=== PATIENT | female | born 1970 | race Caucasian/White ===

== ENCOUNTER 2020-09-28 04:45 | Emergency (ER) | payer MEDICAID, SELFPAY ==
--- NOTE | 2020-09-28 | XR_ITS ---
EXAMINATION: XR CHEST CLINICAL INFORMATION: Chest pain COMPARISON: 04/13/2019 TECHNIQUE: Frontal view of the chest was obtained. FINDINGS: Lung volumes are symmetric. No focal consolidation is seen. No evidence of pneumothorax or pleural effusion. There is suggestion of central peribronchial thickening. The cardiomediastinal contour is unremarkable. No acute osseous findings are seen. XR/XR chest 1V IMPRESSION: Suggestion of central peribronchial thickening which can be seen with airways disease. No focal consolidation.
[2020-09-28 04:54] VITALS: BP 140/77; PULSE 70; RESP 18; TEMP 38.7; O2SAT 95; BMI 26.7
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
--- NOTE | 2020-09-28 05:21 | ED.URI ---
HPI - URI/Sore Throat General Chief Complaint: Upper Respiratory Symptoms Stated Complaint: Chest pain/Cough Time Seen by Provider: 09/28/20 05:21 Source: patient, EMS and executive vice president of sales Mode of arrival: EMS Limitations: no limitations History of Present Illness HPI Narrative: This is a 49-year-old female who came in for evaluation of coughing, chest pain only with cough, fever, chills, body ache symptoms started 3 days ago. Patient just traveled from [facility] a week ago. Possible exposure to a sick Related Data Previous Rx's Medication Instructions Recorded albuterol sulfate [ProAir HFA] 1 inh INHALATION QID PRN #8.5 g 09/28/20 Allergies Allergy/AdvReac Type Severity Reaction Status Date / Time ibuprofen [From MOTRIN] AdvReac Intermediate ABDOMINAL Unverified 05/20/20 16:46 PAIN Motrin Allergy Unknown Uncoded 03/30/20 00:00 Review of Systems Review of Systems: All other systems are reviewed and are negative Constitutional: Reports as per HPI and Reports no additional constitutional complaints Eyes: Reports as per HPI and Reports no additional eye complaints Reports system reviewed and no additional complaints, except as documented Cardiovascular: Reports as per HPI and Reports no additional cardiovascular complaints Respiratory: Reports as per HPI and Reports no additional respiratory complaints Gastrointestinal: Reports as per HPI and Reports no additional gastrointestinal complaints Genitourinary: Reports no additional female genitourinary complaints Musculoskeletal: Reports no additional musculoskeletal complaints Skin/Breast: Reports system reviewed and no additional complaints, except as docu Psychiatric: Reports no additional psychiatric complaints Endocrine: Reports no additional endocrine complaints Hematologic/Lymphatic: Reports no additional hematologic/lymphatic complaints Allergic/Immunologic: Reports no additional allergic/immunologic complaints Reports system reviewed and no additional complaints, except as documented and Reports Abnormal speech present [facility] Social History Social History Advance Directives: No Advance Directives Information Provided: No Physical Exam Vital Signs: Vital Signs: Last Vital Signs Temp 101.7 F H 09/28/20 04:54 Pulse 70 09/28/20 04:54 Resp 18 09/28/20 04:54 BP 140/77 H 09/28/20 04:54 Pulse Ox 95 09/28/20 04:54 Body Mass Index 26.7 Vital signs have been reviewed as normal and appeared to be correct. Blood pressure on the high range. Heart rate normal. Respiration rate normal. Febrile l. Oxygen saturation normal. Appearance: Alert. Oriented X3. No acute distress. Head: Normal external exam. Normocephalic. Atraumatic. No Olea signs noted. No raccoon eyes noted Eyes: PERRLA. EOMI. Conjunctiva and sclera normal. Eyelids normal. ENT: EAC normal. TM's Normal. Pharynx normal. Uvula midline. Moist mucous membranes. No trismus noted. No drooling noted. No muffled voice noted. Neck: Normal inspection. Neck supple. FROM. No adenopathy. Thyroid Normal. No meningeal signs. No neck mass noted. CVS: Normal heart rate and rhythm. Heart sound normal. No murmurs noted. Pulses normal throughout. Respiratory: No respiratory distress. Painless inspiration. Breath sounds normal. No wheezes/rales/rhonchi noted. Chest nontender. No accessory muscle usage noted or decreased air movement noted. Abdomen: Soft and nontender. Bowel sounds normal in all 4 quadrants. No distention noted. No organomegaly noted. No visible injury noted. Back: No CVA tenderness. Full range of motion noted. Skin: Skin warm and dry. Normal skin color. Normal skin turgor. No rashes/lesions/lacerations noted. Extremities: No lower extremity edema. Extremities exhibit normal range of motion. Extremities nontender. Neuro: Oriented X 3. No motor deficit. No sensory deficit. Reflexes normal. MDM - URI/Sore Throat MDM Narrative Medical decision making narrative: Assessment and plan 49-year-old female with history of smoking, recent travel, possible exposure to COVID disease, presented with generalized body ache, fever, chills, difficulty breathing, coughing, patient tested positive for COVID, chest x-ray showing no focal infiltrate, will discharge the patient home with bronchodilator, using the executive vice president of sales I had a lengthy conversation with the patient patient need to stay home using social distancing, mask, frequent handwashing, stop smoking, return if worsening of symptoms, use Tylenol for fever. Negative x-ray, satting above 95% on room air patient stable to be discharged home. Lab Data Attestation: I reviewed the patient's lab results. Labs: Lab Results 09/28/20 Range/Units 05:20 COVID-19 (AIRAM) Positive A (Negative) COVID-19 Clin Com See Note Imaging Data Chest x-ray: Radiologist's impression: Suggestion of central peribronchial thickening which can be seen with airways disease. No focal consolidation. Discharge Plan Discharge Clinical Impression: COVID-19 Patient Disposition: Home, Self-Care Instructions: COVID-19 (Coronavirus Disease 2019) (ED) Additional Instructions: Please quarantine at home for the next 2 weeks, use social distancing, use face mask, frequent hand wash, stop smoking, use Tylenol 500 mg every 6 hours if needed for fever, return to the ED for worsening of the symptoms. Prescriptions: New albuterol sulfate [ProAir HFA] 90 mcg/actuation HFA aerosol inhaler 1 inh inhalation QID PRN (Reason: shortness of breath or wheezing) Qty: 8.5 RF: 0 Referrals: Physician,Unknown [Primary Care Provider] - 2 weeks
[2020-09-28 05:33] LABS: COVID-19 Test Positive (Negative)
--- NOTE | 2020-09-28 05:40 | PC.NURSE ---
COVID SWAB OBTAINED TO LAB. CXR OBTAINED. PT AWAITING FOR FURTHER ORDERS.
[2020-09-28] MEDS: Acetaminophen 325 MG TABLET 650 MG PO (05:46)
--- NOTE | 2020-09-28 05:52 | PC.NURSE ---
PT MEDICATED FOR FEVER PER EMAR.
== END 2020-09-28 06:31 | disposition home or self-care (01) ==
PROVIDERS: Emergency Provider Emergency Medicine
DX: U07.1 COVID-19 (principal)
CPT/HCPCS: 36415; 71045; 87635; 99283

== ENCOUNTER 2020-12-25 10:54 | Emergency (ER) | payer MEDICAID, SELFPAY ==
--- NOTE | ~2020-12-25 | XR_ITS ---
EXAMINATION: XR FOOT, LEFT CLINICAL INFORMATION: Left foot pain. COMPARISON: None TECHNIQUE: AP, lateral, and oblique views of the left foot. FINDINGS: There is no acute fracture or dislocation. The tarsal bones are normally aligned. An incidental type II accessory navicular bone is noted. The soft tissues are unremarkable. XR/XR foot LT min 3V IMPRESSION: No acute left foot abnormality.
[2020-12-25 11:10] VITALS: BP 150/74; PULSE 63; RESP 16; TEMP 36.8; O2SAT 98; BMI 30.4
[2020-12-25] MEDS: Acetaminophen 325 MG TABLET 650 MG PO (11:54)
--- NOTE | 2020-12-25 11:56 | PC.NURSE ---
Pt medicated for pain. Awaiting results of x-rays. Pt is resting quietly.
--- NOTE | 2020-12-25 12:32 | ED_ITS ---
HPI - Extremity Problem General Chief complaint: Extremity Problem Stated complaint: left foot pain Time Seen by Provider: 12/25/20 11:20 Source: patient Mode of arrival: ambulatory Limitations: no limitations History of Present Illness HPI Narrative: States pain and prominence over the dorsum of the left foot. Sta yaakov has had this for a long time and feels like it is getting slightly finger. Complaint: extremity pain Onset (ago): unknown Pain Consistency: intermittent Location: left Quality: aching Radiation: none Relieving factors: cold therapy Exacerbating factors: other (When she wears flip user tied tight and presses on this) Associated symptoms: denies other symptoms Related Data Previous Rx's Medication Instructions Recorded albuterol sulfate [ProAir HFA] 1 inh INHALATION QID PRN #8.5 g 09/28/20 Allergies Allergy/AdvReac Type Severity Reaction Status Date / Time ibuprofen [From MOTRIN] AdvReac Intermediate ABDOMINAL Unverified 05/20/20 16:46 PAIN Review of Systems Review of Systems: Constitutional: No Weight loss, No Fever, No Chills, No Night Sweats, No Fatigue, No Malaise ENT/Mouth: No Hearing loss, No Ear Pain, No Nasal Congestion, No Sinus Pain, No Hoarseness, No sore throat, No Rhinorrhea, No Swallowing Difficulty Eyes: No Eye Pain, No Swelling, No Redness, No Foreign Body, No Discharge, No Vision Changes Cardiovascular: No Chest Pain, No SOB, No Dyspnea on Exertion, No Orthopnea, No Edema, No Palpitations Respiratory: No Cough, No Sputum, No Wheezing, No Smoke Exposure, No Dyspnea Gastrointestinal: No Nausea, No Vomiting, No Diarrhea, No Constipation, No abdominal Pain, No Hematochezia, No Melena Genitourinary: no irregular bleeding, No Dysuria, No Urinary Frequency, No Hematuria, No Urinary Incontinence, No Urgency, No Flank Pain, No Urinary Flow Changes, No Hesitancy Musculoskeletal: No joint pain, No Myalgias, No Joint Swelling, as if HPI Skin: No Skin Lesions, No rash Neuro: No Weakness, No Numbness, No Paresthesias, No Loss of Consciousness, No Dizziness, No Headache Psych: No Social Issues Heme/Lymph: No Bruising, No Bleeding,No Lymphadenopathy Endocrine: No Polyuria, No Polydipsia, No Temperature Intolerance Yes all other systems are reviewed and are negative PMFSH Past Medical History Medical History H/O gastric ulcer H/O gastritis Hyperthyroidism Social History Social History Advance Directives: No Advance Directives Information Provided: No Physical Exam Vital Signs: Vital Signs: Last Vital Signs Temp 98.2 F 12/25/20 11:10 Pulse 63 12/25/20 11:10 Resp 16 12/25/20 11:10 BP 150/74 H 12/25/20 11:10 Pulse Ox 98 12/25/20 11:10 Body Mass Index 30.4 Reviewed Const: General: cooperative and healthy appearing; No acute distress or intoxicated appearing Nutritional Appearance: average body habitus Orientation/consciousness: patient oriented x3 Resp: Effort & Inspection: normal respiratory effort Skin: General skin exam: no rashes or lesions noted Neuro: General: patient oriented x3 Extrem: General: Yes normal to inspection Ankle/foot/toe images: 1. Slightly more prominent compared to the right. Othe rwise no erythema, of his injury. Neurovascular intact. Cap refill within normal limits. Ankle joint without acute findings. Course Course Course Narrative: AP and exam consistent with small ganglionic cyst. Supportive care for this, follow-up, return instructions provided. X-ray of left foot without acute findings. MDM - Extremity (Nontraumatic) Imaging Data Left foot: Radiologist's impression: [address] [id number] ReportSigned Patient: Sixto [place]#: [id number]: 1970Acct:[id number]/Sex: 50 / FADM Date: 12/25/20Loc: HO.EDAttending Dr: Ordering Physician: Reji Márquez NP Date of Service: 12/25/20 Procedure(s): XR foot LT min 3V Accession Number(s): [id number] cc: Reji Márquez NP~ EXAMINATION: XR FOOT, LEFT CLINICAL INFORMATION: Left foot pain. COMPARISON: None TECHNIQUE: AP, lateral, and oblique views of the left foot. FINDINGS: There is no acute fracture or dislocation. The tarsal bones are normally aligned. An incidental type II accessory navicular bone is noted. The soft tissues are unremarkable. XR/XR foot LT min 3V IMPRESSION: No acute left foot abnormality. Dictated By:DAYANA SANTIAGO MDSigned By:<Electronically signed by DAYANA SANTIAGO MD in OV>12/25/20 1214 DD/ 1124TD/TT: Credit Risk Manager: GR Discharge Plan Discharge Clinical Impression: Ganglion cyst of foot Patient Disposition: Home, Self-Care Instructions: Ganglion Cysts (ED) Additional Instructions: Supportive care instructed Follow-up as instructed Return if any concerns or symptoms Home care as instructed Thank you Prescriptions: No Action albuterol sulfate [ProAir HFA] 90 mcg/actuation HFA aerosol inhaler 1 inh inhalation QID PRN (Reason: shortness of breath or wheezing) Qty: 8.5 RF: 0 Referrals: Gretta Espinoza MD [Physician] - 2 weeks (As needed )
--- NOTE | 2020-12-25 13:16 | PC.NURSE ---
Left foot wrapped with owen wrap for comfort. Pt educated on use of owen wrap with the glycerin operator.
== END 2020-12-25 13:17 | disposition home or self-care (01) ==
PROVIDERS: Emergency Provider Emergency Medicine; PCP Internal Medicine
DX: M67.472 Ganglion, left ankle and foot (principal); M79.672 Pain in left foot; Z86.16 Personal history of COVID-19
CPT/HCPCS: 73630; 99283; 99284

== ENCOUNTER 2021-04-12 03:06 | Emergency (ER) | payer MEDICAID, SELFPAY ==
--- NOTE | 2021-04-12 | ECG_ITS ---
Test Reason : CHEST PAIN Blood Pressure : / mmHG Vent. Rate : 056 BPM Atrial Rate : 056 BPM P-R Int : 158 ms QRS Dur : 082 ms QT Int : 404 ms P-R-T Axes : 011 059 -28 degrees QTc Int : 389 ms Sinus bradycardia T wave abnormality, consider lateral ischemia Abnormal ECG When compared with ECG of 12-OCT-2019 21:32, Criteria for Anterolateral infarct are no longer Present Referred By: Korey Redman Electronically Signed By:JOSE MANUEL ESTRELLA MD
[2021-04-12 03:33] VITALS: BP 129/75; PULSE 54; RESP 10; TEMP 37; O2SAT 98; BMI 28.3
[2021-04-12 03:47] VITALS: PULSE 54
== END 2021-04-12 05:08 | disposition left against medical advice (07) ==
PROVIDERS: Emergency Provider Emergency Medicine
DX: R07.9 Chest pain, unspecified (principal); R06.02 Shortness of breath
CPT/HCPCS: 93005; 99283; 99284

== ENCOUNTER 2021-06-07 13:38 | Emergency (ER) | payer MEDICAID, SELFPAY ==
[2021-06-07 14:31] VITALS: BP 115/69; PULSE 57; RESP 18; TEMP 36.8; O2SAT 98; BMI 27.9
--- NOTE | 2021-06-07 17:28 | ED_ITS ---
HPI - URI/Sore Throat General Chief Complaint: Upper Respiratory Symptoms Stated Complaint: sore throat, fever, headache, chest pain Time Seen by Provider: 06/07/21 17:28 Source: patient Mode of arrival: ambulatory Limitations: no limitations History of Present Illness HPI Narrative: Patient history of asthma complaining of sore throat for last few days also complaining of left-sided chest pain in his left arm for last 3 weeks off and on no known history of coronary arteries with no shortness of breath no cough no fever or chills patient already been vaccinated with COVID Related Data Previous Rx's Medication Instructions Recorded albuterol sulfate 90 mcg/actuation 1 inh INHALATION QID PRN #8.5 g 09/28/20 aerosol inhaler (ProAir HFA) amoxicillin 875 mg-potassium 1 tab PO BID #20 tab 06/07/21 clavulanate 125 mg tablet (Augmentin) Allergies Allergy/AdvReac Type Severity Reaction Status Date / Time ibuprofen [From MOTRIN] AdvReac Intermediate ABDOMINAL Verified 06/07/21 14:31 PAIN Review of Systems Review of Systems: Yes all other systems are reviewed and are negative [facility] Past Medical History Medical History H/O gastric ulcer H/O gastritis Hyperthyroidism Social History Social History Alcohol intake: never Patient Tobacco Use Status: Current everyday Tobacco user Advance Directives: No Advance Directives Information Provided: No Physical Exam Vital Signs: Vital Signs: Last Vital Signs Temp 98.2 F 06/07/21 18:04 Pulse 49 L 06/07/21 18:04 Resp 14 06/07/21 18:04 BP 123/64 06/07/21 18:04 Pulse Ox 97 06/07/21 18:04 Body Mass Index 27.9 Appearance: Alert. Oriented X3. No acute distress. Eyes: No pallor or icterus ENT: Inflamed posterior pharynx Oral Mucosa moist Neck: Normal inspection. Neck supple. CVS: Normal heart rate and rhythm. Pulses normal. Respiratory: No respiratory distress. Equal air entry bilateral, no wheezing/rales/rhonchi Abdomen: Soft and nontender. Bowel sounds are present, no mass palpable, Skin: Skin warm and dry. Normal skin color. Normal skin turgor. Extremities: No lower extremity edema. No calf tenderness Neuro: Oriented X 3. MDM - URI/Sore Throat MDM Narrative Medical decision making narrative: Patient has atypical chest pain for 3 weeks without any significant increase in the troponin pain is elicitable on palpation to the left chest no acute ischemic changes EKG high sensitive troponin is negative for acute ischemia will discharge patient home on Augmentin for acute pharyngitis advised to follow with PCP Lab Data Attestation: I reviewed the patient's lab results. Labs: Lab Results 06/07/21 Range/Units 18:09 Troponin I High Sens 8.4 (<3.5-17.0) ng/L ECG Data Attestation: I personally reviewed and interpreted this ECG as follows: Interpretation: Sinus bradycardia heart rate 49 beats per minute normal intervals no acute ST T wave changes nonspecific T-wave changes no acute ischemia Discharge Plan Discharge Clinical Impression: Pharyngitis Qualifiers: Pharyngitis/tonsillitis etiology: other specified organisms Qualified Code(s): J02.8 - Acute pharyngitis due to other specified organisms Patient Disposition: Home, Self-Care Instructions: Pharyngitis (ED) Additional Instructions: Take antibiotic as prescribed Follow with PCP if not better Follow with PCP for further evaluation for chest pain [place] antibi?didi seg?n lo prescrito Siga [place] PCP si no mejora [place] PCP para david evaluaci?n adicional del dolor en el [facility]. Prescriptions: New amoxicillin-pot clavulanate [Augmentin] 875-125 mg tablet 1 tab PO BID Qty: 20 RF: 0 No Action albuterol sulfate [ProAir HFA] 90 mcg/actuation HFA aerosol inhaler 1 inh inhalation QID PRN (Reason: shortness of breath or wheezing) Qty: 8.5 RF: 0 Print Language: Turkmen
--- NOTE | 2021-06-07 17:45 | PC.NURSE ---
pt alert and oriented, vss. pt c/o sore throat that started a few days ago, she also c/o left sided chest pain that has been on and off for about 3 weeks. pt has history of asthma. no c/o sob, no cough, no fever or chills. pt states she knows there is an infection in her throat because that is how she feels whenever she has a throat infection. No other c/o.
--- NOTE | 2021-06-07 17:48 | ECG_ITS ---
Test Reason : SOB Blood Pressure : / mmHG Vent. Rate : 049 BPM Atrial Rate : 049 BPM P-R Int : 156 ms QRS Dur : 080 ms QT Int : 446 ms P-R-T Axes : 015 068 -02 degrees QTc Int : 402 ms Sinus bradycardia T wave abnormality, consider anterior ischemia T wave abnormality, consider inferolateral ischemia Abnormal ECG When compared with ECG of 12-APR-2021 03:22, No significant change was found Referred By: Sae Conley Electronically Signed By:JASWINDER HUDSON
[2021-06-07 18:04] VITALS: BP 123/64; PULSE 49; RESP 14; TEMP 36.8; O2SAT 97
[2021-06-07] MEDS: Amoxicillin/Potassium Clav 875 MG TABLET PO (18:04)
[2021-06-07 18:36] LABS: Troponin-I High Sensitivity 8.4 ng/L (<3.5-17.0)
== END 2021-06-07 19:07 | disposition home or self-care (01) ==
PROVIDERS: Emergency Provider Internal Medicine
DX: J02.8 Acute pharyngitis due to other specified organisms (principal); R50.9 Fever, unspecified; R51.9 Headache, unspecified; R07.9 Chest pain, unspecified; Z20.822 Contact with and (suspected) exposure to COVID-19
CPT/HCPCS: 36415; 84484; 93005; 99283

== ENCOUNTER 2021-06-27 17:34 | Emergency (ER) | payer MEDICAID, SELFPAY ==
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
[2021-06-27 17:54] VITALS: BP 160/99; PULSE 78; O2SAT 100
[2021-06-27 18:35] VITALS: BP 135/86; PULSE 69; RESP 16; TEMP 36.8; O2SAT 99; BMI 28.3
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
[2021-06-27] MEDS: oxyCODONE HCl Immed Release 5 MG TABLET 10 MG PO (20:12)
== END 2021-06-27 20:40 | disposition home or self-care (01) ==
PROVIDERS: Emergency Provider Internal Medicine
DX: S90.02XA Contusion of left ankle, initial encounter (principal); V89.2XXA Person injured in unspecified motor-vehicle accident, traffic, initial encounter; Y93.9 Activity, unspecified; Y92.410 Unspecified street and highway as the place of occurrence of the external cause; Y99.9 Unspecified external cause status
CPT/HCPCS: 73600; 99283; 99284

== ENCOUNTER 2021-08-08 10:11 | Emergency (ER) | payer MEDICAID, SELFPAY ==
--- NOTE | ~2021-08-08 | XR_ITS ---
EXAMINATION: XR CHEST CLINICAL INFORMATION: Cough. COMPARISON: Chest 09/28/2020 TECHNIQUE: 2 views of the chest were obtained. FINDINGS: No significant abnormality is noted involving the heart, lungs, mediastinum, bony thorax or soft tissues. XR/XR chest 2V IMPRESSION: Unremarkable chest examination.
[2021-08-08 10:36] VITALS: BP 118/78; PULSE 80; RESP 16; TEMP 36.8; O2SAT 98; BMI 28.3
[2021-08-08 11:03] LABS: IDNOW Serial# 08D9AD1C; Strep A Nucleic Acid Negative (Negative)
[2021-08-08 11:09] LABS: COVID-19 Test Negative (Negative)
--- NOTE | 2021-08-08 13:30 | ED_ITS ---
HPI - URI/Sore Throat General Chief Complaint: Upper Respiratory Symptoms Stated Complaint: Chest pain/SOB Time Seen by Provider: 08/08/21 13:30 Source: patient Mode of arrival: ambulatory Limitations: no limitations History of Present Illness HPI Narrative: 1 week of feeling sick with cough. patient had COVID and then was vaccinated, now with COVID again. MD elicited complaint: cough Onset (ago): week(s) Consistency: constant Severity: mild Exacerbating factors: nothing Relieving factors: nothing Associated symptoms: cough Related Data Previous Rx's Medication Instructions Recorded albuterol sulfate 90 mcg/actuation 1 inh INHALATION QID PRN #8.5 g 09/28/20 aerosol inhaler (ProAir HFA) amoxicillin 875 mg-potassium 1 tab PO BID #20 tab 06/07/21 clavulanate 125 mg tablet (Augmentin) oxycodone 5 mg tablet 5 mg PO Q6H PRN #20 tab 06/27/21 moycckhdjpiqi-ZK-hkxqhxozajv 2.5 20 ml PO Q4H PRN #118 ml 08/08/21 mg-5 mg-50 mg/5 mL oral liquid (Robitussin Cough and Cold CF) Allergies Allergy/AdvReac Type Severity Reaction Status Date / Time ibuprofen [From MOTRIN] AdvReac Intermediate ABDOMINAL Verified 06/07/21 14:31 PAIN Review of Systems Constitutional: Constitutional: Reports no additional constitutional compla ints Eyes: Eyes: Reports no additional eye complaints ENT: Denies dizziness Cardiovascular: Cardiovascular: Reports no additional cardiovascular complaints Respiratory: Respiratory: Reports as per HPI Gastrointestinal: Gastrointestinal: Reports no additional gastrointestinal complaints Genitourinary: Genitourinary: Reports no additional female genitourinary complaints Musculoskeletal: Musculoskeletal: Reports no additional musculoskeletal com plaints Integumentary/Breasts: Skin/Breast: Denies rash Neurologic: Reports system reviewed and no additional complaints, except as documented, Denies dizziness and Denies Sensory deficit (Neuro) Psychiatric: Psychiatric: Denies anxiety [facility] Past Medical History Medical History H/O gastric ulcer H/O gastritis Hyperthyroidism Social History Social History Alcohol intake: never Patient Tobacco Use Status: Current everyday Tobacco user Physical Exam Vital Signs: Vital Signs: Last Vital Signs Temp 98.3 F 08/08/21 10:36 Pulse 80 08/08/21 10:36 Resp 16 08/08/21 10:36 BP 118/78 08/08/21 10:36 Pulse Ox 98 08/08/21 10:36 BMI result Body Mass Index 28.3 Const: General: healthy appearing Nutritional Appearance: average body habitus Orientation/consciousness: oriented to person and patient oriented x3 Limitations: no limitations HENMT: Head: Yes normal to inspection Ears: external ears normal General nose exam: Normal external nose present Mouth: Normal oral and palatal mucosa present and oropharynx normal Throat: Yes posterior oropharynx normal Eyes: General: appearance normal, both eyes and all related structures Neck: Other: supple Neck: Yes normal visual inspection Chest: Chest palpation & inspection: normal inspection of the chest Resp: Auscultation: clear to auscultation bilaterally Cardio: Jugular venous distension: no JVD Rate: regular rate Rhythm: regular rhythm Heart sounds: S1 normal heart sound present and S2 normal heart sound present GI: Inspection: Yes normal to inspection Palpation (GI): Soft to palpation, nontender and No hepatosplenomegaly present Auscultation: normal bowel sounds : General: Yes no CVA tenderness Back/Spine/Pelvis: Back: no CVA tenderness Skin: General skin exam: no rashes or lesions noted Neuro: General: oriented to person and patient oriented x3 Cranial nerves: Yes CN's II-XII intact bilaterally Motor exam (neuro): 5/5 motor strength present throughout Sensory Exam: No Sensory deficit (Neuro) Extrem: General: Yes normal to inspection Psych: Appearance: grossly normal Course Reevaluation(s) Reevaluation #1: Patient looking well, normal vitals will dc home Time: 13:47 MDM - URI/Sore Throat Lab Data Labs: Lab Results 08/08/21 08/08/21 Range/Units 10:42 10:42 COVID-19 (AIRAM) Negative (Negative) COVID-19 Clin Com See Note S. pyogenes GrpA TREVOR Negative (Negative) Imaging Data Chest x-ray: Radiologist's impression: FINDINGS: No significant abnormality is noted involving the heart, lungs, mediastinum, bony thorax or soft tissues. XR/XR chest 2V IMPRESSION: Unremarkable chest examination. Discharge Plan Discharge Clinical Impression: COVID-19, Upper respiratory infection Patient Disposition: Home, Self-Care Instructions: COVID-19 (Coronavirus Disease 2019) (ED) Prescriptions: New Robitussin Cough and Cold CF 2.5-5-50 mg/5 mL liquid 20 ml PO Q4H PRN (Reason: cough) Qty: 118 RF: 0 No Action albuterol sulfate [ProAir HFA] 90 mcg/actuation HFA aerosol inhaler 1 inh inhalation QID PRN (Reason: shortness of breath or wheezing) Qty: 8.5 RF: 0 amoxicillin-pot clavulanate [Augmentin] 875-125 mg tablet 1 tab PO BID Qty: 20 RF: 0 oxycodone 5 mg tablet 5 mg PO Q6H PRN (Reason: Pain, Severe) Qty: 20 RF: 0 Referrals: Physician,Unknown J [Primary Care Provider] - 1 week
== END 2021-08-08 13:56 | disposition home or self-care (01) ==
LOC: HO.ED 13:51
PROVIDERS: Emergency Provider Emergency Medicine
DX: U07.1 COVID-19 (principal); J06.9 Acute upper respiratory infection, unspecified; R06.02 Shortness of breath; F17.200 Nicotine dependence, unspecified, uncomplicated
CPT/HCPCS: 36415; 71046; 87635; 87651; 99283

== ENCOUNTER 2021-08-12 13:22 | Outpatient (REF) | payer MEDICAID, SELFPAY | END 2021-08-12 13:23 | disposition home or self-care (01) | LOC: HO.LAB 13:22 | PROVIDERS: Visit Provider Internal Medicine | DX: Z20.822 Contact with and (suspected) exposure to COVID-19 (principal) | CPT/HCPCS: C9803; U0003; U0005 ==

== ENCOUNTER 2021-10-26 15:28 | Outpatient (REF) | payer MEDICAID, SELFPAY ==
--- NOTE | ~2021-10-26 | US_ITS ---
EXAMINATION: US THYROID CLINICAL INFORMATION: Hypothyroidism COMPARISON: None TECHNIQUE: Linear transducer grayscale and color Doppler examination with attention to the region of the thyroid. FINDINGS: SIZE: Measurements of the thyroid lobes and nodules are given in sagittal, anteroposterior and transverse dimensions respectively. Right Thyroid Lobe: 3.1 x 1.5 x 1.7 cm, volume 4.0 mL. Parenchyma: The gland echotexture is very heterogeneous. Thyroid vascularity is normal. The contour is lobulated. Left Thyroid Lobe: 3.2 x 1.3 x 1.4 cm, volume 3.0 mL. Parenchyma: The gland echotexture is very heterogeneous. Thyroid vascularity is normal. The contour is lobulated. Isthmus: 0.1 cm in maximum AP dimension. It is difficult to exclude a focal nodule. NODES: There is question of small lymph nodes versus lobulated contour adjacent to the inferior left lobe. There is a more lateral left cervical lymph node that is normal in size and demonstrate normal ultrasound morphology and flow. This measures 1.8 x 0.4 x 1 cm in sagittal AP and transverse dimension. US/US thyroid IMPRESSION: Small lobulated very heterogeneous thyroid gland. It is difficult to exclude a focal nodule. Question small lymph nodes adjacent to the left lobe versus lobulated contour. Comparison with old outside imaging if available is recommended. ACR TI-RADS RECOMMENDATION REFERENCE: Ultrasound-guided fine-needle aspiration, followup ultrasound, no further follow up. * TR1 (0 point) and TR 2 (2 points): No FNA or follow up * TR3 (3 points): FNA if more than or equal to 2.5 cm in maximum dimension, followup ultrasound in 1, 3 and 5 years if 1.5 to 2.4 cm in maximum dimension. * TR4 (4-6 points): FNA if more than or equal to 1.5 cm in maximum dimension, followup ultrasound in 1, 2, 3 and 5 years if 1 to 1.4 cm in maximum dimension. * TR5 (more than or equal to 7 points): FNA if more than or equal to 1 cm in maximum dimension, followup ultrasound every year for 5 years if 0.5 to 0.9 cm in maximum dimension. * TR3, TR4 or TR5 nodules that are below the size threshold for follow up receive no follow up.
== END 2021-10-26 15:29 | disposition home or self-care (01) ==
LOC: HO.US 15:28
PROVIDERS: Visit Provider Internal Medicine
DX: E03.9 Hypothyroidism, unspecified (principal)
CPT/HCPCS: 76536

== ENCOUNTER 2021-11-11 15:33 | Emergency (ER) | payer MEDICAID, SELFPAY ==
--- NOTE | ~2021-11-11 | XR_ITS ---
EXAMINATION: PORTABLE CHEST 1 VIEW CLINICAL INFORMATION: CP . COMPARISON: . TECHNIQUE: Portable frontal view of the chest was obtained. FINDINGS: Lungs well-expanded. Peribronchial cuffing is seen bilaterally with mild perihilar reticular markings seen. Reactive or small airways disease could have this appearance viral or atypical infectious etiology cannot be excluded. Clinical correlation and follow-up may be helpful. Cardiac silhouette remains prominent. No acute bony abnormality. XR/XR chest 1V IMPRESSION: Peribronchial cuffing with mild perihilar reticular markings could be due to underlying reactive or small airways disease. Bronchitis or viral infectious etiology could have overlapping appearance and should be clinically correlated.
[2021-11-11 15:49] VITALS: BP 134/70; PULSE 62; RESP 16; TEMP 36.8; O2SAT 98; BMI 27.4
--- NOTE | 2021-11-11 19:09 | ECG_ITS ---
Test Reason : CHEST PAIN Blood Pressure : / mmHG Vent. Rate : 052 BPM Atrial Rate : 052 BPM P-R Int : 164 ms QRS Dur : 078 ms QT Int : 422 ms P-R-T Axes : 012 058 266 degrees QTc Int : 392 ms Sinus bradycardia with sinus arrhythmia Low voltage QRS T wave abnormality, consider inferior ischemia T wave abnormality, consider anterolateral ischemia Abnormal ECG When compared with ECG of 07-JUN-2021 17:58, T wave inversion more evident in Inferior leads Inverted T waves have replaced nonspecific T wave abnormality in Lateral leads Referred By: Generic ED Physician Electronically Signed By:JOSE MANUEL ESTRELLA MD
--- NOTE | 2021-11-11 19:33 | PC.NURSE ---
called for labs and ekg no answer
[2021-11-11 20:07] LABS: MANUAL DIFF FLAG NO
[2021-11-11 20:08] LABS: Basophils Absolute Auto 0.1 X10*3/uL (0.0-0.2); Basophils Percent Auto 0.6 % (0-2); Eosinophils Absolute Auto 0.4 X10*3/uL (0.0-0.4); Eosinophils Percent Auto 3.1 % (0-4); Hemoglobin 14.6 g/dl (12.0-16.0); Imm Gran Abs Auto 0.05 X10*3/uL (0.00-0.03); Imm Gran Pct Auto 0.4 % (0.0-0.4); Lymphocytes Absolute Auto 3.8 X10*3/uL (1.2-4.9); Lymphocytes Percent Auto 31.7 % (20-40); Mean Corpuscular HGB Conc 33.2 g/dl (31.0-35.0); Mean Corpuscular Hemoglobin 30.7 pg (27.0-33.0); Mean Corpuscular Volume 92.4 fL (80.0-98.0); Mean Platelet Volume 11.2 fL (9.4-12.3); Monocytes Absolute Auto 0.8 X10*3/uL (0.1-1.2); Monocytes Percent Auto 6.8 % (2-11); Neutrophils Percent Auto 57.4 % (45-73); Platelet Count 260 X10*3/uL (160-400); Red Blood Count 4.76 X10*6/uL (4.20-5.50); Red Cell Distribution Width 13.8 % (11.0-16.0); White Blood Count 12.1 X10*3/uL (4.8-10.8)
[2021-11-11 20:30] LABS: Anion Gap 11 (12-20); Blood Urea Nitrogen 16 mg/dL (9-16); Calcium 9.6 mg/dL (8.4-10.2); Carbon Dioxide 29 mmol/L (22-29); Chloride 106 mmol/L (96-108); Creatinine Clr Calc Pharmacy 65.4; Estimated Glomerular Filt Rate 56; Glucose Random 85 mg/dL (60-115); Potassium 3.9 mmol/L (3.3-5.1); Sodium 142 mmol/L (135-145)
[2021-11-11 20:36] LABS: Troponin-I High Sensitivity 9.7 ng/L (<3.5-17.0)
[2021-11-11 22:08] VITALS: BP 137/76; PULSE 55; RESP 16; TEMP 36.9; O2SAT 95
--- NOTE | 2021-11-11 22:39 | PC.NURSE ---
initial contact. pt reports sharp pain in lateral aspect of left breast. Pt states this pain radiates to the center of the chest. She states occasional palpitations. Pt states it feels like chest pressure. Pt states she also gets right arm pain and numbness when she sleeps. Pupils perrl, Ls clear, pt sinus alen on the monitor. pt ambulates with a steady gait. denies any other complaints. Interp used for assessment
--- NOTE | 2021-11-11 22:49 | ED.CHESTPAIN ---
HPI - Chest Pain General Chief Complaint: Chest Pain Stated Complaint: chest pain Time Seen by Provider: 11/11/21 20:05 Source: patient Mode of arrival: ambulatory Limitations: no limitations History of Present Illness HPI narrative: patient comes emergency room complaining of left-sided chest pain and shoulder pain for 1 week. patient states the pain is constant, nonradiating. Patient denies any injury. It to arrival, EMS gave the patient 1 dose of aspirin 324 mg. Patient denies shortness of breath. Related Data Previous Rx's Medication Instructions Recorded albuterol sulfate 90 mcg/actuation 1 inh INHALATION QID PRN #8.5 g 09/28/20 aerosol inhaler (ProAir HFA) amoxicillin 875 mg-potassium 1 tab PO BID #20 tab 06/07/21 clavulanate 125 mg tablet (Augmentin) oxycodone 5 mg tablet 5 mg PO Q6H PRN #20 tab 06/27/21 vumpbazoekjhp-RL-debwsqcesjg 2.5 20 ml PO Q4H PRN #118 ml 08/08/21 mg-5 mg-50 mg/5 mL oral liquid (Robitussin Cough and Cold CF) Allergies Allergy/AdvReac Type Severity Reaction Status Date / Time ibuprofen [From MOTRIN] AdvReac Intermediate ABDOMINAL Verified 06/07/21 14:31 PAIN Review of Systems Review of Systems: Constitutional : No Weight loss, No Fever, No Chills, No Night Sweats, No Fatigue, No Malaise ENT/Mouth : No Hearing loss, No Ear Pain, No Nasal Congestion, No Sinus Pain, No Hoarseness, No sore throat, No Rhinorrhea, No Swallowing Difficulty Eyes: No Eye Pain, No Swelling, No Redness, No Foreign Body, No Discharge, No Vision Changes Cardiovascular : Complaining of constant chest pain for 7 days, No SOB, No Dyspnea on Exertion, No Orthopnea, No Edema, No Palpitations Respiratory : No Cough, No Sputum, No Wheezing, No Smoke Exposure, No Dyspnea Gastrointestinal : No Nausea, No Vomiting, No Diarrhea, No Constipation, No abdominal Pain, No Hematochezia, No Melena Genitourinary : no irregular bleeding, No Dysuria, No Urinary Frequency, No Hematuria, No Urinary Incontinence, No Urgency, No Flank Pain, No Urinary Flow Changes, No Hesitancy Musculoskeletal : No joint pain, No Myalgias, No Joint Swelling Skin : No Skin Lesions, No rash Neuro : No Weakness, No Numbness, No Paresthesias, No Loss of Consciousness, No Dizziness, No Headache Psych : No Anxiety/Panic, No Depression, No SI/HI/AH/VH, No Social Issues, Heme/Lymph: No Bruising, No Bleeding,No Lymphadenopathy Endocrine : No Polyuria, No Polydipsia, No Temperature Intolerance PMFSH Past Medical History Medical History H/O gastric ulcer H/O gastritis Hyperthyroidism Social History Social History Alcohol intake: never Patient Tobacco Use Status: Current everyday Tobacco user Advance Directives: No Advance Directives Information Provided: Yes Physical Exam Vital Signs: Vital Signs: Last Vital Signs Temp 98.5 F 11/11/21 22:08 Pulse 55 11/11/21 22:08 Resp 16 11/11/21 22:08 BP 137/76 11/11/21 22:08 Pulse Ox 95 11/11/21 22:08 BMI result Body Mass Index 27.4 Const: Other: Appearance: Alert. Oriented X3. No acute distress. Eyes: Pupils equal, round and reactive to light. ENT: Pharynx normal. Neck: Normal inspection. Neck supple. No lymph nodes noted. No crepitus CVS: Normal heart rate and rhythm. Pulses normal. Normal S1 and S2, reproducible chest pain on palpation on the left side Respiratory: No respiratory distress. Breath sounds normal. No Wheezing. No rales Abdomen: Soft and nontender. No rigidity. No distention. good BS x4 Skin: Skin warm and dry. Normal skin color. Normal skin turgor. Extremities: No lower extremity edema. No Lacerations. No Rash Neuro: Oriented X 3. No motor deficit. No sensory deficit. Moving all extermities. No slurred speech. CN 2 through 12 grossly intact Course Course Course Narrative: I discussed the labs and imaging with the patient, no acute findings, troponin is at baseline. Pain likely musculoskeletal MDM - Chest Pain Lab Data Result diagrams: 11/11/21 20:02 11/11/21 20:02 Labs: Lab Results 11/11/21 11/11/21 11/11/21 Range/Units 20:02 20:02 20:02 WBC 12.1 H (4.8-10.8) X10*3/uL RBC 4.76 (4.20-5.50) X10*6/uL Hgb 14.6 (12.0-16.0) g/dl Hct 44.0 (37.0-47.0) % MCV 92.4 (80.0-98.0) fL MCH 30.7 (27.0-33.0) pg MCHC 33.2 (31.0-35.0) g/dl RDW 13.8 (11.0-16.0) % Plt Count 260 (160-400) X10*3/uL MPV 11.2 (9.4-12.3) fL Immature Gran % (Auto) 0.4 (0.0-0.4) % Neut % (Auto) 57.4 (45-73) % Lymph % (Auto) 31.7 (20-40) % [place] % (Auto) 6.8 (2-11) % Eos % (Auto) 3.1 (0-4) % Baso % (Auto) 0.6 (0-2) % Lymph # (Auto) 3.8 (1.2-4.9) X10*3/uL [place] # (Auto) 0.8 (0.1-1.2) X10*3/uL Eos # (Auto) 0.4 (0.0-0.4) X10*3/uL Baso # (Auto) 0.1 (0.0-0.2) X10*3/uL Abs Immat Gran (auto) 0.05 H (0.00-0.03) X10*3/uL Absolute Neuts (auto) 7.0 (2.0-8.3) x10*3/uL Absolute Nucleated RBC 0.000 (0.0-0.012) X10*3/uL Nucleated RBC % (auto) 0.0 (0.0-0.2) /100WBC Sodium 142 (135-145) mmol/L Potassium 3.9 (3.3-5.1) mmol/L Chloride 106 (96-108) mmol/L Carbon Dioxide 29 (22-29) mmol/L Anion Gap 11 L (12-20) BUN 16 (9-16) mg/dL Creatinine 1.03 (0.5-1.4) mg/dL Estim Creat Clear Calc 65.4 Estimated GFR 56 Random Glucose 85 (60-115) mg/dL Calcium 9.6 (8.4-10.2) mg/dL Troponin I High Sens 9.7 (<3.5-17.0) ng/L ECG Data ECG #1: Attestation: I personally reviewed and interpreted this ECG as follows: ( sinus rhythm, heart rate 52, nonspecific T-wave inversions in inferior leads, V3 to V6, this is all chronic. Previously seen in EKGs from 2020) Discharge Plan Discharge Clinical Impression: Atypical chest pain Patient Disposition: Home, Self-Care Instructions: Chest Pain (ED) Additional Instructions: Please follow-up with your primary care physician tomorrow. If you have any worsening or new symptoms, please return to the emergency room or call 911 Prescriptions: No Action albuterol sulfate [ProAir HFA] 90 mcg/actuation HFA aerosol inhaler 1 inh inhalation QID PRN (Reason: shortness of breath or wheezing) Qty: 8.5 0RF amoxicillin-pot clavulanate [Augmentin] 875-125 mg tablet 1 tab PO BID Qty: 20 0RF oxycodone 5 mg tablet 5 mg PO Q6H PRN (Reason: Pain, Severe) Qty: 20 0RF Robitussin Cough and Cold CF 2.5-5-50 mg/5 mL liquid 20 ml PO Q4H PRN (Reason: cough) Qty: 118 0RF
== END 2021-11-11 23:25 | disposition home or self-care (01) ==
PROVIDERS: Emergency Provider Emergency Medicine
DX: R07.89 Other chest pain (principal)
CPT/HCPCS: 36415; 71045; 80048; 84484; 85025; 93005; 99284

== ENCOUNTER 2021-12-21 15:59 | Emergency (ER) | payer MEDICAID, SELFPAY ==
--- NOTE | ~2021-12-21 | XR_ITS ---
EXAMINATION: XR LUMBOSACRAL SPINE CLINICAL INFORMATION: Low back pain after fall yesterday COMPARISON: None TECHNIQUE: Three views of the lumbosacral spine. FINDINGS: The vertebral bodies and posterior elements are normal aside from some minimal spondylitic endplate changes most marked at T12-L1. The disc spaces are preserved and the vertebral alignment is normal. The paraspinal soft tissues are normal. XR/XR lumbar spine 2-3V IMPRESSION: Some minimal spondylitic degenerative changes. No evidence of an acute traumatic injury.
[2021-12-21 16:59] VITALS: BP 133/60; PULSE 71; RESP 17; TEMP 36.3; O2SAT 98; BMI 29.2
--- NOTE | 2021-12-21 17:36 | ED_ITS ---
HPI - Back Pain/Injury General Chief Complaint: Back Pain/Injury Stated Complaint: back pain Time Seen by Provider: 12/21/21 17:27 Source: patient Mode of arrival: ambulatory Limitations: no limitations History of Present Illness HPI Narrative: 51 yo female presents to the ER with 2 days of lower back pain. She reports pain started after she was doing a lot of sweeping at home. It is worse with twisting movements, lifting and walking. She reports the pain is severe, 10/10. It is across her entire back and does not radiate. She has no weakness, numbness, tingling in her legs. She denies urinary or bowel incontinence. She has been taking Tylenol with no relief. She denies any urinary symptoms. Denies any history of low back pain to this severity. MD elicited complaint: back pain Onset (ago): day(s) (2) Timing: constant Severity: severe Pain scale (0-10): 10 Similar Symptoms Previously: Yes Quality: sharp, aching and spasming Location: right lower back and left lower back Radiation: none Exacerbating factors: movement and walking Relieving factors: immobilization Context: while lifting and turning/twisting Associated symptoms: denies other symptoms Treatments prior to arrival: acetaminophen Work related injury: No Related Data Previous Rx's Medication Instructions Recorded albuterol sulfate 90 mcg/actuation 1 inh INHALATION QID PRN #8.5 g 09/28/20 aerosol inhaler (ProAir HFA) amoxicillin 875 mg-potassium 1 tab PO BID #20 tab 06/07/21 clavulanate 125 mg tablet (Augmentin) oxycodone 5 mg tablet 5 mg PO Q6H PRN #20 tab 06/27/21 weifxwrmaqioc-IW-kexttvftwph 2.5 20 ml PO Q4H PRN #118 ml 08/08/21 mg-5 mg-50 mg/5 mL oral liquid (Robitussin Cough and Cold CF) acetaminophen 650 mg 650 mg PO Q8H PRN #30 tab 12/21/21 tablet,extended release (Tylenol Arthritis Pain) cyclobenzaprine 10 mg tablet 10 mg PO TID PRN #14 tab 12/21/21 lidocaine 5 % topical patch 1 patch TOPICAL DAILY #15 ea 12/21/21 oxycodone 5 mg tablet 5 mg PO Q6H PRN #7 tab 12/21/21 Allergies Allergy/AdvReac Type Severity Reaction Status Date / Time ibuprofen [From MOTRIN] AdvReac Intermediate ABDOMINAL Verified 06/07/21 14:31 PAIN Review of Systems Review of Systems: Constitutional: No Fever, No Chills Cardiovascular: No Chest Pain, No SOB Respiratory: No Cough, No Sputum Gastrointestinal: No Nausea, No Vomiting, No abdominal Pain Genitourinary: No Dysuria, No Urinary Frequency, No Hematuria Musculoskeletal: No joint pain, +Myalgias Skin: No Skin Lesions, No rash Neuro: No Weakness, No Numbness, No Dizziness, No Headache Heme/Lymph: No Bruising, No Lymphadenopathy [facility] Past Medical History Attestation statement: The following information was validated with the patient. Medical History (Updated 12/21/21 @ 20:25 by CAMRON Payne) Arthritis H/O gastric ulcer H/O gastritis High cholesterol Hyperthyroidism Low calcium levels Social History Social History Alcohol intake: never Patient Tobacco Use Status: Current everyday Tobacco user Advance Directives: No Advance Directives Information Provided: No Physical Exam Vital Signs: Vital Signs: Last Vital Signs Temp 97.4 F 12/21/21 16:59 Pulse 71 12/21/21 16:59 Resp 17 12/21/21 16:59 BP 133/60 12/21/21 16:59 Pulse Ox 98 12/21/21 16:59 BMI result Body Mass Index 29.2 Appearance: Alert. Oriented X3. No acute distress. Eyes: Pupils equal, round and reactive to light. ENT: Pharynx normal. Neck: Normal inspection. Neck supple. CVS: Normal heart rate and rhythm. Pulses normal. Respiratory: No respiratory distress. Breath sounds normal. Back: soft tissue Skin: Skin warm and dry. Normal skin color. Normal skin turgor. No rashes. Extremities: No lower extremity edema. Neuro: Oriented X 3. Slow but steady gait Course Course Course Narrative: 51-year-old female presents to the ER with lower back pain for the last 2 days. She reports pain was after sweeping. Worse with movement and palpation. No urinary symptoms. No red flag symptoms of low back pain. She has soft tissue tenderness and palpable spasm on examination. She is asking for an x-ray of her lumbar spine. Will also check urinalysis. Will medicate with oxycodone and Toradol and reassess. Reevaluation(s) Reevaluation #1: Patient continues to report pain and other dose of oxycodone ordered with improvement in the pain. Her urinalysis is negative for infection. Her x-ray was unremarkable. She is feeling better after another dose of oxycodone. manager estate was used to discuss symptomatic management of lumbar strain and low back pain. She was encouraged follow up with her primary care doctor, she would likely benefit from physical therapy. She is stable for discharge home, return precautions were discussed. MDM - Back Pain/Injury Lab Data Labs: Lab Results 12/21/21 Range/Units 17:52 Urine Color YELLOW Urine Appearance CLEAR Urine pH 6.0 (5.0-8.0) Ur Specific [place] >= 1.030 H (1.005-1.025) Urine Protein NEG (NEG-TRACE) MG/DL Urine Glucose (UA) NEG (NEG) MG/DL Urine Ketones NEG (NEG) MG/DL Urine Blood TRACE (NEG) Urine Nitrite NEG (NEG) Ur Leukocyte Esterase NEG (NEG) Urine RBC 1-4 (0) /HPF Urine WBC 0 (0-4) /HPF Ur Squamous Epith Cells NONE /LPF Calcium Oxalate Crystal 2+ /LPF Urine Bacteria NONE /LPF Critical Care Time Critical Care Time Critical Care Time: No Discharge Plan Discharge Clinical Impression: Strain of lumbar region Patient Disposition: Home, Self-Care Instructions: Low Back Strain (ED), Lower Back Exercises (ED) Additional Instructions: No bending, lifting or twisting. Use ice several times per day for 20 minutes at a time for the next 48 hours and then change to heat. Take medications as prescribed to help with pain and discomfort. Follow up with your Primary Care Doctor this week. If your pain worsens, if you develop new numbness, tingling, weakness, loss of function or incontinence call 911 or come back to the ER right away for evaluation. Sin doblar, levantar o torcer. Use hielo varias veces al d?a roque 20 minutos a la vez roque las pr?ximas 48 horas y luego cambie a calor. [place] los medicamentos seg?n lo prescrito para ayudar con el dolor y la incomodidad. [place] un seguimiento con [place] m?dico de atenci?n primaria esta semana. Si [place] dolor empeora, si desarrolla un nuevo entumecimiento, hormigueo, debilidad, p?rdida de funci?n o incontinencia, llame al 911 o regrese a la jillian de emergencias de inmediato para david evaluaci?n. Prescriptions: New cyclobenzaprine 10 mg tablet 10 mg PO TID PRN (Reason: muscle spasm) Qty: 14 0RF lidocaine 5 % adhesive patch,medicated 1 patch topical DAILY Qty: 15 0RF Rx Instructions: leave on most painful area for up to 12 hrs acetaminophen [Tylenol Arthritis Pain] 650 mg tablet extended release 650 mg PO Q8H PRN (Reason: pain) Qty: 30 0RF oxycodone 5 mg tablet 5 mg PO Q6H PRN (Reason: severe pain (scale score 7-10)) Qty: 7 0RF No Action albuterol sulfate [ProAir HFA] 90 mcg/actuation HFA aerosol inhaler 1 inh inhalation QID PRN (Reason: shortness of breath or wheezing) Qty: 8.5 0RF amoxicillin-pot clavulanate [Augmentin] 875-125 mg tablet 1 tab PO BID Qty: 20 0RF oxycodone 5 mg tablet 5 mg PO Q6H PRN (Reason: Pain, Severe) Qty: 20 0RF Robitussin Cough and Cold CF 2.5-5-50 mg/5 mL liquid 20 ml PO Q4H PRN (Reason: cough) Qty: 118 0RF Interventions: ED Discharge Assessment Last Done: 12/21/21 20:55
[2021-12-21] MEDS: Ketorolac Tromethamine 30 MG/ML VIAL IM (17:47)
[2021-12-21] MEDS: oxyCODONE HCl Immed Release 5 MG TABLET PO ×2 (17:47→18:54)
[2021-12-21 18:05] LABS: Appearance Urine CLEAR; Color Urine YELLOW; Glucose Urine UA NEG (NEG); Leukocyte Esterase Urine NEG (NEG); Nitrite Urine NEG (NEG); Specific Gravity - Urine >= 1.030 (1.005-1.025); UACC Culture Trigger NO; Urine Blood TRACE (NEG); Urine Ketones NEG (NEG); Urine Protein NEG (NEG-TRACE)
[2021-12-21 18:16] LABS: Calcium Oxalate Crystals Urine 2+ /LPF; WBC Urine 0 /HPF (0-4)
[2021-12-21] MEDS: Acetaminophen 325 MG TABLET 975 MG PO (18:54)
[2021-12-21] MEDS: Cyclobenzaprine HCl 10 MG TABLET PO (20:40)
== END 2021-12-21 21:14 | disposition home or self-care (01) ==
PROVIDERS: Physician Assistant; Emergency Provider Emergency Medicine
DX: S39.012A Strain of muscle, fascia and tendon of lower back, initial encounter (principal); X50.1XXA Overexertion from prolonged static or awkward postures, initial encounter; Y93.E5 Activity, floor mopping and cleaning; Y92.009 Unspecified place in unspecified non-institutional (private) residence as the place of occurrence of the external cause; Y99.9 Unspecified external cause status
CPT/HCPCS: 72100; 81001; 96372; 99284; J1885

== ENCOUNTER 2022-04-11 09:14 | Emergency (ER) | payer MEDICAID, SELFPAY ==
--- NOTE | 2022-04-11 | ECG_ITS ---
Test Reason : cp Blood Pressure : / mmHG Vent. Rate : 050 BPM Atrial Rate : 050 BPM P-R Int : 154 ms QRS Dur : 080 ms QT Int : 432 ms P-R-T Axes : 003 043 -11 degrees QTc Int : 393 ms Sinus bradycardia Low voltage QRS Nonspecific ST and T wave abnormality Abnormal ECG When compared with ECG of 11-NOV-2021 19:55, Nonspecific T wave abnormality has replaced inverted T waves in Anterolateral leads Referred By: Generic ED Physician Electronically Signed By:BEATA KING
--- NOTE | ~2022-04-11 | XR_ITS ---
EXAMINATION: XR CHEST CLINICAL INFORMATION: Chest pain. COMPARISON: Chest done on 11/11/2021. TECHNIQUE: 2 views of the chest were obtained. FINDINGS: Mild pulmonary venous congestion is present. The cardiac mediastinal silhouette is within normal limit. There is no pleural effusion or pneumothorax present. No dense airspace consolidation. The visualized upper abdomen is unremarkable. XR/XR chest 2V IMPRESSION: Abnormal chest radiograph showing features most consistent with mild CHF.
[2022-04-11 09:23] VITALS: BP 133/72; PULSE 50; RESP 16; TEMP 36.1; O2SAT 98; BMI 29.2
[2022-04-11 09:46] LABS: MANUAL DIFF FLAG NO
[2022-04-11 09:52] LABS: Basophils Absolute Auto 0.1 X10*3/uL (0.0-0.2); Eosinophils Absolute Auto 0.3 X10*3/uL (0.0-0.4); Hematocrit 42.2 % (37.0-47.0); Hemoglobin 14.1 g/dl (12.0-16.0); Imm Gran Abs Auto 0.03 X10*3/uL (0.00-0.03); Imm Gran Pct Auto 0.4 % (0.0-0.4); Lymphocytes Absolute Auto 2.8 X10*3/uL (1.2-4.9); Lymphocytes Percent Auto 35.1 % (20-40); Mean Corpuscular HGB Conc 33.4 g/dl (31.0-35.0); Mean Corpuscular Hemoglobin 30.2 pg (27.0-33.0); Mean Corpuscular Volume 90.4 fL (80.0-98.0); Mean Platelet Volume 11.2 fL (9.4-12.3); Monocytes Absolute Auto 0.6 X10*3/uL (0.1-1.2); Monocytes Percent Auto 7.3 % (2-11); Neutrophils Absolute Auto 4.2 x10*3/uL (2.0-8.3); Neutrophils Percent Auto 52.2 % (45-73); Platelet Count 212 X10*3/uL (160-400); Red Blood Count 4.67 X10*6/uL (4.20-5.50); Red Cell Distribution Width 13.2 % (11.0-16.0)
[2022-04-11 10:01] LABS: COVID-19 Test Negative (Negative); IDNOW Serial# 9DB6401D
[2022-04-11 10:06] LABS: Anion Gap 16 (12-20); Blood Urea Nitrogen 18 mg/dL (9-16); Calcium 9.7 mg/dL (8.4-10.2); Carbon Dioxide 27 mmol/L (22-29); Chloride 106 mmol/L (96-108); Creatinine Clr Calc Pharmacy 55.6; Estimated Glomerular Filt Rate 54; Glucose Random 91 mg/dL (60-115); Potassium 4.2 mmol/L (3.3-5.1); Sodium 145 mmol/L (135-145); Troponin-I High Sensitivity 6.4 ng/L (<3.5-17.0)
--- NOTE | 2022-04-11 10:31 | ED_ITS ---
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 She denies any falls or exercise or activity that may have contributed to this. Patient also reports ?a little shortness of breath sometimes? and as per the triage note she describes dizziness, blurred vision, swollen eyes and increasing fatigue more than usual. Patient did not endorse these latter symptoms previously and otherwise denies any GI or symptoms. Related Data Previous Rx's Medication Instructions Recorded albuterol sulfate 90 mcg/actuation 1 inh inhalation QID PRN shortness 09/28/20 aerosol inhaler (ProAir HFA) of breath or wheezing #8.5 grams amoxicillin 875 mg-potassium 1 tab PO BID #20 tabs 06/07/21 clavulanate 125 mg tablet (Augmentin) oxycodone 5 mg tablet 5 mg PO Q6H PRN Pain, Severe #20 06/27/21 tabs [id number]-DT-rflyobfdwfp 2.5 20 ml PO Q4H PRN cough #118 mL 08/08/21 mg-5 mg-50 mg/5 mL oral liquid (Robitussin Cough and Cold CF) acetaminophen 650 mg 650 mg PO Q8H PRN pain #30 tabs 12/21/21 tablet,extended release (Tylenol Arthritis Pain) cyclobenzaprine 10 mg tablet 10 mg PO TID PRN muscle spasm #14 12/21/21 tabs lidocaine 5 % topical patch 1 patch topical DAILY #15 ea 12/21/21 oxycodone 5 mg tablet 5 mg PO Q6H PRN severe pain (scale 12/21/21 score 7-10) #7 tabs Allergies Allergy/AdvReac Type Severity Reaction Status Date / Time ibuprofen [From MOTRIN] AdvReac Intermediate ABDOMINAL Verified 06/07/21 14:31 PAIN Review of Systems Review of Systems: Pertinent positives and negatives as stated in HPI 10 point review of systems is otherwise negative. PMFSH Past Medical History Source: nursing notes reviewed Medical History Arthritis H/O gastric ulcer H/O gastritis High cholesterol Hyperthyroidism Low calcium levels Social History Social History Alcohol intake: never Patient Tobacco Use Status: Current everyday Tobacco user Advance Directives: No Advance Directives Information Provided: Yes Physical Exam Vital Signs: Vital Signs: Last Vital Signs Temp 98.1 F 04/11/22 10:57 Pulse 42 L 04/11/22 10:57 Resp 14 04/11/22 10:57 BP 121/66 04/11/22 10:57 Pulse Ox 97 04/11/22 10:57 O2 Del Method 04/11/22 10:57 BMI result Body Mass Index 29.2 VITAL SIGNS: Reviewed. GENERAL: Well developed, well nourished, in no acute distress. HEAD: Normocephalic/atraumatic EYES: PERRLA, EOMI EARS: Ext canals without abnormality OROPHARYNX: no oral lesions noted, posterior pharynx clear LUNGS: Normal breath sounds. No adventitious sounds or accessory muscle use. SpO2<98>; CHEST WALL: Reproducible pain on palpation over left upper outer anterior chest wall but no masses palpated and patient demonstrates full range of motion at the shoulder. CARDIOVASCULAR: Regular rate and rhythm without noted murmurs, no JVD or lower extremity edema. ABDOMEN: Soft, non-tender, non-distended with bowel sounds. MUSCULOSKELETAL: No tenderness, deformities, or effusions noted on gross inspection. EXTREMITIES: No cyanosis, clubbing or edema. SKIN: Inspection of the skin reveals no rashes NEUROLOGIC: Alert and oriented x 4. Strength and sensation to light touch were grossly intact x 4. Course Course Course Narrative: 51-year-old female with history and clinical presentation suggestive of musculoskeletal pain low clinical suspicion for cardiopulmonary etiology at this time. Review of all investigations without acute findings in although the chest x-ray reads is venous congestion clinically patient is not fluid overloaded nor is she hypoxic or tachypneic. All results discussed with the patient at bedside and she is otherwise stable for discharge to home. MDM - Chest Pain Lab Data Result diagrams: 04/11/22 09:37 04/11/22 09:37 Labs: Lab Results 04/11/22 04/11/22 04/11/22 Range/Units 09:37 09:37 09:37 WBC 8.0 (4.8-10.8) X10*3/uL RBC 4.67 (4.20-5.50) X10*6/uL Hgb 14.1 (12.0-16.0) g/dl Hct 42.2 (37.0-47.0) % MCV 90.4 (80.0-98.0) fL MCH 30.2 (27.0-33.0) pg MCHC 33.4 (31.0-35.0) g/dl RDW 13.2 (11.0-16.0) % Plt Count 212 (160-400) X10*3/uL MPV 11.2 (9.4-12.3) fL Immature Gran % (Auto) 0.4 (0.0-0.4) % Neut % (Auto) 52.2 (45-73) % Lymph % (Auto) 35.1 (20-40) % [place] % (Auto) 7.3 (2-11) % Eos % (Auto) 4.0 (0-4) % Baso % (Auto) 1.0 (0-2) % Lymph # (Auto) 2.8 (1.2-4.9) X10*3/uL [place] # (Auto) 0.6 (0.1-1.2) X10*3/uL Eos # (Auto) 0.3 (0.0-0.4) X10*3/uL Baso # (Auto) 0.1 (0.0-0.2) X10*3/uL Abs Immat Gran (auto) 0.03 (0.00-0.03) X10*3/uL Absolute Neuts (auto) 4.2 (2.0-8.3) x10*3/uL Absolute Nucleated RBC 0.000 (0.0-0.012) X10*3/uL Nucleated RBC % (auto) 0.0 (0.0-0.2) /100WBC Sodium 145 (135-145) mmol/L Potassium 4.2 (3.3-5.1) mmol/L Chloride 106 (96-108) mmol/L Carbon Dioxide 27 (22-29) mmol/L Anion Gap 16 (12-20) BUN 18 H (9-16) mg/dL Creatinine 1.06 (0.5-1.4) mg/dL Estim Creat Clear Calc 55.6 Estimated GFR 54 Random Glucose 91 (60-115) mg/dL Calcium 9.7 (8.4-10.2) mg/dL Troponin I High Sens (<3.5-17.0) ng/L B-Natriuretic Peptide (<100) pg/mL COVID-19 ([facility]) Negative (Negative) COVID-19 Clin Com See Note 04/11/22 Range/Units 09:37 WBC (4.8-10.8) X10*3/uL RBC (4.20-5.50) X10*6/uL Hgb (12.0-16.0) g/dl Hct (37.0-47.0) % MCV (80.0-98.0) fL MCH (27.0-33.0) pg MCHC (31.0-35.0) g/dl RDW (11.0-16.0) % Plt Count (160-400) X10*3/uL MPV (9.4-12.3) fL Immature Gran % (Auto) (0.0-0.4) % Neut % (Auto) (45-73) % Lymph % (Auto) (20-40) % [place] % (Auto) (2-11) % Eos % (Auto) (0-4) % Baso % (Auto) (0-2) % Lymph # (Auto) (1.2-4.9) X10*3/uL [place] # (Auto) (0.1-1.2) X10*3/uL Eos # (Auto) (0.0-0.4) X10*3/uL Baso # (Auto) (0.0-0.2) X10*3/uL Abs Immat Gran (auto) (0.00-0.03) X10*3/uL Absolute Neuts (auto) (2.0-8.3) x10*3/uL Absolute Nucleated RBC (0.0-0.012) X10*3/uL Nucleated RBC % (auto) (0.0-0.2) /100WBC Sodium (135-145) mmol/L Potassium (3.3-5.1) mmol/L Chloride (96-108) mmol/L Carbon Dioxide (22-29) mmol/L Anion Gap (12-20) BUN (9-16) mg/dL Creatinine (0.5-1.4) mg/dL Estim Creat Clear Calc Estimated GFR Random Glucose (60-115) mg/dL Calcium (8.4-10.2) mg/dL Troponin I High Sens 6.4 (<3.5-17.0) ng/L B-Natriuretic Peptide 23 (<100) pg/mL COVID-19 ([facility]) (Negative) COVID-19 Clin Com ECG Data ECG #1: Attestation: I personally reviewed and interpreted this ECG as follows: Prior ECG tracings: available for review (No acute changes on comparison) Interpretation: Sinus bradycardia, HR-50, no STEMI, CA/QRS/QTC is within normal limits. There are noted T-waves that are not new. Discharge Plan Discharge Clinical Impression: Atypical chest pain, Musculoskeletal chest pain Patient Disposition: Home, Self-Care Instructions: Chest Wall Pain (ED), Musculoskeletal Pain (ED) Additional Instructions: 1. Reanudar todos los medicamentos caseros seg?n lo prescrito. Recomiende Tylenol/ibuprofeno de venta ricardo seg?n sea necesario para controlar el dolor. Parche de lidoca?na, aplique en el ?sohan de m?ximo dolor maurizio se indica en el empaque exterior. 2. [place] un seguimiento con [place] proveedor de atenci?n primaria en los pr?ximos 1 a 2 d?as para david reevaluaci?n. Regrese a la jillian de emergencias por cualquier empeoramiento de los s?ntomas. Prescriptions: No Action albuterol sulfate [ProAir HFA] 90 mcg/actuation HFA aerosol inhaler 1 inh inhalation QID PRN (Reason: shortness of breath or wheezing) Qty: 8.5 0RF amoxicillin-pot clavulanate [Augmentin] 875-125 mg tablet 1 tab PO BID Qty: 20 0RF cyclobenzaprine 10 mg tablet 10 mg PO TID PRN (Reason: muscle spasm) Qty: 14 0RF lidocaine 5 % adhesive patch,medicated 1 patch topical DAILY Qty: 15 0RF Rx Instructions: leave on most painful area for up to 12 hrs acetaminophen [Tylenol Arthritis Pain] 650 mg tablet extended release 650 mg PO Q8H PRN (Reason: pain) Qty: 30 0RF oxycodone 5 mg tablet 5 mg PO Q6H PRN (Reason: severe pain (scale score 7-10)) Qty: 7 0RF oxycodone 5 mg tablet 5 mg PO Q6H PRN (Reason: Pain, Severe) Qty: 20 0RF Robitussin Cough and Cold CF 2.5-5-50 mg/5 mL liquid 20 ml PO Q4H PRN (Reason: cough) Qty: 118 0RF Referrals: [facility] [Primary Care Provider] - Print Language: Upper Sorbian
[2022-04-11 10:57] VITALS: BP 121/66; PULSE 42; RESP 14; TEMP 36.7; O2SAT 97
[2022-04-11 12:13] LABS: B Type Natriuretic Peptide 23 pg/mL (<100)
== END 2022-04-11 13:17 | disposition home or self-care (01) ==
PROVIDERS: Emergency Provider Student in an Organized Health Care Education/Training Program
DX: R07.89 Other chest pain (principal); R06.02 Shortness of breath; Z20.822 Contact with and (suspected) exposure to COVID-19; F17.200 Nicotine dependence, unspecified, uncomplicated
CPT/HCPCS: 36415; 71046; 80048; 83880; 84484; 85025; 87635; 93005; 99283

== ENCOUNTER 2022-05-04 15:26 | Emergency (ER) | payer MEDICAID, SELFPAY ==
--- NOTE | ~2022-05-04 | XR_ITS ---
Indication: Injury EXAMINATION: Left hand, 2 view chest. 3 views of the left hand do not demonstrate evidence for fracture or dislocation. Single view of the chest are compared to previous dated 04/11/2022. No acute finding. Prominent cardiac silhouette. No failure or infiltrate is seen here. There is no effusion. The hilar structures are comparable. XR/XR chest 1V IMPRESSION: No acute finding in the left hand. Negative acute portable chest. Prominent cardiac silhouette but no failure or infiltrate or effusion.
--- NOTE | ~2022-05-04 | CT_ITS ---
EXAMINATION: CT SOFT TISSUE NECK WITH CONTRAST CLINICAL INFORMATION: Possible lymphadenopathy on the right. Painful lump. COMPARISON: Thyroid ultrasound 10/26/2021. TECHNIQUE: Following the intravenous administration of 60 mL of Omnipaque 350 intravenous contrast, helical imaging was performed in the axial plane with generation of coronal and sagittal reformatted images. A few noncontrast images through the region of interest were also obtained; a BB marker was placed over the area. This CT examination was performed using dose optimization techniques as appropriate, variously including the following: *Automated exposure control *Adjustment of mA and/or kV according to patient size (this includes techniques or standardized protocols for targeted exams where dose is matched to indication/reason for exam; i.e. extremities or head) *Use of iterative reconstruction technique DLP: 562 mGy-cm FINDINGS: There is a 1.1 cm right level VA lymph node subjacent to the BB marker in the right neck. There are moderately prominent bilateral level IIA/IIB lymph nodes measuring up to 1.3 cm on the right and 1.4 cm on the left. There are small bilateral level IB lymph nodes with fatty sammy. The parotid glands are homogeneous in attenuation. The submandibular glands are normal. There is mild fullness of the lingual tonsils bilaterally, more prominent on the right. The laryngeal structures are normal. The parapharyngeal fat is preserved. The carotid sheath vasculature opacifies normally. No extramucosal soft tissue mass or fluid collection is seen. No retropharyngeal fluid collection is seen. The thyroid gland is normal in size, but has heterogenous attenuation, corresponding to heterogenous echogenicity on the prior ultrasound. The superior mediastinum is unremarkable. There are scattered areas of nonspecific groundglass opacification in the upper lung ray bilaterally. The frontal and sphenoid sinuses are undeveloped. There is mild mucoperiosteal thickening in the bilateral maxillary and ethmoid sinuses. There is a right-sided bony nasal septal spur. The temporomandibular joints are normal. No periapical disease is identified. There are multiple carious teeth. There are no acute fractures or subluxations in the cervical spine. There is a defect in the left C4 facet. The imaged portions of the brain parenchyma are unremarkable. CT/CT soft tissue neck w IV con IMPRESSION: 1. There are mildly prominent lymph nodes at multiple levels in the neck bilaterally. There is a 1.1 cm lymph node subjacent to the BB marking the right neck. These findings are nonspecific. No masses are demonstrated in the neck. 2. The thyroid gland is normal in size, but has heterogenous attenuation, demonstrated on prior imaging. 3. There are nonspecific areas of groundglass opacification in the upper lung ray bilaterally.
--- NOTE | ~2022-05-04 | XR_ITS ---
Indication: Injury EXAMINATION: Left hand, 2 view chest. 3 views of the left hand do not demonstrate evidence for fracture or dislocation. Single view of the chest are compared to previous dated 04/11/2022. No acute finding. Prominent cardiac silhouette. No failure or infiltrate is seen here. There is no effusion. The hilar structures are comparable. XR/XR hand LT 2V IMPRESSION: No acute finding in the left hand. Negative acute portable chest. Prominent cardiac silhouette but no failure or infiltrate or effusion.
[2022-05-04 15:34] VITALS: BP 129/66; PULSE 76; RESP 19; TEMP 36.1; O2SAT 98; BMI 28.3
[2022-05-04 19:25] LABS: Basophils Absolute Auto 0.1 X10*3/uL (0.0-0.2); Basophils Percent Auto 0.5 % (0-2); Eosinophils Absolute Auto 0.4 X10*3/uL (0.0-0.4); Eosinophils Percent Auto 3.6 % (0-4); Hematocrit 43.6 % (37.0-47.0); Hemoglobin 14.8 g/dl (12.0-16.0); Imm Gran Abs Auto 0.04 X10*3/uL (0.00-0.03); Imm Gran Pct Auto 0.4 % (0.0-0.4); Lymphocytes Absolute Auto 3.7 X10*3/uL (1.2-4.9); Lymphocytes Percent Auto 35.9 % (20-40); MANUAL DIFF FLAG NO; Mean Corpuscular HGB Conc 33.9 g/dl (31.0-35.0); Mean Corpuscular Hemoglobin 30.5 pg (27.0-33.0); Mean Corpuscular Volume 89.9 fL (80.0-98.0); Mean Platelet Volume 11.1 fL (9.4-12.3); Monocytes Absolute Auto 0.7 X10*3/uL (0.1-1.2); Monocytes Percent Auto 7.1 % (2-11); Neutrophils Absolute Auto 5.5 x10*3/uL (2.0-8.3); Neutrophils Percent Auto 52.5 % (45-73); Platelet Count 264 X10*3/uL (160-400); Red Blood Count 4.85 X10*6/uL (4.20-5.50); Red Cell Distribution Width 13.2 % (11.0-16.0); White Blood Count 10.4 X10*3/uL (4.8-10.8)
[2022-05-04 19:48] LABS: Anion Gap 13 (12-20); Blood Urea Nitrogen 15 mg/dL (9-16); Calcium 9.8 mg/dL (8.4-10.2); Carbon Dioxide 27 mmol/L (22-29); Chloride 107 mmol/L (96-108); Creatinine Clr Calc Pharmacy 57.5; Estimated Glomerular Filt Rate 58; Glucose Random 93 mg/dL (60-115); Potassium 3.9 mmol/L (3.3-5.1); Sodium 143 mmol/L (135-145)
--- NOTE | 2022-05-04 19:52 | ED.GENADULT ---
HPI - General Adult General Chief complaint: Neck Pain/Injury Stated complaint: L side neck pain Time Seen by Provider: 05/04/22 18:36 Source: patient Mode of arrival: ambulatory History of Present Illness HPI narrative: 51-year-old female with a past medical history of arthritis, HLD, hyperthyroidism, presenting to the ED complaining of painful lump to right side of neck since yesterday morning. Reports associated sore throat and pain when swallowing. Denies difficulty/inability to swallow, ear pain, cough, SOB, wheezing, fever Onset (ago): day(s) Location: neck Related Data Previous Rx's Medication Instructions Recorded albuterol sulfate 90 mcg/actuation 1 inh inhalation QID PRN shortness 09/28/20 aerosol inhaler (ProAir HFA) of breath or wheezing #8.5 grams amoxicillin 875 mg-potassium 1 tab PO BID #20 tabs 06/07/21 clavulanate 125 mg tablet (Augmentin) oxycodone 5 mg tablet 5 mg PO Q6H PRN Pain, Severe #20 06/27/21 tabs xkwfpqniqcora-TP-dmyzgiakzyu 2.5 20 ml PO Q4H PRN cough #118 mL 08/08/21 mg-5 mg-50 mg/5 mL oral liquid (Robitussin Cough and Cold CF) acetaminophen 650 mg 650 mg PO Q8H PRN pain #30 tabs 12/21/21 tablet,extended release (Tylenol Arthritis Pain) cyclobenzaprine 10 mg tablet 10 mg PO TID PRN muscle spasm #14 12/21/21 tabs lidocaine 5 % topical patch 1 patch topical DAILY #15 ea 12/21/21 oxycodone 5 mg tablet 5 mg PO Q6H PRN severe pain (scale 12/21/21 score 7-10) #7 tabs amoxicillin 875 mg-potassium 1 tab PO BID 7 days #14 tabs 05/04/22 clavulanate 125 mg tablet Allergies Allergy/AdvReac Type Severity Reaction Status Date / Time ibuprofen [From MOTRIN] AdvReac Intermediate ABDOMINAL Verified 06/07/21 14:31 PAIN Review of Systems Review of Systems: Constitutional: No Fever, No Chills, No Fatigue, No Malaise ENT/Mouth: No Ear Pain, No Nasal Congestion, No Sinus Pain, No Hoarseness, + sore throat, No Rhinorrhea, No Swallowing Difficulty Eyes: No Eye Pain, No Swelling, No Redness Cardiovascular: No Chest Pain, No SOB, No Palpitations Respiratory: No Cough, No Sputum, No Dyspnea Gastrointestinal: No Nausea, No Vomiting, No Diarrhea, No Constipation, No Abdominal pain Genitourinary: No Dysuria, No Urinary Frequency, No Hematuria, No Urinary Incontinence/retention Musculoskeletal: + neck pain, No Myalgias, No Joint Swelling Skin: + Skin Lesions, No rash Neuro: No Weakness, No Numbness, No Paresthesias, No Headache Yes all other systems are reviewed and are negative Constitutional: Constitutional: Reports as per [facility] Past Medical History Attestation statement: The following information was validated with the patient. Medical History Arthritis H/O gastric ulcer H/O gastritis High cholesterol Hyperthyroidism Low calcium levels Social History Social History Alcohol intake: never Patient Tobacco Use Status: Current everyday Tobacco user Advance Directives: No Advance Directives Information Provided: Yes Physical Exam ED Vital Signs: Vital Signs - 24 hr 05/04/22 15:34 Temperature 97 F Pulse Rate 76 Respiratory Rate 19 Blood Pressure 129/66 Pulse Oximetry 98 Oxygen Delivery Method Room Air BMI result Body Mass Index 28.3 Const General: cooperative, healthy appearing and no acute distress Orientation/consciousness: patient oriented x3 Limitations: no limitations HENMT Head: Yes normal to inspection and Yes atraumatic Ears: hearing grossly normal bilaterally General nose exam: Normal external nose present Face and sinus: Yes normal facial exam Mouth: Normal oral and palatal mucosa present Throat: Yes posterior oropharynx normal, Yes tonsils normal, Yes uvula midline, No peritonsillar mass, No uvula laterally displaced and No uvular edema Eyes General: appearance normal, both eyes and all related structures EOM: EOMs intact bilaterally Neck Other: + tender painful lump noted to right-sided posterior cervical chain. No overlying erythema/cellulitis or warmth. No fluctuance/induration. Non mobile Neck: Yes full ROM, Yes no meningeal signs, Yes supple and No anterior neck swelling Resp Effort & Inspection: normal respiratory effort, no respiratory distress, no stridor and not tachypneic Auscultation: clear to auscultation bilaterally and no wheezes Cardio Rate: regular rate Heart sounds: S1 normal heart sound present and S2 normal heart sound present GI Inspection: Yes normal to inspection Palpation (GI): Soft to palpation General: Yes no CVA tenderness Back/Spine/Pelvis Back: no CVA tenderness Skin Rashes: no rashes Wounds: no wounds Neuro General: patient oriented x3, tone normal and no meningeal signs Gait exam (Neuro): Normal gait present Extrem General: Yes normal to inspection Course Course Course Narrative: -Labs unremarkable CT soft tissue neck w IV con IMPRESSION: 1. There are mildly prominent lymph nodes at multiple levels in the neck bilaterally. There is a 1.1 cm lymph node subjacent to the BB marking the right neck. These findings are nonspecific. No masses are demonstrated in the neck. ? 2. The thyroid gland is normal in size, but has heterogenous attenuation, demonstrated on prior imaging. ? 3. There are nonspecific areas of groundglass opacification in the upper lung ray bilaterally. > will obtain chest x-ray for further evaluation -2132--.XR chest 1V IMPRESSION:? Negative acute portable chest. Prominent cardiac silhouette but no failure or infiltrate or effusion. 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 Augmentin and close PCP follow-up. Patient was supplied with neck CT results. Discussed worrisome signs and symptoms and strict return precautions, and when to return to the emergency department. They verbalized understanding and feel safe for discharge at this time. Medical Decision Making [facility] Narrative Medical decision making narrative: 51-year-old female with a past medical history of arthritis, HLD, hyperthyroidism, presenting to the ED complaining of painful lump to right side of neck since yesterday morning. On exam vital signs stable, NAD, nontoxic appearing, physical exam as above. No evidence of intraoral inflammation, full range of motion intact neck, no torticollis, no respiratory distress, talking in complete sentences. Concern for lymphadenopathy vs mass or nodule. Low suspicion for abscess Plan: Labs, CT neck with contrast Medical Records Medical records reviewed: Yes I reviewed the patient's medical records. Lab Data Lab results reviewed: Yes I reviewed the patient's lab results. Result diagrams: 05/04/22 19:20 05/04/22 19:20 Labs: Lab Results 05/04/22 05/04/22 Range/Units 19:20 19:20 WBC 10.4 (4.8-10.8) X10*3/uL RBC 4.85 (4.20-5.50) X10*6/uL Hgb 14.8 (12.0-16.0) g/dl Hct 43.6 (37.0-47.0) % MCV 89.9 (80.0-98.0) fL MCH 30.5 (27.0-33.0) pg MCHC 33.9 (31.0-35.0) g/dl RDW 13.2 (11.0-16.0) % Plt Count 264 (160-400) X10*3/uL MPV 11.1 (9.4-12.3) fL Immature Gran % (Auto) 0.4 (0.0-0.4) % Neut % (Auto) 52.5 (45-73) % Lymph % (Auto) 35.9 (20-40) % [place] % (Auto) 7.1 (2-11) % Eos % (Auto) 3.6 (0-4) % Baso % (Auto) 0.5 (0-2) % Lymph # (Auto) 3.7 (1.2-4.9) X10*3/uL [place] # (Auto) 0.7 (0.1-1.2) X10*3/uL Eos # (Auto) 0.4 (0.0-0.4) X10*3/uL Baso # (Auto) 0.1 (0.0-0.2) X10*3/uL Abs Immat Gran (auto) 0.04 H (0.00-0.03) X10*3/uL Absolute Neuts (auto) 5.5 (2.0-8.3) x10*3/uL Absolute Nucleated RBC 0.000 (0.0-0.012) X10*3/uL Nucleated RBC % (auto) 0.0 (0.0-0.2) /100WBC Sodium 143 (135-145) mmol/L Potassium 3.9 (3.3-5.1) mmol/L Chloride 107 (96-108) mmol/L Carbon Dioxide 27 (22-29) mmol/L Anion Gap 13 (12-20) BUN 15 (9-16) mg/dL Creatinine 1.01 (0.5-1.4) mg/dL Estim Creat Clear Calc 57.5 Estimated GFR 58 Random Glucose 93 (60-115) mg/dL Calcium 9.8 (8.4-10.2) mg/dL Discharge Plan Discharge Clinical Impression: Lymphadenopathy Patient Disposition: Home, Self-Care Instructions: Lymphadenopathy (ED) Additional Instructions: Your CT scan shows prominent lymph nodes at multi levels of her neck bilaterally YOU NEED TO HAVE CLOSE FOLLOW-UP WITH HER PRIMARY CARE DOCTOR AND ONCOLOGY FOR THIS, CALL TOMORROW TO MAKE AN APPOINTMENT Augmentin is an antibiotic please take as prescribed. If lymph node enlarges, becomes increasingly painful, you have difficulty breathing, difficulty swallowing, fever area looks infected return to the ED Matthews tomograf?a computarizada muestra ganglios linf?ticos prominentes en m?ltiples niveles de matthews maximiliano bilateralmente NECESITA TENER UN SEGUIMIENTO CERCANO CON MATTHEWS M?DICO DE ATENCI?N PRIMARIA Y ONCOLOG?A PARA ESTO, LLAME MA?NATE PARA HACER MAE CRISTELA Augmentin es un antibi?didi, t?ayala seg?n lo prescrito. Si los ganglios linf?ticos se agrandan, se vuelven cada vez m?s dolorosos, tiene dificultad para respirar, dificultad para tragar, el ?sohan con fiebre parece estar infectada, regrese al servicio de urgencias. Prescriptions: New amoxicillin-pot clavulanate 875-125 mg tablet 1 tab PO BID 7 Days Qty: 14 0RF No Action albuterol sulfate [ProAir HFA] 90 mcg/actuation HFA aerosol inhaler 1 inh inhalation QID PRN (Reason: shortness of breath or wheezing) Qty: 8.5 0RF amoxicillin-pot clavulanate [Augmentin] 875-125 mg tablet 1 tab PO BID Qty: 20 0RF cyclobenzaprine 10 mg tablet 10 mg PO TID PRN (Reason: muscle spasm) Qty: 14 0RF lidocaine 5 % adhesive patch,medicated 1 patch topical DAILY Qty: 15 0RF Rx Instructions: leave on most painful area for up to 12 hrs acetaminophen [Tylenol Arthritis Pain] 650 mg tablet extended release 650 mg PO Q8H PRN (Reason: pain) Qty: 30 0RF oxycodone 5 mg tablet 5 mg PO Q6H PRN (Reason: severe pain (scale score 7-10)) Qty: 7 0RF oxycodone 5 mg tablet 5 mg PO Q6H PRN (Reason: Pain, Severe) Qty: 20 0RF Robitussin Cough and Cold CF 2.5-5-50 mg/5 mL liquid 20 ml PO Q4H PRN (Reason: cough) Qty: 118 0RF Referrals: Sharonda Carlin MD [Physician] - 1 week [place],[facility] [Primary Care Provider] - 1 day Print Language: Greek
[2022-05-04] MEDS: iohexoL 350 MG/ML 100 ML INFUS..BTL IV (20:13)
== END 2022-05-04 22:25 | disposition home or self-care (01) ==
PROVIDERS: Physician Assistant; Emergency Provider Internal Medicine
DX: R59.1 Generalized enlarged lymph nodes (principal); M54.2 Cervicalgia; F17.200 Nicotine dependence, unspecified, uncomplicated
CPT/HCPCS: 36415; 70491; 71045; 73120; 80048; 85025; 99282; 99283; 99284; Q9967

== ENCOUNTER 2022-08-21 08:08 | Emergency (ER) | payer MEDICAID, SELFPAY ==
--- NOTE | ~2022-08-21 | CT_ITS ---
EXAMINATION: CT ABDOMEN AND PELVIS WITH CONTRAST CLINICAL INFORMATION: Abdominal distention. Shortness of breath? Ascites? COMPARISON: CT abdomen pelvis 06/19/2017 TECHNIQUE: Multidetector volumetric images were obtained from the superior aspect of the liver through the pubic symphysis following administration 85 mL of Omnipaque 350 intravenous contrast. Sagittal and coronal reformatted images were obtained on the technologist's workstation. Oral contrast: No This CT examination was performed using dose optimization techniques as appropriate, variously including the following: *Automated exposure control *Adjustment of mA and/or kV according to patient size (this includes techniques or standardized protocols for targeted exams where dose is matched to indication/reason for exam; i.e. extremities or head) *Use of iterative reconstruction technique DLP: 560 mGy-cm FINDINGS: LUNG BASES: The visualized lung bases are unremarkable. LIVER, GALLBLADDER, AND BILIARY TREE: The liver is normal in size, shape, and attenuation. No focal hepatic lesion or biliary ductal dilatation is present. The gallbladder is unremarkable with no evidence of radiopaque gallstones, gallbladder wall thickening, or obvious pericholecystic inflammatory changes. PANCREAS: Unremarkable. SPLEEN: Unremarkable. ADRENAL GLANDS: Unremarkable. KIDNEYS AND URETERS: The kidneys are normal in size, shape, and attenuation. No hydronephrosis, hydroureter, or calculi seen. No perinephric stranding. BLADDER: Unremarkable. GASTROINTESTINAL TRACT: Stomach and small bowel are nondilated. Normal appendix. Scattered colonic diverticulosis. No evidence of colitis or diverticulitis. ABDOMINAL WALL: No significant hernia is appreciated. LYMPH NODES: Normal. VASCULAR: Unremarkable. PELVIC VISCERA: Unremarkable. OSSEOUS STRUCTURES: Unremarkable. CT/CT abdomen pelvis w IV con IMPRESSION: No acute CT findings. No ascites. No bowel obstruction. Fleischner guidelines were followed.
[2022-08-21 08:10] VITALS: BP 129/65; PULSE 77; RESP 18; TEMP 36.7; O2SAT 98; BMI 28.7
[2022-08-21 08:38] LABS: Hematocrit 42.6 % (37.0-47.0); Mean Corpuscular HGB Conc 32.9 g/dl (31.0-35.0); Mean Corpuscular Volume 91.4 fL (80.0-98.0); Mean Platelet Volume 10.9 fL (9.4-12.3); Platelet Count 245 X10*3/uL (160-400); Red Blood Count 4.66 X10*6/uL (4.20-5.50); Red Cell Distribution Width 13.2 % (11.0-16.0); White Blood Count 8.1 X10*3/uL (4.8-10.8)
[2022-08-21 09:01] LABS: B Type Natriuretic Peptide 28 pg/mL (<100)
[2022-08-21 09:02] LABS: Troponin-I High Sensitivity 13.3 ng/L (<3.5-17.0)
[2022-08-21 09:37] LABS: Alanine Aminotransferase 28 U/L (0-31); Alkaline Phosphatase 138 U/L (39-117); Anion Gap 12 (12-20); Aspartate Amino Transferase 22 U/L (5-31); Bilirubin Direct < 0.2 mg/dL (0.0-0.5); Bilirubin Total 0.2 mg/dL (0.0-1.0); Blood Urea Nitrogen 17 mg/dL (9-16); Calcium 9.9 mg/dL (8.4-10.2); Carbon Dioxide 27 mmol/L (22-29); Chloride 109 mmol/L (96-108); Creatinine Clr Calc Pharmacy 55.1; Estimated Glomerular Filt Rate 54; Glucose Random 135 mg/dL (60-115); Lipase 26 U/L (8-78); Potassium 3.7 mmol/L (3.3-5.1); Sodium 144 mmol/L (135-145); Total Protein 7.2 g/dL (6.5-8.0)
--- NOTE | 2022-08-21 09:40 | PC.NURSE ---
Patient primary language Sri Lankan speaking , assessed with use of asl interpreter Jesus plunkett .non pitting mild edema noted below eyes . heart rate regular at 70 beats per minute . breathing even and unlabored . lungs clear throughout . skin pink warm and dry abdomen distended . positive bowel sounds throughout . non pitting edema noted in extremities . patient reports that this edema has been present for a week . reports a pain level of 0 out of 10 . 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 IV place in left A.C . patient aware of plan of care .
[2022-08-21] MEDS: iohexoL 350 MG/ML 100 ML INFUS..BTL IV (10:20)
[2022-08-21 11:41] VITALS: BP 121/72; PULSE 54; RESP 13; O2SAT 98
--- NOTE | 2022-08-21 12:14 | ED_ITS ---
HPI - General Adult General Chief complaint: Extremity Problem Stated complaint: inflamation fluid on lungs Time Seen by Provider: 08/21/22 09:24 Source: patient Mode of arrival: ambulatory Limitations: no limitations History of Present Illness HPI narrative: 51-year-old female with pmh of hypothyroid presents to the ED for swelling. Patient believes one week swelling of upper and lower extremities are swollen an d also abdominal swelling for the past week. patient denies any fever, chills, chest pain, shortness of breath, weakness, dizziness, coughing up blood pleurisy, reent long travel, and recent surgyer. patient states pmh of abdominal hernia. patient denies any constipation. Related Data Home Medications Medication Instructions Recorded Confirmed ergocalciferol (vitamin D2) 1,250 1 cap PO QWEEK 05/23/22 05/23/22 mcg (50,000 unit) capsule levothyroxine 25 mcg tablet 1 tab PO DAILY 05/23/22 05/23/22 omeprazole 20 mg capsule,delayed 1 cap PO BID 05/23/22 05/23/22 release Previous Rx's Medication Instructions Recorded albuterol sulfate 90 mcg/actuation 1 inh inhalation QID PRN shortness 09/28/20 aerosol inhaler (ProAir HFA) of breath or wheezing #8.5 grams acetaminophen 650 mg 650 mg PO Q8H PRN pain #30 tabs 12/21/21 tablet,extended release (Tylenol Arthritis Pain) cyclobenzaprine 10 mg tablet 10 mg PO TID PRN muscle spasm #14 12/21/21 tabs lidocaine 5 % topical patch 1 patch topical DAILY #15 ea 12/21/21 Allergies Allergy/AdvReac Type Severity Reaction Status Date / Time ibuprofen [From MOTRIN] AdvReac Intermediate ABDOMINAL Verified 06/07/21 14:31 PAIN Review of Systems Review of Systems: swelling of extremites and abdomen Yes all other systems are reviewed and are negative COUNT INCLUDES [facility] Past Medical History Medical History Arthritis H/O gastric ulcer H/O gastritis High cholesterol Hyperthyroidism Low calcium levels Social History Social History (Updated 05/23/22 @ 15:57 by Michell James) Household Members: None Housing: House Alcohol intake: former Patient Tobacco Use Status: Current everyday Tobacco user Tobacco use type: Cigarette Smoked in Last 30 Days: No Advance Directives: No Advance Directives Information Provided: Yes Patient : No service: No Current occupational status: unemployed and disabled Physical Exam ED Vital Signs: Vital Signs - 24 hr 08/21/22 11:41 08/21/22 14:38 Temperature 98.2 F Pulse Rate 54 60 Respiratory Rate 13 18 Blood Pressure 121/72 128/74 Pulse Oximetry 98 98 Oxygen Delivery Method Room Air Room Air BMI result Body Mass Index 28.7 Const General: cooperative, healthy appearing, comfortable, no acute distress, well developed, alert, awake and Physically active Orientation/consciousness: oriented to person, oriented to place, oriented to time and patient oriented x3 HENMT Other: Negative for any facial swelling. Negative for any lip swelling or tongue swelling. Negative for any rash Head: Yes normal to inspection, Yes No palpable skull fracture present, Yes normocephalic, Yes atraumatic and No abrasion Neck Neck: Yes normal visual inspection, Yes full ROM, Yes no lymphadenopathy, Yes no meningeal signs, Yes trachea midline, Yes supple, No anterior neck swelling and No tender Chest Chest palpation & inspection: normal inspection of the chest and normal palpation of entire chest wall Resp Effort & Inspection: normal respiratory effort and able to speak in complete sentences Auscultation: clear to auscultation bilaterally Cardio Jugular venous distension: no JVD Heart sounds: S1 normal heart sound present and S2 normal heart sound present GI Inspection: Yes normal to inspection and No abdominal wall ecchymosis Palpation (GI): Soft to palpation, not firm, Tenderness to palpation present (GI) (Mild) in the epigastrum, no guarding and not rigid General: No CVA tenderness and Yes no CVA tenderness Back/Spine/Pelvis Back: no CVA tenderness, No CVA tenderness and No back tenderness Skin General skin exam: no rashes or lesions noted and elasticity normal Neuro Other: Negative for any neuro deficits. General: oriented to person, oriented to place, oriented to time, patient oriented x3, gait normal, tone normal, moves all extremities, Normal light touch and pain sensation, no meningeal signs, no focal motor deficits and CN's II-XI intact bilaterally Course Course Course Narrative: BNP labs drawn. Presently I do not recognize any obvious anasarca. Patient has no swelling anywhere There is no pitting edema. Lungs are clear negative for shortness of breath. Patient did not complain of any chest pain or shortness of breath. Mild epigastric tenderness Reevaluation(s) Reevaluation #1: Kidney functions are normal. Liver enzymes normal. Two troponins negative. EKG negative STEMI. BNP negative. Patient not in CHF. Negative for any renal failure. CT scan of abdomen came back normal and did not show any bowel obstruction, cholecystitis, ascites, fatty liver, or any other abdominal etiology. Once again patient is not in anasarca and does not have any swelling on physical exam. Not suspecting SBP. Not suspecting CHF. Patient has no rash and denies itchiness. Not suspecting any allergic reaction. Patient will be discharged. Time: 14:11 Reevaluation #2: Sinus bradycardia. Ventricular rate 54. Pr interval 162. QRS 80. QTC 402. Negative STEMI Medications Administered Discontinued Medications Generic Name Dose Route Start Last Admin Trade Name Freq PRN Reason Stop Dose Admin Iohexol 100 ml 08/21/22 10:19 08/21/22 10:20 Iohexol 350 Mg/Ml 100 Ml Infus..Btl IV 08/21/22 10:20 85 ml ONCE ONE Administration Medical Decision Making Lab Data Result Diagrams: 08/21/22 08:31 08/21/22 08:31 Labs: Lab Results 08/21/22 08/21/22 08/21/22 Range/Units 08:31 08:31 08:31 WBC 8.1 (4.8-10.8) X10*3/uL RBC 4.66 (4.20-5.50) X10*6/uL Hgb 14.0 (12.0-16.0) g/dl Hct 42.6 (37.0-47.0) % MCV 91.4 (80.0-98.0) fL MCH 30.0 (27.0-33.0) pg MCHC 32.9 (31.0-35.0) g/dl RDW 13.2 (11.0-16.0) % Plt Count 245 (160-400) X10*3/uL MPV 10.9 (9.4-12.3) fL Absolute Nucleated RBC 0.000 (0.0-0.012) X10*3/uL Nucleated RBC % (auto) 0.0 (0.0-0.2) /100WBC Sodium 144 (135-145) mmol/L Potassium 3.7 (3.3-5.1) mmol/L Chloride 109 H (96-108) mmol/L Carbon Dioxide 27 (22-29) mmol/L Anion Gap 12 (12-20) BUN 17 H (9-16) mg/dL Creatinine 1.06 (0.5-1.4) mg/dL Estim Creat Clear Calc 55.1 Estimated GFR 54 Random Glucose 135 H (60-115) mg/dL Calcium 9.9 (8.4-10.2) mg/dL Total Bilirubin 0.2 (0.0-1.0) mg/dL Direct Bilirubin < 0.2 (0.0-0.5) mg/dL AST 22 (5-31) U/L ALT 28 (0-31) U/L Alkaline Phosphatase 138 H (39-117) U/L Troponin I High Sens (<3.5-17.0) ng/L B-Natriuretic Peptide 28 (<100) pg/mL Total Protein 7.2 (6.5-8.0) g/dL Albumin 4.0 (3.5-5.0) g/dL Lipase 26 (8-78) U/L Urine Color Urine Appearance Urine pH (5.0-9.0) Ur Specific [place] (1.005-1.025) Urine Protein (Neg-Trace) mg/dL Urine Glucose (UA) (Negative) mg/dL Urine Ketones (Negative) mg/dL Urine Blood (Negative) Urine Nitrite (Negative) Ur Leukocyte Esterase (Negative) Urine Test (NEGATIVE) 08/21/22 08/21/22 08/21/22 Range/Units 08:31 12:47 12:47 WBC (4.8-10.8) X10*3/uL RBC (4.20-5.50) X10*6/uL Hgb (12.0-16.0) g/dl Hct (37.0-47.0) % MCV (80.0-98.0) fL MCH (27.0-33.0) pg MCHC (31.0-35.0) g/dl RDW (11.0-16.0) % Plt Count (160-400) X10*3/uL MPV (9.4-12.3) fL Absolute Nucleated RBC (0.0-0.012) X10*3/uL Nucleated RBC % (auto) (0.0-0.2) /100WBC Sodium (135-145) mmol/L Potassium (3.3-5.1) mmol/L Chloride (96-108) mmol/L Carbon Dioxide (22-29) mmol/L Anion Gap (12-20) BUN (9-16) mg/dL Creatinine (0.5-1.4) mg/dL Estim Creat Clear Calc Estimated GFR Random Glucose (60-115) mg/dL Calcium (8.4-10.2) mg/dL Total Bilirubin (0.0-1.0) mg/dL Direct Bilirubin (0.0-0.5) mg/dL AST (5-31) U/L ALT (0-31) U/L Alkaline Phosphatase (39-117) U/L Troponin I High Sens 13.3 14.0 (<3.5-17.0) ng/L B-Natriuretic Peptide (<100) pg/mL Total Protein (6.5-8.0) g/dL Albumin (3.5-5.0) g/dL Lipase (8-78) U/L Urine Color Yellow Urine Appearance Clear Urine pH 6.5 (5.0-9.0) Ur Specific [place] 1.015 (1.005-1.025) Urine Protein Negative (Neg-Trace) mg/dL Urine Glucose (UA) Negative (Negative) mg/dL Urine Ketones Negative (Negative) mg/dL Urine Blood Negative (Negative) Urine Nitrite Negative (Negative) Ur Leukocyte Esterase Negative (Negative) Urine Test (NEGATIVE) 08/21/22 Range/Units 12:47 WBC (4.8-10.8) X10*3/uL RBC (4.20-5.50) X10*6/uL Hgb (12.0-16.0) g/dl Hct (37.0-47.0) % MCV (80.0-98.0) fL MCH (27.0-33.0) pg MCHC (31.0-35.0) g/dl RDW (11.0-16.0) % Plt Count (160-400) X10*3/uL MPV (9.4-12.3) fL Absolute Nucleated RBC (0.0-0.012) X10*3/uL Nucleated RBC % (auto) (0.0-0.2) /100WBC Sodium (135-145) mmol/L Potassium (3.3-5.1) mmol/L Chloride (96-108) mmol/L Carbon Dioxide (22-29) mmol/L Anion Gap (12-20) BUN (9-16) mg/dL Creatinine (0.5-1.4) mg/dL Estim Creat Clear Calc Estimated GFR Random Glucose (60-115) mg/dL Calcium (8.4-10.2) mg/dL Total Bilirubin (0.0-1.0) mg/dL Direct Bilirubin (0.0-0.5) mg/dL AST (5-31) U/L ALT (0-31) U/L Alkaline Phosphatase (39-117) U/L Troponin I High Sens (<3.5-17.0) ng/L B-Natriuretic Peptide (<100) pg/mL Total Protein (6.5-8.0) g/dL Albumin (3.5-5.0) g/dL Lipase (8-78) U/L Urine Color Urine Appearance Urine pH (5.0-9.0) Ur Specific [place] (1.005-1.025) Urine Protein (Neg-Trace) mg/dL Urine Glucose (UA) (Negative) mg/dL Urine Ketones (Negative) mg/dL Urine Blood (Negative) Urine Nitrite (Negative) Ur Leukocyte Esterase (Negative) Urine Test NEGATIVE (NEGATIVE) Discharge Plan Discharge Clinical Impression: Abdominal pain Patient Disposition: Home, Self-Care Instructions: Gastroesophageal Reflux Disease (ED), Abdominal Pain (ED) Additional Instructions: Olson examen f?sico no mostr? signos de anasarca, lo que significa hinchaz?n de olson cuerpo. El an?lisis de phil no mostr? signos de insuficiencia card?mario. El an?lisis de phil no mostr? signos de insuficiencia renal. La tomograf?a computarizada no mostr? ascitis, problemas hep?ticos ni ninguna otra etiolog?a abdominal. Est? seguro para el yevgeniy, recomiende un seguimiento con el proveedor de atenci?n primaria. Regrese al servicio de urgencias de inmediato por cualquier incontinencia urinaria/intestinal, aumento de la hinchaz?n de las extremidades inferiores, dolor en la pantorrilla, dolor en el pecho, dificultad para respirar, dolor en el pecho al inspirar, empeoramiento del dolor abdominal, disuria, hematuria, fiebre, escalofr?os, hinchaz?n de las extremidades/abdomen, hinchaz?n de la sreekanth/lengua, sarpullido, fiebre, escalofr?os, picaz?n o cualquier otro s?ntoma preocupante. Prescriptions: No Action albuterol sulfate [ProAir HFA] 90 mcg/actuation HFA aerosol inhaler 1 inh inhalation QID PRN (Reason: shortness of breath or wheezing) Qty: 8.5 0RF cyclobenzaprine 10 mg tablet 10 mg PO TID PRN (Reason: muscle spasm) Qty: 14 0RF lidocaine 5 % adhesive patch,medicated 1 patch topical DAILY Qty: 15 0RF Rx Instructions: leave on most painful area for up to 12 hrs acetaminophen [Tylenol Arthritis Pain] 650 mg tablet extended release 650 mg PO Q8H PRN (Reason: pain) Qty: 30 0RF levothyroxine 25 mcg tablet 1 tab PO DAILY omeprazole 20 mg capsule,delayed release(DR/EC) 1 cap PO BID ergocalciferol (vitamin D2) 1,250 mcg (50,000 unit) capsule 1 cap PO QWEEK Interventions: ED Discharge Assessment Last Done: 08/21/22 14:40 Discharge Date/Time: 08/21/22 14:41 Print Language: Tamazight
[2022-08-21 13:02] LABS: Appearance Urine Clear; Color Urine Yellow; Glucose Urine UA Negative (Negative); Leukocyte Esterase Urine Negative (Negative); Nitrite Urine Negative (Negative); PH 6.5 (5.0-9.0); Specific Gravity - Urine 1.015 (1.005-1.025); Urine Blood Negative (Negative); Urine Ketones Negative (Negative); Urine Protein Negative (Neg-Trace)
[2022-08-21 13:59] LABS: UPreg QC Valid YES; Urine Pregnancy NEGATIVE (NEGATIVE)
--- NOTE | 2022-08-21 14:02 | ECG_ITS ---
Test Reason : abdominal bloating Blood Pressure : / mmHG Vent. Rate : 054 BPM Atrial Rate : 054 BPM P-R Int : 162 ms QRS Dur : 080 ms QT Int : 424 ms P-R-T Axes : 018 057 -51 degrees QTc Int : 402 ms Sinus bradycardia T wave abnormality, consider inferior ischemia T wave abnormality, consider anterolateral ischemia Abnormal ECG When compared with ECG of 11-APR-2022 09:20, Inverted T waves have replaced nonspecific T wave abnormality in Lateral leads Referred By: Lenny Rose Electronically Signed By:Kaiden Mueller
[2022-08-21 14:38] VITALS: BP 128/74; PULSE 60; RESP 18; TEMP 36.8; O2SAT 98
--- NOTE | 2022-08-21 14:39 | PC.NURSE ---
patient discharged with use of dietary services manager and Provider .
== END 2022-08-21 14:41 | disposition home or self-care (01) ==
PROVIDERS: Physician Assistant; Emergency Provider Emergency Medicine; PCP Internal Medicine
DX: R10.32 Left lower quadrant pain (principal); R10.11 Right upper quadrant pain; R06.02 Shortness of breath; R60.0 Localized edema; Z79.899 Other long term (current) drug therapy
CPT/HCPCS: 36415; 74177; 80048; 80076; 81003; 81025; 83690; 83880; 84484; 85027; 93005; 99284; Q9967

== ENCOUNTER → 2022-09-12 15:12 | Outpatient (BNVA) | payer MEDICAID, SELFPAY | PROVIDERS: PCP Internal Medicine; Visit Provider Internal Medicine Endocrinology, Diabetes & Metabolism | DX: E03.9 Hypothyroidism, unspecified (principal) | CPT/HCPCS: 99202 ==

== ENCOUNTER 2022-09-27 14:56 | Emergency (ER) | payer MEDICAID, SELFPAY ==
--- NOTE | ~2022-09-27 | XR_ITS ---
EXAMINATION: XR CHEST CLINICAL INFORMATION: Chest pain COMPARISON: 05/04/2022 TECHNIQUE: 2 views of the chest were obtained. FINDINGS: The lungs are well expanded. There is no focal consolidation, edema, or effusion. No pneumothorax. The cardiomediastinal silhouette is within normal limits. No acute osseous abnormality. XR/XR chest 2V IMPRESSION: Clear lungs.
--- NOTE | 2022-09-27 14:58 | ECG_ITS ---
Test Reason : CP Blood Pressure : / mmHG Vent. Rate : 072 BPM Atrial Rate : 072 BPM P-R Int : 142 ms QRS Dur : 076 ms QT Int : 374 ms P-R-T Axes : 014 042 -23 degrees QTc Int : 409 ms Normal sinus rhythm Nonspecific ST and T wave abnormality Abnormal ECG When compared with ECG of 21-AUG-2022 14:07, No significant changes seen Referred By: Generic ED Physician Electronically Signed By:BEATA KING
[2022-09-27 15:17] VITALS: BP 135/80; PULSE 68; RESP 18; TEMP 36.8; O2SAT 97; BMI 31.0
--- NOTE | 2022-09-27 15:20 | ED_ITS ---
HPI - Chest Pain General Chief Complaint: Chest Pain <CAMRON David Last Filed: 09/27/22 15:23> Stated Complaint: chest pressure and pain <CAMRON David Last Filed: 09/27/22 15:23> Time Seen by Provider: 09/27/22 15:26 <CAMRON David Last Filed: 09/27/22 15:23> Source: patient and diplomatic interpreter/translator <CAMRON Nichols Last Filed: 09/27/22 17:22> Mode of arrival: ambulatory <CAMRON Nichols Last Filed: 09/27/22 17:22> Limitations: language barrier <CAMRON Nichols Last Filed: 09/27/22 17:22> History of Present Illness HPI narrative: Patient is a 51 year old assigned female at with a history of hypothyroidism presenting to the emergency department today with left sided chest pain. Patient states that she has been under significantly more stress lately. Patient states that she has pain on the left side of her chest that is worse with movement. Patient denies any dizziness, lightheadedness, abdominal pain, nausea, vomiting, fever, chills, blurry vision, double vision, loss of vision, difficulty breathing, shortness of breath, back pain, night sweats, pain with urination, increased urinary frequency, increased urinary urgency, blood in her urine or stool, syncope or a near syncopal episode, recent trauma or falls, bowel incontinence, bladder incontinence, bowel retention, bladder retention, or any other complaints at this time. <CAMRON Nichols Last Filed: 09/27/22 17:22> MD complaint: chest pain <CAMRON Nichols Last Filed: 09/27/22 17:22> Pain radiation: none <CAMRON Nichols Last Filed: 09/27/22 17:22> Severity: mild <CAMRON Nichols Last Filed: 09/27/22 17:22> Pain scale (0-10): 3 <CAMRON Nichols Last Filed: 09/27/22 17:22> Relieving factors: nothing <CAMRON Nichols Last Filed: 09/27/22 17:22> Exacerbating factors: palpation and movement <CAMRON Nichols Last Filed: 09/27/22 17:22> Treatment prior to arrival: none <CAMRON Nichols - Last Filed: 09/27/22 17:22> Related Data Home Medications: Home Medications Medication Instructions Recorded Confirmed ergocalciferol (vitamin D2) 1,250 1 cap PO QWEEK 05/23/22 09/12/22 mcg (50,000 unit) capsule omeprazole 20 mg capsule,delayed 1 cap PO BID 05/23/22 09/12/22 release aripiprazole 5 mg tablet 5 mg PO BEDTIME 09/12/22 09/12/22 famotidine 10 mg tablet (Heartburn 10 mg PO BID PRN acid reflux 09/12/22 09/12/22 Relief (famotidine)) Previous Rx's Medication Instructions Recorded albuterol sulfate 90 mcg/actuation 1 inh inhalation QID PRN shortness 09/28/20 aerosol inhaler (ProAir HFA) of breath or wheezing #8.5 grams acetaminophen 650 mg 650 mg PO Q8H PRN pain #30 tabs 12/21/21 tablet,extended release (Tylenol Arthritis Pain) cyclobenzaprine 10 mg tablet 10 mg PO TID PRN muscle spasm #14 12/21/21 tabs lidocaine 5 % topical patch 1 patch topical DAILY #15 ea 12/21/21 levothyroxine 137 mcg capsule 274 mcg PO DAILY #90 caps 09/19/22 (Tirosint) <CAMRON David - Last Filed: 09/27/22 15:23> Allergies/Adverse Reactions: Allergies Allergy/AdvReac Type Severity Reaction Status Date / Time ibuprofen [From MOTRIN] AdvReac Intermediate ABDOMINAL Verified 06/07/21 14:31 PAIN <CAMRON David - Last Filed: 09/27/22 15:23> Review of Systems Constitutional: Constitutional: Reports no additional constitutional complaints, Denies chills, Denies fever(s) and Denies night sweats <CAMRON Nichols - Last Filed: 09/27/22 17:22> Eyes: Eyes: Reports no additional eye complaints, Denies blurry vision, Denies change in vision, Denies diplopia, Denies eye discharge, Denies loss of vision and Denies eye pain <CAMRON Nichols - Last Filed: 09/27/22 17:22> ENT: Denies dizziness <CAMRON Nichols - Last Filed: 09/27/22 17:22> Cardiovascular: Cardiovascular: Reports no additional cardiovascular complaints, Reports chest pain, Denies lightheadedness, Denies Loss of Consciousness and Denies dyspnea <CAMRON Nichols - Last Filed: 09/27/22 17:22> Respiratory: Respiratory: Reports no additional respiratory complaints and Denies dyspnea <CAMRON Nichols - Last Filed: 09/27/22 17:22> Gastrointestinal: Gastrointestinal: Reports no additional gastrointestinal complaints, Denies abdominal pain, Denies melena, Denies hematochezia, Denies change in bowel habits and Denies change in stool character <CAMRON Nichols - Last Filed: 09/27/22 17:22> Genitourinary: Genitourinary: Denies hematuria, Denies urinary frequency, Denies dysuria, Denies urinary incontinence, Denies urinary hesitancy and Denies urinary urgency <CAMRON Nichols - Last Filed: 09/27/22 17:22> Musculoskeletal: Musculoskeletal: Reports no additional musculoskeletal complaints, Denies numbness and Denies tingling <CAMRON Nichols - Last Filed: 09/27/22 17:22> Neurologic: Denies dizziness, Denies loss of vision, Denies numbness and Denies tingling <CAMRON Nichols - Last Filed: 09/27/22 17:22> Psychiatric: Psychiatric: Reports no additional psychiatric complaints <CAMRON Nichols - Last Filed: 09/27/22 17:22> Endocrine: Endocrine: Reports no additional endocrine complaints <CAMRON Nichols - Last Filed: 09/27/22 17:22> Hematologic/Lymphatic: Hematologic/Lymphatic: Reports no additional hematologic/lymphatic complaints <CAMRON Nichols - Last Filed: 09/27/22 17:22> Allergic/Immunologic: Allergic/Immunologic: Reports no additional allergic/immunologic complaints <CAMRNO Nichols - Last Filed: 09/27/22 17:22> PMFSH Past Medical History Attestation statement: The following information was validated with the patient. <CAMRON Nichols - Last Filed: 01/25/23 17:22> Source: old records reviewed and nursing notes reviewed <CAMRON Nichols - Last Filed: 09/27/22 17:22> Medical History: Medical History Arthritis H/O gastric ulcer H/O gastritis High cholesterol Hyperthyroidism Hypothyroidism Low calcium levels <CAMRON David - Last Filed: 09/27/22 15:23> Surgical History: Surgical History History of salpingectomy <CAMRON David - Last Filed: 09/27/22 15:23> Family History Family History: Family History Mother Hypertension Diabetes Father No problems noted. <CAMRON David - Last Filed: 09/27/22 15:23> Social History Social History: Social History Household Members: None Housing: House Alcohol intake: unknown Patient Tobacco Use Status: Current everyday Tobacco user Tobacco use type: Cigarette Use of substances other than those prescribed or required for medical reasons: Unknown Advance Directives: No Advance Directives Information Provided: No service: No Current occupational status: unemployed and disabled <CAMRON David - Last Filed: 09/27/22 15:23> Physical Exam Vital Signs: Vital Signs: Last Vital Signs Temp 98.3 F 09/27/22 15:17 Pulse 55 09/27/22 17:49 Resp 16 09/27/22 17:49 BP 115/54 L 09/27/22 17:49 Pulse Ox 97 09/27/22 17:49 O2 Del Method 09/27/22 17:49 BMI result Body Mass Index 31.0 <CAMRON David - Last Filed: 09/27/22 15:23> Vital Signs: Last Vital Signs Temp 98.3 F 09/27/22 15:17 Pulse 55 09/27/22 17:49 Resp 16 09/27/22 17:49 BP 115/54 L 09/27/22 17:49 Pulse Ox 97 09/27/22 17:49 O2 Del Method 09/27/22 17:49 BMI result Body Mass Index 31.0 <CAMRON Nichols - Last Filed: 09/27/22 17:22> Vital Signs: Last Vital Signs Temp 98.3 F 09/27/22 15:17 Pulse 55 09/27/22 17:49 Resp 16 09/27/22 17:49 BP 115/54 L 09/27/22 17:49 Pulse Ox 97 09/27/22 17:49 O2 Del Method 09/27/22 17:49 BMI result Body Mass Index 31.0 <Ce Shaw PA - Last Filed: 09/27/22 18:09> Const: General: cooperative, no acute distress, alert and awake <CAMRON Nichols - Last Filed: 09/27/22 17:22> Nutritional Appearance: well nourished <CAMRON Nichols - Last Filed: 09/27/22 17:22> Orientation/consciousness: patient oriented x3 <CAMRON Nichols - Last Filed: 09/27/22 17:22> Limitations: no limitations <CAMRON Nichols - Last Filed: 09/27/22 17:22> HEENT: Head: Yes normal to inspection and Yes atraumatic <CAMRON Nichols - Last Filed: 09/27/22 17:22> Ears: hearing grossly normal bilaterally and external ears normal <CAMRON Nichols - Last Filed: 09/27/22 17:22> General nose exam: Normal external nose present, no nasal discharge noted and no epistaxis <CAMRON Nichols - Last Filed: 09/27/22 17:22> Face and sinus: Yes normal facial exam, No abrasion and No laceration <CAMRON Nichols - Last Filed: 09/27/22 17:22> Mouth: Normal oral and palatal mucosa present, no drooling and no muffled voice <CAMRON Nichols - Last Filed: 09/27/22 17:22> Eyes: General: appearance normal, both eyes and all related structures <CAMRON Nichols - Last Filed: 09/27/22 17:22> Periorbital: periorbital findings normal <CAMRON Nichols - Last Filed: 09/27/22 17:22> Eyelids: Yes eyelids normal <CAMRON Nichols - Last Filed: 09/27/22 17:22> Conjunctivae: conjunctivae normal <Celeste Chris PA - Last Filed: 09/27/22 17:22> Pupils: Equal, round and reactive pupils present <Celeste Chris PA - Last Filed: 09/27/22 17:22> EOM: EOMs intact bilaterally <Celeste Chris PA - Last Filed: 09/27/22 17:22> Neck: Neck: Yes normal visual inspection, Yes full ROM and Yes no lymphadenopathy <Celeste Chris, PA - Last Filed: 09/27/22 17:22> Chest: Chest palpation & inspection: normal inspection of the chest <Celeste Chris PA - Last Filed: 09/27/22 17:22> Resp: Effort & Inspection: normal respiratory effort and able to speak in complete sentences <Celeste Chris PA - Last Filed: 09/27/22 17:22> Auscultation: clear to auscultation bilaterally <Celeste Chris PA - Last Filed: 09/27/22 17:22> Cardio: Rate: regular rate <Celeste Chris PA - Last Filed: 09/27/22 17:22> Rhythm: regular rhythm <Celeste Chris PA - Last Filed: 09/27/22 17:22> GI: Inspection: Yes normal to inspection <Celeste Chris PA - Last Filed: 09/27/22 17:22> Palpation (GI): Soft to palpation, not firm, nontender, no guarding and not rigid <Celeste Chris PA - Last Filed: 09/27/22 17:22> Neuro: General: patient oriented x3 and moves all extremities <Celeste Chris PA - Last Filed: 09/27/22 17:22> Cranial nerves: Yes Equal, round and reactive pupils present <Celeste Chris PA - Last Filed: 09/27/22 17:22> Cognition (Neuro): normal cognition <Celeste Chris PA - Last Filed: 09/27/22 17:22> Motor exam (neuro): 5/5 motor strength present throughout <Celeste Chris PA - Last Filed: 09/27/22 17:22> Sensory Exam: Normal double simultaneous stimulation for sensation <Celeste KeeCAMRON ocasio - Last Filed: 09/27/22 17:22> Coordination: [id number] test normal <Celestetroy KeeCAMRON ocasio - Last Filed: 09/27/22 17:22> Extrem: General: Yes normal to inspection, Yes full ROM and Yes capillary refill normal <Celeste KeeCAMRON ocasio - Last Filed: 09/27/22 17:22> Psych: Appearance: grossly normal <Celeste ChrisCAMRON ocasio - Last Filed: 09/27/22 17:22> Mental Status: mental status grossly normal <Celestetroy KeeCAMRON ocasio - Last Filed: 09/27/22 17:22> Affect: normal affect <Celeste ChrisCAMRON ocasio - Last Filed: 09/27/22 17:22> Attitude: cooperative <Celeste ChrisCAMRON ocasio - Last Filed: 09/27/22 17:22> Thought process: Normal thought process present <CAMRON Nichols - Last Filed: 09/27/22 17:22> Thought content: Normal thought content present <CAMRON Nichols - Last Filed: 09/27/22 17:22> Insight: Good insight present (Psych) <CAMRON Nichols - Last Filed: 09/27/22 17:22> Course Course Course Narrative: RME- 15:24pm 51yoF with a past medical history of hypothyroidism was presenting to the ER with complaints of sudden onset of left-sided chest pain with associated palpitations radiating to her left arm that started on Sunday while she was sleeping. She reports that she is dealing with a lot of stressors at home due to her son is doing drugs. Plan: Labs, EKG, chest x-ray, COVID/RSV/flu swab. Patient sent back to the waiting room to be evaluated in the ED. <CAMRON David - Last Filed: 09/27/22 15:23> Reevaluation(s) Reevaluation #1: I received sign out from CAMRON Chris pending repeat trop, if normal patient could be DC home second trop not meeting delta criteria. At this time patient will be dc home at time of discharge patient's vital signs are stable. Educated patient on diagnosis and treatment plan, answered all question, patient elizabeth delgado understanding. At this time patient will be discharged home, advised to return with new or worsening symptoms. Educated on worrisome signs and symptoms and when to return. At this time I feel comfortable discharge home. <CAMRON Sexton - Last Filed: 09/27/22 18:09> Time: 18:08 <CAMRON Sexton - Last Filed: 09/27/22 18:09> Medications Administered Discontinued Medications Generic Name Dose Route Start Last Admin Trade Name Freq PRN Reason Stop Dose Admin Acetaminophen 650 mg 09/27/22 15:59 09/27/22 16:08 Acetaminophen 325 Mg Tablet PO 09/27/22 16:00 650 mg ONCE ONE Administration Ketorolac Tromethamine 15 mg 09/27/22 16:05 09/27/22 16:08 Ketorolac Tromethamine 15 Mg/Ml Vial IVPUSH 09/27/22 16:06 15 mg ONCE ONE Administration <CAMRON David - Last Filed: 09/27/22 15:23> Medications Administered Discontinued Medications Generic Name Dose Route Start Last Admin Trade Name Freq PRN Reason Stop Dose Admin Acetaminophen 650 mg 09/27/22 15:59 09/27/22 16:08 Acetaminophen 325 Mg Tablet PO 09/27/22 16:00 650 mg ONCE ONE Administration Ketorolac Tromethamine 15 mg 09/27/22 16:05 09/27/22 16:08 Ketorolac Tromethamine 15 Mg/Ml Vial IVPUSH 09/27/22 16:06 15 mg ONCE ONE Administration <CAMRON Nichols - Last Filed: 09/27/22 17:22> Medications Administered Discontinued Medications Generic Name Dose Route Start Last Admin Trade Name Freq PRN Reason Stop Dose Admin Acetaminophen 650 mg 09/27/22 15:59 09/27/22 16:08 Acetaminophen 325 Mg Tablet PO 09/27/22 16:00 650 mg ONCE ONE Administration Ketorolac Tromethamine 15 mg 09/27/22 16:05 09/27/22 16:08 Ketorolac Tromethamine 15 Mg/Ml Vial IVPUSH 09/27/22 16:06 15 mg ONCE ONE Administration <CAMRON Sexton - Last Filed: 09/27/22 18:09> Medical Decision Making Medical Decision Making MDM Narrative: Patient is a 51 year old assigned female at with a history of hypothyroidism presenting to the emergency department today with chest pain. Patient's physical exam was unremarkable. Patient's blood work showed an initial troponin of 17.4 with a pending repeat and an elevated TSH of 5.69. Patient's EKG was unremarkable. Patient's chest x-ray showed no acute process. I explained my physical exam findings as well as all test results to the patient. I answered all questions asked by the patient. Patient received IV Toradol and PO Tylenol which she stated helped her pain significantly. My suspicion for cardiac pathology is low given the patient's current presentation. Plan is for patient to be discharged as long as repeat troponin does not have a positive delta. <CAMRON Nichols - Last Filed: 09/27/22 17:22> Differential Diagnosis Differential Diagnoses: The differential diagnosis associated with the presentation includes <CAMRON Nichols - Last Filed: 09/27/22 17:22> Anxiety, chest pain, chest wall pain <CAMRON Nichols - Last Filed: 09/27/22 17:22> Lab Data MDM Lab Attestation statement: I reviewed the patient's lab results. <CAMRON Nichols - Last Filed: 09/27/22 17:22> Result Diagrams: 09/27/22 15:40 09/27/22 15:40 <CAMRON David - Last Filed: 09/27/22 15:23> Labs: Lab Results 09/27/22 09/27/22 09/27/22 Range/Units 15:40 15:40 15:40 WBC 8.0 (4.8-10.8) X10*3/uL RBC 5.01 (4.20-5.50) X10*6/uL Hgb 15.2 (12.0-16.0) g/dl Hct 44.4 (37.0-47.0) % MCV 88.6 (80.0-98.0) fL MCH 30.3 (27.0-33.0) pg MCHC 34.2 (31.0-35.0) g/dl RDW 12.8 (11.0-16.0) % Plt Count 237 (160-400) X10*3/uL MPV 10.6 (9.4-12.3) fL Immature Gran % (Auto) 0.3 (0.0-0.4) % Neut % (Auto) 49.9 (45-73) % Lymph % (Auto) 35.8 (20-40) % [place] % (Auto) 9.3 (2-11) % Eos % (Auto) 3.8 (0-4) % Baso % (Auto) 0.9 (0-2) % Lymph # (Auto) 2.9 (1.2-4.9) X10*3/uL [place] # (Auto) 0.7 (0.1-1.2) X10*3/uL Eos # (Auto) 0.3 (0.0-0.4) X10*3/uL Baso # (Auto) 0.1 (0.0-0.2) X10*3/uL Abs Immat Gran (auto) 0.02 (0.00-0.03) X10*3/uL Absolute Neuts (auto) 4.0 (2.0-8.3) x10*3/uL Absolute Nucleated RBC 0.000 (0.0-0.012) X10*3/uL Nucleated RBC % (auto) 0.0 (0.0-0.2) /100WBC PT 11.5 (10.0-13.1) SEC INR 1.0 (0.9-1.1) Sodium 141 (135-145) mmol/L Potassium 4.1 (3.3-5.1) mmol/L Chloride 108 (96-108) mmol/L Carbon Dioxide 25 (22-29) mmol/L Anion Gap 12 (12-20) BUN 13 (9-16) mg/dL Creatinine 1.03 (0.5-1.4) mg/dL Estim Creat Clear Calc 59.0 Estimated GFR 56 Random Glucose 88 (60-115) mg/dL Calcium 10.4 H (8.4-10.2) mg/dL Magnesium 2.1 (1.6-2.6) mg/dL Total Bilirubin 0.5 (0.0-1.0) mg/dL AST 21 (5-31) U/L ALT 26 (0-31) U/L Alkaline Phosphatase 134 H (39-117) U/L Troponin I High Sens (<3.5-17.0) ng/L Total Protein 7.8 (6.5-8.0) g/dL Albumin 4.3 (3.5-5.0) g/dL Lipase 32 (8-78) U/L TSH (0.32-4.0) uIU/mL Free T4 (0.71-1.85) ng/dL Influenza Type A (PCR) (Negative) Influenza Type B (PCR) (Negative) RSV RNA Qual (PCR) (Negative) SARS-CoV-2 RNA (RT-PCR) (Negative) 09/27/22 09/27/22 09/27/22 Range/Units 15:40 15:40 15:40 WBC (4.8-10.8) X10*3/uL RBC (4.20-5.50) X10*6/uL Hgb (12.0-16.0) g/dl Hct (37.0-47.0) % MCV (80.0-98.0) fL MCH (27.0-33.0) pg MCHC (31.0-35.0) g/dl RDW (11.0-16.0) % Plt Count (160-400) X10*3/uL MPV (9.4-12.3) fL Immature Gran % (Auto) (0.0-0.4) % Neut % (Auto) (45-73) % Lymph % (Auto) (20-40) % [place] % (Auto) (2-11) % Eos % (Auto) (0-4) % Baso % (Auto) (0-2) % Lymph # (Auto) (1.2-4.9) X10*3/uL [place] # (Auto) (0.1-1.2) X10*3/uL Eos # (Auto) (0.0-0.4) X10*3/uL Baso # (Auto) (0.0-0.2) X10*3/uL Abs Immat Gran (auto) (0.00-0.03) X10*3/uL Absolute Neuts (auto) (2.0-8.3) x10*3/uL Absolute Nucleated RBC (0.0-0.012) X10*3/uL Nucleated RBC % (auto) (0.0-0.2) /100WBC PT (10.0-13.1) SEC INR (0.9-1.1) Sodium (135-145) mmol/L Potassium (3.3-5.1) mmol/L Chloride (96-108) mmol/L Carbon Dioxide (22-29) mmol/L Anion Gap (12-20) BUN (9-16) mg/dL Creatinine (0.5-1.4) mg/dL Estim Creat Clear Calc Estimated GFR Random Glucose (60-115) mg/dL Calcium (8.4-10.2) mg/dL Magnesium (1.6-2.6) mg/dL Total Bilirubin (0.0-1.0) mg/dL AST (5-31) U/L ALT (0-31) U/L Alkaline Phosphatase (39-117) U/L Troponin I High Sens 17.4 H (<3.5-17.0) ng/L Total Protein (6.5-8.0) g/dL Albumin (3.5-5.0) g/dL Lipase (8-78) U/L TSH 5.69 H (0.32-4.0) uIU/mL Free T4 1.31 (0.71-1.85) ng/dL Influenza Type A (PCR) NEGATIVE (Negative) Influenza Type B (PCR) NEGATIVE (Negative) RSV RNA Qual (PCR) NEGATIVE (Negative) SARS-CoV-2 RNA (RT-PCR) NEGATIVE (Negative) 09/27/22 Range/Units 17:30 WBC (4.8-10.8) X10*3/uL RBC (4.20-5.50) X10*6/uL Hgb (12.0-16.0) g/dl Hct (37.0-47.0) % MCV (80.0-98.0) fL MCH (27.0-33.0) pg MCHC (31.0-35.0) g/dl RDW (11.0-16.0) % Plt Count (160-400) X10*3/uL MPV (9.4-12.3) fL Immature Gran % (Auto) (0.0-0.4) % Neut % (Auto) (45-73) % Lymph % (Auto) (20-40) % [place] % (Auto) (2-11) % Eos % (Auto) (0-4) % Baso % (Auto) (0-2) % Lymph # (Auto) (1.2-4.9) X10*3/uL [place] # (Auto) (0.1-1.2) X10*3/uL Eos # (Auto) (0.0-0.4) X10*3/uL Baso # (Auto) (0.0-0.2) X10*3/uL Abs Immat Gran (auto) (0.00-0.03) X10*3/uL Absolute Neuts (auto) (2.0-8.3) x10*3/uL Absolute Nucleated RBC (0.0-0.012) X10*3/uL Nucleated RBC % (auto) (0.0-0.2) /100WBC PT (10.0-13.1) SEC INR (0.9-1.1) Sodium (135-145) mmol/L Potassium (3.3-5.1) mmol/L Chloride (96-108) mmol/L Carbon Dioxide (22-29) mmol/L Anion Gap (12-20) BUN (9-16) mg/dL Creatinine (0.5-1.4) mg/dL Estim Creat Clear Calc Estimated GFR Random Glucose (60-115) mg/dL Calcium (8.4-10.2) mg/dL Magnesium (1.6-2.6) mg/dL Total Bilirubin (0.0-1.0) mg/dL AST (5-31) U/L ALT (0-31) U/L Alkaline Phosphatase (39-117) U/L Troponin I High Sens 21.0 H (<3.5-17.0) ng/L Total Protein (6.5-8.0) g/dL Albumin (3.5-5.0) g/dL Lipase (8-78) U/L TSH (0.32-4.0) uIU/mL Free T4 (0.71-1.85) ng/dL Influenza Type A (PCR) (Negative) Influenza Type B (PCR) (Negative) RSV RNA Qual (PCR) (Negative) SARS-CoV-2 RNA (RT-PCR) (Negative) <CAMRON David - Last Filed: 09/27/22 15:23> Lab Results 09/27/22 09/27/22 09/27/22 Range/Units 15:40 15:40 15:40 WBC 8.0 (4.8-10.8) X10*3/uL RBC 5.01 (4.20-5.50) X10*6/uL Hgb 15.2 (12.0-16.0) g/dl Hct 44.4 (37.0-47.0) % MCV 88.6 (80.0-98.0) fL MCH 30.3 (27.0-33.0) pg MCHC 34.2 (31.0-35.0) g/dl RDW 12.8 (11.0-16.0) % Plt Count 237 (160-400) X10*3/uL MPV 10.6 (9.4-12.3) fL Immature Gran % (Auto) 0.3 (0.0-0.4) % Neut % (Auto) 49.9 (45-73) % Lymph % (Auto) 35.8 (20-40) % [place] % (Auto) 9.3 (2-11) % Eos % (Auto) 3.8 (0-4) % Baso % (Auto) 0.9 (0-2) % Lymph # (Auto) 2.9 (1.2-4.9) X10*3/uL [place] # (Auto) 0.7 (0.1-1.2) X10*3/uL Eos # (Auto) 0.3 (0.0-0.4) X10*3/uL Baso # (Auto) 0.1 (0.0-0.2) X10*3/uL Abs Immat Gran (auto) 0.02 (0.00-0.03) X10*3/uL Absolute Neuts (auto) 4.0 (2.0-8.3) x10*3/uL Absolute Nucleated RBC 0.000 (0.0-0.012) X10*3/uL Nucleated RBC % (auto) 0.0 (0.0-0.2) /100WBC PT 11.5 (10.0-13.1) SEC INR 1.0 (0.9-1.1) Sodium 141 (135-145) mmol/L Potassium 4.1 (3.3-5.1) mmol/L Chloride 108 (96-108) mmol/L Carbon Dioxide 25 (22-29) mmol/L Anion Gap 12 (12-20) BUN 13 (9-16) mg/dL Creatinine 1.03 (0.5-1.4) mg/dL Estim Creat Clear Calc 59.0 Estimated GFR 56 Random Glucose 88 (60-115) mg/dL Calcium 10.4 H (8.4-10.2) mg/dL Magnesium 2.1 (1.6-2.6) mg/dL Total Bilirubin 0.5 (0.0-1.0) mg/dL AST 21 (5-31) U/L ALT 26 (0-31) U/L Alkaline Phosphatase 134 H (39-117) U/L Troponin I High Sens (<3.5-17.0) ng/L Total Protein 7.8 (6.5-8.0) g/dL Albumin 4.3 (3.5-5.0) g/dL Lipase 32 (8-78) U/L TSH (0.32-4.0) uIU/mL Free T4 (0.71-1.85) ng/dL Influenza Type A (PCR) (Negative) Influenza Type B (PCR) (Negative) RSV RNA Qual (PCR) (Negative) SARS-CoV-2 RNA (RT-PCR) (Negative) 09/27/22 09/27/22 09/27/22 Range/Units 15:40 15:40 15:40 WBC (4.8-10.8) X10*3/uL RBC (4.20-5.50) X10*6/uL Hgb (12.0-16.0) g/dl Hct (37.0-47.0) % MCV (80.0-98.0) fL MCH (27.0-33.0) pg MCHC (31.0-35.0) g/dl RDW (11.0-16.0) % Plt Count (160-400) X10*3/uL MPV (9.4-12.3) fL Immature Gran % (Auto) (0.0-0.4) % Neut % (Auto) (45-73) % Lymph % (Auto) (20-40) % [place] % (Auto) (2-11) % Eos % (Auto) (0-4) % Baso % (Auto) (0-2) % Lymph # (Auto) (1.2-4.9) X10*3/uL [place] # (Auto) (0.1-1.2) X10*3/uL Eos # (Auto) (0.0-0.4) X10*3/uL Baso # (Auto) (0.0-0.2) X10*3/uL Abs Immat Gran (auto) (0.00-0.03) X10*3/uL Absolute Neuts (auto) (2.0-8.3) x10*3/uL Absolute Nucleated RBC (0.0-0.012) X10*3/uL Nucleated RBC % (auto) (0.0-0.2) /100WBC PT (10.0-13.1) SEC INR (0.9-1.1) Sodium (135-145) mmol/L Potassium (3.3-5.1) mmol/L Chloride (96-108) mmol/L Carbon Dioxide (22-29) mmol/L Anion Gap (12-20) BUN (9-16) mg/dL Creatinine (0.5-1.4) mg/dL Estim Creat Clear Calc Estimated GFR Random Glucose (60-115) mg/dL Calcium (8.4-10.2) mg/dL Magnesium (1.6-2.6) mg/dL Total Bilirubin (0.0-1.0) mg/dL AST (5-31) U/L ALT (0-31) U/L Alkaline Phosphatase (39-117) U/L Troponin I High Sens 17.4 H (<3.5-17.0) ng/L Total Protein (6.5-8.0) g/dL Albumin (3.5-5.0) g/dL Lipase (8-78) U/L TSH 5.69 H (0.32-4.0) uIU/mL Free T4 1.31 (0.71-1.85) ng/dL Influenza Type A (PCR) NEGATIVE (Negative) Influenza Type B (PCR) NEGATIVE (Negative) RSV RNA Qual (PCR) NEGATIVE (Negative) SARS-CoV-2 RNA (RT-PCR) NEGATIVE (Negative) 09/27/22 Range/Units 17:30 WBC (4.8-10.8) X10*3/uL RBC (4.20-5.50) X10*6/uL Hgb (12.0-16.0) g/dl Hct (37.0-47.0) % MCV (80.0-98.0) fL MCH (27.0-33.0) pg MCHC (31.0-35.0) g/dl RDW (11.0-16.0) % Plt Count (160-400) X10*3/uL MPV (9.4-12.3) fL Immature Gran % (Auto) (0.0-0.4) % Neut % (Auto) (45-73) % Lymph % (Auto) (20-40) % [place] % (Auto) (2-11) % Eos % (Auto) (0-4) % Baso % (Auto) (0-2) % Lymph # (Auto) (1.2-4.9) X10*3/uL [place] # (Auto) (0.1-1.2) X10*3/uL Eos # (Auto) (0.0-0.4) X10*3/uL Baso # (Auto) (0.0-0.2) X10*3/uL Abs Immat Gran (auto) (0.00-0.03) X10*3/uL Absolute Neuts (auto) (2.0-8.3) x10*3/uL Absolute Nucleated RBC (0.0-0.012) X10*3/uL Nucleated RBC % (auto) (0.0-0.2) /100WBC PT (10.0-13.1) SEC INR (0.9-1.1) Sodium (135-145) mmol/L Potassium (3.3-5.1) mmol/L Chloride (96-108) mmol/L Carbon Dioxide (22-29) mmol/L Anion Gap (12-20) BUN (9-16) mg/dL Creatinine (0.5-1.4) mg/dL Estim Creat Clear Calc Estimated GFR Random Glucose (60-115) mg/dL Calcium (8.4-10.2) mg/dL Magnesium (1.6-2.6) mg/dL Total Bilirubin (0.0-1.0) mg/dL AST (5-31) U/L ALT (0-31) U/L Alkaline Phosphatase (39-117) U/L Troponin I High Sens 21.0 H (<3.5-17.0) ng/L Total Protein (6.5-8.0) g/dL Albumin (3.5-5.0) g/dL Lipase (8-78) U/L TSH (0.32-4.0) uIU/mL Free T4 (0.71-1.85) ng/dL Influenza Type A (PCR) (Negative) Influenza Type B (PCR) (Negative) RSV RNA Qual (PCR) (Negative) SARS-CoV-2 RNA (RT-PCR) (Negative) <CAMRON Nichols - Last Filed: 09/27/22 17:22> Lab Results 09/27/22 09/27/22 09/27/22 Range/Units 15:40 15:40 15:40 WBC 8.0 (4.8-10.8) X10*3/uL RBC 5.01 (4.20-5.50) X10*6/uL Hgb 15.2 (12.0-16.0) g/dl Hct 44.4 (37.0-47.0) % MCV 88.6 (80.0-98.0) fL MCH 30.3 (27.0-33.0) pg MCHC 34.2 (31.0-35.0) g/dl RDW 12.8 (11.0-16.0) % Plt Count 237 (160-400) X10*3/uL MPV 10.6 (9.4-12.3) fL Immature Gran % (Auto) 0.3 (0.0-0.4) % Neut % (Auto) 49.9 (45-73) % Lymph % (Auto) 35.8 (20-40) % [place] % (Auto) 9.3 (2-11) % Eos % (Auto) 3.8 (0-4) % Baso % (Auto) 0.9 (0-2) % Lymph # (Auto) 2.9 (1.2-4.9) X10*3/uL [place] # (Auto) 0.7 (0.1-1.2) X10*3/uL Eos # (Auto) 0.3 (0.0-0.4) X10*3/uL Baso # (Auto) 0.1 (0.0-0.2) X10*3/uL Abs Immat Gran (auto) 0.02 (0.00-0.03) X10*3/uL Absolute Neuts (auto) 4.0 (2.0-8.3) x10*3/uL Absolute Nucleated RBC 0.000 (0.0-0.012) X10*3/uL Nucleated RBC % (auto) 0.0 (0.0-0.2) /100WBC PT 11.5 (10.0-13.1) SEC INR 1.0 (0.9-1.1) Sodium 141 (135-145) mmol/L Potassium 4.1 (3.3-5.1) mmol/L Chloride 108 (96-108) mmol/L Carbon Dioxide 25 (22-29) mmol/L Anion Gap 12 (12-20) BUN 13 (9-16) mg/dL Creatinine 1.03 (0.5-1.4) mg/dL Estim Creat Clear Calc 59.0 Estimated GFR 56 Random Glucose 88 (60-115) mg/dL Calcium 10.4 H (8.4-10.2) mg/dL Magnesium 2.1 (1.6-2.6) mg/dL Total Bilirubin 0.5 (0.0-1.0) mg/dL AST 21 (5-31) U/L ALT 26 (0-31) U/L Alkaline Phosphatase 134 H (39-117) U/L Troponin I High Sens (<3.5-17.0) ng/L Total Protein 7.8 (6.5-8.0) g/dL Albumin 4.3 (3.5-5.0) g/dL Lipase 32 (8-78) U/L TSH (0.32-4.0) uIU/mL Free T4 (0.71-1.85) ng/dL Influenza Type A (PCR) (Negative) Influenza Type B (PCR) (Negative) RSV RNA Qual (PCR) (Negative) SARS-CoV-2 RNA (RT-PCR) (Negative) 09/27/22 09/27/22 09/27/22 Range/Units 15:40 15:40 15:40 WBC (4.8-10.8) X10*3/uL RBC (4.20-5.50) X10*6/uL Hgb (12.0-16.0) g/dl Hct (37.0-47.0) % MCV (80.0-98.0) fL MCH (27.0-33.0) pg MCHC (31.0-35.0) g/dl RDW (11.0-16.0) % Plt Count (160-400) X10*3/uL MPV (9.4-12.3) fL Immature Gran % (Auto) (0.0-0.4) % Neut % (Auto) (45-73) % Lymph % (Auto) (20-40) % [place] % (Auto) (2-11) % Eos % (Auto) (0-4) % Baso % (Auto) (0-2) % Lymph # (Auto) (1.2-4.9) X10*3/uL [place] # (Auto) (0.1-1.2) X10*3/uL Eos # (Auto) (0.0-0.4) X10*3/uL Baso # (Auto) (0.0-0.2) X10*3/uL Abs Immat Gran (auto) (0.00-0.03) X10*3/uL Absolute Neuts (auto) (2.0-8.3) x10*3/uL Absolute Nucleated RBC (0.0-0.012) X10*3/uL Nucleated RBC % (auto) (0.0-0.2) /100WBC PT (10.0-13.1) SEC INR (0.9-1.1) Sodium (135-145) mmol/L Potassium (3.3-5.1) mmol/L Chloride (96-108) mmol/L Carbon Dioxide (22-29) mmol/L Anion Gap (12-20) BUN (9-16) mg/dL Creatinine (0.5-1.4) mg/dL Estim Creat Clear Calc Estimated GFR Random Glucose (60-115) mg/dL Calcium (8.4-10.2) mg/dL Magnesium (1.6-2.6) mg/dL Total Bilirubin (0.0-1.0) mg/dL AST (5-31) U/L ALT (0-31) U/L Alkaline Phosphatase (39-117) U/L Troponin I High Sens 17.4 H (<3.5-17.0) ng/L Total Protein (6.5-8.0) g/dL Albumin (3.5-5.0) g/dL Lipase (8-78) U/L TSH 5.69 H (0.32-4.0) uIU/mL Free T4 1.31 (0.71-1.85) ng/dL Influenza Type A (PCR) NEGATIVE (Negative) Influenza Type B (PCR) NEGATIVE (Negative) RSV RNA Qual (PCR) NEGATIVE (Negative) SARS-CoV-2 RNA (RT-PCR) NEGATIVE (Negative) 09/27/22 Range/Units 17:30 WBC (4.8-10.8) X10*3/uL RBC (4.20-5.50) X10*6/uL Hgb (12.0-16.0) g/dl Hct (37.0-47.0) % MCV (80.0-98.0) fL MCH (27.0-33.0) pg MCHC (31.0-35.0) g/dl RDW (11.0-16.0) % Plt Count (160-400) X10*3/uL MPV (9.4-12.3) fL Immature Gran % (Auto) (0.0-0.4) % Neut % (Auto) (45-73) % Lymph % (Auto) (20-40) % [place] % (Auto) (2-11) % Eos % (Auto) (0-4) % Baso % (Auto) (0-2) % Lymph # (Auto) (1.2-4.9) X10*3/uL [place] # (Auto) (0.1-1.2) X10*3/uL Eos # (Auto) (0.0-0.4) X10*3/uL Baso # (Auto) (0.0-0.2) X10*3/uL Abs Immat Gran (auto) (0.00-0.03) X10*3/uL Absolute Neuts (auto) (2.0-8.3) x10*3/uL Absolute Nucleated RBC (0.0-0.012) X10*3/uL Nucleated RBC % (auto) (0.0-0.2) /100WBC PT (10.0-13.1) SEC INR (0.9-1.1) Sodium (135-145) mmol/L Potassium (3.3-5.1) mmol/L Chloride (96-108) mmol/L Carbon Dioxide (22-29) mmol/L Anion Gap (12-20) BUN (9-16) mg/dL Creatinine (0.5-1.4) mg/dL Estim Creat Clear Calc Estimated GFR Random Glucose (60-115) mg/dL Calcium (8.4-10.2) mg/dL Magnesium (1.6-2.6) mg/dL Total Bilirubin (0.0-1.0) mg/dL AST (5-31) U/L ALT (0-31) U/L Alkaline Phosphatase (39-117) U/L Troponin I High Sens 21.0 H (<3.5-17.0) ng/L Total Protein (6.5-8.0) g/dL Albumin (3.5-5.0) g/dL Lipase (8-78) U/L TSH (0.32-4.0) uIU/mL Free T4 (0.71-1.85) ng/dL Influenza Type A (PCR) (Negative) Influenza Type B (PCR) (Negative) RSV RNA Qual (PCR) (Negative) SARS-CoV-2 RNA (RT-PCR) (Negative) <CAMRON Sexton - Last Filed: 09/27/22 18:09> Independent Interpretation I performed an independent interpretation of an: EKG <CAMRON Nichols - Last Filed: 09/27/22 17:22> Interpretation: Vent. Rate: 072 BPM ? ? Atrial Rate: 072 BPM P-R Int: 142 ms? QRS Dur: 076 ms QT Int: 374 ms ? ? ? P-R-T Axes: 014 042 -23 degrees QTc Int: 409 ms ? Normal sinus rhythm Nonspecific ST and T wave abnormality Abnormal ECG When compared with ECG of 21-AUG-2022 14:07, No significant changes seen ? Electronically Signed By:RUBIO KING Dictated By: Rubio King MD Signed By: Electronically signed by Rubio King MD 09/27/22 1712 <CAMRON Nichols Last Filed: 09/27/22 17:22> Radiology Impression Radiologist Impression: My interpretation is in agreement with the radiologist's impression of this imaging study. -- EXAMINATION: XR CHEST CLINICAL INFORMATION: Chest pain COMPARISON: 05/04/2022 TECHNIQUE: 2 views of the chest were obtained. FINDINGS: The lungs are well expanded. There is no focal consolidation, edema, or effusion. No pneumothorax. The cardiomediastinal silhouette is within normal limits. No acute osseous abnormality. XR/XR chest 2V IMPRESSION: Clear lungs. Dictated By: Agus Maria MD Signed By: Electronically signed by Agus Maria MD 09/27/22 1517 <CAMRON Nichols Last Filed: 09/27/22 17:22> Critical Care Time Critical Care Time Critical Care Time: No <CAMRON Sexton Last Filed: 09/27/22 18:09> Discharge Plan Discharge Clinical Impression: Chest pain, Anxiety <CAMRON David Last Filed: 09/27/22 15:23> Patient Disposition: Home, Self-Care <CAMRON David Last Filed: 09/27/22 15:23> Additional Instructions: Your thyroid level is elevated - you should speak to your primary care provider about adjusting your thyroid medication. Return to the emergency department immediately if your symptoms worsen or if you develop any dizziness, shortness of breath, difficulty breathing, chest pain, blurry vision, loss of vision, nausea, vomiting, abdominal pain, fever, chills, back pain, or any other complaints. Olson nivel de tiroides est? elevado: debe hablar con olson proveedor de atenci?n primaria sobre c?mo ajustar olson medicamento para la tiroides. Regrese al departamento de emergencias de inmediato si hailey s?ntomas empeoran o si presenta mareos, falta de aire, dificultad para respirar, dolor de pecho, visi?n borrosa, p?rdida de la visi?n, n?useas, v?mitos, dolor abdominal, fiebre, escalofr?os, dolor de espalda o cualquier otras quejas. <CAMRON David - Last Filed: 09/27/22 15:23> Prescriptions: No Action levothyroxine [Tirosint] 137 mcg capsule 274 mcg PO DAILY Qty: 90 4RF albuterol sulfate [ProAir HFA] 90 mcg/actuation HFA aerosol inhaler 1 inh inhalation QID PRN (Reason: shortness of breath or wheezing) Qty: 8.5 0RF cyclobenzaprine 10 mg tablet 10 mg PO TID PRN (Reason: muscle spasm) Qty: 14 0RF lidocaine 5 % adhesive patch,medicated 1 patch topical DAILY Qty: 15 0RF Rx Instructions: leave on most painful area for up to 12 hrs acetaminophen [Tylenol Arthritis Pain] 650 mg tablet extended release 650 mg PO Q8H PRN (Reason: pain) Qty: 30 0RF omeprazole 20 mg capsule,delayed release(DR/EC) 1 cap PO BID ergocalciferol (vitamin D2) 1,250 mcg (50,000 unit) capsule 1 cap PO QWEEK aripiprazole 5 mg tablet 5 mg PO BEDTIME famotidine [Heartburn Relief (famotidine)] 10 mg tablet 10 mg PO BID PRN (Reason: acid reflux) <CAMRON David - Last Filed: 09/27/22 15:23> Referrals: [facility] [Primary Care Provider] - <CAMRON David - Last Filed: 09/27/22 15:23> Print Language: Tuvaluan <CAMRON David - Last Filed: 09/27/22 15:23>
--- NOTE | 2022-09-27 15:30 | PC.NURSE ---
Patient [place] Citizen speaking complaint of 8/10 chest pain also complaining of headache says pain awoke her from sleep felt her heart pounding. Did not take any OTC pain meds at home. Ambulatory with steady independent gait no distress noted will CTM
[2022-09-27 15:47] LABS: MANUAL DIFF FLAG NO
[2022-09-27 15:49] LABS: Basophils Absolute Auto 0.1 X10*3/uL (0.0-0.2); Basophils Percent Auto 0.9 % (0-2); Eosinophils Absolute Auto 0.3 X10*3/uL (0.0-0.4); Eosinophils Percent Auto 3.8 % (0-4); Hematocrit 44.4 % (37.0-47.0); Hemoglobin 15.2 g/dl (12.0-16.0); Imm Gran Abs Auto 0.02 X10*3/uL (0.00-0.03); Imm Gran Pct Auto 0.3 % (0.0-0.4); Lymphocytes Absolute Auto 2.9 X10*3/uL (1.2-4.9); Lymphocytes Percent Auto 35.8 % (20-40); Mean Corpuscular HGB Conc 34.2 g/dl (31.0-35.0); Mean Corpuscular Hemoglobin 30.3 pg (27.0-33.0); Mean Corpuscular Volume 88.6 fL (80.0-98.0); Mean Platelet Volume 10.6 fL (9.4-12.3); Monocytes Absolute Auto 0.7 X10*3/uL (0.1-1.2); Monocytes Percent Auto 9.3 % (2-11); Neutrophils Percent Auto 49.9 % (45-73); Platelet Count 237 X10*3/uL (160-400); Red Blood Count 5.01 X10*6/uL (4.20-5.50); Red Cell Distribution Width 12.8 % (11.0-16.0)
[2022-09-27 15:54] LABS: Prothrombin Time 11.5 SEC (10.0-13.1)
[2022-09-27 16:05] LABS: Alanine Aminotransferase 26 U/L (0-31); Albumin Level 4.3 g/dL (3.5-5.0); Alkaline Phosphatase 134 U/L (39-117); Anion Gap 12 (12-20); Aspartate Amino Transferase 21 U/L (5-31); Bilirubin Total 0.5 mg/dL (0.0-1.0); Blood Urea Nitrogen 13 mg/dL (9-16); Calcium 10.4 mg/dL (8.4-10.2); Carbon Dioxide 25 mmol/L (22-29); Chloride 108 mmol/L (96-108); Estimated Glomerular Filt Rate 56; Glucose Random 88 mg/dL (60-115); Lipase 32 U/L (8-78); Magnesium 2.1 mg/dL (1.6-2.6); Potassium 4.1 mmol/L (3.3-5.1); Sodium 141 mmol/L (135-145); Total Protein 7.8 g/dL (6.5-8.0)
[2022-09-27] MEDS: Ketorolac Tromethamine 15 MG/ML VIAL IVPUSH (16:08)
[2022-09-27] MEDS: Acetaminophen 325 MG TABLET 650 MG PO (16:08)
[2022-09-27 16:12] LABS: Troponin-I High Sensitivity 17.4 ng/L (<3.5-17.0)
[2022-09-27 16:27] LABS: TSH reflex Free T4 5.69 uIU/mL (0.32-4.0)
[2022-09-27 16:33] LABS: Influenza A PCR NEGATIVE (Negative); Influenza B PCR NEGATIVE (Negative); Resp Syncy Virus RNA Qual PCR NEGATIVE (Negative); SARS COV2 PCR INHOUSE NEGATIVE (Negative)
[2022-09-27 17:03] LABS: Free T4 (Free Thyroxine) 1.31 ng/dL (0.71-1.85)
[2022-09-27 17:49] VITALS: BP 115/54; PULSE 55; RESP 16; O2SAT 97
== END 2022-09-27 18:37 | disposition home or self-care (01) ==
PROVIDERS: Physician Assistant Medical; Emergency Provider Emergency Medicine
DX: R07.9 Chest pain, unspecified (principal); F41.9 Anxiety disorder, unspecified; E78.5 Hyperlipidemia, unspecified; F17.210 Nicotine dependence, cigarettes, uncomplicated; Z20.822 Contact with and (suspected) exposure to COVID-19; Z20.828 Contact with and (suspected) exposure to other viral communicable diseases
CPT/HCPCS: 0241U; 36415; 71046; 80053; 83690; 83735; 84439; 84443; 84484; 85025; 85610; 93005; 96374; 99284; 99285; J1885

== ENCOUNTER 2022-12-12 13:46 | Outpatient (REF) | payer MEDICAID, SELFPAY ==
[2022-12-12 15:16] LABS: Free T4 (Free Thyroxine) 0.67 ng/dL (0.71-1.85); Thyroid Stimulating Hormone 50.16 uIU/mL (0.32-4.0)
[2022-12-14 09:34] LABS: Thyroid Peroxidase Antibodies 112 IU/mL (<9)
== END 2022-12-12 13:47 | disposition home or self-care (01) ==
LOC: HO.LAB 13:46
PROVIDERS: Visit Provider Internal Medicine Endocrinology, Diabetes & Metabolism
DX: E03.9 Hypothyroidism, unspecified (principal)
CPT/HCPCS: 36415; 84439; 84443; 86376; 99212

== ENCOUNTER 2022-12-22 09:12 | Emergency (ER) | payer MEDICAID, SELFPAY ==
--- NOTE | ~2022-12-22 | XR_ITS ---
EXAMINATION: XR CHEST CLINICAL INFORMATION: Pain COMPARISON: 09/27/2022 TECHNIQUE: 2 views of the chest were obtained. FINDINGS: The lungs are well expanded. There is no focal consolidation, edema, or effusion. No pneumothorax. The cardiomediastinal silhouette is within normal limits. No acute osseous abnormality. XR/XR chest 2V IMPRESSION: Clear lungs.
[2022-12-22 09:13] VITALS: BP 119/70; PULSE 60; RESP 18; TEMP 36.7; O2SAT 96; BMI 30.2
--- NOTE | 2022-12-22 09:52 | ED.GENADULT ---
HPI - General Adult General Chief complaint: General Medical Stated complaint: Chest Pain Itchy Eyes Leg Pain Time Seen by Provider: 12/22/22 09:40 History of Present Illness HPI narrative: Patient complains of several days of continuous chest pain that is waxing and waning in intensity, the pain is worse with movement deep breath and when she touches the area, there is no associated shortness of breath it is not exertional there has been no fainting or feeling faint no confusion no nausea or vomiting no diaphoresis, no recent illness, no cough, no abdominal pain no nausea vomiting or diarrhea no leg swelling no calf pain or swelling She also says her eyes have been mildly itchy but no vision loss or eye pain She does have some muscle aches elsewhere in her body in both legs, not unilateral leg pain complaint Related Data Home Medications Medication Instructions Recorded Confirmed ergocalciferol (vitamin D2) 1,250 1 cap PO QWEEK 05/23/22 12/12/22 mcg (50,000 unit) capsule omeprazole 20 mg capsule,delayed 1 cap PO BID 05/23/22 12/12/22 release aripiprazole 5 mg tablet 5 mg PO BEDTIME 09/12/22 12/12/22 famotidine 10 mg tablet (Heartburn 10 mg PO BID PRN acid reflux 09/12/22 12/12/22 Relief (famotidine)) Previous Rx's Medication Instructions Recorded albuterol sulfate 90 mcg/actuation 1 inh inhalation QID PRN shortness 09/28/20 aerosol inhaler (ProAir HFA) of breath or wheezing #8.5 grams acetaminophen 650 mg 650 mg PO Q8H PRN pain #30 tabs 12/21/21 tablet,extended release (Tylenol Arthritis Pain) cyclobenzaprine 10 mg tablet 10 mg PO TID PRN muscle spasm #14 12/21/21 tabs lidocaine 5 % topical patch 1 patch topical DAILY #15 ea 12/21/21 Tirosint 200 mcg capsule 200 mcg PO DAILY #30 caps 12/12/22 (levothyroxine) acetaminophen 500 mg capsule 1,000 mg PO Q8H PRN pain #30 caps 12/22/22 oxycodone 5 mg tablet 5 mg PO Q6H PRN pain #10 tabs 12/22/22 Allergies Allergy/AdvReac Type Severity Reaction Status Date / Time ibuprofen [From MOTRIN] AdvReac Intermediate ABDOMINAL Verified 06/07/21 14:31 PAIN PMFSH Past Medical History Source: nursing notes reviewed Medical History Arthritis H/O gastric ulcer H/O gastritis High cholesterol Hyperthyroidism Hypothyroidism Low calcium levels Surgical History History of salpingectomy Family History Family History Mother Hypertension Diabetes Father No problems noted. Social History Social History Household Members: None Housing: House Alcohol intake: unknown Patient Tobacco Use Status: Current everyday Tobacco user Tobacco use type: Cigarette Advance Directives: No Advance Directives Information Provided: Yes service: No Current occupational status: unemployed and disabled Physical Exam ED Vital Signs: Vital Signs - 24 hr 12/22/22 09:13 12/22/22 12:18 12/22/22 13:40 Temperature 98.1 F Pulse Rate 60 50 59 Respiratory Rate 18 18 18 Blood Pressure 119/70 108/64 112/66 Pulse Oximetry 96 99 100 Oxygen Delivery Method Room Air Room Air Room Air BMI result Body Mass Index 30.2 General appearance is comfortable no acute distress The eyes are anicteric no pallor, no redness or discharge The pharynx is clear without redness swelling or exudate, membranes are moist Neck is supple The chest is clear to auscultation bilateral with full symmetric equal breath sounds Heart no murmur The chest wall had tenderness on the left side of the chest, pain was easily reproduced with movements and deep breath The chest wall was normal in appearance there was no rash The abdomen is soft nontender The extremities full range of motion x4 There is no pedal edema There is no calf tenderness or swelling Skin no rash Neuro no focal deficits, gait and balance are normal ambulates with no limp, interaction comprehension and expression were normal, motor is 5/5 x4 and sensation is intact and symmetrical in distal extremities, no facial asymmetry Course Course Course Narrative: Patient with chest pain that is continuous worse with deep breath movement and palpation, can he easily reproduced No history of diabetes hypertension no or cholesterol, patient is obese EKG was normal sinus rhythm with a rate of 62, TN interval was normal, QRS duration normal, QT normal There were inverted T-waves in multiple leads including V2 through V6, no acute ST changes When these were compared with the prior EKG done on 09/27 of this year there were no acute changes, T-wave inversions were seen on previous EKG, so no acute changes from prior EKG was repeated during patient's visit as she had another wave of the pain similar to waive she has it been experiencing off and on for the past several days EKG during this episode was repeated and there were no changes no acute ST T or ischemic changes Troponin was done twice 14 and 2nd was 15, so no diagnosis of TN CBC and chemistry were nondiagnostic otherwise, no acute findings Chest x-ray was normal Patient remains comfortable throughout ER visit, stable and is diagnosed with chest wall pain, likely musculoskeletal She is advised to follow with her primary care doctor and possibly for referral to vice president of talent acquisition of pains continue Medications Administered Discontinued Medications Generic Name Dose Route Start Last Admin Trade Name Freq PRN Reason Stop Dose Admin Acetaminophen 975 mg 12/22/22 12:44 12/22/22 12:57 Acetaminophen 325 Mg Tablet PO 12/22/22 12:45 975 mg ONCE ONE Administration Medical Decision Making Lab Data MDM Lab Attestation statement: I reviewed the patient's lab results. 12/22/22 10:21 12/22/22 10:21 Labs: Lab Results 12/22/22 12/22/22 12/22/22 Range/Units 10:21 10:21 10:21 WBC 9.0 (4.8-10.8) X10*3/uL RBC 5.17 (4.20-5.50) X10*6/uL Hgb 15.5 (12.0-16.0) g/dl Hct 45.5 (37.0-47.0) % MCV 88.0 (80.0-98.0) fL MCH 30.0 (27.0-33.0) pg MCHC 34.1 (31.0-35.0) g/dl RDW 13.2 (11.0-16.0) % Plt Count 264 (160-400) X10*3/uL MPV 10.3 (9.4-12.3) fL Immature Gran % (Auto) 0.3 (0.0-0.4) % Neut % (Auto) 56.4 (45-73) % Lymph % (Auto) 31.8 (20-40) % [place] % (Auto) 6.6 (2-11) % Eos % (Auto) 4.1 H (0-4) % Baso % (Auto) 0.8 (0-2) % Lymph # (Auto) 2.9 (1.2-4.9) X10*3/uL [place] # (Auto) 0.6 (0.1-1.2) X10*3/uL Eos # (Auto) 0.4 (0.0-0.4) X10*3/uL Baso # (Auto) 0.1 (0.0-0.2) X10*3/uL Abs Immat Gran (auto) 0.03 (0.00-0.03) X10*3/uL Absolute Neuts (auto) 5.0 (2.0-8.3) x10*3/uL Absolute Nucleated RBC 0.000 (0.0-0.012) X10*3/uL Nucleated RBC % (auto) 0.0 (0.0-0.2) /100WBC Sodium 143 (135-145) mmol/L Potassium 4.4 (3.3-5.1) mmol/L Chloride 107 (96-108) mmol/L Carbon Dioxide 29 (22-29) mmol/L Anion Gap 11 L (12-20) BUN 11 (9-16) mg/dL Creatinine 0.99 (0.5-1.4) mg/dL Estim Creat Clear Calc 59.8 Estimated GFR 59 Random Glucose 97 (60-115) mg/dL Calcium 9.7 D (8.4-10.2) mg/dL Troponin I High Sens 14.9 (<3.5-17.0) ng/L 12/22/22 Range/Units 13:36 WBC (4.8-10.8) X10*3/uL RBC (4.20-5.50) X10*6/uL Hgb (12.0-16.0) g/dl Hct (37.0-47.0) % MCV (80.0-98.0) fL MCH (27.0-33.0) pg MCHC (31.0-35.0) g/dl RDW (11.0-16.0) % Plt Count (160-400) X10*3/uL MPV (9.4-12.3) fL Immature Gran % (Auto) (0.0-0.4) % Neut % (Auto) (45-73) % Lymph % (Auto) (20-40) % [place] % (Auto) (2-11) % Eos % (Auto) (0-4) % Baso % (Auto) (0-2) % Lymph # (Auto) (1.2-4.9) X10*3/uL [place] # (Auto) (0.1-1.2) X10*3/uL Eos # (Auto) (0.0-0.4) X10*3/uL Baso # (Auto) (0.0-0.2) X10*3/uL Abs Immat Gran (auto) (0.00-0.03) X10*3/uL Absolute Neuts (auto) (2.0-8.3) x10*3/uL Absolute Nucleated RBC (0.0-0.012) X10*3/uL Nucleated RBC % (auto) (0.0-0.2) /100WBC Sodium (135-145) mmol/L Potassium (3.3-5.1) mmol/L Chloride (96-108) mmol/L Carbon Dioxide (22-29) mmol/L Anion Gap (12-20) BUN (9-16) mg/dL Creatinine (0.5-1.4) mg/dL Estim Creat Clear Calc Estimated GFR Random Glucose (60-115) mg/dL Calcium (8.4-10.2) mg/dL Troponin I High Sens 15.8 (<3.5-17.0) ng/L Discharge Plan Discharge Clinical Impression: Chest pain Patient Disposition: Home, Self-Care Additional Instructions: Your workup today did not show any sign of heart attack, chest x-ray was normal Pain worse with movement and when it is touched is likely in the chest wall, meaning muscle or cartilage and is less likely to be from her heart But it is a good plan to follow closely with primary doctor, he may refer you to a vice president of talent acquisition For the long-standing issue of sometimes feeling short of breath at night follow closely with primary doctor in you may be referred for sleep studies and further evaluation We are treating pain with Tylenol and if needed oxycodone Return any time for any change or worse chest pain, shortness of breath, any worse condition or any concerns Prescriptions: New acetaminophen 500 mg capsule 1,000 mg PO Q8H PRN (Reason: pain) Qty: 30 0RF oxycodone 5 mg tablet 5 mg PO Q6H PRN (Reason: pain) Qty: 10 0RF Rx Instructions: Partial Fill upon patient request. No Action levothyroxine [Tirosint] 200 mcg capsule 200 mcg PO DAILY Qty: 30 6RF albuterol sulfate [ProAir HFA] 90 mcg/actuation HFA aerosol inhaler 1 inh inhalation QID PRN (Reason: shortness of breath or wheezing) Qty: 8.5 0RF cyclobenzaprine 10 mg tablet 10 mg PO TID PRN (Reason: muscle spasm) Qty: 14 0RF lidocaine 5 % adhesive patch,medicated 1 patch topical DAILY Qty: 15 0RF Rx Instructions: leave on most painful area for up to 12 hrs acetaminophen [Tylenol Arthritis Pain] 650 mg tablet extended release 650 mg PO Q8H PRN (Reason: pain) Qty: 30 0RF omeprazole 20 mg capsule,delayed release(DR/EC) 1 cap PO BID ergocalciferol (vitamin D2) 1,250 mcg (50,000 unit) capsule 1 cap PO QWEEK aripiprazole 5 mg tablet 5 mg PO BEDTIME famotidine [Heartburn Relief (famotidine)] 10 mg tablet 10 mg PO BID PRN (Reason: acid reflux) Interventions: ED Discharge Assessment Last Done: 12/22/22 14:29 Discharge Date/Time: 12/22/22 14:29
--- NOTE | 2022-12-22 10:07 | ECG_ITS ---
Test Reason : CP Blood Pressure : / mmHG Vent. Rate : 062 BPM Atrial Rate : 062 BPM P-R Int : 158 ms QRS Dur : 078 ms QT Int : 426 ms P-R-T Axes : 021 049 -28 degrees QTc Int : 432 ms Normal sinus rhythm T wave abnormality, consider anterolateral ischemia Abnormal ECG When compared with ECG of 27-SEP-2022 15:02, No significant changes seen Referred By: Samuel Juan Electronically Signed By:BEATA KING
[2022-12-22 10:25] LABS: MANUAL DIFF FLAG NO
[2022-12-22 10:26] LABS: Basophils Absolute Auto 0.1 X10*3/uL (0.0-0.2); Basophils Percent Auto 0.8 % (0-2); Eosinophils Absolute Auto 0.4 X10*3/uL (0.0-0.4); Eosinophils Percent Auto 4.1 % (0-4); Hematocrit 45.5 % (37.0-47.0); Hemoglobin 15.5 g/dl (12.0-16.0); Imm Gran Abs Auto 0.03 X10*3/uL (0.00-0.03); Imm Gran Pct Auto 0.3 % (0.0-0.4); Lymphocytes Absolute Auto 2.9 X10*3/uL (1.2-4.9); Lymphocytes Percent Auto 31.8 % (20-40); Mean Corpuscular HGB Conc 34.1 g/dl (31.0-35.0); Mean Platelet Volume 10.3 fL (9.4-12.3); Monocytes Absolute Auto 0.6 X10*3/uL (0.1-1.2); Monocytes Percent Auto 6.6 % (2-11); Neutrophils Percent Auto 56.4 % (45-73); Platelet Count 264 X10*3/uL (160-400); Red Blood Count 5.17 X10*6/uL (4.20-5.50); Red Cell Distribution Width 13.2 % (11.0-16.0)
[2022-12-22 10:40] LABS: Anion Gap 11 (12-20); Blood Urea Nitrogen 11 mg/dL (9-16); Calcium 9.7 mg/dL (8.4-10.2); Carbon Dioxide 29 mmol/L (22-29); Chloride 107 mmol/L (96-108); Creatinine Clr Calc Pharmacy 59.8; Estimated Glomerular Filt Rate 59; Glucose Random 97 mg/dL (60-115); Potassium 4.4 mmol/L (3.3-5.1); Sodium 143 mmol/L (135-145)
[2022-12-22 10:49] LABS: Troponin-I High Sensitivity 14.9 ng/L (<3.5-17.0)
[2022-12-22 12:18] VITALS: BP 108/64; PULSE 50; RESP 18; O2SAT 99
[2022-12-22] MEDS: Acetaminophen 325 MG TABLET 975 MG PO (12:57)
--- NOTE | 2022-12-22 13:36 | PC.NURSE ---
Patient c/o chest pressure like someone is sitting on her chest. Patient states she woke up out of a deep sleep from the pain when she was at home. Troponin being drawn now. Davian LYON will be notified.
[2022-12-22 13:40] VITALS: BP 112/66; PULSE 59; RESP 18; O2SAT 100
--- NOTE | 2022-12-22 13:43 | ECG_ITS ---
Test Reason : pain Blood Pressure : / mmHG Vent. Rate : 058 BPM Atrial Rate : 058 BPM P-R Int : 156 ms QRS Dur : 082 ms QT Int : 428 ms P-R-T Axes : 016 063 -80 degrees QTc Int : 420 ms Sinus bradycardia T wave abnormality, consider inferior ischemia T wave abnormality, consider anterolateral ischemia Abnormal ECG When compared with ECG of 22-DEC-2022 10:09, No significant change was found Referred By: Samuel Juan Electronically Signed By:BEATA KING
[2022-12-22 14:00] LABS: Troponin-I High Sensitivity 15.8 ng/L (<3.5-17.0)
== END 2022-12-22 14:29 | disposition home or self-care (01) ==
PROVIDERS: Physician Assistant Medical; Emergency Provider Emergency Medicine Emergency Medical Services
DX: R07.89 Other chest pain (principal); R00.1 Bradycardia, unspecified; F17.210 Nicotine dependence, cigarettes, uncomplicated; Z71.6 Tobacco abuse counseling; Z79.899 Other long term (current) drug therapy
CPT/HCPCS: 36415; 71046; 80048; 84484; 85025; 93005; 99283; 99284

== ENCOUNTER 2023-02-01 16:17 | Outpatient (REF) | payer MEDICAID, SELFPAY ==
--- NOTE | ~2023-02-01 | XR_ITS ---
EXAMINATION: XR SHOULDER, LEFT CLINICAL INFORMATION: Chronic left shoulder pain COMPARISON: None available. TECHNIQUE: AP external rotation, Grashey, scapular Y, and axillary views of the left shoulder. FINDINGS: The bones and soft tissues are normal. No fracture. Glenohumeral and acromioclavicular alignment is anatomic with normal joint space. No abnormal soft tissue calcifications. XR/XR shoulder LT min 2V IMPRESSION: Unremarkable left shoulder.
== END 2023-02-01 16:18 | disposition home or self-care (01) ==
LOC: HO.HHCX 16:17
PROVIDERS: Visit Provider Registered Nurse
DX: M25.512 Pain in left shoulder (principal)
CPT/HCPCS: 73030

== ENCOUNTER 2023-03-19 15:04 | Outpatient (REF) | payer MEDICAID, SELFPAY ==
--- NOTE | ~2023-03-19 | MM_ITS ---
EXAMINATION: MM SCREENING DIGITAL BREAST TOMOSYNTHESIS, BILATERAL CLINICAL INFORMATION: Screening. Asymptomatic. The lifetime risk of breast cancer based on the Tyrer-Cuzick Model is 5.3%. COMPARISON: Mammography: This study is compared with prior exams dating back to 2016. TECHNIQUE: Digital breast tomosynthesis is performed in both the craniocaudal and mediolateral oblique views along with computer-aided detection (CAD). Synthesized 2D images are generated from the tomosynthesis. FINDINGS: The breasts are heterogeneously dense, which may obscure small masses (ACR BI-RADS breast composition Category c). There are no significant masses, abnormal calcifications, or other abnormalities. MM/MM tomosynthesis screening BI IMPRESSION: No mammographic evidence of malignancy. ASSESSMENT: BI-RADS BI-RADS 1 - Negative RECOMMENDATION: Routine annual mammography screening. 1 year F/U This examination should not preclude the clinical evaluation of a suspicious palpable abnormality. This patient's information was entered into a reminder system with a target due date for their next mammogram.
== END 2023-03-19 15:05 | disposition home or self-care (01) ==
LOC: HO.MAMMO 15:04
PROVIDERS: Visit Provider Registered Nurse
DX: Z12.31 Encounter for screening mammogram for malignant neoplasm of breast (principal)
CPT/HCPCS: 77063; 77067

== ENCOUNTER → 2023-03-19 15:15 | Outpatient (BNV) | payer MEDICAID, SELFPAY | PROVIDERS: Visit Provider Radiology Diagnostic Radiology | DX: Z12.31 Encounter for screening mammogram for malignant neoplasm of breast (principal) | CPT/HCPCS: 77063; 77067 ==

== ENCOUNTER 2023-07-02 01:42 | Emergency (ER) | payer MEDICAID, SELFPAY ==
[2023-07-02 01:59] VITALS: BP 136/77; BP 150/84; PULSE 78; PULSE 87; RESP 14; TEMP 37; O2SAT 97; O2SAT 98; BMI 30.2
--- NOTE | 2023-07-02 02:00 | ED_ITS ---
HPI - Abdominal Pain General Chief Complaint: Abdominal Pain Stated Complaint: ABD PAIN Time Seen by Provider: 07/02/23 01:52 Source: patient and EMS Mode of arrival: EMS Limitations: no limitations History of Present Illness HPI narrative: patient with a known history of gastritis, presents with a three day history of epigastric pain, no vomiting or diarrhea, she feels the pain into her back MD elicited complaint: abdominal pain Pertinent past history: gastritis Onset (ago): day(s) Pain Consistency: intermittent Location: epigastric Related Data Home Medications Medication Instructions Recorded Confirmed ergocalciferol (vitamin D2) 1,250 1 cap PO QWEEK 05/23/22 12/12/22 mcg (50,000 unit) capsule omeprazole 20 mg capsule,delayed 1 cap PO BID 05/23/22 12/12/22 release aripiprazole 5 mg tablet 5 mg PO BEDTIME 09/12/22 12/12/22 famotidine 10 mg tablet (Heartburn 10 mg PO BID PRN acid reflux 09/12/22 12/12/22 Relief (famotidine)) Previous Rx's Medication Instructions Recorded albuterol sulfate 90 mcg/actuation 1 inh inhalation QID PRN shortness 09/28/20 aerosol inhaler (ProAir HFA) of breath or wheezing #8.5 grams acetaminophen 650 mg 650 mg PO Q8H PRN pain #30 tabs 12/21/21 tablet,extended release (Tylenol Arthritis Pain) cyclobenzaprine 10 mg tablet 10 mg PO TID PRN muscle spasm #14 12/21/21 tabs lidocaine 5 % topical patch 1 patch topical DAILY #15 ea 12/21/21 Tirosint 200 mcg capsule 200 mcg PO DAILY #30 caps 12/12/22 (levothyroxine) acetaminophen 500 mg capsule 1,000 mg (2 x 500 mg) PO Q8H PRN 12/22/22 pain #30 caps oxycodone 5 mg tablet 5 mg PO Q6H PRN pain #10 tabs 12/22/22 pantoprazole 40 mg tablet,delayed 40 mg PO DAILY #20 tabs 07/02/23 release (Protonix) Allergies Allergy/AdvReac Type Severity Reaction Status Date / Time ibuprofen [From MOTRIN] AdvReac Intermediate ABDOMINAL Verified 06/07/21 14:31 PAIN Review of Systems Review of Systems Yes all other systems are reviewed and are negative Denies Sensory deficit (Neuro) FOR[facility]LY [facility], [facility] Past Medical History Medical History Hypothyroidism Arthritis Low calcium levels High cholesterol H/O gastric ulcer H/O gastritis Hyperthyroidism Surgical History History of salpingectomy Family History Family History Mother Hypertension Diabetes Father No problems noted. Social History Social History Household Members: None Housing: House Alcohol intake: unknown Patient Tobacco Use Status: Current everyday Tobacco user Tobacco use type: Cigarette Smoked in Last 30 Days: Yes Use of substances other than those prescribed or required for medical reasons: No Advance Directives: No Advance Directives Information Provided: Yes Patient : No service: No Current occupational status: unemployed and disabled Physical Exam ED Vital Signs: Vital Signs - 24 hr 07/02/23 01:59 Temperature 98.6 F Pulse Rate 78 Respiratory Rate 14 Blood Pressure 136/77 Pulse Oximetry 97 Oxygen Delivery Method Room Air BMI result Body Mass Index 30.2 Const Nutritional Appearance: obese Orientation/consciousness: oriented to person and patient oriented x3 Limitations: no limitations HENMT Head: Yes normal to inspection Ears: external ears normal General nose exam: Normal external nose present Mouth: Normal oral and palatal mucosa present and oropharynx normal Throat: Yes posterior oropharynx normal Eyes General: appearance normal, both eyes and all related structures Neck Neck: Yes normal visual inspection Chest Chest palpation & inspection: normal inspection of the chest Resp Auscultation: clear to auscultation bilaterally Cardio Jugular venous distension: no JVD Rate: regular rate Rhythm: regular rhythm Heart sounds: S1 normal heart sound present and S2 normal heart sound present GI Other: epigastric tenderness Palpation (GI): Soft to palpation Auscultation: normal bowel sounds General: Yes no CVA tenderness Back/Spine/Pelvis Back: no CVA tenderness Skin General skin exam: no rashes or lesions noted Neuro General: oriented to person and patient oriented x3 Cranial nerves: Yes CN's II-XII intact bilaterally Motor exam (neuro): 5/5 motor strength present throughout Sensory Exam: No Sensory deficit (Neuro) Extrem General: Yes normal to inspection Psych Appearance: grossly normal Course Reevaluation(s) Reevaluation #1: Patient with soft abdomen, doing better, labs normal, LFTs normal will dc home on protonix Time: 04:00 Medical Decision Making Differential Diagnosis Differential Diagnoses: The differential diagnosis associated with the presentation includes (hepatitis, pancreatitis, gastritis, cholecystitis, biliary colic were all considered) Admission/Observation Consideration of admission/observation: Escalation of care including admission/observation considered (upon arrival patient was considered for admission) Lab Data MDM Lab Attestation statement: I reviewed the patient's lab results. (normal liver and lipase enzymes, will not treat urine as i think it is contaminated will wait for culture) 07/02/23 02:07 07/02/23 02:45 Labs: Lab Results 07/02/23 07/02/23 07/02/23 Range/Units 02:07 02:22 02:45 WBC 11.9 H (4.8-10.8) X10*3/uL RBC 4.91 (4.20-5.50) X10*6/uL Hgb 15.3 (12.0-16.0) g/dl Hct 43.2 (37.0-47.0) % MCV 88.0 (80.0-98.0) fL MCH 31.2 (27.0-33.0) pg MCHC 35.4 H (31.0-35.0) g/dl RDW 12.5 (11.0-16.0) % Plt Count 302 (160-400) X10*3/uL MPV 11.6 (9.4-12.3) fL Immature Gran % (Auto) 0.3 (0.0-0.4) % Neut % (Auto) 84.6 H (45-73) % Lymph % (Auto) 8.0 L (20-40) % [place] % (Auto) 5.2 (2-11) % Eos % (Auto) 1.6 (0-4) % Baso % (Auto) 0.3 (0-2) % Lymph # (Auto) 1.0 L (1.2-4.9) X10*3/uL [place] # (Auto) 0.6 (0.1-1.2) X10*3/uL Eos # (Auto) 0.2 (0.0-0.4) X10*3/uL Baso # (Auto) 0.0 (0.0-0.2) X10*3/uL Abs Immat Gran (auto) 0.04 H (0.00-0.03) X10*3/uL Absolute Neuts (auto) 10.1 H (2.0-8.3) x10*3/uL Absolute Nucleated RBC 0.000 (0.0-0.012) X10*3/uL Nucleated RBC % (auto) 0.0 (0.0-0.2) /100WBC Sodium 141 (135-145) mmol/L Potassium 3.8 (3.3-5.1) mmol/L Chloride 110 H (96-108) mmol/L Carbon Dioxide 21 L (22-29) mmol/L Anion Gap 14 (12-20) BUN 19 H (9-16) mg/dL Creatinine 0.91 (0.5-1.4) mg/dL Estim Creat Clear Calc 65.1 Estimated GFR > 60 Random Glucose 126 H (60-115) mg/dL Calcium 9.4 (8.4-10.2) mg/dL Total Bilirubin 0.6 (0.0-1.0) mg/dL AST 19 (5-31) U/L ALT 18 (0-31) U/L Alkaline Phosphatase 129 H (39-117) U/L Total Protein 7.5 (6.5-8.0) g/dL Albumin 4.0 (3.5-5.0) g/dL Lipase 19 (8-78) U/L Urine Color Yellow Urine Appearance Clear Urine pH 6.5 (5.0-9.0) Ur Specific [place] 1.025 (1.005-1.025) Urine Protein Negative (Neg-Trace) mg/dL Urine Glucose (UA) Negative (Negative) mg/dL Urine Ketones Negative (Negative) mg/dL Urine Blood Negative (Negative) Urine Nitrite Negative (Negative) Ur Leukocyte Esterase Trace H (Negative) Urine RBC 0-2 (0-2) /HPF Urine WBC 6-10 H (0-5) /HPF Ur Squamous Epith Cells 3-5 (0-2) /HPF Urine Bacteria 1+ (None Seen) Hyaline Casts 0-2 (0-2) /LPF Independent Historian Clinical information obtained from an independent historian. History obtained from or confirmed by: Other (son) Tests considered The following testing was considered but not selected: considered obtaining an US but lfts and lipase were normal Prescription Management I considered prescription management with: Antibiotic (no infection found,) Medications Administered Generic Name Dose Route Start Last Admin Trade Name Freq PRN Reason Stop Dose Admin Sodium Chloride 1,000 mls @ 200 mls/hr 07/02/23 02:00 07/02/23 02:23 Ns IVCONT 07/02/23 06:59 200 mls/hr .Q5H [place] Administration Discontinued Medications Generic Name Dose Route Start Last Admin Trade Name Freq PRN Reason Stop Dose Admin Pantoprazole Sodium 40 mg 07/02/23 02:00 07/02/23 02:23 Pantoprazole Sodium 40 Mg/10 Ml Vial IVPUSH 07/02/23 02:01 40 mg ONCE ONE Administration Discharge Plan Discharge Clinical Impression: Gastritis Patient Disposition: Home, Self-Care Instructions: Gastritis (ED) Prescriptions: New pantoprazole [Protonix] 40 mg tablet,delayed release (DR/EC) 40 mg PO DAILY Qty: 20 0RF No Action levothyroxine [Tirosint] 200 mcg capsule 200 mcg PO DAILY Qty: 30 6RF albuterol sulfate [ProAir HFA] 90 mcg/actuation HFA aerosol inhaler 1 inh inhalation QID PRN (Reason: shortness of breath or wheezing) Qty: 8.5 0RF cyclobenzaprine 10 mg tablet 10 mg PO TID PRN (Reason: muscle spasm) Qty: 14 0RF lidocaine 5 % adhesive patch,medicated 1 patch topical DAILY Qty: 15 0RF Rx Instructions: leave on most painful area for up to 12 hrs acetaminophen [Tylenol Arthritis Pain] 650 mg tablet extended release 650 mg PO Q8H PRN (Reason: pain) Qty: 30 0RF omeprazole 20 mg capsule,delayed release(DR/EC) 1 cap PO BID ergocalciferol (vitamin D2) 1,250 mcg (50,000 unit) capsule 1 cap PO QWEEK acetaminophen 500 mg capsule 1,000 mg PO Q8H PRN (Reason: pain) Qty: 30 0RF oxycodone 5 mg tablet 5 mg PO Q6H PRN (Reason: pain) Qty: 10 0RF Rx Instructions: Partial Fill upon patient request. aripiprazole 5 mg tablet 5 mg PO BEDTIME famotidine [Heartburn Relief (famotidine)] 10 mg tablet 10 mg PO BID PRN (Reason: acid reflux) Referrals: [facility] [Primary Care Provider] - 5 days
[2023-07-02 02:13] LABS: MANUAL DIFF FLAG NO
[2023-07-02 02:15] LABS: Basophils Percent Auto 0.3 % (0-2); Eosinophils Absolute Auto 0.2 X10*3/uL (0.0-0.4); Eosinophils Percent Auto 1.6 % (0-4); Hematocrit 43.2 % (37.0-47.0); Hemoglobin 15.3 g/dl (12.0-16.0); Imm Gran Abs Auto 0.04 X10*3/uL (0.00-0.03); Imm Gran Pct Auto 0.3 % (0.0-0.4); Mean Corpuscular HGB Conc 35.4 g/dl (31.0-35.0); Mean Corpuscular Hemoglobin 31.2 pg (27.0-33.0); Mean Platelet Volume 11.6 fL (9.4-12.3); Monocytes Absolute Auto 0.6 X10*3/uL (0.1-1.2); Monocytes Percent Auto 5.2 % (2-11); Neutrophils Absolute Auto 10.1 x10*3/uL (2.0-8.3); Neutrophils Percent Auto 84.6 % (45-73); Platelet Count 302 X10*3/uL (160-400); Red Blood Count 4.91 X10*6/uL (4.20-5.50); Red Cell Distribution Width 12.5 % (11.0-16.0); White Blood Count 11.9 X10*3/uL (4.8-10.8)
[2023-07-02] MEDS: 0.9 % Sodium Chloride 1,000 ML 200 ML IVCONT (02:23)
[2023-07-02] MEDS: Pantoprazole Sodium 40 MG/10 ML VIAL IVPUSH (02:23)
[2023-07-02 02:29] LABS: Appearance Urine Clear; Color Urine Yellow; Glucose Urine UA Negative (Negative); Leukocyte Esterase Urine Trace (Negative); Nitrite Urine Negative (Negative); PH 6.5 (5.0-9.0); Specific Gravity - Urine 1.025 (1.005-1.025); UMIC TRIGGER UACC YES; Urine Blood Negative (Negative); Urine Ketones Negative (Negative); Urine Protein Negative (Neg-Trace)
[2023-07-02 02:58] LABS: Bacteria Urine 1+ (None Seen); Hyaline Casts Urine 0-2 /LPF (0-2); RBC Urine 0-2 /HPF (0-2); UACC Culture Trigger YES
[2023-07-02 03:05] LABS: Anion Gap 14 (12-20)
[2023-07-02 03:09] LABS: Alanine Aminotransferase 18 U/L (0-31); Alkaline Phosphatase 129 U/L (39-117); Aspartate Amino Transferase 19 U/L (5-31); Bilirubin Total 0.6 mg/dL (0.0-1.0); Blood Urea Nitrogen 19 mg/dL (9-16); Calcium 9.4 mg/dL (8.4-10.2); Carbon Dioxide 21 mmol/L (22-29); Chloride 110 mmol/L (96-108); Creatinine Clr Calc Pharmacy 65.1; Estimated Glomerular Filt Rate > 60; Glucose Random 126 mg/dL (60-115); Lipase 19 U/L (8-78); Potassium 3.8 mmol/L (3.3-5.1); Sodium 141 mmol/L (135-145); Total Protein 7.5 g/dL (6.5-8.0)
[2023-07-02 04:11] VITALS: BP 130/72; PULSE 74; RESP 14; TEMP 36.8; O2SAT 95
== END 2023-07-02 04:17 | disposition home or self-care (01) ==
PROVIDERS: Emergency Provider Emergency Medicine
DX: K29.70 Gastritis, unspecified, without bleeding (principal); M54.50 Low back pain, unspecified; Z79.899 Other long term (current) drug therapy
CPT/HCPCS: 36415; 80053; 81001; 83690; 85025; 87086; 96374; 99284

== ENCOUNTER 2023-07-14 04:28 | Emergency (ER) | payer MEDICAID, SELFPAY ==
--- NOTE | ~2023-07-14 | XR_ITS ---
EXAMINATION: XR CHEST CLINICAL INFORMATION: Cough. COMPARISON: None available. TECHNIQUE: Frontal view of the chest was obtained. FINDINGS: No significant abnormality is noted involving the heart, lungs, mediastinum, bony thorax or soft tissues. XR/XR chest 1V IMPRESSION: Unremarkable examination.
[2023-07-14 04:33] VITALS: BP 114/70; BP 141/68; PULSE 67; PULSE 76; RESP 18; TEMP 37; O2SAT 96; O2SAT 98; BMI 25.7
[2023-07-14 04:37] VITALS: O2SAT 98
--- NOTE | 2023-07-14 04:42 | PC.NURSE ---
this rn assumed care of pt. pt BIBA from home reporting cough for one week. pt reports chest pain when coughing but denies chest pain when cough subsides. pt reports congestion. pt reports being around grand daughter who was just previously sick. pt denies n/v/d. pt normal sinus on tele 70-72, 98% on room air.
[2023-07-14 04:51] LABS: MANUAL DIFF FLAG NO
[2023-07-14 04:52] LABS: Basophils Absolute Auto 0.1 X10*3/uL (0.0-0.2); Basophils Percent Auto 0.5 % (0-2); Eosinophils Absolute Auto 0.5 X10*3/uL (0.0-0.4); Eosinophils Percent Auto 4.4 % (0-4); Hematocrit 40.9 % (37.0-47.0); Imm Gran Abs Auto 0.03 X10*3/uL (0.00-0.03); Imm Gran Pct Auto 0.3 % (0.0-0.4); Lymphocytes Absolute Auto 2.8 X10*3/uL (1.2-4.9); Lymphocytes Percent Auto 26.3 % (20-40); Mean Corpuscular HGB Conc 34.2 g/dl (31.0-35.0); Mean Corpuscular Hemoglobin 30.3 pg (27.0-33.0); Mean Corpuscular Volume 88.5 fL (80.0-98.0); Mean Platelet Volume 10.3 fL (9.4-12.3); Monocytes Absolute Auto 0.9 X10*3/uL (0.1-1.2); Monocytes Percent Auto 7.9 % (2-11); Neutrophils Absolute Auto 6.5 x10*3/uL (2.0-8.3); Neutrophils Percent Auto 60.6 % (45-73); Platelet Count 269 X10*3/uL (160-400); Red Blood Count 4.62 X10*6/uL (4.20-5.50); Red Cell Distribution Width 12.7 % (11.0-16.0); White Blood Count 10.8 X10*3/uL (4.8-10.8)
--- NOTE | 2023-07-14 05:03 | ED_ITS ---
HPI - URI/Sore Throat General Chief Complaint: Upper Respiratory Symptoms Stated Complaint: Cough, mild fever Time Seen by Provider: 07/14/23 05:03 Source: patient Mode of arrival: ambulatory Limitations: no limitations History of Present Illness HPI Narrative: Patient with no prior history of asthma been vaccinated against COVID comes here for nasal congestion and cough and wheezing for last 1 week no fever no chills cough is mostly dry patient's granddaughter sick with GI symptoms Related Data Home Medications Medication Instructions Recorded Confirmed ergocalciferol (vitamin D2) 1,250 1 cap PO QWEEK 05/23/22 12/12/22 mcg (50,000 unit) capsule omeprazole 20 mg capsule,delayed 1 cap PO BID 05/23/22 12/12/22 release aripiprazole 5 mg tablet 5 mg PO BEDTIME 09/12/22 12/12/22 famotidine 10 mg tablet (Heartburn 10 mg PO BID PRN acid reflux 09/12/22 12/12/22 Relief (famotidine)) Previous Rx's Medication Instructions Recorded albuterol sulfate 90 mcg/actuation 1 inh inhalation QID PRN shortness 09/28/20 aerosol inhaler (ProAir HFA) of breath or wheezing #8.5 grams acetaminophen 650 mg 650 mg PO Q8H PRN pain #30 tabs 12/21/21 tablet,extended release (Tylenol Arthritis Pain) cyclobenzaprine 10 mg tablet 10 mg PO TID PRN muscle spasm #14 12/21/21 tabs lidocaine 5 % topical patch 1 patch topical DAILY #15 ea 12/21/21 Tirosint 200 mcg capsule 200 mcg PO DAILY #30 caps 12/12/22 (levothyroxine) acetaminophen 500 mg capsule 1,000 mg (2 x 500 mg) PO Q8H PRN 12/22/22 pain #30 caps oxycodone 5 mg tablet 5 mg PO Q6H PRN pain #10 tabs 12/22/22 pantoprazole 40 mg tablet,delayed 40 mg PO DAILY #20 tabs 07/02/23 release (Protonix) albuterol sulfate 90 mcg/actuation 2 puff inhalation Q4-6H PRN 07/14/23 aerosol inhaler (ProAir HFA) shortness of breath or wheezing #8.5 grams benzonatate 200 mg capsule 200 mg PO TID PRN cough #30 caps 07/14/23 cefuroxime axetil 500 mg tablet 500 mg PO BID 10 days #20 tabs 07/14/23 prednisone 20 mg tablet 40 mg (2 x 20 mg) PO DAILY #10 tabs 07/14/23 Allergies Allergy/AdvReac Type Severity Reaction Status Date / Time ibuprofen [From MOTRIN] AdvReac Intermediate ABDOMINAL Verified 07/14/23 04:36 PAIN Review of Systems 2 Review of Systems: Yes all other systems are reviewed and are negative [facility] Past Medical History Medical History Hypothyroidism Arthritis Low calcium levels High cholesterol H/O gastric ulcer H/O gastritis Hyperthyroidism Surgical History History of salpingectomy Family History Family History Mother Hypertension Diabetes Father No problems noted. Social History Social History Household Members: None Housing: House Alcohol intake: unknown Patient Tobacco Use Status: Current everyday Tobacco user Tobacco use type: Cigarette Smoked in Last 30 Days: Yes Use of substances other than those prescribed or required for medical reasons: No Advance Directives: No Advance Directives Information Provided: No service: No Current occupational status: unemployed and disabled Physical Exam 2 Vital Signs: Vital Signs: Last Vital Signs Temp 98.6 F 07/14/23 05:59 Pulse 71 07/14/23 05:59 Resp 22 H 07/14/23 05:59 BP 118/66 07/14/23 05:59 Pulse Ox 97 07/14/23 05:59 O2 Del Method Room Air 07/14/23 05:59 BMI result Body Mass Index 25.7 Appearance: Alert. Oriented X3. Frequent dry cough ENT: Pharynx normal. Oral Mucosa moist clear nasal discharge sinuses nontender Neck: Normal inspection. Neck supple. CVS: Normal heart rate and rhythm. Pulses normal. Respiratory: No respiratory distress. Equal air entry bilateral, bilateral wheezing no crackles Abdomen: Soft and nontender. Bowel sounds are present, no mass palpable, no CVA tenderness Skin: Skin warm and dry. Normal skin color. Normal skin turgor. Extremities: No lower extremity edema. No calf tenderness Neuro: Oriented X 3. No motor deficit. Medications Administered Discontinued Medications Generic Name Dose Route Start Last Admin Trade Name Pepeq PRN Reason Stop Dose Admin Albuterol Sulfate 2.5 mg/ 5 mg 07/14/23 06:46 07/14/23 06:51 Albuterol Sulfate 2.5 mg INHALE 07/14/23 06:47 5 mg ONCE ONE Administration Cefuroxime Axetil 500 mg 07/14/23 05:30 07/14/23 05:56 Cefuroxime Axetil 500 Mg Tablet PO 07/14/23 05:31 500 mg ONCE ONE Administration Albuterol Sulfate 2.5 mg/ 0 mg 07/14/23 05:08 07/14/23 05:38 Albuterol/Ipratropium 3 ml INHALE 07/14/23 05:09 7.5 dose ONCE ONE Administration Dexamethasone 10 mg 07/14/23 05:08 07/14/23 05:14 Dexamethasone 2 Mg Tablet PO 07/14/23 05:09 10 mg ONCE ONE Administration Guaifenesin/Codeine Phosphate 10 ml 07/14/23 05:09 07/14/23 05:15 Guaifen/Codeine Sf 200/20/10ml 10 Ml Liquid PO 07/14/23 05:10 10 ml ONCE ONE Administration Medical Decision Making Medical Decision Making [facility] Narrative: Patient has acute bronchitis workup negative otherwise for discharge patient home on Ceftin, albuterol inhaler and cough syrup and prednisone Differential Diagnosis Differential Diagnoses: The differential diagnosis associated with the presentation includes Bronchitis/COVID/flu/RSV/pneumonia Lab Data [facility] Lab Attestation statement: I reviewed the patient's lab results. 07/14/23 04:47 07/14/23 04:47 Labs: Lab Results 07/14/23 Range/Units 04:47 WBC 10.8 (4.8-10.8) X10*3/uL RBC 4.62 (4.20-5.50) X10*6/uL Hgb 14.0 (12.0-16.0) g/dl Hct 40.9 (37.0-47.0) % MCV 88.5 (80.0-98.0) fL MCH 30.3 (27.0-33.0) pg MCHC 34.2 (31.0-35.0) g/dl RDW 12.7 (11.0-16.0) % Plt Count 269 (160-400) X10*3/uL MPV 10.3 (9.4-12.3) fL Immature Gran % (Auto) 0.3 (0.0-0.4) % Neut % (Auto) 60.6 (45-73) % Lymph % (Auto) 26.3 (20-40) % [place] % (Auto) 7.9 (2-11) % Eos % (Auto) 4.4 H (0-4) % Baso % (Auto) 0.5 (0-2) % Lymph # (Auto) 2.8 (1.2-4.9) X10*3/uL [place] # (Auto) 0.9 (0.1-1.2) X10*3/uL Eos # (Auto) 0.5 H (0.0-0.4) X10*3/uL Baso # (Auto) 0.1 (0.0-0.2) X10*3/uL Abs Immat Gran (auto) 0.03 (0.00-0.03) X10*3/uL Absolute Neuts (auto) 6.5 (2.0-8.3) x10*3/uL Absolute Nucleated RBC 0.000 (0.0-0.012) X10*3/uL Nucleated RBC % (auto) 0.0 (0.0-0.2) /100WBC Sodium 143 (135-145) mmol/L Potassium 3.9 (3.3-5.1) mmol/L Chloride 107 (96-108) mmol/L Carbon Dioxide 28 (22-29) mmol/L Anion Gap 12 (12-20) BUN 15 (9-16) mg/dL Creatinine 1.01 (0.5-1.4) mg/dL Estim Creat Clear Calc 61.0 Estimated GFR 57 Random Glucose 115 (60-115) mg/dL Calcium 9.7 (8.4-10.2) mg/dL Total Bilirubin 0.3 (0.0-1.0) mg/dL AST 23 (5-31) U/L ALT 28 (0-31) U/L Alkaline Phosphatase 131 H (39-117) U/L Total Protein 7.7 (6.5-8.0) g/dL Albumin 4.0 (3.5-5.0) g/dL Influenza Type A (PCR) NEGATIVE (Negative) Influenza Type B (PCR) NEGATIVE (Negative) RSV RNA Qual (PCR) NEGATIVE (Negative) SARS-CoV-2 RNA (RT-PCR) NEGATIVE (Negative) Independent Interpretation I performed an independent interpretation of an: Plain X-Ray Radiology Impression Discussion of test interpretation with radiology: I have reviewed the radiologist's reading. Discharge Plan Discharge Clinical Impression: Bronchitis Patient Disposition: Home, Self-Care Instructions: Acute Bronchitis (ED) Additional Instructions: Drink plenty of fluids Take antibiotic as prescribed Use albuterol inhaler 2 puffs every 4 hours as needed Prednisone and cough drops as prescribed Follow with PCP if not better Prescriptions: New benzonatate 200 mg capsule 200 mg PO TID PRN (Reason: cough) Qty: 30 0RF prednisone 20 mg tablet 40 mg PO DAILY Qty: 10 0RF cefuroxime axetil 500 mg tablet 500 mg PO BID 10 Days Qty: 20 0RF albuterol sulfate [ProAir HFA] 90 mcg/actuation HFA aerosol inhaler 2 puff inhalation Q4-6H PRN (Reason: shortness of breath or wheezing) Qty: 8.5 1RF No Action levothyroxine [Tirosint] 200 mcg capsule 200 mcg PO DAILY Qty: 30 6RF albuterol sulfate [ProAir HFA] 90 mcg/actuation HFA aerosol inhaler 1 inh inhalation QID PRN (Reason: shortness of breath or wheezing) Qty: 8.5 0RF cyclobenzaprine 10 mg tablet 10 mg PO TID PRN (Reason: muscle spasm) Qty: 14 0RF lidocaine 5 % adhesive patch,medicated 1 patch topical DAILY Qty: 15 0RF Rx Instructions: leave on most painful area for up to 12 hrs acetaminophen [Tylenol Arthritis Pain] 650 mg tablet extended release 650 mg PO Q8H PRN (Reason: pain) Qty: 30 0RF omeprazole 20 mg capsule,delayed release(DR/EC) 1 cap PO BID ergocalciferol (vitamin D2) 1,250 mcg (50,000 unit) capsule 1 cap PO QWEEK pantoprazole [Protonix] 40 mg tablet,delayed release (DR/EC) 40 mg PO DAILY Qty: 20 0RF acetaminophen 500 mg capsule 1,000 mg PO Q8H PRN (Reason: pain) Qty: 30 0RF oxycodone 5 mg tablet 5 mg PO Q6H PRN (Reason: pain) Qty: 10 0RF Rx Instructions: Partial Fill upon patient request. aripiprazole 5 mg tablet 5 mg PO BEDTIME famotidine [Heartburn Relief (famotidine)] 10 mg tablet 10 mg PO BID PRN (Reason: acid reflux)
[2023-07-14 05:07] LABS: Alanine Aminotransferase 28 U/L (0-31); Alkaline Phosphatase 131 U/L (39-117); Anion Gap 12 (12-20); Aspartate Amino Transferase 23 U/L (5-31); Bilirubin Total 0.3 mg/dL (0.0-1.0); Blood Urea Nitrogen 15 mg/dL (9-16); Calcium 9.7 mg/dL (8.4-10.2); Carbon Dioxide 28 mmol/L (22-29); Chloride 107 mmol/L (96-108); Estimated Glomerular Filt Rate 57; Glucose Random 115 mg/dL (60-115); Potassium 3.9 mmol/L (3.3-5.1); Sodium 143 mmol/L (135-145); Total Protein 7.7 g/dL (6.5-8.0)
[2023-07-14] MEDS: dexAMETHasone 2 MG TABLET 10 MG PO (05:14)
[2023-07-14] MEDS: guaiFEN/Codeine SF 200/20/10ML 10 ML LIQUID PO (05:15)
[2023-07-14 05:28] LABS: Influenza A PCR NEGATIVE (Negative); Influenza B PCR NEGATIVE (Negative); Resp Syncy Virus RNA Qual PCR NEGATIVE (Negative); SARS COV2 PCR INHOUSE NEGATIVE (Negative)
[2023-07-14] MEDS: Albuterol Sulfate 2.5 MG, Albuterol/Iprat 2.5/0.5MG 3 ML 3 ML INHALE (05:38)
[2023-07-14 05:42] VITALS: PULSE 58; RESP 21; O2SAT 97
[2023-07-14] MEDS: cefuroxime axetiL 500 MG TABLET PO (05:56)
[2023-07-14 05:59] VITALS: BP 118/66; PULSE 71; RESP 22; TEMP 37; O2SAT 97
[2023-07-14] MEDS: Albuterol Sulfate 2.5 MG, Albuterol Sulfate (0.083%) 2.5 MG 5 MG INHALE (06:51)
[2023-07-14 06:52] VITALS: PULSE 71; RESP 22; O2SAT 98
== END 2023-07-14 07:45 | disposition home or self-care (01) ==
PROVIDERS: Internal Medicine; Emergency Provider Emergency Medicine Emergency Medical Services
DX: J40 Bronchitis, not specified as acute or chronic (principal); Z20.822 Contact with and (suspected) exposure to COVID-19; Z20.828 Contact with and (suspected) exposure to other viral communicable diseases
CPT/HCPCS: 0241U; 36415; 71045; 80053; 85025; 94640; 99284; 99285; J8540

== ENCOUNTER 2023-08-03 15:57 | Outpatient (REF) | payer MEDICAID, SELFPAY ==
[2023-08-03 18:12] LABS: Thyroid Stimulating Hormone 6.91 uIU/mL (0.32-4.0)
== END 2023-08-03 15:58 | disposition home or self-care (01) ==
LOC: HO.HHCL 15:57
PROVIDERS: Visit Provider Registered Nurse
DX: E03.9 Hypothyroidism, unspecified (principal)
CPT/HCPCS: 36415; 84443

== ENCOUNTER 2023-10-02 12:30 | Outpatient (REF) | payer MEDICAID, SELFPAY ==
[2023-10-02 14:27] LABS: Thyroid Stimulating Hormone 28.14 uIU/mL (0.32-4.0)
== END 2023-10-02 12:31 | disposition home or self-care (01) ==
LOC: HO.HHCL 12:30
PROVIDERS: Visit Provider Registered Nurse
DX: E03.9 Hypothyroidism, unspecified (principal)
CPT/HCPCS: 36415; 84443

== ENCOUNTER 2023-10-08 19:29 | Outpatient (REF) | payer MEDICAID, SELFPAY | END 2023-10-08 19:30 | disposition home or self-care (01) | LOC: HO.HHCLNP 19:29 | PROVIDERS: Visit Provider Registered Nurse | DX: J02.9 Acute pharyngitis, unspecified (principal) | CPT/HCPCS: 87070 ==

== ENCOUNTER 2023-10-09 16:13 | Emergency (ER) | payer MEDICAID, SELFPAY ==
--- NOTE | 2023-10-09 | ECG_ITS ---
Test Reason : CHEST PAIN Blood Pressure : / mmHG Vent. Rate : 067 BPM Atrial Rate : 067 BPM P-R Int : 160 ms QRS Dur : 086 ms QT Int : 386 ms P-R-T Axes : 047 034 -40 degrees QTc Int : 407 ms Normal sinus rhythm T wave abnormality, consider inferolateral ischemia Abnormal ECG When compared with ECG of 22-DEC-2022 13:46, No significant changes seen Referred By: Generic ED Physician Electronically Signed By:EBATA KING
--- NOTE | ~2023-10-09 | US_ITS ---
EXAMINATION: US THYROID CLINICAL INFORMATION: Neck pain COMPARISON: Previous thyroid ultrasound October [address] of the neck May 2022 TECHNIQUE: Linear transducer grayscale and color Doppler examination with attention to the region of the thyroid. FINDINGS: SIZE: Measurements of the thyroid lobes and nodules are given in sagittal, anteroposterior and transverse dimensions respectively. Right Thyroid Lobe: 2.9 x 1.2 x 0.9 cm, volume 1.7 mL. Parenchyma: The gland echotexture is heterogeneous. Thyroid vascularity is normal. Left Thyroid Lobe: 2.3 x 1.5 x 1.1 cm, volume 2 mL. Parenchyma: The gland echotexture is heterogeneously yes. Thyroid vascularity is normal. Isthmus: There are 0.2 cm in maximum AP dimension. The thyroid gland is heterogeneous, slightly hypoechoic and lobulated in shape. Appearance is similar to prior exam. Measurements are slightly decreased from previous exam. No focal nodule. NODES: 2 normal-appearing left cervical lymph nodes adjacent to the thyroid gland. US/US thyroid IMPRESSION: Small heterogeneous lobulated thyroid gland. Ultrasound appearance is suggestive of old thyroiditis. The thyroid gland is decreased in size from previous exams.
[2023-10-09 16:24] VITALS: BP 146/86; BP 151/78; PULSE 66; PULSE 76; RESP 16; TEMP 36.7; O2SAT 92; O2SAT 93; BMI 32.4
[2023-10-09 16:42] LABS: MANUAL DIFF FLAG NO
--- NOTE | 2023-10-09 16:42 | PC.NURSE ---
a&ox4. vss and up to date. nsr on the patient monitor. pt biba from home d/t increase in sob x 2 days. pt also c/o difficulty swallowing. no sob/wob noted. respirations even and unlabored. pt able to speak/hold conversation w/o difficulty. respirations even and unlabored. pt also c/o intermittent sternal c/p that radiates to LUE/back. denies any other sx. 20gIV placed in the left hand - labs obtained/sent to lab. ekg performed by tech. pt waiting to be seen by ED provider at this time. resting comfortably in no apparent distress. plan of care ongoing. call villavicencio placed within reach.
[2023-10-09 16:43] LABS: Basophils Percent Auto 0.5 % (0-2); Eosinophils Percent Auto 0.1 % (0-4); Hematocrit 44.5 % (37.0-47.0); Hemoglobin 15.6 g/dl (12.0-16.0); Imm Gran Abs Auto 0.02 X10*3/uL (0.00-0.03); Imm Gran Pct Auto 0.3 % (0.0-0.4); Lymphocytes Absolute Auto 1.1 X10*3/uL (1.2-4.9); Lymphocytes Percent Auto 14.1 % (20-40); Mean Corpuscular HGB Conc 35.1 g/dl (31.0-35.0); Mean Corpuscular Hemoglobin 29.4 pg (27.0-33.0); Mean Platelet Volume 10.6 fL (9.4-12.3); Monocytes Absolute Auto 0.2 X10*3/uL (0.1-1.2); Neutrophils Absolute Auto 6.6 x10*3/uL (2.0-8.3); Platelet Count 282 X10*3/uL (160-400); Red Cell Distribution Width 12.7 % (11.0-16.0); White Blood Count 7.9 X10*3/uL (4.8-10.8)
[2023-10-09 17:03] LABS: COVID-19 Test Negative (Negative); IDNOW Serial# 08D9AD1C
[2023-10-09 17:03] LABS: Anion Gap 15 (12-20); Blood Urea Nitrogen 10 mg/dL (9-16); Calcium 9.7 mg/dL (8.4-10.2); Carbon Dioxide 22 mmol/L (22-29); Chloride 108 mmol/L (96-108); Creatinine Clr Calc Pharmacy 67.4; Estimated Glomerular Filt Rate > 60; Glucose Random 126 mg/dL (60-115); Potassium 3.9 mmol/L (3.3-5.1); Sodium 141 mmol/L (135-145); Troponin-I High Sensitivity 12.7 ng/L (<3.5-17.0)
[2023-10-09 17:04] LABS: IDNOW Serial# 152EDE1D; Influenza A Negative (Negative); Influenza B2 Negative (Negative)
[2023-10-09 17:17] LABS: Thyroid Stimulating Hormone 25.25 uIU/mL (0.32-4.0)
[2023-10-09 18:26] VITALS: BP 113/75; PULSE 61; RESP 16; TEMP 36.9; O2SAT 97
--- NOTE | 2023-10-09 18:44 | ED_ITS ---
HPI - General Adult General Chief complaint: Dyspnea Stated complaint: Worsening SOB, enlarged thyroid, no relief frm med Time Seen by Provider: 10/09/23 16:45 Source: patient Mode of arrival: ambulatory History of Present Illness HPI narrative: 52-year-old female who presents with 2 weeks throat discomfort and states that she has had a painful lump at the left side of her neck as well as pain along the anterior aspect of her neck, also reports headache and has a known history of hypothyroidism and states she was recently seen for this with an increase in her thyroid medication to 200 mcg. Patient states that she was swabbed recently at the clinic and that it was negative . Related Data Home Medications Medication Instructions Recorded Confirmed ergocalciferol (vitamin D2) 1,250 1 cap PO QWEEK 05/23/22 12/12/22 mcg (50,000 unit) capsule omeprazole 20 mg capsule,delayed 1 cap PO BID 05/23/22 12/12/22 release aripiprazole 5 mg tablet 5 mg PO BEDTIME 09/12/22 12/12/22 famotidine 10 mg tablet (Heartburn 10 mg PO BID PRN acid reflux 09/12/22 12/12/22 Relief (famotidine)) Previous Rx's Medication Instructions Recorded albuterol sulfate 90 mcg/actuation 1 inh inhalation QID PRN shortness 09/28/20 aerosol inhaler (ProAir HFA) of breath or wheezing #8.5 grams acetaminophen 650 mg 650 mg PO Q8H PRN pain #30 tabs 12/21/21 tablet,extended release (Tylenol Arthritis Pain) cyclobenzaprine 10 mg tablet 10 mg PO TID PRN muscle spasm #14 12/21/21 tabs lidocaine 5 % topical patch 1 patch topical DAILY #15 ea 12/21/21 Tirosint 200 mcg capsule 200 mcg PO DAILY #30 caps 12/12/22 (levothyroxine) acetaminophen 500 mg capsule 1,000 mg (2 x 500 mg) PO Q8H PRN 12/22/22 pain #30 caps oxycodone 5 mg tablet 5 mg PO Q6H PRN pain #10 tabs 12/22/22 pantoprazole 40 mg tablet,delayed 40 mg PO DAILY #20 tabs 07/02/23 release (Protonix) albuterol sulfate 90 mcg/actuation 2 puff inhalation Q4-6H PRN 07/14/23 aerosol inhaler (ProAir HFA) shortness of breath or wheezing #8.5 grams benzonatate 200 mg capsule 200 mg PO TID PRN cough #30 caps 07/14/23 cefuroxime axetil 500 mg tablet 500 mg PO BID 10 days #20 tabs 07/14/23 prednisone 20 mg tablet 40 mg (2 x 20 mg) PO DAILY #10 tabs 07/14/23 Allergies Allergy/AdvReac Type Severity Reaction Status Date / Time ibuprofen [From MOTRIN] AdvReac Intermediate ABDOMINAL Verified 10/09/23 16:24 PAIN Review of Systems 2 Review of Systems: Pertinent positives and negatives as stated in [facility] Past Medical History Source: nursing notes reviewed Medical History Hypothyroidism Arthritis Low calcium levels High cholesterol H/O gastric ulcer H/O gastritis Hyperthyroidism Surgical History History of salpingectomy Family History Family History Mother Hypertension Diabetes Father No problems noted. Social History Social History Household Members: None Housing: House Alcohol intake: unknown Patient Tobacco Use Status: Current everyday Tobacco user Tobacco use type: Cigarette Smoked in Last 30 Days: No Use of substances other than those prescribed or required for medical reasons: No Advance Directives: No Advance Directives Information Provided: Yes Patient : No service: No Current occupational status: unemployed and disabled Physical Exam ED Vital Signs: Vital Signs - 24 hr 10/09/23 16:24 10/09/23 18:26 Temperature 98.0 F 98.4 F Pulse Rate 66 61 Respiratory Rate 16 16 Blood Pressure 146/86 H 113/75 Pulse Oximetry 93 97 Oxygen Delivery Method Room Air Room Air BMI result Body Mass Index 32.4 VITAL SIGNS: Reviewed. GENERAL: Well developed, well nourished, in no acute distress. HEAD: Normocephalic/atraumatic EYES: PERRLA, EOMI EARS: Ext canals without abnormality, TMs non-bulging and non-erythematous NOSE: Nares patent bilateral OROPHARYNX: no oral lesions noted, posterior pharynx clear and non-erythematous without noted tonsillar enlargement/erythema/exudates NECK: Supple, +adenopathy LUNGS: Normal breath sounds. No adventitious sounds or accessory muscle use. SpO2<97> CARDIOVASCULAR: Regular rate and rhythm without noted murmurs ABDOMEN: Soft, non-tender, non-distended with bowel sounds. MUSCULOSKELETAL: No tenderness, deformities, or effusions noted on gross inspection. EXTREMITIES: No cyanosis, clubbing or edema. SKIN: Inspection of the skin reveals no rashes NEUROLOGIC: Alert and oriented x 4. Strength and sensation to light touch were grossly intact x 4. Medical Decision Making Medical Decision Making [facility] [place] Narrative: This is a 52-year-old female with history and clinical presentation, DDX: Viral pharyngitis, doubt bacterial pharyngitis, viral syndrome, adenopathy. 1844: I spoke with Dr. Latoya Whitt, who is part of patient's primary care facility and he has reassured me that her primary care team will be informed and will also reach out to Dr. Bullard for a follow-up evaluation and informs me that patient has throat culture for strep was negative and otherwise rapid testing for flu and COVID were also negative. I reviewed all investigations and hematologic indices are negative for leukocytosis and there is a left shift of unclear significance and otherwise no anemia or thrombocytopenia. Chemistry indices do not demonstrate an DANE and there is no electrolyte derangements. I sensitivity troponin is chronically detectable and consistent with prior levels. There are no acute changes on EKG. TSH is noted to be consistently elevated at approximately mid 20s, however it is too early to have noted any changes since medication change. Thyroid ultrasound not indicative of any acute pathology. Differential Diagnosis Differential Diagnoses: The differential diagnosis associated with the presentation includes Please see the discussion above Admission/Observation Consideration of admission/observation: Escalation of care including admission/observation considered Please see the discussion above Consult Healthcare Provider Management of the patient was discussed with: Riveter Helper Please see the discussion above Lab Data [facility] [place] Lab Attestation statement: I reviewed the patient's lab results. Please see the discussion above 10/09/23 16:37 10/09/23 16:37 Labs: Lab Results 10/09/23 10/09/23 Range/Units 16:37 16:38 WBC 7.9 (4.8-10.8) X10*3/uL RBC 5.30 (4.20-5.50) X10*6/uL Hgb 15.6 (12.0-16.0) g/dl Hct 44.5 (37.0-47.0) % MCV 84.0 (80.0-98.0) fL MCH 29.4 (27.0-33.0) pg MCHC 35.1 H (31.0-35.0) g/dl RDW 12.7 (11.0-16.0) % Plt Count 282 (160-400) X10*3/uL MPV 10.6 (9.4-12.3) fL Immature Gran % (Auto) 0.3 (0.0-0.4) % Neut % (Auto) 83.0 H (45-73) % Lymph % (Auto) 14.1 L (20-40) % Iron % (Auto) 2.0 (2-11) % Eos % (Auto) 0.1 (0-4) % Baso % (Auto) 0.5 (0-2) % Lymph # (Auto) 1.1 L (1.2-4.9) X10*3/uL Iron # (Auto) 0.2 (0.1-1.2) X10*3/uL Eos # (Auto) 0.0 (0.0-0.4) X10*3/uL Baso # (Auto) 0.0 (0.0-0.2) X10*3/uL Abs Immat Gran (auto) 0.02 (0.00-0.03) X10*3/uL Absolute Neuts (auto) 6.6 (2.0-8.3) x10*3/uL Absolute Nucleated RBC 0.000 (0.0-0.012) X10*3/uL Nucleated RBC % (auto) 0.0 (0.0-0.2) /100WBC Sodium 141 (135-145) mmol/L Potassium 3.9 (3.3-5.1) mmol/L Chloride 108 (96-108) mmol/L Carbon Dioxide 22 (22-29) mmol/L Anion Gap 15 (12-20) BUN 10 (9-16) mg/dL Creatinine 0.91 (0.5-1.4) mg/dL Estim Creat Clear Calc 67.4 Estimated GFR > 60 Random Glucose 126 H (60-115) mg/dL Calcium 9.7 (8.4-10.2) mg/dL Troponin I High Sens 12.7 (<3.5-17.0) ng/L TSH 25.25 H (0.32-4.0) uIU/mL COVID-19 (AIRAM) Negative (Negative) COVID-19 Clin Com See Note Influenza Type A (TREVOR) Negative (Negative) Influenza Type B (TREVOR) Negative (Negative) Influenza A & B Note See Note Independent Interpretation I performed an independent interpretation of an: EKG Interpretation: Normal sinus rhythm, HR-67, no STEMI, SC/QRS/QTC is within normal limits, there are T-wave inversions which are chronically stable when compared to prior EKG from 12/22/2022. Radiology Impression Discussion of test interpretation with radiology: I have reviewed the radiologist's reading. Radiologist Impression: Please see the discussion above External Record Review External record reviewed: Outpatient record, Prior outpatient labs and Prior outpatient radiology Chronic Conditions Patient?s care impacted by: Other Thyroid dysfunction Critical Care Time Critical Care Time Critical Care Time: Yes Total Critical Care Time: 45 Attestation: I personally attest to this time spent taking care of the patient. Discharge Plan Discharge Clinical Impression: Pharyngitis, Adenopathy Patient Disposition: Home, Self-Care Instructions: Lymphadenopathy (ED), Pharyngitis (ED) Additional Instructions: 1. Reanudar todos los medicamentos caseros seg?n lo recetado. 2. [place] un seguimiento con [place] m?dico de atenci?n primaria lo antes posible. Habl? con el consultorio y ellos tambi?n se comunicar?n con usted, rae le recomiendo que tambi?n los llame. Regrese a la jillian de emergencias si los s?ntomas empeoran. 1. Resume all home medications as prescribed. 2. Please follow-up with your primary care doctor at your earliest convenience, I did speak to the office and they will reach out to you as well but I highly recommend that you also call them. Return to the ER for any worsening symptoms. Prescriptions: No Action levothyroxine [Tirosint] 200 mcg capsule 200 mcg PO DAILY Qty: 30 6RF albuterol sulfate [ProAir HFA] 90 mcg/actuation HFA aerosol inhaler 1 inh inhalation QID PRN (Reason: shortness of breath or wheezing) Qty: 8.5 0RF cyclobenzaprine 10 mg tablet 10 mg PO TID PRN (Reason: muscle spasm) Qty: 14 0RF lidocaine 5 % adhesive patch,medicated 1 patch topical DAILY Qty: 15 0RF Rx Instructions: leave on most painful area for up to 12 hrs acetaminophen [Tylenol Arthritis Pain] 650 mg tablet extended release 650 mg PO Q8H PRN (Reason: pain) Qty: 30 0RF omeprazole 20 mg capsule,delayed release(DR/EC) 1 cap PO BID ergocalciferol (vitamin D2) 1,250 mcg (50,000 unit) capsule 1 cap PO QWEEK pantoprazole [Protonix] 40 mg tablet,delayed release (DR/EC) 40 mg PO DAILY Qty: 20 0RF acetaminophen 500 mg capsule 1,000 mg PO Q8H PRN (Reason: pain) Qty: 30 0RF oxycodone 5 mg tablet 5 mg PO Q6H PRN (Reason: pain) Qty: 10 0RF Rx Instructions: Partial Fill upon patient request. benzonatate 200 mg capsule 200 mg PO TID PRN (Reason: cough) Qty: 30 0RF prednisone 20 mg tablet 40 mg PO DAILY Qty: 10 0RF cefuroxime axetil 500 mg tablet 500 mg PO BID 10 Days Qty: 20 0RF albuterol sulfate [ProAir HFA] 90 mcg/actuation HFA aerosol inhaler 2 puff inhalation Q4-6H PRN (Reason: shortness of breath or wheezing) Qty: 8.5 1RF aripiprazole 5 mg tablet 5 mg PO BEDTIME famotidine [Heartburn Relief (famotidine)] 10 mg tablet 10 mg PO BID PRN (Reason: acid reflux) Referrals: [facility] [Primary Care Provider] - Print Language: Serbian
== END 2023-10-09 21:04 | disposition home or self-care (01) ==
PROVIDERS: Emergency Provider Student in an Organized Health Care Education/Training Program
DX: J02.9 Acute pharyngitis, unspecified (principal); R59.9 Enlarged lymph nodes, unspecified; R07.9 Chest pain, unspecified; R51.9 Headache, unspecified; E03.9 Hypothyroidism, unspecified; Z11.52 Encounter for screening for COVID-19
CPT/HCPCS: 36415; 76536; 80048; 84443; 84484; 85025; 87502; 87635; 93005; 99284; 99285

== ENCOUNTER → 2023-10-09 16:38 | Outpatient (BNV) | payer MEDICAID, SELFPAY | PROVIDERS: Emergency Provider Student in an Organized Health Care Education/Training Program; Visit Provider Internal Medicine | DX: R94.31 Abnormal electrocardiogram [ECG] [EKG] (principal) | CPT/HCPCS: 93010 ==

== ENCOUNTER 2023-10-17 08:47 | Outpatient (AMB) | payer MEDICAID, SELFPAY ==
--- NOTE | 2023-10-17 08:49 | MHC.OFFVIS ---
Intake Vital Signs 10/17/23 08:52 Height 5 ft 1 in Weight 168 lb 3.403 oz BMI 31.8 BP 126/72 Blood Pressure Location Lt brachial Position Sitting Pulse 55 Pulse Source Pulse Oximeter Intake Visit Reasons: ED F/u Intake Note: Patient present today for ED follow up visit. Residential Property Tax Appraiser Required: Yes Residential Property Tax Appraiser Language: Appeals Referee Name: Antonia medical staff Accompanied by: Self / Same As Patient Allergies ibuprofen [From MOTRIN] Adverse Reaction (Intermediate, Verified 10/17/23 08:56) ABDOMINAL PAIN Medication List - Last Reconciled 10/17/23 by Finesse Bullard MD acetaminophen 1,000 mg (2 x 500 mg) PO Q8H PRN acetaminophen ER (Tylenol Arthritis Pain) 650 mg PO Q8H PRN albuterol sulfate 90 mcg/actuation (ProAir HFA) 1 inh inhalation QID PRN albuterol sulfate 90 mcg/actuation (ProAir HFA) 2 puffs inhalation Q4-6H PRN aripiprazole 5 mg PO BEDTIME benzonatate 200 mg PO TID PRN cefuroxime axetil 500 mg PO BID 10 days cyclobenzaprine 10 mg PO TID PRN ergocalciferol (vitamin D2) 1 cap PO QWEEK famotidine (Heartburn Relief (famotidine)) 10 mg PO BID PRN lidocaine 5% 1 patch topical DAILY omeprazole 1 cap PO BID pantoprazole (Protonix) 40 mg PO DAILY prednisone 40 mg (2 x 20 mg) PO DAILY Tirosint (levothyroxine) 200 mcg PO DAILY NS HPI HPI Comments History of Present Illness Details 51 YO F with who is seen in consultation at the request of his PCP for Hyothyroidism. First diagnosed with Hypothyroidism many yrs ago with labs revealing elevated TSH . Currently using Tirosint 200 ug - was seen in emergency room with elevated TSH. Was on 275 ug Denies +fatigue, +weight gain, -cold intolerance, +dry skin, +hair loss, +constipation. There is hx of hyperlipidemia . Denies obstructive sx of goiter . Denies consuming any kelp or seaweed. Denies taking amiodarone. Biotin: No Family hx of thyroid dx:No Takes medication without food and other meds? No eats 10 min later Labs: [facility] Medical History Hypothyroidism Arthritis Low calcium levels High cholesterol H/O gastric ulcer H/O gastritis Hyperthyroidism Surgical History History of salpingectomy Family History Mother Hypertension Diabetes Father No problems noted. Social History Household Members: None Housing: House Alcohol intake: unknown Patient Tobacco Use Status: Current everyday Tobacco user Tobacco use type: Cigarette service: No Current occupational status: unemployed and disabled Physical Exam Vital Signs: Last Vital Signs Pulse 55 10/17/23 08:52 BP 126/72 10/17/23 08:52 BMI result Body Mass Index 31.8 HEENT reveals absence of lid lag , stare or proptosis or eyebrow loss. Thyroid gland measure 15 gms . No nodules or tenderness palpated. There is no cervical adenopathy palpated. Lungs CTA. Heart S1, S2 Reg R/R -M/R/G. Abdominal exam benign. Skin exam reveals absence of dryness or thyroid dermopathy or vitiligo. Nail exam reveals absence of thyroid acropachy or oncholysis. Neurologic exam reveals 2+ reflexes . Muscle Strength is 5/5 proximally. There are no tremors in upper extremities. Assessment & Plan Assessment & Plan (1) Hypothyroidism: Code(s): E03.9 - Hypothyroidism, unspecified Plan: This is a 52-year-old female with a history of hypothyroidism be replaced with tirosint 274 ug. She appears to be clinically euthyroid. Plan is to increase the Tirosint to 275 mcg prior dose recheck TSH and free T4 in 4 weeks time. Adjustments the patient's Tirosint should be made by this office and not by patient's primary care provider about alerting endocrinology 1st. Medications: New Tirosint (levothyroxine) Take 200 ug with 75 ug for total of 275 ug 200 mcg PO DAILY 30 caps 6RF NS Tirosint (levothyroxine) take 75 ug with 200 ug for total of 275 ug 75 mcg PO DAILY 30 caps 5RF NS Discontinued Tirosint (levothyroxine) Discontinued Reason: Doctor's Order 200 mcg PO DAILY 30 caps 6RF NS Coding Level of Care Code Est Pt Level 3 (60382) Diagnoses Hypothyroidism E03.9
[2023-10-17 08:52] VITALS: BP 126/72; PULSE 55; BMI 31.8
== END 2023-10-17 09:09 | disposition home or self-care (01) ==
PROVIDERS: Visit Provider Internal Medicine Endocrinology, Diabetes & Metabolism
DX: E03.9 Hypothyroidism, unspecified (principal)
CPT/HCPCS: 99213

== ENCOUNTER → 2023-10-17 08:47 | Outpatient (BNVA) | payer MEDICAID, SELFPAY | PROVIDERS: Visit Provider Internal Medicine Endocrinology, Diabetes & Metabolism | DX: E03.9 Hypothyroidism, unspecified (principal) | CPT/HCPCS: 99212 ==

== ENCOUNTER 2023-10-24 17:50 | Outpatient (REF) | payer MEDICAID, SELFPAY | END 2023-10-24 17:51 | disposition home or self-care (01) | LOC: HO.HHCLNP 17:50 | PROVIDERS: Visit Provider Registered Nurse | DX: N89.8 Other specified noninflammatory disorders of vagina (principal); R30.0 Dysuria | CPT/HCPCS: 36415; 81513; 87086 ==

== ENCOUNTER 2023-11-01 20:50 | Emergency (ER) | payer MEDICAID, SELFPAY ==
--- NOTE | 2023-11-01 | ECG_ITS ---
Test Reason : CLOROX INGESTION Blood Pressure : / mmHG Vent. Rate : 062 BPM Atrial Rate : 062 BPM P-R Int : 156 ms QRS Dur : 080 ms QT Int : 400 ms P-R-T Axes : 020 042 -29 degrees QTc Int : 406 ms Normal sinus rhythm with sinus arrhythmia ST & T wave abnormality, consider inferior ischemia ST & T wave abnormality, consider anterior ischemia Abnormal ECG When compared with ECG of 09-OCT-2023 16:38, No significant change was found Referred By: Generic ED Physician Electronically Signed By:BEATA KING
[2023-11-01 21:00] VITALS: BP 129/76; PULSE 62; RESP 16; TEMP 36.5; O2SAT 99
[2023-11-01 21:13] VITALS: BP 124/68; BP 124/78; PULSE 72; RESP 16; O2SAT 99; BMI 33.6
--- NOTE | 2023-11-01 21:26 | ED_ITS ---
HPI - General Adult General Chief complaint: General Medical Stated complaint: accidental bleach ingestion Time Seen by Provider: 11/01/23 21:17 History of Present Illness HPI narrative: The patient is a 52-year-old female comes to the hospital after apparently accidentally drinking a small amount of household Clorox. She had apparently been planning on cleaning her house with some Clorox. She had to can not did a small amount of Clorox from the Clorox bottle into an empty water bottle with the intention using the Clorox from the water bottle for cleaning purposes. However after decanting the Clorox she then made a phone call which was very upsetting. After the phone call she was so upset that she forgot she had put the Clorox in the water bottle. She thought it was water. She took a sip and then realized she had accidentally taken a mouth full of the Clorox. She developed a sore throat and a burning in her chest and came to the hospital by ambulance. The patient maintains definitively that this was an accidental ingestion. She denies any suicidal intent or any intent to harm herself. She denies any coingestions. Related Data Home Medications Medication Instructions Recorded Confirmed ergocalciferol (vitamin D2) 1,250 1 cap PO QWEEK 05/23/22 12/12/22 mcg (50,000 unit) capsule omeprazole 20 mg capsule,delayed 1 cap PO BID 05/23/22 12/12/22 release aripiprazole 5 mg tablet 5 mg PO BEDTIME 09/12/22 12/12/22 famotidine 10 mg tablet (Heartburn 10 mg PO BID PRN acid reflux 09/12/22 12/12/22 Relief (famotidine)) Previous Rx's Medication Instructions Recorded albuterol sulfate 90 mcg/actuation 1 inh inhalation QID PRN shortness 09/28/20 aerosol inhaler (ProAir HFA) of breath or wheezing #8.5 grams acetaminophen 650 mg 650 mg PO Q8H PRN pain #30 tabs 12/21/21 tablet,extended release (Tylenol Arthritis Pain) cyclobenzaprine 10 mg tablet 10 mg PO TID PRN muscle spasm #14 12/21/21 tabs lidocaine 5 % topical patch 1 patch topical DAILY #15 ea 12/21/21 acetaminophen 500 mg capsule 1,000 mg (2 x 500 mg) PO Q8H PRN 12/22/22 pain #30 caps pantoprazole 40 mg tablet,delayed 40 mg PO DAILY #20 tabs 07/02/23 release (Protonix) albuterol sulfate 90 mcg/actuation 2 puff inhalation Q4-6H PRN 07/14/23 aerosol inhaler (ProAir HFA) shortness of breath or wheezing #8.5 grams benzonatate 200 mg capsule 200 mg PO TID PRN cough #30 caps 07/14/23 cefuroxime axetil 500 mg tablet 500 mg PO BID 10 days #20 tabs 07/14/23 prednisone 20 mg tablet 40 mg (2 x 20 mg) PO DAILY #10 tabs 07/14/23 Tirosint 200 mcg capsule 200 mcg PO DAILY #30 caps 10/17/23 (levothyroxine) Tirosint 75 mcg capsule 75 mcg PO DAILY #30 caps 10/17/23 (levothyroxine) Allergies Allergy/AdvReac Type Severity Reaction Status Date / Time ibuprofen [From MOTRIN] AdvReac Intermediate ABDOMINAL Verified 10/17/23 08:56 PAIN Review of Systems 2 Review of Systems: Yes all other systems are reviewed and are negative [facility] Past Medical History Medical History Hypothyroidism Arthritis Low calcium levels High cholesterol H/O gastric ulcer H/O gastritis Hyperthyroidism Surgical History History of salpingectomy Family History Family History Mother Hypertension Diabetes Father No problems noted. Social History Social History Household Members: None Housing: House Alcohol intake: unknown Patient Tobacco Use Status: Current everyday Tobacco user Tobacco use type: Cigarette Smoked in Last 30 Days: No Use of substances other than those prescribed or required for medical reasons: No Advance Directives: No Advance Directives Information Provided: No Patient : No service: No Current occupational status: unemployed and disabled Physical Exam ED Vital Signs: Vital Signs - 24 hr 11/01/23 21:00 11/01/23 21:13 11/01/23 23:35 Temperature 97.7 F 97.8 F Pulse Rate 62 72 63 Respiratory Rate 16 16 15 Blood Pressure 129/76 124/78 132/73 Pulse Oximetry 99 99 98 Oxygen Delivery Method Room Air Room Air Room Air BMI result Body Mass Index 33.6 Const Other: The patient is awake and alert. She does not seem short of breath. She has an anxious affect. HENMT Other: The posterior pharynx and oral cavity generally are unremarkable. No erythema or other signs of injury. Eyes Other: Pupils are round equal, conjunctivae are clear, extraocular movements intact Neck Other: No JVD, moving her neck easily, no neck swelling. Resp Other: No wheezes or increased work of breathing. No crackles. Good breath sounds bilaterally Cardio Rate: regular rate Rhythm: regular rhythm Heart sounds: S1 normal heart sound present and S2 normal heart sound present GI Other: Abdomen is soft and nontender Skin Other: Skin is dry and unremarkable Neuro Other: The patient has an anxious affect. However she otherwise seems neurologically intact. Her face is symmetrical. Speech is clear. Moves her extremities normally. Extrem Other: Extremities are unremarkable Medications Administered Discontinued Medications Generic Name Dose Route Start Last Admin Trade Name Freq PRN Reason Stop Dose Admin Sucralfate 1 gm 11/01/23 23:25 11/01/23 23:44 Sucralfate Oral Suspension 1 Gm/10 Ml Oral.Susp PO 11/01/23 23:26 1 gm ONCE ONE Administration Medical Decision Making Medical Decision Making [facility] Narrative: The patient is a 52-year-old female who accidentally drank what I suspect was a very small amount of Clorox. Small Clorox ingestions are very rarely associated with any significant injuries. She has a normal EKG but it is similar to previous EKGs. Given her complaint of chest pain labs were checked which were unremarkable. I consulted the poison center. They wanted to be certain that given the patient has history of anxiety that there was no coexistent. She tests negative for acetaminophen and salicylates and alcohol. I did not have a very high suspicion for any intention allergy to this episode. She was observed. She tolerated water well. She continued to complain of some epigastric discomfort. She was given a dose of liquid sucralfate and after that looked much better. She was smiling and feeling much better. She has not exhibiting any respiratory difficulty after several hours of observation. She has not exhibiting any signs of difficulty swallowing or ongoing chest discomfort that would make me concerned for a possible significant esophageal injury. I think she may be discharged. Lab Data 11/01/23 21:42 11/01/23 21:42 Labs: Lab Results 11/01/23 11/01/23 Range/Units 21:42 22:28 WBC 7.3 (4.8-10.8) X10*3/uL RBC 4.77 (4.20-5.50) X10*6/uL Hgb 14.3 (12.0-16.0) g/dl Hct 41.1 (37.0-47.0) % MCV 86.2 (80.0-98.0) fL MCH 30.0 (27.0-33.0) pg MCHC 34.8 (31.0-35.0) g/dl RDW 12.9 (11.0-16.0) % Plt Count 262 (160-400) X10*3/uL MPV 10.3 (9.4-12.3) fL Immature Gran % (Auto) 0.1 (0.0-0.4) % Neut % (Auto) 47.6 (45-73) % Lymph % (Auto) 38.4 (20-40) % [place] % (Auto) 8.8 (2-11) % Eos % (Auto) 4.8 H (0-4) % Baso % (Auto) 0.3 (0-2) % Lymph # (Auto) 2.8 (1.2-4.9) X10*3/uL [place] # (Auto) 0.6 (0.1-1.2) X10*3/uL Eos # (Auto) 0.4 (0.0-0.4) X10*3/uL Baso # (Auto) 0.0 (0.0-0.2) X10*3/uL Abs Immat Gran (auto) 0.01 (0.00-0.03) X10*3/uL Absolute Neuts (auto) 3.5 (2.0-8.3) x10*3/uL Absolute Nucleated RBC 0.000 (0.0-0.012) X10*3/uL Nucleated RBC % (auto) 0.0 (0.0-0.2) /100WBC Sodium 145 (135-145) mmol/L Potassium 4.0 (3.3-5.1) mmol/L Chloride 107 (96-108) mmol/L Carbon Dioxide 30 H (22-29) mmol/L Anion Gap 12 (12-20) BUN 14 (9-16) mg/dL Creatinine 0.90 (0.5-1.4) mg/dL Estim Creat Clear Calc 69.5 Estimated GFR > 60 Random Glucose 107 (60-115) mg/dL Calcium 9.5 (8.4-10.2) mg/dL Total Bilirubin 0.2 0.3 (0.0-1.0) mg/dL Direct Bilirubin 0.1 (0.0-0.5) mg/dL AST 26 25 (5-31) U/L ALT 56 H 57 H (0-31) U/L Alkaline Phosphatase 153 H 163 H (39-117) U/L Troponin I High Sens 9.6 (<3.5-17.0) ng/L Total Protein 8.2 H 8.5 H (6.5-8.0) g/dL Albumin 4.1 4.3 (3.5-5.0) g/dL Salicylates < 5.0 L (15-30) mg/dL Acetaminophen < 3 (<30) mcg/mL Ethyl Alcohol < 10 mg/dL Discharge Plan Discharge Clinical Impression: Accidental ingestion of toxic substance Patient Disposition: Home, Self-Care Additional Instructions: I think your mouth in your esophagus in your stomach will recover well from what you accidentally drank this evening. Please rest and take it easy tonight. Continue your regular medications. Follow up soon with your regular doctor. Return to the emergency room if you feel significantly worse. Prescriptions: No Action albuterol sulfate [ProAir HFA] 90 mcg/actuation HFA aerosol inhaler 1 inh inhalation QID PRN (Reason: shortness of breath or wheezing) Qty: 8.5 0RF cyclobenzaprine 10 mg tablet 10 mg PO TID PRN (Reason: muscle spasm) Qty: 14 0RF lidocaine 5 % adhesive patch,medicated 1 patch topical DAILY Qty: 15 0RF Rx Instructions: leave on most painful area for up to 12 hrs acetaminophen [Tylenol Arthritis Pain] 650 mg tablet extended release 650 mg PO Q8H PRN (Reason: pain) Qty: 30 0RF omeprazole 20 mg capsule,delayed release(DR/EC) 1 cap PO BID ergocalciferol (vitamin D2) 1,250 mcg (50,000 unit) capsule 1 cap PO QWEEK pantoprazole [Protonix] 40 mg tablet,delayed release (DR/EC) 40 mg PO DAILY Qty: 20 0RF acetaminophen 500 mg capsule 1,000 mg PO Q8H PRN (Reason: pain) Qty: 30 0RF benzonatate 200 mg capsule 200 mg PO TID PRN (Reason: cough) Qty: 30 0RF prednisone 20 mg tablet 40 mg PO DAILY Qty: 10 0RF cefuroxime axetil 500 mg tablet 500 mg PO BID 10 Days Qty: 20 0RF albuterol sulfate [ProAir HFA] 90 mcg/actuation HFA aerosol inhaler 2 puff inhalation Q4-6H PRN (Reason: shortness of breath or wheezing) Qty: 8.5 1RF aripiprazole 5 mg tablet 5 mg PO BEDTIME famotidine [Heartburn Relief (famotidine)] 10 mg tablet 10 mg PO BID PRN (Reason: acid reflux) levothyroxine [Tirosint] 200 mcg capsule 200 mcg PO DAILY Qty: 30 6RF Rx Instructions: Take 200 ug with 75 ug for total of 275 ug levothyroxine [Tirosint] 75 mcg capsule 75 mcg PO DAILY Qty: 30 5RF Rx Instructions: take 75 ug with 200 ug for total of 275 ug
[2023-11-01 21:48] LABS: Basophils Percent Auto 0.3 % (0-2); Eosinophils Absolute Auto 0.4 X10*3/uL (0.0-0.4); Eosinophils Percent Auto 4.8 % (0-4); Hematocrit 41.1 % (37.0-47.0); Hemoglobin 14.3 g/dl (12.0-16.0); Imm Gran Abs Auto 0.01 X10*3/uL (0.00-0.03); Imm Gran Pct Auto 0.1 % (0.0-0.4); Lymphocytes Absolute Auto 2.8 X10*3/uL (1.2-4.9); Lymphocytes Percent Auto 38.4 % (20-40); MANUAL DIFF FLAG NO; Mean Corpuscular HGB Conc 34.8 g/dl (31.0-35.0); Mean Corpuscular Volume 86.2 fL (80.0-98.0); Mean Platelet Volume 10.3 fL (9.4-12.3); Monocytes Absolute Auto 0.6 X10*3/uL (0.1-1.2); Monocytes Percent Auto 8.8 % (2-11); Neutrophils Absolute Auto 3.5 x10*3/uL (2.0-8.3); Neutrophils Percent Auto 47.6 % (45-73); Platelet Count 262 X10*3/uL (160-400); Red Blood Count 4.77 X10*6/uL (4.20-5.50); Red Cell Distribution Width 12.9 % (11.0-16.0); White Blood Count 7.3 X10*3/uL (4.8-10.8)
[2023-11-01 22:02] LABS: Alanine Aminotransferase 56 U/L (0-31); Albumin Level 4.1 g/dL (3.5-5.0); Alkaline Phosphatase 153 U/L (39-117); Anion Gap 12 (12-20); Aspartate Amino Transferase 26 U/L (5-31); Bilirubin Total 0.2 mg/dL (0.0-1.0); Blood Urea Nitrogen 14 mg/dL (9-16); Calcium 9.5 mg/dL (8.4-10.2); Carbon Dioxide 30 mmol/L (22-29); Chloride 107 mmol/L (96-108); Creatinine Clr Calc Pharmacy 69.5; Estimated Glomerular Filt Rate > 60; Glucose Random 107 mg/dL (60-115); Sodium 145 mmol/L (135-145); Total Protein 8.2 g/dL (6.5-8.0)
[2023-11-01 22:17] LABS: Troponin-I High Sensitivity 9.6 ng/L (<3.5-17.0)
[2023-11-01 22:51] LABS: Acetaminophen LAB < 3 mcg/mL (<30); Salicylate < 5.0 mg/dL (15-30)
[2023-11-01 22:56] LABS: Alanine Aminotransferase 57 U/L (0-31); Albumin Level 4.3 g/dL (3.5-5.0); Alkaline Phosphatase 163 U/L (39-117); Aspartate Amino Transferase 25 U/L (5-31); Bilirubin Direct 0.1 mg/dL (0.0-0.5); Bilirubin Total 0.3 mg/dL (0.0-1.0); Ethanol < 10 mg/dL; Total Protein 8.5 g/dL (6.5-8.0)
[2023-11-01 23:35] VITALS: BP 132/73; PULSE 63; RESP 15; TEMP 36.6; O2SAT 98
[2023-11-01] MEDS: Sucralfate Oral Suspension 1 GM/10 ML ORAL.SUSP PO (23:44)
== END 2023-11-02 00:06 | disposition home or self-care (01) ==
PROVIDERS: Emergency Provider Emergency Medicine
DX: T54.91XA Toxic effect of unspecified corrosive substance, accidental (unintentional), initial encounter (principal); Y92.9 Unspecified place or not applicable; I49.9 Cardiac arrhythmia, unspecified; Z79.899 Other long term (current) drug therapy
CPT/HCPCS: 36415; 80053; 80076; 80143; 80179; 80307; 84484; 85025; 93005; 99283; 99284

== ENCOUNTER → 2023-11-01 21:21 | Outpatient (BNV) | payer MEDICAID, SELFPAY | PROVIDERS: Emergency Provider Emergency Medicine; Visit Provider Internal Medicine | DX: R94.31 Abnormal electrocardiogram [ECG] [EKG] (principal) | CPT/HCPCS: 93010 ==

== ENCOUNTER 2023-12-03 14:47 | Outpatient (REF) | payer MEDICAID, SELFPAY ==
[2023-12-03 15:56] LABS: MANUAL DIFF FLAG NO
[2023-12-03 16:21] LABS: Basophils Absolute Auto 0.1 X10*3/uL (0.0-0.2); Basophils Percent Auto 0.7 % (0-2); Eosinophils Absolute Auto 0.3 X10*3/uL (0.0-0.4); Eosinophils Percent Auto 4.2 % (0-4); Hematocrit 42.9 % (37.0-47.0); Hemoglobin 14.5 g/dl (12.0-16.0); Imm Gran Abs Auto 0.02 X10*3/uL (0.00-0.03); Imm Gran Pct Auto 0.2 % (0.0-0.4); Lymphocytes Absolute Auto 2.9 X10*3/uL (1.2-4.9); Lymphocytes Percent Auto 35.4 % (20-40); Mean Corpuscular HGB Conc 33.8 g/dl (31.0-35.0); Mean Corpuscular Hemoglobin 29.2 pg (27.0-33.0); Mean Corpuscular Volume 86.3 fL (80.0-98.0); Mean Platelet Volume 11.3 fL (9.4-12.3); Monocytes Absolute Auto 0.7 X10*3/uL (0.1-1.2); Monocytes Percent Auto 8.3 % (2-11); Neutrophils Absolute Auto 4.1 x10*3/uL (2.0-8.3); Neutrophils Percent Auto 51.2 % (45-73); Platelet Count 286 X10*3/uL (160-400); Red Blood Count 4.97 X10*6/uL (4.20-5.50); Red Cell Distribution Width 12.6 % (11.0-16.0); White Blood Count 8.1 X10*3/uL (4.8-10.8)
[2023-12-03 16:56] LABS: TSH reflex Free T4 0.94 uIU/mL (0.32-4.0)
== END 2023-12-03 14:48 | disposition home or self-care (01) ==
LOC: HO.HHCL 14:47
PROVIDERS: Visit Provider Emergency Medicine
DX: E03.9 Hypothyroidism, unspecified (principal); R21 Rash and other nonspecific skin eruption
CPT/HCPCS: 36415; 84443; 85025

== ENCOUNTER 2024-01-07 14:33 | Outpatient (AMB) | payer MEDICAID, SELFPAY ==
--- NOTE | 2024-01-07 14:45 | A.OFFVIS_ITS ---
Vital Signs 01/07/24 14:46 Height 5 ft 1 in Weight 160 lb BMI 30.2 Blood Pressure Location Lt brachial Position Sitting Intake Visit Reasons: Abdominal pain Intake Note: new consult for abdominal pain. Patient cc: Nauseas, chronic center abdominal pain with some bloating, acid reflex with burning sensation, some swallowing problems, dizziness, fatigue,m and diarrhea with rectal discomfort due th the diarrhea. Facing End Trimmer Required: Yes Facing End Trimmer Name: Nita [id number] Accompanied by: Self / Same As Patient Allergies ibuprofen [From MOTRIN] Adverse Reaction (Intermediate, Verified 01/07/24 14:44) ABDOMINAL PAIN HPI HPI Abdominal pain: Details: 53-year-old female with past medical history of hyperthyroidism, precordial chest pain, asthma is here today for initial consultation. Patient is tearful, reports that she has been constipated for several days. Unable to have a normal bowel movement daily prior to that patient would have occasional loose stools. Right now patient will have loose stools but no ill bowel movement patient reports abdominal bloating, distention reports nausea no vomiting postprandial abdominal bloating and epigastric pain. Patient also reports severe reflux feeling burning in her esophagus all the way up to her throat. Patient denies any ill contacts. No recent travels. Patient denies melena, hematochezia, unintentional weight loss or ribbon like stools. Reports dyspepsia without dysphagia or odynophagia. Patient also reports pain in her whole abdomen worse in the left upper quadrant and left lower quadrant. [facility] Medical History Hypothyroidism Arthritis Low calcium levels High cholesterol H/O gastric ulcer H/O gastritis Hyperthyroidism Surgical History History of salpingectomy Family History Mother Hypertension Diabetes Father No problems noted. Social History Household Members: None Housing: House Alcohol intake: unknown Patient Tobacco Use Status: Current everyday Tobacco user Tobacco use type: Cigarette service: No Current occupational status: unemployed and disabled Review of Systems Const Denies weight gain and Denies weight loss ENT Reports no additional complaints, Reports dysphagia and Denies odynophagia Card Reports no additional complaints Resp Reports no additional complaints GI Reports abdominal pain, Denies belching, Denies melena, Reports bloating, Denies change in bowel habits, Reports constipation, Reports dysphagia, Denies excess ole flatus, Reports dyspepsia, Reports heartburn, Denies diarrhea, Reports loose stools, Reports nausea, Denies odynophagia and Denies vomiting Reports no additional complaints Musc Reports no additional complaints Neuro Reports no additional complaints Psych Reports no additional complaints Endo Reports no additional complaints Physical Exam Vital Signs: BMI result Body Mass Index 30.2 Const General: healthy appearing, no acute distress and anxious Nutritional Appearance: obese Orientation/consciousness: patient oriented x3 Resp Effort & Inspection: normal respiratory effort, able to speak in complete sentences, no tracheal deviation and symmetric chest movement Auscultation: clear to auscultation bilaterally Cardio Rate: regular rate GI Inspection: Yes normal to inspection, No distended and Yes obesity Palpation (GI): Soft to palpation, not firm, nontender and No hepatosplenomegaly present Auscultation: normal bowel sounds General: Yes no CVA tenderness Back/Spine/Pelvis Back: no CVA tenderness Skin General skin exam: elasticity normal, turgor normal and dry skin Neuro General: patient oriented x3 Psych Appearance: grossly normal Mental Status: mental status grossly normal Assessment & Plan Assessment & Plan (1) GERD (gastroesophageal reflux disease): Code(s): K21.9 - Gastro-esophageal reflux disease without esophagitis Qualifiers: Esophagitis presence: esophagitis presence not specified Qualified Code(s): K21.9 - Gastro-esophageal reflux disease without esophagitis (2) Nausea: Code(s): R11.0 - Nausea (3) Postprandial abdominal bloating: Code(s): R14.0 - Abdominal distension (gaseous) (4) Abdominal pain: Code(s): R10.9 - Unspecified abdominal pain Qualifiers: Abdominal location: upper abdomen, unspecified Qualified Code(s): R10.10 - Upper abdominal pain, unspecified Plan Will check for H pylori, rule out celiac, pancreatitis. Patient will GI panel, reports loose stools in the past couple weeks. Patient will start taking Citrucel every morning and Senokot at night time to help her eliminate her bowels better. Patient will start taking Nexium. Took omeprazole and pantoprazole in the past without much of improvement. CT scan to rule out colitis, diverticulitis. Patient was encouraged to avoid dietary triggers and late night snacking. Staying upright for minimum 3 hours after meals discussed with patient. Patient was also encouraged to increase fluid intake and activity to promote better bowel motility. Patient will return in the office in 3 weeks to re-evaluate. Patient is agreeable to this plan and verbalizes understanding of instructions. She was given the opportunity to ask questions and all questions answered. Thank you for allowing me to participate in her care Orders: Orders H pylori Ag Stool 01/07/24 K21.9 - Gastro-esophageal reflux disease without esophagitis Vitamin D 25-OH (D2 and D3) 01/07/24 E55.9 - Vitamin D deficiency, unspecified Transglutaminase IgA 01/07/24 R10.9 - Unspecified abdominal pain GI Panel 01/07/24 R19.7 - Diarrhea, unspecified Vitamin B12 and Folate 01/07/24 R19.7 - Diarrhea, unspecified Complete Blood Count no Diff 01/07/24 K21.9 - Gastro-esophageal reflux disease without esophagitis Comprehensive Met. Panel 01/07/24 K21.9 - Gastro-esophageal reflux disease without esophagitis Transglutaminase Ab IgG 01/07/24 R10.9 - Unspecified abdominal pain CT abdomen pelvis w IV con 01/07/24 R10.9 - Unspecified abdominal pain, R11.0 - Nausea, R14.0 - Abdominal distension (gaseous), R10.13 - Epigastric pain Medications: New esomeprazole magnesium (Nexium) 40 mg PO DAILY 90 caps 5RF K21.9 - Gastro- esophageal reflux disease without esophagitis sennosides (Natural Senna Laxative) 17.2 mg (2 x 8.6 mg) PO BEDTIME 60 tabs 3RF constipation K59.00 - Constipation, unspecified methylcellulose (laxative) (Citrucel) take it with full glass of water 500 mg PO DAILY 90 tabs 2RF K59.00 - Constipation, unspecified Discontinued benzonatate Discontinued Reason: Patient no longer taking 200 mg PO TID PRN 30 caps 0RF cough Tirosint Take 200 ug with 75 ug for total of 275 ug Discontinued Reason: Doctor's Order 200 mcg PO DAILY 30 caps 6RF NS Tirosint take 75 ug with 200 ug for total of 275 ug Discontinued Reason: Doctor's Order 75 mcg PO DAILY 30 caps 5RF NS Coding Level of Care Code New Pt Level 4 (74384) Diagnoses Gastroesophageal reflux disease, unspecified whether esophagitis present K21.9 Esophagitis presence: esophagitis presence not specified Nausea R11.0 Postprandial abdominal bloating R14.0 Pain of upper abdomen R10.10 Abdominal location: upper abdomen, unspecified Time Spent (min) 45 Comment 30 minutes spent with patient and additional 15 minutes spent reviewing her records
[2024-01-07 14:46] VITALS: BMI 30.2
== END 2024-01-07 15:27 | disposition home or self-care (01) ==
PROVIDERS: PCP Registered Nurse; Visit Provider Nurse Practitioner Family
DX: K21.9 Gastro-esophageal reflux disease without esophagitis (principal); R11.0 Nausea; R14.0 Abdominal distension (gaseous); R10.10 Upper abdominal pain, unspecified
CPT/HCPCS: 99204

== ENCOUNTER 2024-01-07 14:33 | Outpatient (REF) | payer MEDICAID, SELFPAY ==
[2024-01-07 16:13] LABS: Hematocrit 47.2 % (37.0-47.0); Hemoglobin 16.1 g/dl (12.0-16.0); Mean Corpuscular HGB Conc 34.1 g/dl (31.0-35.0); Mean Corpuscular Hemoglobin 29.4 pg (27.0-33.0); Mean Corpuscular Volume 86.3 fL (80.0-98.0); Mean Platelet Volume 11.5 fL (9.4-12.3); Platelet Count 236 X10*3/uL (160-400); Red Blood Count 5.47 X10*6/uL (4.20-5.50); Red Cell Distribution Width 12.9 % (11.0-16.0); White Blood Count 7.9 X10*3/uL (4.8-10.8)
[2024-01-07 17:09] LABS: Alanine Aminotransferase 22 U/L (0-31); Albumin Level 4.5 g/dL (3.5-5.0); Alkaline Phosphatase 148 U/L (39-117); Anion Gap 16 (12-20); Aspartate Amino Transferase 21 U/L (5-31); Bilirubin Total 0.4 mg/dL (0.0-1.0); Blood Urea Nitrogen 15 mg/dL (9-16); Calcium 9.8 mg/dL (8.4-10.2); Carbon Dioxide 22 mmol/L (22-29); Chloride 108 mmol/L (96-108); Estimated Glomerular Filt Rate 46; Glucose Random 99 mg/dL (60-115); Potassium 3.7 mmol/L (3.3-5.1); Sodium 142 mmol/L (135-145); Total Protein 8.9 g/dL (6.5-8.0)
[2024-01-07 17:15] LABS: Free T4 (Free Thyroxine) 0.51 ng/dL (0.71-1.85); Thyroid Stimulating Hormone 42.35 uIU/mL (0.32-4.0)
[2024-01-07 17:22] LABS: Thyroid Stimulating Hormone 41.33 uIU/mL (0.32-4.0)
[2024-01-07 17:27] LABS: Folate 11.4 ng/mL (> or = 4.0); Vitamin B12 338 pg/mL (200-900)
[2024-01-09 14:33] LABS: Transglutaminase Ab IgG 1.3 U/mL; Transglutaminase IgA <1.0 U/mL
[2024-01-11 15:43] LABS: Vitamin D 25-OH, D2 <4 ng/mL; Vitamin D 25-OH, D3 14 ng/mL; Vitamin D 25-OH, Total 14 ng/mL (30-100)
== END 2024-01-07 14:34 | disposition home or self-care (01) ==
LOC: HO.LAB 14:33
PROVIDERS: Internal Medicine Endocrinology, Diabetes & Metabolism; PCP Registered Nurse; Visit Provider Nurse Practitioner Family
DX: E03.9 Hypothyroidism, unspecified (principal); E55.9 Vitamin D deficiency, unspecified; K21.9 Gastro-esophageal reflux disease without esophagitis; R19.7 Diarrhea, unspecified; R14.0 Abdominal distension (gaseous); R10.10 Upper abdominal pain, unspecified; R11.0 Nausea
CPT/HCPCS: 36415; 80053; 82306; 82607; 82746; 84439; 84443; 85027; 86364; 99212

== ENCOUNTER 2024-01-08 15:01 | Outpatient (AMB) | payer MEDICAID, SELFPAY ==
[2024-01-08 15:05] VITALS: BP 130/62; PULSE 60; BMI 30.9
--- NOTE | 2024-01-08 15:05 | A.OFFVIS_ITS ---
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 Administrative Accountant Required: Yes Administrative Accountant Name: [id number] Accompanied by: Self / Same As Patient Allergies ibuprofen [From MOTRIN] Adverse Reaction (Intermediate, Verified 01/07/24 14:44) ABDOMINAL PAIN Medication List - Last Reconciled 01/08/24 by Rubio Morales MD albuterol sulfate 90 mcg/actuation (ProAir HFA) 1 inh inhalation QID PRN albuterol sulfate 90 mcg/actuation (ProAir HFA) 2 puffs inhalation Q4-6H PRN aripiprazole 5 mg PO BEDTIME cefuroxime axetil 500 mg PO BID 10 days cyclobenzaprine 10 mg PO TID PRN ergocalciferol (vitamin D2) 1 cap PO QWEEK esomeprazole magnesium (Nexium) 40 mg PO DAILY methylcellulose (laxative) (Citrucel) 500 mg PO DAILY omeprazole 1 cap PO BID pantoprazole (Protonix) 40 mg PO DAILY prednisone 40 mg (2 x 20 mg) PO DAILY Tirosint (levothyroxine) 200 mcg PO DAILY NS Tirosint (levothyroxine) 100 mcg PO DAILY NS HPI Comments Details: Meagan is here for consultation regarding chest pains. Discussed with patient using net programmer analyst. No known cardiac issues in the past like coronary disease or myocardial infarction or cardiomyopathy. She may get a discomfort in the chest off and on. Difficult to say if it is happening at rest or with exertion and could not clarify even with fern picker. History of smoking and she states she has not smoked in the last few weeks. [facility] Medical History Hypothyroidism Arthritis Low calcium levels High cholesterol H/O gastric ulcer H/O gastritis Hyperthyroidism Surgical History History of salpingectomy Family History Mother Hypertension Diabetes Father No problems noted. Social History Household Members: None Housing: House Alcohol intake: unknown Patient Tobacco Use Status: Current everyday Tobacco user Tobacco use type: Cigarette service: No Current occupational status: unemployed and disabled Review of Systems Const Denies chills, Denies fatigue, Denies fever(s), Denies frequent falls, Denies weakness, Denies weight gain and Denies weight loss ENT Denies dizziness Card Denies chest pain, Denies leg edema, Denies lightheadedness, Denies palpita tions, Denies dyspnea, Denies dyspnea on exertion and Denies orthopnea Resp Denies cough, Denies dyspnea and Denies dyspnea on exertion GI Denies bloating and Denies change in bowel habits Musc Denies muscle weakness, Denies numbness and Denies tingling Neuro Denies dizziness, Denies frequent falls, Denies numbness, Denies tingling and Denies weakness Endo Denies fatigue and Denies palpitations Physical Exam Vital Signs: Last Vital Signs Pulse 60 01/08/24 15:05 BP 130/62 01/08/24 15:05 BMI result Body Mass Index 30.9 Const General: comfortable and no acute distress Orientation/consciousness: patient oriented x3 HEENT Other: Unremarkable Head: Yes normal to inspection Neck Neck: Yes normal visual inspection Chest Chest palpation & inspection: normal inspection of the chest Resp Auscultation: clear to auscultation bilaterally Cardio Palpation: normal PMI Heart sounds: S1 normal heart sound present, S2 normal heart sound present, no gallops, no murmurs and no rubs GI Palpation (GI): Soft to palpation Back/Spine/Pelvis Other: unremarkable Skin General skin exam: no rashes or lesions noted Neuro General: patient oriented x3 Extrem General: Yes normal to inspection Psych Mental Status: mental status grossly normal Assessment & Plan Assessment & Plan (1) Precordial chest pain: Code(s): R07.2 - Precordial pain Category: Medical Plan Recent EKG shows sinus rhythm at 62/Min; inverted T-waves across the precordial as well as inferior leads. Could indicate LAD territory ischemia. However, it has been like this for the last several years. Available high sensitivity troponins are mostly within normal limits. Couple of sets are borderline high. Will proceed with further workup with echocardiogram and stress perfusion imaging study. Discussed with patient using net programmer analyst. Follow-up after the above. Orders: Orders CA echo transthoracic complete Today R07.2 - Precordial pain CA stress test Today R07.2 - Precordial pain NM cardiolite stress test Today R07.2 - Precordial pain Medications: Discontinued Tirosint (levothyroxine) Take 200 ug with 75 ug for total of 275 ug Discontinued Reason: Doctor's Order 200 mcg PO DAILY 30 caps 6RF NS Tirosint (levothyroxine) take 75 ug with 200 ug for total of 275 ug Discontinued Reason: Doctor's Order 75 mcg PO DAILY 30 caps 5RF NS Coding Level of Care Code New Pt Level 4 (59858) Diagnoses Precordial chest pain R07.2
== END 2024-01-08 15:25 | disposition home or self-care (01) ==
PROVIDERS: Referring Provider Registered Nurse; Visit Provider Internal Medicine
DX: R07.2 Precordial pain (principal)
CPT/HCPCS: 99214

== ENCOUNTER → 2024-01-08 15:01 | Outpatient (BNVA) | payer MEDICAID, SELFPAY | PROVIDERS: Visit Provider Internal Medicine | DX: R07.2 Precordial pain (principal) | CPT/HCPCS: 99212 ==

== ENCOUNTER 2024-02-01 16:06 | Outpatient (REF) | payer MEDICAID, SELFPAY ==
[2024-02-01 18:04] LABS: Bacterial Vaginosis PCR POSITIVE (Negative); Candida Group PCR NOT DETECTED (Not Detect); Candida glab krusei PCR NOT DETECTED (Not Detect); Trichomonas vaginalis PCR NOT DETECTED (Not Detect)
[2024-02-01 18:37] LABS: CT PCR NOT DETECTED (Not Detect.); NG PCR NOT DETECTED (Not Detect.)
[2024-02-07 01:39] LABS: HPV mRNA E6/E7 rflx Not Detected (Not Detected)
== END 2024-02-01 16:07 | disposition home or self-care (01) ==
LOC: HO.HHCLNP 16:06
PROVIDERS: Visit Provider Registered Nurse
DX: R10.2 Pelvic and perineal pain (principal); Z12.4 Encounter for screening for malignant neoplasm of cervix
CPT/HCPCS: 0352U; 0353U; 87624; 88142

== ENCOUNTER → 2024-02-19 08:16 | Outpatient (REF) | payer MEDICAID, SELFPAY ==
--- NOTE | ~2024-02-19 | NM_ITS ---
Lexiscan Myocardial perfusion study Indication: Chest pain, assess for coronary disease and ischemia Technique: The patient was brought in for a Lexiscan perfusion study on 02/19/2024 and was injected 0.4 mg of Lexiscan intravenously. Within a minute of this injection 25 mCi of sestamibi was given intravenously. Images were obtained using the SPECT gamma camera interlaced with the gating device. Images were obtained in supine position. Resting perfusion study was performed on 02/20/2024. Patient was administered 25 mCi of sestamibi intravenously at rest. Images were then obtained in supine position. Images were processed with the software and compared side to side in short axis, horizontal long axis and vertical long axis views. Total DLP 182mGy-cm. Findings: Raw acquisition reviewed. Arms by the patient's side. The stress perfusion study showed diminished tracer uptake in the mid to distal anterior wall and adjacent apex. There is some improvement with CT attenuation correction and hence could've components of soft tissue attenuation artifact. The gated study shows normal LV systolic function with calculated LVEF of 71%. LV cavity is normal in size. The gated study shows diminished contractility in the mid to distal anterior wall and adjacent apex. Resting study shows diminished uptake in the mid to distal anterior wall but improved compared to the stress acquisition. There is improvement with CT attenuation correction and hence could've components of soft tissue attenuation artifact. Gating at rest reveals normal wall motion with ejection fraction at 55%. The findings are consistent with mixed reversible/fixed pattern in the mid to distal anterior wall and adjacent apex. NM/NM cardiolite stress test Impression: 1. Myocardial perfusion imaging study shows mixed ischemia/infarct pattern in the LAD territory. More towards ischemia. 2. Gated LVEF is 71% during stress and 55% during rest. 3. Transient ischemic dilatation not present. EKG component of the test reported separately.
--- NOTE | 2024-02-19 08:27 | CA_ITS ---
Acquisition Time: 2024-02-19 10:50:21 Total Exercise Time: 00:01:21 Test Indications: Abnormal ECG Medications: Protocol: JAVED Max HR: 103 BPM 62% of Pred: 166 BPM Max BP: 162/080 mmHG Max Work Load: 3.4 METS Exercise stress test with exercise 1 min 21 sec with request to stop due to fatigue, shortness of breath. She had 4/10 left chest discomfort (continually present) at baseline which increased to 5/10 with walking. Pt assisted to sitting position and testing changed to a pharmacological nuclear stress test with Lexiscan injection, while sitting and kicking her legs, with ongoing report of 5/10 chest discomfort, without arrythmia, with normotensive response to injection, with T wave inversions inferiorly and V3-V6 post lexiscan injection, then improve. In recovery she reported lightheadedness that was treated with Aminophylline 75mg IVP to reverse Lexiscan with improvement in symptom. Her 5/10 left chest discomfort persisted. She confirms again that the discomfort is always there. Nuclear images pending. Test reviewed with Dr Mueller Referred By: Rubio Morales Overread By: SISSY MARMOLEJO
--- NOTE | 2024-02-19 08:27 | CA_ITS ---
Transthoracic Echocardiogram Patient (Last, First, Middle): Meagan Canada I Gender: Female Date of : 1970 Age: 53 Procedure Date: 02/19/2024 Procedure Type: Transthoracic Echocardiogram Location: OP Height: 154.94 cm Weight: 73.94 kg BSA: 1.73 m2 Heart Rate: 47 bpm BP: 128 / 64 mmHg Supervisor [employer]: ISAIAH Referring MD: Rubio Morales MD Symptoms: R07.2 - Precordial pain Study Quality: Adequate w contrast ECG Rhythm: Bradycardia Conclusions: - The left ventricular systolic function is normal. The visually estimated ejection fraction is between 60-65%. - No obvious valvular pathology seen on this study. Findings Procedure Information Contrast agent, definity, is being given per protocol without apparent complications. The quality of the study was technically difficult. The study quality is limited by patients body habitus. Left Ventricle Normal left ventricular cavity size. There is normal left ventricular wall thickness. The left ventricular systolic function is normal. The visually estimated ejection fraction is between 60-65%. There is no evidence of regional wall motion abnormalities. Diastolic function is normal for age. Right Ventricle Normal right ventricular cavity size and systolic function. Atria Both atria are normal in size. Aortic Valve The aortic valve was not well visualized. There is no aortic valve stenosis. There is no aortic valve regurgitation. Mitral Valve There is mild mitral annular calcification. There is no mitral valve regurgitation. There is no mitral valve stenosis. Pulmonic Valve The pulmonic valve is likely normal. Tricuspid Valve There is trace tricuspid valve regurgitation. Tricuspid regurgitation envelope is inadequate for calculation of right ventricular systolic pressure. Great Vessels The asc aorta is normal in size. Venous The inferior vena cava is normal in size and collapses greater than 50% with inspiration. Pericardium/Pleural There is a trivial pericardial effusion. Prior Study Comparison No significant change compared to prior study dated: 11/20/2009. Recommendations, Care & Conclusions No obvious valvular pathology seen on this study. Measurements 2D Linear Measurements IVSd: 0.95 0.6-0.9/0.6-1.0 cm LVIDd: 5.01 3.9-5.3/4.2-5.9 cm LVIDd Index: 2.90 2.4-3.2/2.2-3.1 cm/m2 LVIDs: 3.20 2.0-3.6 cm LVPWd: 0.91 0.7-1.1 cm LA Diam: 3.40 2.7-3.8/3.0-4.0 cm LAIDs Index: 1.97 1.5-2.3 cm/m2 LV Mass: 207.17 67-162/88-224 g LV Mass Index: 119.75 43-95/49-115 g/m2 LVOT Diam: 2.00 3.0+(-)1.3 cm 2D Systolic Function EF 4C: 68.10 >55% EF 2C: 67.90 >55% EF BiP: 68.70 >55% Mitral Valve MV Pk E: 1.01 MV PK A: 0.72 MV Decel Time: 201.00 E/A: 1.40 E'Lateral: 8.27 E'Medial: 5.87 E/E' Med: 17.20 E/E' Lat: 12.20 PHT: 59.00 MVA PHT: 3.73 Decel Harvey: 5.04 Aortic Valve AoV Pk Dereck: 1.09 AoV Mn Dereck: 0.70 AoV VTI: 0.23 AoV Pk Grad: 5.00 Aov Mn Grad: 2.00 NARESH Cont.VTI: 2.29 LVOT LVOT Pk Dereck: 0.78 LVOT Mn Dereck: 0.48 LVOT VTI: 0.17 LVOT Pk Grad: 2.00 LVOT Mn Grad: 1.00 LVOT Diam: 2.00 LVOT Area: 3.14 Diastolic Function MV Pk E: 1.01 MV Pk A: 0.72 E/A: 1.40 E'Medial: 5.87 E/E' Med: 17.20 E' Laterial: 8.27 E/E' Lat: 12.20 Right Ventricle TAPSE (mm): 24.30 Tricuspid Valve RA Press: 3.00 Great Vessels Aorta Sinus of Valsalva: 2.70 2.0-3.5 cm Ao Asc: 2.80 2.1-3.4 cm Pulmonary Valve PV Pk Dereck: 0.60 Peak PV Grad: 1.00 Updated in Other Vendor System with Status of Final Rubio Morales MD electronically signed on 02/20/2024 11:35:08 AM with status of Final
== END ==
LOC: HO.CARD 08:16
PROVIDERS: Visit Provider Internal Medicine
DX: R07.2 Precordial pain (principal)
CPT/HCPCS: 78452; 93017; 93306; A9500; J0280; J2785; Q9957

== ENCOUNTER → 2024-02-19 08:27 | Outpatient (BNV) | payer MEDICAID, SELFPAY | PROVIDERS: Visit Provider Nurse Practitioner Family | DX: I34.81 Nonrheumatic mitral (valve) annulus calcification (principal); R07.9 Chest pain, unspecified | CPT/HCPCS: 78452; 93016; 93018; 93350; 93356 ==

== ENCOUNTER 2024-03-02 21:13 | Emergency (ER) | payer MEDICAID, SELFPAY ==
[2024-03-02 21:32] VITALS: BP 120/65; PULSE 70; RESP 17; TEMP 36.9; O2SAT 97
--- NOTE | 2024-03-02 21:36 | ECG_ITS ---
Test Reason : CHEST PAIN Blood Pressure : / mmHG Vent. Rate : 072 BPM Atrial Rate : 072 BPM P-R Int : 152 ms QRS Dur : 076 ms QT Int : 392 ms P-R-T Axes : 017 046 -12 degrees QTc Int : 429 ms Normal sinus rhythm Nonspecific T wave abnormality Abnormal ECG When compared with ECG of 01-NOV-2023 21:21, No significant change was found Referred By: Generic ED Physician Electronically Signed By:BEATA KING
[2024-03-02 21:37] VITALS: BP 120/65; PULSE 77; RESP 14; O2SAT 98; BMI 31.2
[2024-03-02 21:40] VITALS: PULSE 81
--- NOTE | 2024-03-02 22:03 | ED_ITS ---
HPI - Chest Pain General Chief Complaint: Chest Pain Stated Complaint: cp Time Seen by Provider: 03/02/24 21:46 Source: patient Mode of arrival: EMS Limitations: language barrier History of Present Illness ED Provider: Toya Gordon PA-C HPI narrative: 53-year-old female with history of hypertension and GERD presents with chest pain for 4 days. Patient seen by primary care 4 days ago for same presentation, she has an outpatient stress test ordered. Pain over left anterior chest is nonradiating, unable to describe her pain. Pain worse with movement of the left arm and palpation of chest wall, however patient denies mechanism of injury. Denies shortness of breath, diaphoresis, abdominal pain, nausea or vomiting. Patient also complains of a posterior headache, where she has ?bumps on her scalp?. Patient states she uses Tylenol which alleviates her discomfort. Related Data Home Medications ?Medication ?Instructions ?Recorded ?Confirmed omeprazole 20 mg capsule,delayed 1 cap PO BID 05/23/22 01/08/24 release aripiprazole 5 mg tablet 5 mg PO BEDTIME 09/12/22 01/08/24 Previous Rx's ?Medication ?Instructions ?Recorded albuterol sulfate 90 mcg/actuation 1 inh inhalation QID PRN shortness 09/28/20 aerosol inhaler (ProAir HFA) of breath or wheezing #8.5 grams cyclobenzaprine 10 mg tablet 10 mg PO TID PRN muscle spasm #14 12/21/21 tabs pantoprazole 40 mg tablet,delayed 40 mg PO DAILY #20 tabs 07/02/23 release (Protonix) albuterol sulfate 90 mcg/actuation 2 puff inhalation Q4-6H PRN 07/14/23 aerosol inhaler (ProAir HFA) shortness of breath or wheezing #8.5 grams cefuroxime axetil 500 mg tablet 500 mg PO BID 10 days #20 tabs 07/14/23 prednisone 20 mg tablet 40 mg (2 x 20 mg) PO DAILY #10 tabs 07/14/23 esomeprazole magnesium 40 mg 40 mg PO DAILY #90 caps 01/07/24 capsule,delayed release (Nexium) methylcellulose (laxative) 500 mg 500 mg PO DAILY #90 tabs 01/07/24 tablet (Citrucel) Tirosint 100 mcg capsule 100 mcg PO DAILY #30 caps 01/08/24 (levothyroxine) Tirosint 200 mcg capsule 200 mcg PO DAILY #30 caps 01/08/24 (levothyroxine) cholecalciferol (vitamin D3) 50 50 mcg PO DAILY #90 caps 01/15/24 mcg (2,000 unit) capsule aspirin 81 mg tablet,delayed 81 mg PO DAILY #90 tabs 02/21/24 release (Adult Low Dose Aspirin) metoprolol succinate 25 mg 25 mg PO DAILY #90 tabs 02/21/24 tablet,extended release 24 hr nitroglycerin 0.4 mg sublingual 0.4 mg sublingual Q5M PRN chest 02/26/24 tablet pain #20 tabs Allergies Allergy/AdvReac Type Severity Reaction Status Date / Time ibuprofen [From MOTRIN] AdvReac Intermediate ABDOMINAL Verified 03/02/24 21:38 PAIN Review of Systems 2 Review of Systems: Yes all other systems are reviewed and are negative Constitutional: Constitutional: Denies fever(s) Cardiovascular: Cardiovascular: Reports chest pain and Denies dyspnea Respiratory: Respiratory: Denies dyspnea Gastrointestinal: Gastrointestinal: Denies abdominal pain Integumentary/Breasts: Skin/Breast: Reports sores PMFSH Past Medical History Attestation statement: The following information was validated with the patient. Medical History Hypothyroidism Arthritis Low calcium levels High cholesterol H/O gastric ulcer H/O gastritis Hyperthyroidism Surgical History History of salpingectomy Family History Family History Mother Hypertension Diabetes Father No problems noted. Social History Social History Household Members: None Housing: House Alcohol intake: unknown Patient Tobacco Use Status: Current everyday Tobacco user Tobacco use type: Cigarette Smoked in Last 30 Days: No Use of substances other than those prescribed or required for medical reasons: No Advance Directives: No Advance Directives Information Provided: No Do you have a plan to hurt others: No Plan Patient : No service: No Current occupational status: unemployed and disabled Physical Exam 2 Vital Signs: Vital Signs: Last Vital Signs Temp 98.5 F 03/02/24 21:32 Pulse 77 03/02/24 21:37 Resp 14 03/02/24 21:37 BP 120/65 03/02/24 21:37 Pulse Ox 98 03/02/24 21:37 O2 Del Method Room Air 03/02/24 21:37 BMI result Body Mass Index 31.2 Const: Other: Alert, well in appearance Chest: Other: Tender to palpation over the left anterior chest wall, no overlying ecchymosis, erythema or deformity Resp: Other: Nonlabored respirations Cardio: Other: Normal peripheral perfusion GI: Other: Nontender nondistended, obese abdomen which is soft Skin: Other: No rash Extrem: Other: Strength 5/5 bilateral upper extremities and lower extremities Psych: Other: Hostile belligerent, as soon as I walk into the exam room, the patient is asking to leave that she just wants to go home Medical Decision Making Medical Decision Making MDM Narrative: 53-year-old female with history of hypertension and GERD presents with chest pain for 4 days. Patient seen by primary care 4 days ago for same presentation, she has an outpatient stress test ordered. Pain over left anterior chest is nonradiating, unable to describe her pain. Pain worse with movement of the left arm and palpation of chest wall, however patient denies mechanism of injury. Denies shortness of breath, diaphoresis, abdominal pain, nausea or vomiting. Patient also complains of a posterior headache, where she has ?bumps on her scalp?. Patient states she uses Tylenol which alleviates her discomfort. Problem: Hypertension, age History: Per patient I have considered the following differential diagnoses: ACS, atypical chest pain, chest wall strain, folliculitis, shingles, Plan: ACS was considered, however, she has been having symptoms for a prolonged period of time, her exam was not consistent with the ACS it is most consistent with chest wall strain, however she does not have a mechanism of injury. Her heart score is 2. Her presentation is atypical, she has a stress test pending. This is appropriate. In chart review, the patient actually just had a stress test, that revealed some changes in leads V3 through V6 with exertion. She had a Cardiology consult in January, the patient has chronic pain at baseline without exercise. She also had an echocardiogram on the 18 of February, which was normal. There was no wall motion defects. I do not see another cardiology notes since her stress test. We will obtain a delta trop. In regard to her rash on her head, there is no rash I am palpating the base of her skull, her headache resolves with Tylenol, she can follow up as an outpatient, this is nothing acute. To note, she does not have a headache she has had pain at the site of her ?bumps?. I have independently reviewed the following tests: Labs: No leukocytosis, not anemic, no electrolyte abnormality, troponin her at her baseline EKG: Normal sinus rhythm, rate of 72, no ischemic changes no ectopy when compared to prior study Patient left without a delta troponin, she did not want to wait. She left without the benefit of her discharge instructions. Differential Diagnosis Differential Diagnoses: The differential diagnosis associated with the presentation includes ACS, atypical chest pain, chest wall strain, folliculitis, shingles, Lab Data 03/02/24 21:55 03/02/24 21:55 Labs: Lab Results 03/02/24 Range/Units 21:55 WBC 8.2 (4.8-10.8) X10*3/uL RBC 5.26 (4.20-5.50) X10*6/uL Hgb 15.7 (12.0-16.0) g/dl Hct 46.9 (37.0-47.0) % MCV 89.2 (80.0-98.0) fL MCH 29.8 (27.0-33.0) pg MCHC 33.5 (31.0-35.0) g/dl RDW 13.7 (11.0-16.0) % Plt Count 201 (160-400) X10*3/uL MPV 11.4 (9.4-12.3) fL Immature Gran % (Auto) 0.2 (0.0-0.4) % Neut % (Auto) 60.7 (45-73) % Lymph % (Auto) 27.1 (20-40) % [place] % (Auto) 8.8 (2-11) % Eos % (Auto) 2.7 (0-4) % Baso % (Auto) 0.5 (0-2) % Lymph # (Auto) 2.2 (1.2-4.9) X10*3/uL [place] # (Auto) 0.7 (0.1-1.2) X10*3/uL Eos # (Auto) 0.2 (0.0-0.4) X10*3/uL Baso # (Auto) 0.0 (0.0-0.2) X10*3/uL Abs Immat Gran (auto) 0.02 (0.00-0.03) X10*3/uL Absolute Neuts (auto) 5.0 (2.0-8.3) x10*3/uL Absolute Nucleated RBC 0.000 (0.0-0.012) X10*3/uL Nucleated RBC % (auto) 0.0 (0.0-0.2) /100WBC Smear Tech's Comments VERIFIED Sodium 141 (135-145) mmol/L Potassium 4.0 (3.3-5.1) mmol/L Chloride 112 H (96-108) mmol/L Carbon Dioxide 19 L (22-29) mmol/L Anion Gap 14 (12-20) BUN 11 (9-16) mg/dL Creatinine 0.96 (0.5-1.4) mg/dL Estim Creat Clear Calc 62.1 Estimated GFR > 60 Random Glucose 100 (60-115) mg/dL Calcium 10.1 (8.4-10.2) mg/dL Total Bilirubin 0.5 (0.0-1.0) mg/dL AST 18 (5-31) U/L ALT 15 (0-31) U/L Alkaline Phosphatase 148 H (39-117) U/L Troponin I High Sens 9.5 (<3.5-17.0) ng/L Total Protein 8.2 H (6.5-8.0) g/dL Albumin 4.1 (3.5-5.0) g/dL Discharge Plan Discharge Clinical Impression: Chest pain Patient Disposition: Home, Self-Care Prescriptions: No Action levothyroxine [Tirosint] 200 mcg capsule 200 mcg PO DAILY Qty: 30 5RF levothyroxine [Tirosint] 100 mcg capsule 100 mcg PO DAILY Qty: 30 4RF cholecalciferol (vitamin D3) 50 mcg (2,000 unit) capsule 50 mcg PO DAILY Qty: 90 3RF aspirin [Adult Low Dose Aspirin] 81 mg tablet,delayed release (DR/EC) 81 mg PO DAILY Qty: 90 3RF metoprolol succinate 25 mg tablet extended release 24 hr 25 mg PO DAILY Qty: 90 1RF nitroglycerin 0.4 mg tablet, sublingual 0.4 mg sublingual Q5M PRN (Reason: chest pain) Qty: 20 1RF Rx Instructions: do not exceed 3 doses per episode albuterol sulfate [ProAir HFA] 90 mcg/actuation HFA aerosol inhaler 1 inh inhalation QID PRN (Reason: shortness of breath or wheezing) Qty: 8.5 0RF cyclobenzaprine 10 mg tablet 10 mg PO TID PRN (Reason: muscle spasm) Qty: 14 0RF omeprazole 20 mg capsule,delayed release(DR/EC) 1 cap PO BID pantoprazole [Protonix] 40 mg tablet,delayed release (DR/EC) 40 mg PO DAILY Qty: 20 0RF prednisone 20 mg tablet 40 mg PO DAILY Qty: 10 0RF cefuroxime axetil 500 mg tablet 500 mg PO BID 10 Days Qty: 20 0RF albuterol sulfate [ProAir HFA] 90 mcg/actuation HFA aerosol inhaler 2 puff inhalation Q4-6H PRN (Reason: shortness of breath or wheezing) Qty: 8.5 1RF aripiprazole 5 mg tablet 5 mg PO BEDTIME Citrucel 500 mg tablet 500 mg PO DAILY Qty: 90 2RF Rx Instructions: take it with full glass of water esomeprazole magnesium [Nexium] 40 mg capsule,delayed release(DR/EC) 40 mg PO DAILY Qty: 90 5RF Print Language: Turkmen
[2024-03-02 22:08] LABS: Imm Gran Abs Auto 0.02 X10*3/uL (0.00-0.03); Imm Gran Pct Auto 0.2 % (0.0-0.4); Lymphocytes Absolute Auto 2.2 X10*3/uL (1.2-4.9); Lymphocytes Percent Auto 27.1 % (20-40); MANUAL DIFF FLAG SCAN; Mean Corpuscular Hemoglobin 29.8 pg (27.0-33.0); Mean Corpuscular Volume 89.2 fL (80.0-98.0); Mean Platelet Volume 11.4 fL (9.4-12.3); PLT CLUMP 1; SCAN SMEAR FLAG 1
[2024-03-02 22:10] LABS: Basophils Percent Auto 0.5 % (0-2); Eosinophils Absolute Auto 0.2 X10*3/uL (0.0-0.4); Eosinophils Percent Auto 2.7 % (0-4); Hematocrit 46.9 % (37.0-47.0); Hemoglobin 15.7 g/dl (12.0-16.0); Mean Corpuscular HGB Conc 33.5 g/dl (31.0-35.0); Monocytes Absolute Auto 0.7 X10*3/uL (0.1-1.2); Monocytes Percent Auto 8.8 % (2-11); Neutrophils Percent Auto 60.7 % (45-73); Red Blood Count 5.26 X10*6/uL (4.20-5.50); Red Cell Distribution Width 13.7 % (11.0-16.0); White Blood Count 8.2 X10*3/uL (4.8-10.8)
[2024-03-02 22:11] LABS: Platelet Count 201 X10*3/uL (160-400)
[2024-03-02 22:27] LABS: Alanine Aminotransferase 15 U/L (0-31); Albumin Level 4.1 g/dL (3.5-5.0); Alkaline Phosphatase 148 U/L (39-117); Anion Gap 14 (12-20); Aspartate Amino Transferase 18 U/L (5-31); Bilirubin Total 0.5 mg/dL (0.0-1.0); Blood Urea Nitrogen 11 mg/dL (9-16); Calcium 10.1 mg/dL (8.4-10.2); Carbon Dioxide 19 mmol/L (22-29); Chloride 112 mmol/L (96-108); Creatinine Clr Calc Pharmacy 62.1; Estimated Glomerular Filt Rate > 60; Glucose Random 100 mg/dL (60-115); Sodium 141 mmol/L (135-145); Total Protein 8.2 g/dL (6.5-8.0)
[2024-03-02 22:34] LABS: Troponin-I High Sensitivity 9.5 ng/L (<3.5-17.0)
[2024-03-02 22:36] LABS: SLIDE REVIEW VERIFIED
[2024-03-03 01:06] VITALS: BP 00/00; PULSE 60; RESP 18; TEMP 35.6; O2SAT 97
== END 2024-03-03 01:10 | disposition home or self-care (01) ==
PROVIDERS: Emergency Provider Emergency Medicine
DX: R07.89 Other chest pain (principal); I10 Essential (primary) hypertension; Z79.899 Other long term (current) drug therapy
CPT/HCPCS: 36415; 80053; 84484; 85025; 93005; 99283; 99285

== ENCOUNTER → 2024-03-02 21:36 | Outpatient (BNV) | payer MEDICAID, SELFPAY | PROVIDERS: Emergency Provider Emergency Medicine; Visit Provider Internal Medicine | DX: R94.31 Abnormal electrocardiogram [ECG] [EKG] (principal) | CPT/HCPCS: 93010 ==

== ENCOUNTER 2024-03-17 06:04 | Emergency (ER) | payer MEDICAID, SELFPAY ==
[2024-03-17] VITALS (7 sets, daily range): BP systolic 99–154; BP diastolic 56–84; PULSE 48–80; RESP 14–20; TEMP 36.8–38.7; O2SAT 93–97; BMI 33.1
--- NOTE | ~2024-03-17 | CT_ITS ---
EXAMINATION: CT SOFT TISSUE NECK WITH CONTRAST CLINICAL INFORMATION: History of sore throat. Evaluate for abscess or mass. COMPARISON: Thyroid ultrasound from 10/09/2023. Neck CT imaging from 05/04/2022. TECHNIQUE: Following the intravenous administration of 60 mL of Omnipaque 350 intravenous contrast, helical imaging was performed in the axial plane with generation of coronal and sagittal reformatted images. This CT examination was performed using dose optimization techniques as appropriate, variously including the following: *Automated exposure control *Adjustment of mA and/or kV according to patient size (this includes techniques or standardized protocols for targeted exams where dose is matched to indication/reason for exam; i.e. extremities or head) *Use of iterative reconstruction technique DLP: 553 mGy-cm FINDINGS: The parotid and hat blocker spaces are normal. The submandibular glands are normal. Thyroid gland is mildly heterogeneous but no evidence of any discrete or clinically significant thyroid nodule. Please refer to the thyroid ultrasound exam from 10/09/2023. No evidence of soft tissue mass or focal inflammatory change in the deep compartments of the neck. The nasopharynx, oral cavity, tongue base, and tonsillar pillars are unremarkable. No contour abnormality or pathologic enhancement within the oral cavity or pharyngeal mucosal space. The parapharyngeal fat planes are preserved. The hypopharynx, epiglottis, and preepiglottic space are normal. There are likely mild secretions within the right fossa of Rosenmuller which is not as well aerated as the left fossa, but there is no visible contrast enhancing mass in this region. Laryngeal structures normal. No fluid collections in the deep soft tissues. The visualized proximal esophagus is normal. Mildly enlarged right and left level 2A lymph nodes measure up to 1.2 cm short axis dimension and are unchanged in size compared to 05/04/2022. A right-sided level 5 lymph node of 0.7 cm short axis dimension is unchanged. There are no enlarging lymph nodes in the neck compared to 05/04/2022. The carotid and vertebral arteries opacify normally. The visualized intracranial structures are normal. Mild mucosal thickening of the inferior maxillary sinuses. There are no air-fluid levels within paranasal sinuses. The orbital connors, globes and retrobulbar soft tissues are intact. No acute abnormalities in the cervical spine compared to 05/04/2022. The cervical vertebra have well preserved height and alignment. Lung apices have slightly mosaic attenuation which could reflect air trapping phenomenon from inflammation of small airways. CT/CT soft tissue neck w IV con IMPRESSION: * No acute imaging abnormalities. No evidence of soft tissue abscess or mass within the neck. * As noted on 05/04/2022, there are a few mildly prominent lymph nodes in the neck. The stability since 05/04/2022 is indicative of a benign observation. There are no hyperenhancing, necrotic or cystic-appearing lymph nodes.
[2024-03-17 06:43] LABS: IDNOW Serial# 08D9AD1C; Strep A Nucleic Acid Negative (Negative)
--- NOTE | 2024-03-17 07:12 | ED_ITS ---
HPI - General Adult General Chief complaint: Upper Respiratory Symptoms Stated complaint: throat pain Time Seen by Provider: 03/17/24 06:28 Source: patient, EMS, RN notes reviewed and old records reviewed Mode of arrival: EMS Limitations: no limitations History of Present Illness ED Provider: REHANA CALHOUN PA-C HPI narrative: 53-year-old Canadian-speaking female with pmhx significant for hypothyroidism presents to the emergency department today via EMS from home for evaluation of sore throat x1 day. Reports pain on swallowing with decreased p.o. intake secondary to pain. Denies difficulty swallowing. Denies documented fever at home. Denies known sick contacts. Vaccinations are up-to-date. Related Data Home Medications ?Medication ?Instructions ?Recorded ?Confirmed omeprazole 20 mg capsule,delayed 1 cap PO BID 05/23/22 01/08/24 release aripiprazole 5 mg tablet 5 mg PO BEDTIME 09/12/22 01/08/24 Previous Rx's ?Medication ?Instructions ?Recorded albuterol sulfate 90 mcg/actuation 1 inh inhalation QID PRN shortness 09/28/20 aerosol inhaler (ProAir HFA) of breath or wheezing #8.5 grams cyclobenzaprine 10 mg tablet 10 mg PO TID PRN muscle spasm #14 12/21/21 tabs pantoprazole 40 mg tablet,delayed 40 mg PO DAILY #20 tabs 07/02/23 release (Protonix) albuterol sulfate 90 mcg/actuation 2 puff inhalation Q4-6H PRN 07/14/23 aerosol inhaler (ProAir HFA) shortness of breath or wheezing #8.5 grams cefuroxime axetil 500 mg tablet 500 mg PO BID 10 days #20 tabs 07/14/23 prednisone 20 mg tablet 40 mg (2 x 20 mg) PO DAILY #10 tabs 07/14/23 esomeprazole magnesium 40 mg 40 mg PO DAILY #90 caps 01/07/24 capsule,delayed release (Nexium) methylcellulose (laxative) 500 mg 500 mg PO DAILY #90 tabs 01/07/24 tablet (Citrucel) Tirosint 100 mcg capsule 100 mcg PO DAILY #30 caps 01/08/24 (levothyroxine) Tirosint 200 mcg capsule 200 mcg PO DAILY #30 caps 01/08/24 (levothyroxine) cholecalciferol (vitamin D3) 50 50 mcg PO DAILY #90 caps 01/15/24 mcg (2,000 unit) capsule aspirin 81 mg tablet,delayed 81 mg PO DAILY #90 tabs 02/21/24 release (Adult Low Dose Aspirin) metoprolol succinate 25 mg 25 mg PO DAILY #90 tabs 02/21/24 tablet,extended release 24 hr nitroglycerin 0.4 mg sublingual 0.4 mg sublingual Q5M PRN chest 02/26/24 tablet pain #20 tabs benzocaine 15 mg-menthol 2.6 mg 1 rebeka mucous membrane Q2-4H PRN 03/17/24 lozenges (Cepacol Sore Throat sore throat #16 ea (benzocaine-menthol)) penicillin V potassium 500 mg 500 mg PO BID 10 days #20 tabs 03/17/24 tablet prednisone 20 mg tablet 40 mg (2 x 20 mg) PO DAILY 4 days 03/17/24 #8 tabs Allergies Allergy/AdvReac Type Severity Reaction Status Date / Time ibuprofen [From MOTRIN] AdvReac Intermediate ABDOMINAL Verified 03/17/24 06:20 PAIN Review of Systems 2 Review of Systems: Constitutional: No fever, chills, fatigue, night sweats, weight changes ENT/Mouth: No ear pain, hearing loss, nasal congestion, sinus pain, rhinorrhea, +sore throat, +odynophagia, No dysphagia Eyes: No eye pain, swelling, redness, vision changes, discharge Cardio: No chest pain, palpitations, ANNE, orthopnea, peripheral edema Pulm: No SOB, cough, sputum, wheezing, dyspnea, hemoptysis GI: No nausea, vomiting, hematemesis, abdominal pain, diarrhea, constipation, hematochezia, melena : No irregular bleeding, dysuria, frequency, urgency, hesitancy, hematuria, flank pain MSK: No back pain, neck pain, joint pain, myalgias Skin: No lesions, rashes Neuro: No weakness, numbness, paresthesias, LOC, dizziness, headache All other systems reviewed and are negative. [facility] Past Medical History Attestation statement: The following information was validated with the patient. Source: old records reviewed and nursing notes reviewed Medical History Hypothyroidism Arthritis Low calcium levels High cholesterol H/O gastric ulcer H/O gastritis Hyperthyroidism Surgical History History of salpingectomy Family History Family History Mother Hypertension Diabetes Father No problems noted. Social History Social History Household Members: None Housing: House Alcohol intake: never Patient Tobacco Use Status: Current everyday Tobacco user Tobacco use type: Cigarette Smoked in Last 30 Days: No Use of substances other than those prescribed or required for medical reasons: No Any prior treatment program specific to substance use: No Advance Directives: No Advance Directives Information Provided: No Do you have a plan to hurt others: No Plan Patient : No service: No Current occupational status: unemployed and disabled Physical Exam ED Vital Signs: Vital Signs - 24 hr 03/17/24 06:18 03/17/24 06:28 03/17/24 08:11 Temperature 101.7 F H 99.0 F Pulse Rate 76 80 Respiratory Rate 20 16 Blood Pressure 154/75 H Pulse Oximetry 97 97 Oxygen Delivery Method Room Air Room Air 03/17/24 08:35 03/17/24 08:58 03/17/24 11:02 Temperature Pulse Rate 69 48 L Respiratory Rate 18 14 16 Blood Pressure 113/56 L 99/61 Pulse Oximetry 97 93 Oxygen Delivery Method Room Air BMI result Body Mass Index 33.1 Vital signs stable, febrile to 101.7 Const Other: In obvious discomfort, tearful on exam General: cooperative, no acute distress, alert and awake Orientation/consciousness: patient oriented x3 Limitations: no limitations HENMT Other: + posterior oropharynx erythematous and edematous, bilateral tonsillar edema, no tonsillar exudates, uvula midline, controlling secretions and speaking in complete sentences + No pain on manipulation of left pinna or tragus. No mastoid tenderness. Left EAC without erythema, edema or discharge. TM intact without erythema, effusion, or bulging. + No pain on manipulation of right pinna or tragus. No mastoid tenderness. Right EAC without erythema, edema or discharge. TM intact without erythema, effusion, or bulging. Head: Yes normal to inspection, Yes normocephalic and Yes atraumatic Ears: hearing grossly normal bilaterally General nose exam: Normal external nose present and No nasal discharge present Face and sinus: Yes normal facial exam and Yes sinuses nontender Eyes General: appearance normal, both eyes and all related structures Pupils: Equal, round and reactive pupils present Neck Other: + no cervical, submandibular or submental LAD. Neck: Yes normal visual inspection and Yes full ROM Resp Effort & Inspection: normal respiratory effort and able to speak in complete sentences Auscultation: clear to auscultation bilaterally Cardio Rate: regular rate Rhythm: regular rhythm GI Inspection: Yes normal to inspection Palpation (GI): Soft to palpation and nontender Skin General skin exam: no rashes or lesions noted Neuro General: patient oriented x3, gait normal and moves all extremities Cranial nerves: Yes Equal, round and reactive pupils present Extrem General: Yes normal to inspection Course Course Course Narrative: 07-- Patient febrile to 101.7F > toradol ordered. Strep swab negative. viral serology pending. IV solumedrol and zofran ordered. Will continue to monitor. Given airway is patent and uvula midline, I do not feel imaging is warranted at this time. 0935-- CBC without leukocytosis or left shift. No anemia. H&H stable. Chemistry without acute electrolyte abnormality requiring intervention. Normal renal function. She was tested negative for COVID, flu, RSV, mono. > CT soft tissue neck pending. > given unremarkable labs, I have low suspicion for systemic infection. repeat temp 99F after meds. No concern for sepsis at this time. 1126-- on re-eval, patient reports improvement in pain/ throat discomfort. She is now afebrile and well appearing. I was called to bedside as O2 sat was reading 93%. Pulse ox not properly applied to finger. I observed patient's O2 sat at 98% on RA while in room. There are no signs of acute respiratory distress. CT soft tissues next without evidence of peritonsillar mass or retropharyngeal abscess. patient's airway is patent and she is in NAD. discussed all work up results with patient. will send home with prednisone and penicillin for suspected strep throat. Patient has remained stable throughout ED visit today. Discussed worrisome signs and symptoms and when to return to the ED. All questions answered at this time. Patient is agreeable with disposition and stable for discharge. Medications Administered Discontinued Medications Generic Name Dose Route Start Last Admin Trade Name Freq PRN Reason Stop Dose Admin Iohexol 60 ml 03/17/24 10:16 03/17/24 10:17 Iohexol 350 Mg/Ml 100 Ml Infus..Btl IV 03/17/24 10:17 60 ml ONCE ONE Administration Ketorolac Tromethamine 15 mg 03/17/24 07:11 03/17/24 07:41 Ketorolac Tromethamine 15 Mg/Ml Vial IVPUSH 03/17/24 07:12 15 mg ONCE ONE Administration Methylprednisolone Sodium Succinate 125 mg 03/17/24 07:11 03/17/24 07:41 Methylprednisolone Sod Succ 125 Mg/2 Ml Vial IVPUSH 03/17/24 07:12 125 mg ONCE ONE Administration Morphine Sulfate 2 mg 03/17/24 08:47 03/17/24 08:58 Morphine Sulfate 2 Mg/Ml Cartridge IVPUSH 03/17/24 08:48 2 mg ONCE ONE Administration Protocol Ondansetron HCl 4 mg 03/17/24 07:11 03/17/24 07:41 Ondansetron Hcl 4 Mg/2 Ml Vial IVPUSH 03/17/24 07:12 4 mg ONCE ONE Administration Medical Decision Making Medical Decision Making [facility] Narrative: 53-year-old Canadian-speaking female with pmhx significant for hypothyroidism presents to the emergency department today via EMS from home for evaluation of sore throat x1 day. Patient hypertensive and febrile to 101.7F. She is in obvious discomfort, tearful. Posterior oropharynx and edematous and erythematous, bilateral tonsillar edema however uvula is midline. airway is patent. speaking in full complete sentences. lunags are CTA b/l. bilateral EACs and TMs intact. Clinical concern for strep throat, mono, viral syndrome. Unlikely METAL DRAWER, retropharyngeal abscess, dental abscess, epiglottis, acute respiratory distress, pneumonia. Plan for viral/ strep swabs, IV steroids/ antipyretic, re-evaluation, +/- imaging. Differential Diagnosis Differential Diagnoses: The differential diagnosis associated with the presentation includes as above. Admission/Observation Not indicated Lab Data [facility] Lab Attestation statement: I reviewed the patient's lab results. as above 03/17/24 08:45 03/17/24 08:45 Labs: Lab Results 03/17/24 03/17/24 03/17/24 Range/Units 06:24 06:42 08:45 WBC 5.5 (4.8-10.8) X10*3/uL RBC 4.86 (4.20-5.50) X10*6/uL Hgb 14.6 (12.0-16.0) g/dl Hct 41.6 (37.0-47.0) % MCV 85.6 (80.0-98.0) fL MCH 30.0 (27.0-33.0) pg MCHC 35.1 H (31.0-35.0) g/dl RDW 13.5 (11.0-16.0) % Plt Count 204 (160-400) X10*3/uL MPV 10.9 (9.4-12.3) fL Immature Gran % (Auto) 0.2 (0.0-0.4) % Neut % (Auto) 75.4 H (45-73) % Lymph % (Auto) 17.2 L (20-40) % [place] % (Auto) 6.0 (2-11) % Eos % (Auto) 0.5 (0-4) % Baso % (Auto) 0.7 (0-2) % Lymph # (Auto) 1.0 L (1.2-4.9) X10*3/uL [place] # (Auto) 0.3 (0.1-1.2) X10*3/uL Eos # (Auto) 0.0 (0.0-0.4) X10*3/uL Baso # (Auto) 0.0 (0.0-0.2) X10*3/uL Abs Immat Gran (auto) 0.01 (0.00-0.03) X10*3/uL Absolute Neuts (auto) 4.2 (2.0-8.3) x10*3/uL Absolute Nucleated RBC 0.000 (0.0-0.012) X10*3/uL Nucleated RBC % (auto) 0.0 (0.0-0.2) /100WBC Sodium 139 (135-145) mmol/L Potassium 4.3 (3.3-5.1) mmol/L Chloride 107 (96-108) mmol/L Carbon Dioxide 22 (22-29) mmol/L Anion Gap 14 (12-20) BUN 12 (9-16) mg/dL Creatinine 1.08 (0.5-1.4) mg/dL Estim Creat Clear Calc 56.8 Estimated GFR 53 Random Glucose 114 (60-115) mg/dL Calcium 9.0 D (8.4-10.2) mg/dL Monoscreen Negative (Negative) Influenza Type A (PCR) NEGATIVE (Negative) Influenza Type B (PCR) NEGATIVE (Negative) RSV RNA Qual (PCR) NEGATIVE (Negative) SARS-CoV-2 RNA (RT-PCR) NEGATIVE (Negative) S. pyogenes GrpA TREVOR Negative (Negative) Independent Interpretation I performed an independent interpretation of an: CT Scan Interpretation: CT soft tissue neck without evidence of abscess, agree with radiologist's interpretation. Radiology Impression Discussion of test interpretation with radiology: I have reviewed the radiologist's reading. Radiologist Impression: EXAMINATION: CT SOFT TISSUE NECK WITH CONTRAST CLINICAL INFORMATION: History of sore throat. Evaluate for abscess or mass. COMPARISON: Thyroid ultrasound from 10/09/2023. Neck CT imaging from 05/04/2022. TECHNIQUE: Following the intravenous administration of 60 mL of Omnipaque 350 intravenous contrast, helical imaging was performed in the axial plane with generation of coronal and sagittal reformatted images. This CT examination was performed using dose optimization techniques as appropriate, variously including the following: *Automated exposure control *Adjustment of mA and/or kV according to patient size (this includes techniques or standardized protocols for targeted exams where dose is matched to indication/reason for exam; i.e. extremities or head) *Use of iterative reconstruction technique DLP: 553 mGy-cm FINDINGS: The parotid and traveling representative spaces are normal. The submandibular glands are normal. Thyroid gland is mildly heterogeneous but no evidence of any discrete or clinically significant thyroid nodule. Please refer to the thyroid ultrasound exam from 10/09/2023. No evidence of soft tissue mass or focal inflammatory change in the deep compartments of the neck. The nasopharynx, oral cavity, tongue base, and tonsillar pillars are unremarkable. No contour abnormality or pathologic enhancement within the oral cavity or pharyngeal mucosal space. The parapharyngeal fat planes are preserved. The hypopharynx, epiglottis, and preepiglottic space are normal. There are likely mild secretions within the right fossa of Rosenmuller which is not as well aerated as the left fossa, but there is no visible contrast enhancing mass in this region. Laryngeal structures normal. No fluid collections in the deep soft tissues. The visualized proximal esophagus is normal. Mildly enlarged right and left level 2A lymph nodes measure up to 1.2 cm short axis dimension and are unchanged in size compared to 05/04/2022. A right-sided level 5 lymph node of 0.7 cm short axis dimension is unchanged. There are no enlarging lymph nodes in the neck compared to 05/04/2022. The carotid and vertebral arteries opacify normally. The visualized intracranial structures are normal. Mild mucosal thickening of the inferior maxillary sinuses. There are no air-fluid levels within paranasal sinuses. The orbital connors, globes and retrobulbar soft tissues are intact. No acute abnormalities in the cervical spine compared to 05/04/2022. The cervical vertebra have well preserved height and alignment. Lung apices have slightly mosaic attenuation which could reflect air trapping phenomenon from inflammation of small airways. CT/CT soft tissue neck w IV con IMPRESSION: * No acute imaging abnormalities. No evidence of soft tissue abscess or mass within the neck. * As noted on 05/04/2022, there are a few mildly prominent lymph nodes in the neck. The stability since 05/04/2022 is indicative of a benign observation. There are no hyperenhancing, necrotic or cystic-appearing lymph nodes. Independent Historian Clinical information obtained from an independent historian. History obtained from or confirmed by: EMS External Record Review External record reviewed: Inpatient record, Office record, Outpatient record, Prior outpatient labs, Prior outpatient radiology, Primary care record and Outside ED record Prescription Management I considered prescription management with: Antibiotic (penicillin) and Other (prednisone) Social Determinants Patient?s care significantly limited by Social Determinants of Health including: Other Social Determinant of Health Critical Care Time Critical Care Time Critical Care Time: No Discharge Plan Discharge Clinical Impression: Acute streptococcal pharyngitis Patient Disposition: Home, Self-Care Instructions: Pharyngitis (ED), Strep Throat (ED) Additional Instructions: You were seen in the ED today for evaluation of sore throat. You tested negative for COVID, flu, RSV, strep throat, mono. Although you tested negative, your physical exam findings are consistent with strep throat and so you will be treated with antibiotics. Penicillin is an antibiotic that has been sent to your pharmacy. Take this twice daily for the next 10 days to treat strep throat. Do not stop taking these antibiotics early or miss any doses as this may cause infection to return or worsen. Prednisone as a steroid that has been sent to your pharmacy to help with tonsillar swelling. You were given a dose of this in the ED today so please take your next dose tomorrow. Cepacol throat lozenges have been sent to your pharmacy to help with throat pain. You may also purchase [id number] chloraseptic spray to numb your throat. Take Tylenol and ibuprofen as needed for body aches or fevers. Make sure to change your toothbrush as this contains bacteria. Strep throat is contagious. If anyone else in your household is exhibiting symptoms, please advise them to come to the ED, urgent care, or to see their primary care provider. Follow up with your primary care provider as needed. Return to the emergency department if your symptoms persist or worsen despite treatment or if you have difficulty swallowing, opening your mouth, or develop a rash. In the case of emergency, call 911.? Prescriptions: New penicillin V potassium 500 mg tablet 500 mg PO BID 10 Days Qty: 20 0RF Cepacol Sore Throat (lashaun-men) 15-2.6 mg lozenge 1 rebeka mucous membrane Q2-4H PRN (Reason: sore throat) Qty: 16 0RF prednisone 20 mg tablet 40 mg PO DAILY 4 Days Qty: 8 0RF No Action levothyroxine [Tirosint] 200 mcg capsule 200 mcg PO DAILY Qty: 30 5RF levothyroxine [Tirosint] 100 mcg capsule 100 mcg PO DAILY Qty: 30 4RF cholecalciferol (vitamin D3) 50 mcg (2,000 unit) capsule 50 mcg PO DAILY Qty: 90 3RF aspirin [Adult Low Dose Aspirin] 81 mg tablet,delayed release (DR/EC) 81 mg PO DAILY Qty: 90 3RF metoprolol succinate 25 mg tablet extended release 24 hr 25 mg PO DAILY Qty: 90 1RF nitroglycerin 0.4 mg tablet, sublingual 0.4 mg sublingual Q5M PRN (Reason: chest pain) Qty: 20 1RF Rx Instructions: do not exceed 3 doses per episode albuterol sulfate [ProAir HFA] 90 mcg/actuation HFA aerosol inhaler 1 inh inhalation QID PRN (Reason: shortness of breath or wheezing) Qty: 8.5 0RF cyclobenzaprine 10 mg tablet 10 mg PO TID PRN (Reason: muscle spasm) Qty: 14 0RF omeprazole 20 mg capsule,delayed release(DR/EC) 1 cap PO BID pantoprazole [Protonix] 40 mg tablet,delayed release (DR/EC) 40 mg PO DAILY Qty: 20 0RF prednisone 20 mg tablet 40 mg PO DAILY Qty: 10 0RF cefuroxime axetil 500 mg tablet 500 mg PO BID 10 Days Qty: 20 0RF albuterol sulfate [ProAir HFA] 90 mcg/actuation HFA aerosol inhaler 2 puff inhalation Q4-6H PRN (Reason: shortness of breath or wheezing) Qty: 8.5 1RF aripiprazole 5 mg tablet 5 mg PO BEDTIME Citrucel 500 mg tablet 500 mg PO DAILY Qty: 90 2RF Rx Instructions: take it with full glass of water esomeprazole magnesium [Nexium] 40 mg capsule,delayed release(DR/EC) 40 mg PO DAILY Qty: 90 5RF Referrals: [facility] [Primary Care Provider] - Interventions: ED Discharge Assessment Last Done: 03/17/24 11:50 Discharge Date/Time: 03/17/24 12:02 Print Language: Canadian
[2024-03-17 07:24] LABS: Influenza A PCR NEGATIVE (Negative); Influenza B PCR NEGATIVE (Negative); Resp Syncy Virus RNA Qual PCR NEGATIVE (Negative); SARS COV2 PCR INHOUSE NEGATIVE (Negative)
[2024-03-17] MEDS: ondansetron HCL 4 MG/2 ML VIAL IVPUSH (07:41)
[2024-03-17] MEDS: Ketorolac Tromethamine 15 MG/ML VIAL IVPUSH (07:41)
[2024-03-17] MEDS: methylPREDNISolone Sod Succ 125 MG/2 ML VIAL IVPUSH (07:41)
[2024-03-17 08:50] LABS: MANUAL DIFF FLAG NO
[2024-03-17 08:52] LABS: Basophils Percent Auto 0.7 % (0-2); Eosinophils Percent Auto 0.5 % (0-4); Hematocrit 41.6 % (37.0-47.0); Hemoglobin 14.6 g/dl (12.0-16.0); Imm Gran Abs Auto 0.01 X10*3/uL (0.00-0.03); Imm Gran Pct Auto 0.2 % (0.0-0.4); Lymphocytes Percent Auto 17.2 % (20-40); Mean Corpuscular HGB Conc 35.1 g/dl (31.0-35.0); Mean Corpuscular Volume 85.6 fL (80.0-98.0); Mean Platelet Volume 10.9 fL (9.4-12.3); Monocytes Absolute Auto 0.3 X10*3/uL (0.1-1.2); Neutrophils Absolute Auto 4.2 x10*3/uL (2.0-8.3); Neutrophils Percent Auto 75.4 % (45-73); Platelet Count 204 X10*3/uL (160-400); Red Blood Count 4.86 X10*6/uL (4.20-5.50); Red Cell Distribution Width 13.5 % (11.0-16.0); White Blood Count 5.5 X10*3/uL (4.8-10.8)
[2024-03-17] MEDS: Morphine Sulfate 2 MG/ML CARTRIDGE IVPUSH (08:58)
[2024-03-17 09:02] LABS: Anion Gap 14 (12-20); Blood Urea Nitrogen 12 mg/dL (9-16); Carbon Dioxide 22 mmol/L (22-29); Chloride 107 mmol/L (96-108); Creatinine Clr Calc Pharmacy 56.8; Estimated Glomerular Filt Rate 53; Glucose Random 114 mg/dL (60-115); Potassium 4.3 mmol/L (3.3-5.1); Sodium 139 mmol/L (135-145)
[2024-03-17 09:06] LABS: Monotest Negative (Negative)
[2024-03-17] MEDS: iohexoL 350 MG/ML 100 ML INFUS..BTL 60 ML IV (10:17)
== END 2024-03-17 12:02 | disposition home or self-care (01) ==
PROVIDERS: Physician Assistant Medical; Emergency Provider Emergency Medicine
DX: J02.0 Streptococcal pharyngitis (principal); R07.0 Pain in throat; R13.10 Dysphagia, unspecified; M54.2 Cervicalgia; Z79.899 Other long term (current) drug therapy; Z03.818 Encounter for observation for suspected exposure to other biological agents ruled out; F17.210 Nicotine dependence, cigarettes, uncomplicated
CPT/HCPCS: 0241U; 36415; 70491; 80048; 85025; 86308; 87651; 96374; 96375; 99284; J1885; J2270; J2405; J2919; Q9967

== ENCOUNTER → 2024-03-18 23:59 | Outpatient (BNV) | payer MEDICAID, SELFPAY | PROVIDERS: Visit Provider Internal Medicine Cardiovascular Disease | DX: R07.9 Chest pain, unspecified (principal) | CPT/HCPCS: 93458; 99152 ==

== ENCOUNTER 2024-03-19 08:14 | Emergency (ER) | payer MEDICAID, SELFPAY ==
[2024-03-19 08:21] VITALS: BP 155/74; BP 161/93; PULSE 90; PULSE 92; RESP 20; TEMP 38.6; O2SAT 95; BMI 31.2
--- NOTE | 2024-03-19 09:10 | PC.NURSE ---
Pt BIBA for a 10 headache x3 days along with abdominal pain and back/flank pain. Upon arrival pt is yelling out in pain and crying, this RN attempted to calm the pt and reassure her. Pt states I feel like my head is going to explode and that she can't take this pain anymore Pt [place] [facility] [place] and then went to [facility] for the same thing. Workup at [facility] was negative and pt was sent home but still endorsing the same pain. Denies n/v/d/cp/sob and any sick contacts recently. A/ox4, respirations even and unlabored, lung sounds cta bilaterally, s1 and s2 heard, abdomen distended and tender to palpation, mid-epigastric pain. Pt ambulated to bathroom with steady gait. Call villavicencio within reach, awaiting further orders at this time.
--- NOTE | 2024-03-19 09:27 | ED.GENADULT ---
HPI - General Adult General Chief complaint: General Medical Stated complaint: LANCE X3 DAYS,BACK/L ARM PAIN,VOMITING,SEEN RESCENTLY Time Seen by Provider: 03/19/24 09:27 History of Present Illness ED Provider: Cheko GREGG narrative: The patient is a 53 year-old female who has not felt well for about 5-6 days. The patient was here 2 days ago for evaluation of these symptoms. She arrived by ambulance. She was found to have a fever with a temperature of 101.7 at that time(03/17/2024). Her chief complaint was sore throat although she also had headache and body pains. The patient had a negative laboratory workup and a CT of the soft tissues of the neck was unremarkable. She was diagnosed with phayngitis (rapid strep negative) and started on penicillin empirically. Yesterday the patient had a scheduled outpatient cardiac catheterization for evaluation of atypical chest pain in the setting of coronary risk factors. The cardiac catheterization was negative. The patient says she didn't feel that ill yesterday. The patient says that thismorning she felt much worse and again called an ambulance. She arrived crying in pain from headache and generalized body pains. The patient says she felt like her head was going to explode. She had an initial temperature of 101.4 and later 103.1. Nausea but no vomiting. Sore throat present but less than 2 days ago. No cough or shortness of breath. Related Data Home Medications ?Medication ?Instructions ?Recorded ?Confirmed omeprazole 20 mg capsule,delayed 1 cap PO BID 05/23/22 01/08/24 release aripiprazole 5 mg tablet 5 mg PO BEDTIME 09/12/22 01/08/24 Previous Rx's ?Medication ?Instructions ?Recorded albuterol sulfate 90 mcg/actuation 1 inh inhalation QID PRN shortness 09/28/20 aerosol inhaler (ProAir HFA) of breath or wheezing #8.5 grams cyclobenzaprine 10 mg tablet 10 mg PO TID PRN muscle spasm #14 12/21/21 tabs pantoprazole 40 mg tablet,delayed 40 mg PO DAILY #20 tabs 07/02/23 release (Protonix) albuterol sulfate 90 mcg/actuation 2 puff inhalation Q4-6H PRN 07/14/23 aerosol inhaler (ProAir HFA) shortness of breath or wheezing #8.5 grams cefuroxime axetil 500 mg tablet 500 mg PO BID 10 days #20 tabs 07/14/23 prednisone 20 mg tablet 40 mg (2 x 20 mg) PO DAILY #10 tabs 07/14/23 esomeprazole magnesium 40 mg 40 mg PO DAILY #90 caps 01/07/24 capsule,delayed release (Nexium) methylcellulose (laxative) 500 mg 500 mg PO DAILY #90 tabs 01/07/24 tablet (Citrucel) Tirosint 100 mcg capsule 100 mcg PO DAILY #30 caps 01/08/24 (levothyroxine) Tirosint 200 mcg capsule 200 mcg PO DAILY #30 caps 01/08/24 (levothyroxine) cholecalciferol (vitamin D3) 50 50 mcg PO DAILY #90 caps 01/15/24 mcg (2,000 unit) capsule aspirin 81 mg tablet,delayed 81 mg PO DAILY #90 tabs 02/21/24 release (Adult Low Dose Aspirin) metoprolol succinate 25 mg 25 mg PO DAILY #90 tabs 02/21/24 tablet,extended release 24 hr nitroglycerin 0.4 mg sublingual 0.4 mg sublingual Q5M PRN chest 02/26/24 tablet pain #20 tabs benzocaine 15 mg-menthol 2.6 mg 1 rebeka mucous membrane Q2-4H PRN 03/17/24 lozenges (Cepacol Sore Throat sore throat #16 ea (benzocaine-menthol)) penicillin V potassium 500 mg 500 mg PO BID 10 days #20 tabs 03/17/24 tablet prednisone 20 mg tablet 40 mg (2 x 20 mg) PO DAILY 4 days 03/17/24 #8 tabs doxycycline monohydrate 100 mg 100 mg PO BID #20 caps 03/19/24 capsule Allergies Allergy/AdvReac Type Severity Reaction Status Date / Time ibuprofen [From MOTRIN] AdvReac Intermediate ABDOMINAL Verified 03/19/24 08:29 PAIN Review of Systems Review of Systems: Yes all other systems are reviewed and are negative [facility] Past Medical History Medical History Hypothyroidism Arthritis Low calcium levels High cholesterol H/O gastric ulcer H/O gastritis Hyperthyroidism Surgical History History of salpingectomy Family History Family History Mother Hypertension Diabetes Father No problems noted. Social History Social History Household Members: None Housing: House Alcohol intake: never Patient Tobacco Use Status: Current everyday Tobacco user Tobacco use type: Cigarette service: No Current occupational status: unemployed and disabled Physical Exam ED Vital Signs: Vital Signs - 24 hr 03/19/24 11:00 03/19/24 12:42 03/19/24 15:02 Temperature 103.1 F H 100.9 F H 99.9 F Pulse Rate 90 62 Respiratory Rate 18 18 Blood Pressure 177/92 H 132/74 Pulse Oximetry 93 98 Oxygen Delivery Method Room Air Room Air BMI result Body Mass Index 31.2 Const Other: The patient arrived on an ambulance stretcher crying loudly in discomfort complainig of her headache. She was tearful. She did not have na altered mental status. [facility] Head: Yes normal to inspection, Yes normocephalic and Yes atraumatic Face and sinus: Yes face symmetric Mouth: Normal oral and palatal mucosa present, tongue normal, oropharynx normal and moist mucous membranes Eyes General: appearance normal, both eyes and all related structures Alignment and Position: alignment normal Eyelids: Yes eyelids normal Sclerae: sclerae normal Pupils: Equal, round and reactive pupils present EOM: EOMs intact bilaterally Neck Other: The patient reported discomort with neck flexion but could flex her neck well. Lymphatic: no lymphadenopathy noted Resp Effort & Inspection: normal respiratory effort Auscultation: clear to auscultation bilaterally Cardio Other: No murmur heard Jugular venous distension: no JVD Rate: regular rate Rhythm: regular rhythm Heart sounds: S1 normal heart sound present and S2 normal heart sound present GI Other: Abdomen soft and nontender Skin General skin exam: no rashes or lesions noted, turgor normal and dry skin Lesions: no lesions Rashes: no rashes Neuro Other: Awake and alert, upset and unhappy but with normal mentation and orientation. Cranial nerves intact, no nuchal rigidity. Normal movement of extremities, normal gait, neurologically intact. Cranial nerves: Yes Equal, round and reactive pupils present Extrem General: Yes no pedal edema and Yes no calf tenderness Medications Administered Discontinued Medications Generic Name Dose Route Start Last Admin Trade Name Claudia PRN Reason Stop Dose Admin Acetaminophen 975 mg 03/19/24 11:00 03/19/24 11:05 Acetaminophen 325 Mg Tablet PO 03/19/24 11:01 975 mg ONCE ONE Administration Diphenhydramine HCl 25 mg 03/19/24 09:40 03/19/24 10:06 Diphenhydramine Hcl 50 Mg/Ml Vial IVPUSH 03/19/24 09:41 25 mg ONCE ONE Administration Doxycycline Monohydrate 100 mg 03/19/24 14:41 03/19/24 15:01 Doxycycline Monohydrate 100 Mg Capsule PO 03/19/24 14:42 100 mg ONCE ONE Administration Sodium Chloride 1,000 mls @ 999 mls/hr 03/19/24 09:45 03/19/24 15:01 Ns IV 03/19/24 10:45 Infused .Q1H1M [place] Infusion Ketorolac Tromethamine 10 mg 03/19/24 13:20 03/19/24 13:35 Ketorolac Tromethamine 15 Mg/Ml Vial IVPUSH 03/19/24 13:21 10 mg ONCE ONE Administration Prochlorperazine Edisylate 10 mg 03/19/24 09:40 03/19/24 10:04 Prochlorperazine Edisylate 10 Mg/2 Ml Vial IVPUSH 03/19/24 09:41 10 mg ONCE ONE Administration Medical Decision Making Medical Decision Making MDM Narrative: The patient arrived by ambulance crying loudly in discomfort from her headache. She was febrile. Clinically she looked unhappy but not toxic or meningitic. Apparently she had arrived by ambulance with a similar degree of apparent distress when she was here 2 days ago. I was surprised to learn that she had presented herself for an outpatient elective cardiac cath at [facility] yesterday. In any event the patient was re-evaluated and symptomatically treated. After IV fluids, prochlorperazine, diphenhydramine and ketorolac she felt much, much better and looked enirely well and requested discharge. The source of her fever is still not clear. Her WBC is normal with a normal differential. CRP is minimally elevated. Minimal transaminitis. I spoke to her about evaluating her headache and fever with a spinal tap but she is not interested in this and I do not have a clinically high suspicion for menigitis given how well she looks after symptomatic treatment. She does not consider herself at risk for tick bites, Nevertheless I ordered labs for Lyme and anaplasmosis and will place the patient on a course of doxycycline. Lab Data 03/19/24 09:59 03/19/24 09:59 Labs: Lab Results 03/19/24 03/19/24 Range/Units 09:59 11:06 WBC 6.5 (4.8-10.8) X10*3/uL RBC 4.93 (4.20-5.50) X10*6/uL Hgb 14.9 (12.0-16.0) g/dl Hct 42.8 (37.0-47.0) % MCV 86.8 (80.0-98.0) fL MCH 30.2 (27.0-33.0) pg MCHC 34.8 (31.0-35.0) g/dl RDW 13.5 (11.0-16.0) % Plt Count 213 (160-400) X10*3/uL MPV 10.8 (9.4-12.3) fL Immature Gran % (Auto) 0.8 H (0.0-0.4) % Neut % (Auto) 68.8 (45-73) % Lymph % (Auto) 18.3 L (20-40) % [place] % (Auto) 8.7 (2-11) % Eos % (Auto) 2.9 (0-4) % Baso % (Auto) 0.5 (0-2) % Lymph # (Auto) 1.2 (1.2-4.9) X10*3/uL [place] # (Auto) 0.6 (0.1-1.2) X10*3/uL Eos # (Auto) 0.2 (0.0-0.4) X10*3/uL Baso # (Auto) 0.0 (0.0-0.2) X10*3/uL Abs Immat Gran (auto) 0.05 H (0.00-0.03) X10*3/uL Absolute Neuts (auto) 4.5 (2.0-8.3) x10*3/uL Absolute Nucleated RBC 0.000 (0.0-0.012) X10*3/uL Nucleated RBC % (auto) 0.0 (0.0-0.2) /100WBC Sodium 138 (135-145) mmol/L Potassium 4.1 (3.3-5.1) mmol/L Chloride 102 (96-108) mmol/L Carbon Dioxide 27 (22-29) mmol/L Anion Gap 13 (12-20) BUN 14 (9-16) mg/dL Creatinine 1.15 (0.5-1.4) mg/dL Estim Creat Clear Calc 49.7 Estimated GFR 49 Random Glucose 98 (60-115) mg/dL Lactic Acid 1.1 (0.5-2.0) mmol/L Calcium 9.2 (8.4-10.2) mg/dL Magnesium 2.1 (1.6-2.6) mg/dL Total Bilirubin 0.4 (0.0-1.0) mg/dL Direct Bilirubin 0.1 (0.0-0.5) mg/dL AST 40 H (5-31) U/L ALT 41 H (0-31) U/L Alkaline Phosphatase 140 H (39-117) U/L C-Reactive Protein 1.50 H (< or = 0.50) mg/dL Total Protein 7.9 (6.5-8.0) g/dL Albumin 4.2 (3.5-5.0) g/dL Beta HCG, Quant < 2 mIU/mL Urine Color Yellow Urine Appearance Clear Urine pH 8.5 (5.0-9.0) Ur Specific [place] 1.010 (1.005-1.025) Urine Protein Negative (Neg-Trace) mg/dL Urine Glucose (UA) Negative (Negative) mg/dL Urine Ketones Negative (Negative) mg/dL Urine Blood Negative (Negative) Urine Nitrite Negative (Negative) Ur Leukocyte Esterase Negative (Negative) Urine RBC 0-2 (0-2) /HPF Urine WBC 0-5 (0-5) /HPF Ur Squamous Epith Cells 0-2 (0-2) /HPF Urine Bacteria None Seen (None Seen) Hyaline Casts 0-2 (0-2) /LPF Ethyl Alcohol < 10 mg/dL Influenza Type A (PCR) NEGATIVE (Negative) Influenza Type B (PCR) NEGATIVE (Negative) RSV RNA Qual (PCR) NEGATIVE (Negative) SARS-CoV-2 RNA (RT-PCR) NEGATIVE (Negative) Discharge Plan Discharge Clinical Impression: Headache, Fever Patient Disposition: Home, Self-Care Additional Instructions: Your blood testing is very reassuring. It is not entirely clear what the source of your fever is. I am starting you on a different antibiotic, doxycycline. Please take this instead of the penicillin you were prescribed 2 days ago. Blood tests have been sent to check you for possible Lyme disease. Please use acetaminophen (Tylenol) and ibuprofen as needed for fever and for your headaches. Please follow up soon with your regular doctor. Return to the emergency room if significantly worse Prescriptions: New doxycycline monohydrate 100 mg capsule 100 mg PO BID Qty: 20 0RF No Action levothyroxine [Tirosint] 200 mcg capsule 200 mcg PO DAILY Qty: 30 5RF levothyroxine [Tirosint] 100 mcg capsule 100 mcg PO DAILY Qty: 30 4RF cholecalciferol (vitamin D3) 50 mcg (2,000 unit) capsule 50 mcg PO DAILY Qty: 90 3RF aspirin [Adult Low Dose Aspirin] 81 mg tablet,delayed release (DR/EC) 81 mg PO DAILY Qty: 90 3RF metoprolol succinate 25 mg tablet extended release 24 hr 25 mg PO DAILY Qty: 90 1RF nitroglycerin 0.4 mg tablet, sublingual 0.4 mg sublingual Q5M PRN (Reason: chest pain) Qty: 20 1RF Rx Instructions: do not exceed 3 doses per episode albuterol sulfate [ProAir HFA] 90 mcg/actuation HFA aerosol inhaler 1 inh inhalation QID PRN (Reason: shortness of breath or wheezing) Qty: 8.5 0RF cyclobenzaprine 10 mg tablet 10 mg PO TID PRN (Reason: muscle spasm) Qty: 14 0RF omeprazole 20 mg capsule,delayed release(DR/EC) 1 cap PO BID pantoprazole [Protonix] 40 mg tablet,delayed release (DR/EC) 40 mg PO DAILY Qty: 20 0RF prednisone 20 mg tablet 40 mg PO DAILY Qty: 10 0RF cefuroxime axetil 500 mg tablet 500 mg PO BID 10 Days Qty: 20 0RF albuterol sulfate [ProAir HFA] 90 mcg/actuation HFA aerosol inhaler 2 puff inhalation Q4-6H PRN (Reason: shortness of breath or wheezing) Qty: 8.5 1RF penicillin V potassium 500 mg tablet 500 mg PO BID 10 Days Qty: 20 0RF Cepacol Sore Throat (lashaun-men) 15-2.6 mg lozenge 1 rebeka mucous membrane Q2-4H PRN (Reason: sore throat) Qty: 16 0RF prednisone 20 mg tablet 40 mg PO DAILY 4 Days Qty: 8 0RF aripiprazole 5 mg tablet 5 mg PO BEDTIME Citrucel 500 mg tablet 500 mg PO DAILY Qty: 90 2RF Rx Instructions: take it with full glass of water esomeprazole magnesium [Nexium] 40 mg capsule,delayed release(DR/EC) 40 mg PO DAILY Qty: 90 5RF Referrals: [facility] [Provider Group] (fevers, headache) Interventions: ED Discharge Assessment Last Done: 03/19/24 15:02 Discharge Date/Time: 03/19/24 15:03 Print Language: Lithuanian
--- NOTE | 2024-03-19 09:35 | ECG_ITS ---
Test Reason : headache Blood Pressure : / mmHG Vent. Rate : 080 BPM Atrial Rate : 080 BPM P-R Int : 146 ms QRS Dur : 080 ms QT Int : 358 ms P-R-T Axes : 014 064 -15 degrees QTc Int : 412 ms Normal sinus rhythm T wave abnormality, consider inferior ischemia Abnormal ECG When compared with ECG of 02-MAR-2024 21:22, No significant change was found Referred By: Luisito Still Electronically Signed By:JOSE MANUEL ESTRELLA MD
[2024-03-19] MEDS: 0.9 % Sodium Chloride 1,000 ML 999 ML IV (10:03)
[2024-03-19] MEDS: Prochlorperazine Edisylate 10 MG/2 ML VIAL IVPUSH (10:04)
[2024-03-19 10:05] LABS: MANUAL DIFF FLAG NO
[2024-03-19] MEDS: diphenhydrAMINE HCL 50 MG/ML VIAL 25 MG IVPUSH (10:06)
[2024-03-19 10:07] LABS: Basophils Percent Auto 0.5 % (0-2); Eosinophils Absolute Auto 0.2 X10*3/uL (0.0-0.4); Eosinophils Percent Auto 2.9 % (0-4); Hematocrit 42.8 % (37.0-47.0); Hemoglobin 14.9 g/dl (12.0-16.0); Imm Gran Abs Auto 0.05 X10*3/uL (0.00-0.03); Imm Gran Pct Auto 0.8 % (0.0-0.4); Lymphocytes Absolute Auto 1.2 X10*3/uL (1.2-4.9); Lymphocytes Percent Auto 18.3 % (20-40); Mean Corpuscular HGB Conc 34.8 g/dl (31.0-35.0); Mean Corpuscular Hemoglobin 30.2 pg (27.0-33.0); Mean Corpuscular Volume 86.8 fL (80.0-98.0); Mean Platelet Volume 10.8 fL (9.4-12.3); Monocytes Absolute Auto 0.6 X10*3/uL (0.1-1.2); Monocytes Percent Auto 8.7 % (2-11); Neutrophils Absolute Auto 4.5 x10*3/uL (2.0-8.3); Neutrophils Percent Auto 68.8 % (45-73); Platelet Count 213 X10*3/uL (160-400); Red Blood Count 4.93 X10*6/uL (4.20-5.50); Red Cell Distribution Width 13.5 % (11.0-16.0); White Blood Count 6.5 X10*3/uL (4.8-10.8)
[2024-03-19 10:20] LABS: Lactic Acid 1.1 mmol/L (0.5-2.0)
[2024-03-19 10:31] LABS: Alanine Aminotransferase 41 U/L (0-31); Albumin Level 4.2 g/dL (3.5-5.0); Alkaline Phosphatase 140 U/L (39-117); Anion Gap 13 (12-20); Aspartate Amino Transferase 40 U/L (5-31); Bilirubin Direct 0.1 mg/dL (0.0-0.5); Bilirubin Total 0.4 mg/dL (0.0-1.0); Blood Urea Nitrogen 14 mg/dL (9-16); Calcium 9.2 mg/dL (8.4-10.2); Carbon Dioxide 27 mmol/L (22-29); Chloride 102 mmol/L (96-108); Creatinine Clr Calc Pharmacy 49.7; Estimated Glomerular Filt Rate 49; Ethanol < 10 mg/dL; Glucose Random 98 mg/dL (60-115); HCG Quantitative < 2 mIU/mL; Magnesium 2.1 mg/dL (1.6-2.6); Potassium 4.1 mmol/L (3.3-5.1); Sodium 138 mmol/L (135-145); Total Protein 7.9 g/dL (6.5-8.0)
[2024-03-19 10:44] LABS: Influenza A PCR NEGATIVE (Negative); Influenza B PCR NEGATIVE (Negative); Resp Syncy Virus RNA Qual PCR NEGATIVE (Negative); SARS COV2 PCR INHOUSE NEGATIVE (Negative)
[2024-03-19 11:00] VITALS: BP 177/92; PULSE 90; RESP 18; TEMP 39.5; O2SAT 93
[2024-03-19] MEDS: Acetaminophen 325 MG TABLET 975 MG PO (11:05)
[2024-03-19 11:18] LABS: Appearance Urine Clear; Color Urine Yellow; Glucose Urine UA Negative (Negative); Leukocyte Esterase Urine Negative (Negative); Nitrite Urine Negative (Negative); PH 8.5 (5.0-9.0); Urine Blood Negative (Negative); Urine Ketones Negative (Negative); Urine Protein Negative (Neg-Trace)
[2024-03-19 11:36] LABS: Bacteria Urine None Seen (None Seen); Hyaline Casts Urine 0-2 /LPF (0-2); RBC Urine 0-2 /HPF (0-2); Squamous Epithelial Cell Urine 0-2 /HPF (0-2); WBC Urine 0-5 /HPF (0-5)
[2024-03-19 12:42] VITALS: TEMP 38.3
[2024-03-19] MEDS: Ketorolac Tromethamine 15 MG/ML VIAL 10 MG IVPUSH (13:35)
[2024-03-19] MEDS: Doxycycline Monohydrate 100 MG CAPSULE PO (15:01)
[2024-03-19 15:02] VITALS: BP 132/74; PULSE 62; RESP 18; TEMP 37.7; O2SAT 98
== END 2024-03-19 15:03 | disposition home or self-care (01) ==
PROVIDERS: Emergency Provider Emergency Medicine
DX: R51.9 Headache, unspecified (principal); R50.9 Fever, unspecified; J02.9 Acute pharyngitis, unspecified; F17.210 Nicotine dependence, cigarettes, uncomplicated; Z03.818 Encounter for observation for suspected exposure to other biological agents ruled out
CPT/HCPCS: 0241U; 36415; 80048; 80076; 80307; 81001; 83605; 83735; 84702; 85025; 86140; 87040; 93005; 96361; 96374; 96375; 99285; J0737; J1200; J1885

== ENCOUNTER → 2024-03-19 09:35 | Outpatient (BNV) | payer MEDICAID, SELFPAY | PROVIDERS: Emergency Provider Emergency Medicine; Visit Provider Internal Medicine Cardiovascular Disease | DX: R94.31 Abnormal electrocardiogram [ECG] [EKG] (principal) | CPT/HCPCS: 93010 ==

== ENCOUNTER 2024-06-12 17:12 | Emergency (ER) | payer MEDICAID, SELFPAY ==
--- NOTE | ~2024-06-12 | XR_ITS ---
EXAMINATION: XR CHEST CLINICAL INFORMATION: Cough. COMPARISON: Chest radiograph dated July 14, 2023. TECHNIQUE: Frontal view of the chest was obtained. FINDINGS: The heart is normal in size. The lungs are clear. No pleural effusion. No pneumothorax. No acute osseous abnormality. XR/XR chest 1V IMPRESSION: No acute cardiopulmonary disease. Stable appearance of the heart and lungs. Electronically signed by: Jon Velazquez DO 06/12/2024 08:36 PM EDT
--- NOTE | 2024-06-12 17:20 | ECG_ITS ---
Test Reason : JADIEL PAIN Blood Pressure : / mmHG Vent. Rate : 064 BPM Atrial Rate : 064 BPM P-R Int : 152 ms QRS Dur : 076 ms QT Int : 406 ms P-R-T Axes : 022 054 266 degrees QTc Int : 418 ms Normal sinus rhythm ST & T wave abnormality, consider inferior ischemia ST & T wave abnormality, consider anterolateral ischemia Abnormal ECG When compared with ECG of 19-MAR-2024 09:44, Inverted T waves have replaced nonspecific T wave abnormality in Lateral leads Referred By: Generic ED Physician Electronically Signed By:JOSE MANUEL ESTRELLA MD
[2024-06-12 17:22] VITALS: BP 104/67; BP 146/70; PULSE 70; PULSE 80; RESP 18; TEMP 36.6; O2SAT 96; O2SAT 97; BMI 32.9
--- NOTE | 2024-06-12 18:06 | ED_ITS ---
HPI - Chest Pain General Chief Complaint: Chest Pain Stated Complaint: chest pain & cough Time Seen by Provider: 06/12/24 18:01 Source: patient Mode of arrival: ambulatory Limitations: no limitations History of Present Illness ED Provider: bar GREGG narrative: Patient's history of asthma usually stable complaining of 1 week of cough with mucoid phlegm with increased chest pain with cough no fever no chills patient has been using inhaler without much relief no cardiac history in the past no palpitation Related Data Home Medications ?Medication ?Instructions ?Recorded ?Confirmed omeprazole 20 mg capsule,delayed 1 cap PO BID 05/23/22 01/08/24 release aripiprazole 5 mg tablet 5 mg PO BEDTIME 09/12/22 01/08/24 Previous Rx's ?Medication ?Instructions ?Recorded albuterol sulfate 90 mcg/actuation 1 inh inhalation QID PRN shortness 09/28/20 aerosol inhaler (ProAir HFA) of breath or wheezing #8.5 grams cyclobenzaprine 10 mg tablet 10 mg PO TID PRN muscle spasm #14 12/21/21 tabs pantoprazole 40 mg tablet,delayed 40 mg PO DAILY #20 tabs 07/02/23 release (Protonix) albuterol sulfate 90 mcg/actuation 2 puff inhalation Q4-6H PRN 07/14/23 aerosol inhaler (ProAir HFA) shortness of breath or wheezing #8.5 grams cefuroxime axetil 500 mg tablet 500 mg PO BID 10 days #20 tabs 07/14/23 prednisone 20 mg tablet 40 mg (2 x 20 mg) PO DAILY #10 tabs 07/14/23 esomeprazole magnesium 40 mg 40 mg PO DAILY #90 caps 01/07/24 capsule,delayed release (Nexium) methylcellulose (laxative) 500 mg 500 mg PO DAILY #90 tabs 01/07/24 tablet (Citrucel) Tirosint 100 mcg capsule 100 mcg PO DAILY #30 caps 01/08/24 (levothyroxine) Tirosint 200 mcg capsule 200 mcg PO DAILY #30 caps 01/08/24 (levothyroxine) cholecalciferol (vitamin D3) 50 50 mcg PO DAILY #90 caps 01/15/24 mcg (2,000 unit) capsule aspirin 81 mg tablet,delayed 81 mg PO DAILY #90 tabs 06/20/24 release (Adult Low Dose Aspirin) metoprolol succinate 25 mg 25 mg PO DAILY #90 tabs 02/21/24 tablet,extended release 24 hr nitroglycerin 0.4 mg sublingual 0.4 mg sublingual Q5M PRN chest 02/26/24 tablet pain #20 tabs benzocaine 15 mg-menthol 2.6 mg 1 rebeka mucous membrane Q2-4H PRN 03/17/24 lozenges (Cepacol Sore Throat sore throat #16 ea (benzocaine-menthol)) penicillin V potassium 500 mg 500 mg PO BID 10 days #20 tabs 03/17/24 tablet prednisone 20 mg tablet 40 mg (2 x 20 mg) PO DAILY 4 days 03/17/24 #8 tabs doxycycline monohydrate 100 mg 100 mg PO BID #20 caps 03/19/24 capsule benzonatate 200 mg capsule 200 mg PO TID PRN cough #30 caps 06/12/24 cefuroxime axetil 500 mg tablet 500 mg PO BID 7 days #14 tabs 06/12/24 prednisone 20 mg tablet 40 mg (2 x 20 mg) PO DAILY #10 tabs 06/12/24 Allergies Allergy/AdvReac Type Severity Reaction Status Date / Time ibuprofen [From MOTRIN] AdvReac Intermediate ABDOMINAL Verified 06/12/24 17:40 PAIN Review of Systems 2 Review of Systems: Yes all other systems are reviewed and are negative [facility] Past Medical History Medical History Hypothyroidism Arthritis Low calcium levels High cholesterol H/O gastric ulcer H/O gastritis Hyperthyroidism Surgical History History of salpingectomy Family History Family History Mother Hypertension Diabetes Father No problems noted. Social History Social History Household Members: None Housing: House Alcohol intake: never Patient Tobacco Use Status: Current everyday Tobacco user Tobacco use type: Cigarette Use of substances other than those prescribed or required for medical reasons: No Advance Directives: No Advance Directives Information Provided: Yes service: No Current occupational status: unemployed and disabled Physical Exam 2 Vital Signs: Vital Signs: Last Vital Signs Temp 98.8 F 06/12/24 22:05 Pulse 71 06/12/24 22:05 Resp 20 06/12/24 22:05 BP 110/58 L 06/12/24 22:05 Pulse Ox 94 06/12/24 22:05 O2 Del Method Room Air 06/12/24 22:05 BMI result Body Mass Index 32.9 Appearance: Alert. Oriented X3. No acute distress. Eyes: No pallor or icterus ENT: Pharynx normal. Oral Mucosa moist Neck: Normal inspection. Neck supple. CVS: Normal heart rate and rhythm. Pulses normal. Respiratory: No respiratory distress. Equal air entry bilateral, bilateral prolonged expiration with rhonchi few crackles Abdomen: Soft and nontender. Bowel sounds are present, no mass palpable, no CVA tenderness Skin: Skin warm and dry. Normal skin color. Normal skin turgor. Extremities: No lower extremity edema. No calf tenderness Neuro: Oriented X 3. No motor deficit. Medications Administered Discontinued Medications Generic Name Dose Route Start Last Admin Trade Name Freq PRN Reason Stop Dose Admin Albuterol Sulfate 7.5 mg 06/12/24 19:53 06/12/24 20:37 Albuterol Sulfate (0.083%) 2.5 Mg/3 Ml Vial.Neb INHALE 06/12/24 19:54 7.5 mg ONCE ONE Administration Cefuroxime Axetil 500 mg 06/12/24 19:58 06/12/24 20:13 Cefuroxime Axetil 500 Mg Tablet PO 06/12/24 19:59 500 mg ONCE ONE Administration Albuterol Sulfate 2.5 mg/ 0 mg 06/12/24 18:49 06/12/24 18:53 Albuterol/Ipratropium 3 ml INHALE 06/12/24 18:50 5 dose ONCE ONE Administration Dexamethasone Sodium Phosphate 10 mg 06/12/24 19:53 06/12/24 20:13 Dexamethasone Sod Phosphate 10 Mg/Ml Vial IVPUSH 06/12/24 19:54 10 mg ONCE ONE Administration Guaifenesin/Codeine Phosphate 10 ml 06/12/24 19:52 06/12/24 20:12 Guaifen/Codeine Sf 200/20/10ml 10 Ml Liquid PO 06/12/24 19:53 10 ml ONCE ONE Administration Ketorolac Tromethamine 30 mg 06/12/24 19:53 06/12/24 20:12 Ketorolac Tromethamine 30 Mg/Ml Vial IVPUSH 06/12/24 19:54 30 mg ONCE ONE Administration Medical Decision Making Medical Decision Making [facility] Narrative: Patient's asthmatic bronchitis breathing improved after nebulizing treatment chest pain also improved antibiotics and cough syrup was given to the patient's Lab Data [facility] Lab Attestation statement: I reviewed the patient's lab results. 06/12/24 18:09 06/12/24 18:09 Labs: Lab Results 06/12/24 06/12/24 Range/Units 18: 18:23 WBC 9.7 (4.8-10.8) X10*3/uL RBC 4.60 (4.20-5.50) X10*6/uL Hgb 14.4 (12.0-16.0) g/dl Hct 41.1 (37.0-47.0) % MCV 89.3 (80.0-98.0) fL MCH 31.3 (27.0-33.0) pg MCHC 35.0 (31.0-35.0) g/dl RDW 13.4 (11.0-16.0) % Plt Count 270 D (160-400) X10*3/uL MPV 10.7 (9.4-12.3) fL Immature Gran % (Auto) 0.3 (0.0-0.4) % Neut % (Auto) 58.9 (45-73) % Lymph % (Auto) 30.0 (20-40) % [place] % (Auto) 6.9 (2-11) % Eos % (Auto) 3.2 (0-4) % Baso % (Auto) 0.7 (0-2) % Lymph # (Auto) 2.9 (1.2-4.9) X10*3/uL [facility] # (Auto) 0.7 (0.1-1.2) X10*3/uL Eos # (Auto) 0.3 (0.0-0.4) X10*3/uL Baso # (Auto) 0.1 (0.0-0.2) X10*3/uL Abs Immat Gran (auto) 0.03 (0.00-0.03) X10*3/uL Absolute Neuts (auto) 5.7 (2.0-8.3) x10*3/uL Absolute Nucleated RBC 0.000 (0.0-0.012) X10*3/uL Nucleated RBC % (auto) 0.0 (0.0-0.2) /100WBC Sodium 142 (135-145) mmol/L Potassium 3.8 (3.3-5.1) mmol/L Chloride 107 (96-108) mmol/L Carbon Dioxide 26 (22-29) mmol/L Anion Gap 13 (12-20) BUN 12 (9-16) mg/dL Creatinine 1.52 H (0.5-1.4) mg/dL Estim Creat Clear Calc 40.3 Estimated GFR 36 Random Glucose 115 (60-115) mg/dL Calcium 9.7 (8.4-10.2) mg/dL Magnesium 2.3 (1.6-2.6) mg/dL Troponin I High Sens 8.4 (<3.5-17.0) ng/L Urine Color Yellow Urine Appearance Cloudy Urine pH 5.5 (5.0-9.0) Ur Specific [place] 1.025 (1.005-1.025) Urine Protein Trace (Neg-Trace) mg/dL Urine Glucose (UA) Negative (Negative) mg/dL Urine Ketones Trace (Negative) mg/dL Urine Blood Negative (Negative) Urine Nitrite Negative (Negative) Ur Leukocyte Esterase Small (1+) H (Negative) Urine RBC 0-2 (0-2) /HPF Urine WBC 6-10 H (0-5) /HPF Ur Squamous Epith Cells 11-20 (0-2) /HPF Urine Bacteria 3+ (None Seen) Hyaline Casts 0-2 (0-2) /LPF Influenza Type A (PCR) NEGATIVE (Negative) Influenza Type B (PCR) NEGATIVE (Negative) RSV RNA Qual (PCR) NEGATIVE (Negative) SARS-CoV-2 RNA (RT-PCR) NEGATIVE (Negative) S. pyogenes GrpA TREVOR n (Negative) Independent Interpretation I performed an independent interpretation of an: EKG and Plain X-Ray Interpretation: Normal sinus rhythm heart rate 64 beats per minute normal interval normal no acute STT wave changes no acute ischemia Radiology Impression Discussion of test interpretation with radiology: I have reviewed the radiologist's reading. Radiologist Impression: Negative Discharge Plan Discharge Clinical Impression: Acute asthmatic bronchitis Patient Disposition: Home, Self-Care Instructions: Asthma (ED), Acute Bronchitis (ED) Additional Instructions: Continue to use your inhaler 2 puffs every 4-6 hours as needed Prednisone and antibiotic as prescribed Cough drops as prescribed Follow with your PCP if not better Prescriptions: New benzonatate 200 mg capsule 200 mg PO TID PRN (Reason: cough) Qty: 30 0RF prednisone 20 mg tablet 40 mg PO DAILY Qty: 10 0RF cefuroxime axetil 500 mg tablet 500 mg PO BID 7 Days Qty: 14 0RF No Action levothyroxine [Tirosint] 200 mcg capsule 200 mcg PO DAILY Qty: 30 5RF levothyroxine [Tirosint] 100 mcg capsule 100 mcg PO DAILY Qty: 30 4RF cholecalciferol (vitamin D3) 50 mcg (2,000 unit) capsule 50 mcg PO DAILY Qty: 90 3RF aspirin [Adult Low Dose Aspirin] 81 mg tablet,delayed release (DR/EC) 81 mg PO DAILY Qty: 90 3RF metoprolol succinate 25 mg tablet extended release 24 hr 25 mg PO DAILY Qty: 90 1RF nitroglycerin 0.4 mg tablet, sublingual 0.4 mg sublingual Q5M PRN (Reason: chest pain) Qty: 20 1RF Rx Instructions: do not exceed 3 doses per episode albuterol sulfate [ProAir HFA] 90 mcg/actuation HFA aerosol inhaler 1 inh inhalation QID PRN (Reason: shortness of breath or wheezing) Qty: 8.5 0RF cyclobenzaprine 10 mg tablet 10 mg PO TID PRN (Reason: muscle spasm) Qty: 14 0RF omeprazole 20 mg capsule,delayed release(DR/EC) 1 cap PO BID pantoprazole [Protonix] 40 mg tablet,delayed release (DR/EC) 40 mg PO DAILY Qty: 20 0RF prednisone 20 mg tablet 40 mg PO DAILY Qty: 10 0RF cefuroxime axetil 500 mg tablet 500 mg PO BID 10 Days Qty: 20 0RF albuterol sulfate [ProAir HFA] 90 mcg/actuation HFA aerosol inhaler 2 puff inhalation Q4-6H PRN (Reason: shortness of breath or wheezing) Qty: 8.5 1RF penicillin V potassium 500 mg tablet 500 mg PO BID 10 Days Qty: 20 0RF Cepacol Sore Throat (lashaun-men) 15-2.6 mg lozenge 1 rebeka mucous membrane Q2-4H PRN (Reason: sore throat) Qty: 16 0RF prednisone 20 mg tablet 40 mg PO DAILY 4 Days Qty: 8 0RF doxycycline monohydrate 100 mg capsule 100 mg PO BID Qty: 20 0RF aripiprazole 5 mg tablet 5 mg PO BEDTIME Citrucel 500 mg tablet 500 mg PO DAILY Qty: 90 2RF Rx Instructions: take it with full glass of water esomeprazole magnesium [Nexium] 40 mg capsule,delayed release(DR/EC) 40 mg PO DAILY Qty: 90 5RF Interventions: ED Discharge Assessment Last Done: 06/12/24 22:05 Discharge Date/Time: 06/12/24 22:38 Print Language: Vietnamese
[2024-06-12 18:14] LABS: MANUAL DIFF FLAG NO
[2024-06-12 18:15] LABS: Basophils Absolute Auto 0.1 X10*3/uL (0.0-0.2); Basophils Percent Auto 0.7 % (0-2); Eosinophils Absolute Auto 0.3 X10*3/uL (0.0-0.4); Eosinophils Percent Auto 3.2 % (0-4); Hematocrit 41.1 % (37.0-47.0); Hemoglobin 14.4 g/dl (12.0-16.0); Imm Gran Abs Auto 0.03 X10*3/uL (0.00-0.03); Imm Gran Pct Auto 0.3 % (0.0-0.4); Lymphocytes Absolute Auto 2.9 X10*3/uL (1.2-4.9); Mean Corpuscular Hemoglobin 31.3 pg (27.0-33.0); Mean Corpuscular Volume 89.3 fL (80.0-98.0); Mean Platelet Volume 10.7 fL (9.4-12.3); Monocytes Absolute Auto 0.7 X10*3/uL (0.1-1.2); Monocytes Percent Auto 6.9 % (2-11); Neutrophils Absolute Auto 5.7 x10*3/uL (2.0-8.3); Neutrophils Percent Auto 58.9 % (45-73); Platelet Count 270 X10*3/uL (160-400); Red Cell Distribution Width 13.4 % (11.0-16.0); White Blood Count 9.7 X10*3/uL (4.8-10.8)
--- NOTE | 2024-06-12 18:15 | PC.NURSE ---
pt aox4, comes from [facility] where she had an appointment. the patient reports chest pain that is sharp and worse when she coughs. she has a persistent cough. both the cough and chest pain have been going on for about 1 week. She denies sick contacts and recent travel. Cough is sometimes productive and when it is she tastes some blood in her mouth. recently seen at [facility] for a cardiac cath where they looked for a blood clot. she says this was a few weeks ago and she has not heard the results yet. NSR on tele. labs drawn, IV placed 20g L AC
[2024-06-12 18:16] LABS: Appearance Urine Cloudy; Color Urine Yellow; Glucose Urine UA Negative (Negative); Leukocyte Esterase Urine Small (1+) (Negative); Nitrite Urine Negative (Negative); PH 5.5 (5.0-9.0); Specific Gravity - Urine 1.025 (1.005-1.025); UMIC TRIGGER UACC YES; Urine Blood Negative (Negative); Urine Ketones Trace mg/dL (Negative); Urine Protein Trace mg/dL (Neg-Trace)
[2024-06-12 18:19] LABS: Bacteria Urine 3+ (None Seen); Hyaline Casts Urine 0-2 /LPF (0-2); RBC Urine 0-2 /HPF (0-2); UACC Culture Trigger YES
[2024-06-12 18:31] LABS: Anion Gap 13 (12-20); Blood Urea Nitrogen 12 mg/dL (9-16); Calcium 9.7 mg/dL (8.4-10.2); Carbon Dioxide 26 mmol/L (22-29); Chloride 107 mmol/L (96-108); Creatinine Clr Calc Pharmacy 40.3; Estimated Glomerular Filt Rate 36; Glucose Random 115 mg/dL (60-115); Magnesium 2.3 mg/dL (1.6-2.6); Potassium 3.8 mmol/L (3.3-5.1); Sodium 142 mmol/L (135-145)
[2024-06-12 18:37] LABS: IDNOW Serial# 58CA691E; Strep A Nucleic Acid n (Negative)
[2024-06-12 18:37] LABS: Troponin-I High Sensitivity 8.4 ng/L (<3.5-17.0)
[2024-06-12] MEDS: Albuterol Sulfate 2.5 MG, Albuterol/Iprat 2.5/0.5MG 3 ML 3 ML INHALE (18:53)
[2024-06-12 18:55] VITALS: PULSE 60; RESP 16; O2SAT 96
[2024-06-12 19:07] LABS: Influenza A PCR NEGATIVE (Negative); Influenza B PCR NEGATIVE (Negative); Resp Syncy Virus RNA Qual PCR NEGATIVE (Negative); SARS COV2 PCR INHOUSE NEGATIVE (Negative)
[2024-06-12 19:09] VITALS: BP 106/53; PULSE 59; RESP 22; TEMP 36.6; O2SAT 96
[2024-06-12] MEDS: guaiFEN/Codeine SF 200/20/10ML 10 ML LIQUID PO (20:12)
[2024-06-12] MEDS: Ketorolac Tromethamine 30 MG/ML VIAL IVPUSH (20:12)
[2024-06-12] MEDS: cefuroxime axetiL 500 MG TABLET PO (20:13)
[2024-06-12] MEDS: dexAMETHasone sod phosphate 10 MG/ML VIAL IVPUSH (20:13)
[2024-06-12 20:37] VITALS: PULSE 59; RESP 22; O2SAT 97
[2024-06-12] MEDS: Albuterol Sulfate (0.083%) 2.5 MG/3 ML VIAL.NEB 7.5 MG INHALE (20:37)
[2024-06-12 22:05] VITALS: BP 110/58; PULSE 71; RESP 20; TEMP 37.1; O2SAT 94
== END 2024-06-12 22:38 | disposition home or self-care (01) ==
PROVIDERS: Emergency Provider Internal Medicine
DX: J20.9 Acute bronchitis, unspecified (principal); R07.89 Other chest pain; R05.9 Cough, unspecified; Z03.818 Encounter for observation for suspected exposure to other biological agents ruled out; Z79.899 Other long term (current) drug therapy
CPT/HCPCS: 0241U; 36415; 71045; 80048; 81001; 83735; 84484; 85025; 87086; 87651; 93005; 94640; 96374; 96375; 99284; 99285; J1100; J1885

== ENCOUNTER → 2024-06-12 17:20 | Outpatient (BNV) | payer MEDICAID, SELFPAY | PROVIDERS: Emergency Provider Internal Medicine; Visit Provider Internal Medicine Cardiovascular Disease | DX: R94.31 Abnormal electrocardiogram [ECG] [EKG] (principal) | CPT/HCPCS: 93010 ==

== ENCOUNTER 2024-08-08 09:12 | Outpatient (AMB) | payer MEDICAID, SELFPAY ==
--- NOTE | 2024-08-08 09:23 | MHC.OFFVIS ---
Vital Signs 08/08/24 09:24 Height 5 ft Weight 173 lb 11.588 oz BMI 33.9 BP 140/76 H Blood Pressure Location Rt brachial Position Sitting Pulse 62 Pulse Source Pulse Oximeter Pulse Oximetry (%) 97 Oxygen Delivery Method Room Air Comment [id number] Intake Visit Reasons: Gastroesophageal reflux disease (GERD) Intake Note: Meagan presents in office today for a scheduled 6 mos FUV. CC; Any changes or new sx since last visit? Abd distention, bloating, abd pain (umbilical region). Pt also reports having a burning in the stomach. Pt reports hx of gastritis. Any labs or diagnostics since last visit? ?Labs done 06/26. No imaging. Card Reader Required: Yes Card Reader Services: Card Reader Present Card Reader Name: Bro [id number] Information Interpreted: non-clinical & clinical Allergies ibuprofen [From MOTRIN] Adverse Reaction (Intermediate, Verified 06/12/24 17:40) ABDOMINAL PAIN HPI HPI Gastroesophageal reflux disease (GERD): Details: LAST VISIT GERD (gastroesophageal reflux disease) Nausea Postprandial abdominal bloating Abdominal pain Plan Will check for H pylori, rule out celiac, pancreatitis. Patient will GI panel, reports loose stools in the past couple weeks. Patient will start taking Citrucel every morning and Senokot at night time to help her eliminate her bowels better. Patient will start taking Nexium. Took omeprazole and pantoprazole in the past without much of improvement. CT scan to rule out colitis, diverticulitis. Patient was encouraged to avoid dietary triggers and late night snacking. Staying upright for minimum 3 hours after meals discussed with patient. Patient was also encouraged to increase fluid intake and activity to promote better bowel motility. Patient will return in the office in 3 weeks to re-evaluate. Patient is agreeable to this plan and verbalizes understanding of instructions. She was given the opportunity to ask questions and all questions answered. ? Thank you for allowing me to participate in her care Orders Orders H pylori Ag Stool 01/07/24 K21.9 Vitamin D 25-OH (D2 and D3) 01/07/24 E55.9 Transglutaminase IgA 01/07/24 R10.9 GI Panel 01/07/24 R19.7 Vitamin B12 and Folate 01/07/24 R19.7 Complete Blood Count no Diff 01/07/24 K21.9 Comprehensive Met. Panel 05/06/24 K21.9 Transglutaminase Ab IgG 01/07/[address] abdomen pelvis w IV con 01/07/24 R10.9, R11.0, R14.0, R10.13 Medications New esomeprazole magnesium (Nexium) 40 mg PO DAILY 90 caps 5RF K21.9 sennosides (Natural Senna Laxative) 17.2 mg (2 x 8.6 mg) PO BEDTIME 60 tabs 3RF constipation K59.00 methylcellulose (laxative) (Citrucel) take it with full glass of water 500 mg PO DAILY 90 tabs 2RF K59.00 Discontinued benzonatate Discontinued Reason: Patient no longer taking 200 mg PO TID PRN 30 caps 0RF cough Tirosint Take 200 ug with 75 ug for total of 275 ug Discontinued Reason: Doctor's Order 200 mcg PO DAILY 30 caps 6RF NS Tirosint take 75 ug with 200 ug for total of 275 ug Discontinued Reason: Doctor's Order 75 mcg PO DAILY 30 caps 5RF NS TODAY'S VISIT Patient is here today for follow-up and to discuss lab results. Patient does not remember any of the meds that she takes and she is very confused. Patient does not know the medications by name. She does know that she takes as stomach pill patient was supposed to follow-up in 3 weeks since last appointment to discuss labs and see if she is feeling better, last seen on 01/07/2024. Patient has been seen in the ER and by Cardiology for chest pain. Reports severe bloating. Patient reports that she feels like she is . Patient is followed by endocrinology for hypothyroidism. Patient has not done any of her blood work or stool studies. Patient denies melena, hematochezia, unintentional weight loss or ribbon like stools. [facility] Medical History (Reviewed 08/08/24 @ 09:26 by Camden Ramos [facility]) Hypothyroidism Arthritis Low calcium levels High cholesterol H/O gastric ulcer H/O gastritis Hyperthyroidism Surgical History History of salpingectomy Family History (Reviewed 08/08/24 @ 09: by VEDA Dunbar) Mother Hypertension Diabetes Father No problems noted. Social History Household Members: None Housing: House Alcohol intake: never Patient Tobacco Use Status: Current everyday Tobacco user Tobacco use type: Cigarette service: No Current occupational status: unemployed and disabled Review of Systems Const Denies weight gain and Denies weight loss ENT Reports no additional complaints, Denies dysphagia and Denies odynophagia Card Reports no additional complaints Resp Reports no additional complaints GI Reports abdominal pain, Denies belching, Denies melena, Reports bloating, Denies change in bowel habits, Reports constipation, Denies dysphagia, Denies excessive flatus, Denies dyspepsia, Reports heartburn, Denies diarrhea, Denies loose stools, Denies nausea, Denies odynophagia and Denies vomiting Reports no additional complaints Musc Reports no additional complaints Neuro Reports no additional complaints Psych Reports no additional complaints Endo Reports no additional complaints Physical Exam Vital Signs: Last Vital Signs Pulse 62 08/08/24 09:24 BP 140/76 H 08/08/24 09:24 Pulse Ox 97 08/08/24 09:24 Oxygen Delivery Method Room Air 08/08/24 09:24 BMI result Body Mass Index 33.9 Const General: healthy appearing, no acute distress and anxious Nutritional Appearance: obese Orientation/consciousness: patient oriented x3 Resp Effort & Inspection: normal respiratory effort, able to speak in complete sentences, no tracheal deviation and symmetric chest movement Auscultation: clear to auscultation bilaterally Cardio Rate: regular rate GI Inspection: Yes normal to inspection, No distended and Yes obesity Palpation (GI): Soft to palpation, not firm, nontender and No hepatosplenomegaly present Auscultation: normal bowel sounds General: Yes no CVA tenderness Back/Spine/Pelvis Back: no CVA tenderness Skin General skin exam: elasticity normal, turgor normal and dry skin Neuro General: patient oriented x3 Psych Appearance: grossly normal Mental Status: mental status grossly normal Results Reviewed Results Reviewed: Laboratory Tests 05/06/24 07/17/24 15:56 09:59 Total Bilirubin 0.4 AST 40 H ALT 41 H Alkaline Phosphatase 140 H C-Reactive Protein 1.50 H Tiss Transglutamin IgA <1.0 Assessment & Plan Assessment & Plan (1) GERD (gastroesophageal reflux disease): Code(s): K21.9 - Gastro-esophageal reflux disease without esophagitis Qualifiers: Esophagitis presence: esophagitis presence not specified Qualified Code(s): K21.9 - Gastro-esophageal reflux disease without esophagitis (2) Nausea: Code(s): R11.0 - Nausea (3) Postprandial abdominal bloating: Code(s): R14.0 - Abdominal distension (gaseous) (4) Abdominal pain: Code(s): R10.9 - Unspecified abdominal pain Qualifiers: Abdominal location: upper abdomen, unspecified Qualified Code(s): R10.10 - Upper abdominal pain, unspecified (5) Constipation: Code(s): K59.00 - Constipation, unspecified Qualifiers: Constipation type: slow transit constipation Qualified Code(s): K59.01 - Slow transit constipation Plan Patient will stop taking omeprazole and will start taking Nexium every morning. Avoid dietary triggers and late night snacking. Staying upright for minimum 3 hours after meals discussed with patient. Patient will start taking Dulcolax daily. Increase fluid intake and activity to promote better bowel motility. Patient will return in 3 weeks. Patient is to bring all of her medications so we can go through it. Will discuss going for upper endoscopy. Patient is agreeable to this plan and verbalizes understanding of instructions. She was given the opportunity to ask questions and all questions answered. Thank you for allowing me to participate in her care Medications: New bisacodyl (Dulcolax (bisacodyl)) 10 mg (2 x 5 mg) PO BEDTIME 180 tabs 4RF esomeprazole magnesium (Nexium) 40 mg PO DAILY 30 caps 5RF K21.9 - Gastro-esophageal reflux disease without esophagitis Coding Level of Care Code Est Pt Level 4 (27125) Complex EM visit Add On G2211 Diagnoses Gastroesophageal reflux disease, unspecified whether esophagitis present K21.9 Esophagitis presence: esophagitis presence not specified Nausea R11.0 Postprandial abdominal bloating R14.0 Pain of upper abdomen R10.10 Abdominal location: upper abdomen, unspecified Slow transit constipation K59.01 Constipation type: slow transit constipation Time Spent (min) 35 Comment 20 minutes spent with patient and additional 15 minutes spent reviewing her records
[2024-08-08 09:24] VITALS: BP 140/76; PULSE 62; O2SAT 97; BMI 33.9
== END 2024-08-08 10:25 | disposition home or self-care (01) ==
PROVIDERS: PCP Registered Nurse; Visit Provider Nurse Practitioner Family
DX: K21.9 Gastro-esophageal reflux disease without esophagitis (principal); R11.0 Nausea; R14.0 Abdominal distension (gaseous); R10.10 Upper abdominal pain, unspecified; K59.01 Slow transit constipation
CPT/HCPCS: 99214

== ENCOUNTER → 2024-08-08 09:12 | Outpatient (BNVA) | payer MEDICAID, SELFPAY | PROVIDERS: PCP Registered Nurse; Visit Provider Nurse Practitioner Family | DX: K21.9 Gastro-esophageal reflux disease without esophagitis (principal); K59.01 Slow transit constipation; R11.0 Nausea; R14.0 Abdominal distension (gaseous); R10.10 Upper abdominal pain, unspecified | CPT/HCPCS: 99212 ==

== ENCOUNTER 2024-08-08 11:57 | Outpatient (REF) | payer MEDICAID, SELFPAY ==
[2024-08-08 13:01] LABS: Appearance Urine Turbid; Color Urine Yellow; Glucose Urine UA Negative (Negative); Leukocyte Esterase Urine Negative (Negative); Nitrite Urine Negative (Negative); PH >= 9.0 (5.0-9.0); Specific Gravity - Urine 1.015 (1.005-1.025); Urine Blood Negative (Negative); Urine Ketones Negative (Negative); Urine Protein Trace mg/dL (Neg-Trace)
[2024-08-08 13:16] LABS: Hematocrit 43.5 % (37.0-47.0); Hemoglobin 14.8 g/dl (12.0-16.0); Mean Corpuscular Hemoglobin 31.2 pg (27.0-33.0); Mean Corpuscular Volume 91.8 fL (80.0-98.0); Mean Platelet Volume 11.1 fL (9.4-12.3); Platelet Count 238 X10*3/uL (160-400); Red Blood Count 4.74 X10*6/uL (4.20-5.50); Red Cell Distribution Width 13.2 % (11.0-16.0); White Blood Count 8.2 X10*3/uL (4.8-10.8)
[2024-08-08 13:21] LABS: Hemoglobin 14.9 g/dl (12.0-16.0); Mean Corpuscular HGB Conc 33.9 g/dl (31.0-35.0); Mean Corpuscular Hemoglobin 31.1 pg (27.0-33.0); Mean Corpuscular Volume 91.9 fL (80.0-98.0); Mean Platelet Volume 11.3 fL (9.4-12.3); Platelet Count 242 X10*3/uL (160-400); Red Blood Count 4.79 X10*6/uL (4.20-5.50); Red Cell Distribution Width 13.2 % (11.0-16.0); White Blood Count 8.1 X10*3/uL (4.8-10.8)
[2024-08-08 13:22] LABS: INTERNATIONAL NORM RATIO 0.9 (0.9-1.1)
[2024-08-08 13:24] LABS: Rheumatoid Factor 15.7 IU/mL (<15.0)
[2024-08-08 13:34] LABS: Estimated Average Glucose 120 mg/dL; Hemoglobin A1C 150.8855 umol/L; Hemoglobin A1c % 5.8 % (<6.0); Total Hemoglobin (HGBA1C) 3736.8444 umol/L
[2024-08-08 13:49] LABS: Creatinine Urine 84.31 mg/dL; Microalbum/Creatinine Ratio Ur 5.9 ug/mg cr (<30)
[2024-08-08 13:56] LABS: Erythrocyte Sedimentation Rate 7 MM/HR (0-20)
[2024-08-08 14:00] LABS: Alanine Aminotransferase 39 U/L (0-31); Albumin Level 4.4 g/dL (3.5-5.0); Alkaline Phosphatase 137 U/L (39-117); Anion Gap 11 (12-20); Aspartate Amino Transferase 35 U/L (5-31); Bilirubin Total 0.4 mg/dL (0.0-1.0); Blood Urea Nitrogen 17 mg/dL (9-16); C Reactive Protein 0.17 mg/dL (< or = 0.50); Calcium 9.7 mg/dL (8.4-10.2); Carbon Dioxide 30 mmol/L (22-29); Chloride 108 mmol/L (96-108); Cholesterol 221 mg/dL (<200); Estimated Glomerular Filt Rate 55; Free T4 (Free Thyroxine) 0.67 ng/dL (0.71-1.85); Glucose Random 108 mg/dL (60-115); HDL Cholesterol 49 mg/dL (>40); LDL Cholesterol Calculated 132 mg/dL (<100); Potassium 3.8 mmol/L (3.3-5.1); Sodium 145 mmol/L (135-145); Total Protein 8.3 g/dL (6.5-8.0); Triglycerides 200 mg/dL (<150)
[2024-08-11 15:13] LABS: Anti Nuclear Antibody Screen NEGATIVE (NEGATIVE)
[2024-08-11 20:28] LABS: Cyclic Citrullinated Peptide 16 UNITS
== END 2024-08-08 11:58 | disposition home or self-care (01) ==
LOC: HO.HHCL 11:57
PROVIDERS: Internal Medicine; Internal Medicine Endocrinology, Diabetes & Metabolism; Registered Nurse; Visit Provider Student in an Organized Health Care Education/Training Program
DX: M25.50 Pain in unspecified joint (principal); E03.9 Hypothyroidism, unspecified; R07.2 Precordial pain; R94.39 Abnormal result of other cardiovascular function study; R79.89 Other specified abnormal findings of blood chemistry
CPT/HCPCS: 36415; 80053; 80061; 81003; 82043; 82570; 83036; 84439; 84443; 85027; 85610; 85652; 86038; 86140; 86200; 86431

== ENCOUNTER 2024-08-08 14:26 | Outpatient (REF) | payer MEDICAID, SELFPAY | END 2024-08-08 14:27 | disposition home or self-care (01) | LOC: HO.US 14:26 | PROVIDERS: PCP Student in an Organized Health Care Education/Training Program; Visit Provider Student in an Organized Health Care Education/Training Program | DX: M25.50 Pain in unspecified joint (principal); M79.641 Pain in right hand; M79.642 Pain in left hand | CPT/HCPCS: 73130 ==

== ENCOUNTER 2024-08-14 06:25 | Emergency (ER) | payer MEDICAID, SELFPAY ==
--- NOTE | ~2024-08-14 | CT_ITS ---
EXAMINATION: CT ABDOMEN AND PELVIS WITH CONTRAST CLINICAL INFORMATION: Left lower quadrant abdominal pain COMPARISON: CT dated August 21, 2022. TECHNIQUE: Multidetector volumetric images were obtained from the superior aspect of the liver through the pubic symphysis following administration 85 mL of Omnipaque 350 intravenous contrast. Sagittal and coronal reformatted images were obtained on the technologist's workstation. Oral contrast: No This CT examination was performed using dose optimization techniques as appropriate, variously including the following: *Automated exposure control *Adjustment of mA and/or kV according to patient size (this includes techniques or standardized protocols for targeted exams where dose is matched to indication/reason for exam; i.e. extremities or head) *Use of iterative reconstruction technique DLP: 498 mGy-cm FINDINGS: Limited by patient's breathing motion artifact. LUNG BASES: Pulmonary patchy groundglass with a subtle mosaic pattern. LIVER, GALLBLADDER, AND BILIARY TREE: Liver measures 16 cm. Subtle nodular surface. No focal mass. Main portal veins, hepatic veins and intrahepatic portion of the IVC are grossly patent. No intrahepatic biliary ductal dilatation. Gallbladder is contracted. No extrahepatic biliary ductal dilatation. PANCREAS: No focal mass. No peripancreatic fluid collection. No main pancreatic ductal dilatation. SPLEEN: 8 cm. No focal mass. ADRENAL GLANDS: No nodular lesions. KIDNEYS AND URETERS: No hydronephrosis. Normal urinary excretion of the contrast. No gross lesion within the renal parenchyma. Limited examination due to excretory phase. BLADDER: Fluid-filled. GASTROINTESTINAL TRACT: Stool within the large intestine. No intestinal obstruction pattern. No ascites. No pneumatosis intestinalis. No pneumoperitoneum. Appendix is normal, retrocecal. ABDOMINAL WALL: Small fat-containing umbilical and periumbilical hernias. LYMPH NODES: Prominent less than 10 mm. VASCULAR: No aneurysm or dissection, abdominal aorta. PELVIC VISCERA: Nodularity within the uterus. No gross lesions in the adnexa. Punctate calcifications in the right adnexa OSSEOUS STRUCTURES: Multilevel spondylosis. No acute fracture. Subtle grade 1 retrolisthesis, T12-L1, L3-4, L4-5 and L5-S1 levels on a degenerative basis bone marrow inhomogeneity with the questionable subcentimeter lytic lesions in the bony pelvis.. CT/CT abdomen pelvis w IV con IMPRESSION: No intestinal obstruction pattern. Questionable hepatocellular disease. Probable uterine fibroids. Small fat-containing umbilical periumbilical hernia. Fleischner guidelines were followed. Electronically signed by: Bro Gibbs MD 08/14/2024 11:10 AM ZARINA
[2024-08-14 07:03] VITALS: BP 142/88; PULSE 65; O2SAT 97
--- NOTE | 2024-08-14 07:14 | ED.ABDPAIN ---
HPI - Abdominal Pain General Chief Complaint: Abdominal Pain Stated Complaint: lower ab pain x2 days getting worse Time Seen by Provider: 08/14/24 07:12 Source: patient Mode of arrival: ambulatory Limitations: no limitations History of Present Illness HPI narrative: 53 year old female with PMH: Hypothyroidism presents to the ER with complaints of abdominal pain for the past two days. She denies having this problem in the past. She denies having any previous surgereis she denies cough chest pain but has some shortness of breath. She had dinner last night and had BM at 6 pm last night. Pain to left lower quandrant Related Data Home Medications ?Medication ?Instructions ?Recorded ?Confirmed aripiprazole 10 mg tablet 10 mg PO DAILY 08/08/24 clonazepam 0.5 mg tablet 0.5 mg PO DAILY PRN 08/08/24 Previous Rx's ?Medication ?Instructions ?Recorded cyclobenzaprine 10 mg tablet 10 mg PO TID PRN muscle spasm #14 12/21/21 tabs albuterol sulfate 90 mcg/actuation 2 puff inhalation Q4-6H PRN 07/14/23 aerosol inhaler (ProAir HFA) shortness of breath or wheezing #8.5 grams methylcellulose (laxative) 500 mg 500 mg PO DAILY #90 tabs 01/07/24 tablet (Citrucel) Tirosint 200 mcg capsule 200 mcg PO DAILY #30 caps 01/08/24 (levothyroxine) cholecalciferol (vitamin D3) 50 50 mcg PO DAILY #90 caps 01/15/24 mcg (2,000 unit) capsule aspirin 81 mg tablet,delayed 81 mg PO DAILY #90 tabs 02/21/24 release (Adult Low Dose Aspirin) metoprolol succinate 25 mg 25 mg PO DAILY #90 tabs 02/21/24 tablet,extended release 24 hr nitroglycerin 0.4 mg sublingual 0.4 mg sublingual Q5M PRN chest 02/26/24 tablet pain #20 tabs benzocaine 15 mg-menthol 2.6 mg 1 rebeka mucous membrane Q2-4H PRN 03/17/24 lozenges (Cepacol Sore Throat sore throat #16 ea (benzocaine-menthol)) doxycycline monohydrate 100 mg 100 mg PO BID #20 caps 03/19/24 capsule benzonatate 200 mg capsule 200 mg PO TID PRN cough #30 caps 06/12/24 cefuroxime axetil 500 mg tablet 500 mg PO BID 7 days #14 tabs 06/12/24 prednisone 20 mg tablet 40 mg (2 x 20 mg) PO DAILY #10 tabs 06/12/24 Tirosint 100 mcg capsule 100 mcg PO DAILY #30 caps 08/05/24 (levothyroxine) bisacodyl 5 mg tablet,delayed 10 mg (2 x 5 mg) PO BEDTIME #180 08/08/24 release (Dulcolax (bisacodyl)) tabs esomeprazole magnesium 40 mg 40 mg PO DAILY #30 caps 08/08/24 capsule,delayed release (Nexium) Allergies Allergy/AdvReac Type Severity Reaction Status Date / Time ibuprofen [From MOTRIN] AdvReac Intermediate ABDOMINAL Verified 08/14/24 07:25 PAIN Review of Systems Review of Systems Review of systems: General: Patient denies any fever chills recent illness or falls Musculoskeletal: Denies back pain or body aches or other injuries HEENT: denies headache, runny nose, ear pain Respiratory: denies shortness of breath, cough Cardiovascular: no chest pain or palpitations : denies dysuria, frequency Abdomen:abdominal pain llq no nausea vomiting or diarrhea Extremities: no swelling, no pain Skin: no diaphoresis Yes all other systems are reviewed and are negative [facility] Past Medical History Medical History Hypothyroidism Arthritis Low calcium levels High cholesterol H/O gastric ulcer H/O gastritis Hyperthyroidism Surgical History History of salpingectomy Family History Family History Mother Hypertension Diabetes Father No problems noted. Social History Social History Household Members: None Housing: House Alcohol intake: never Patient Tobacco Use Status: Current everyday Tobacco user Tobacco use type: Cigarette Smoked in Last 30 Days: Yes Advance Directives: No Advance Directives Information Provided: Yes service: No Current occupational status: unemployed and disabled Physical Exam ED Vital Signs: Vital Signs - 24 hr 08/14/24 07:22 Temperature 97.5 F Pulse Rate 16 L Respiratory Rate 18 Blood Pressure 115/65 Pulse Oximetry 98 Oxygen Delivery Method Room Air BMI result Body Mass Index 32.1 General: Well-appearing well-nourished in no signs of distress HEENT: Normocephalic atraumatic Neck: No signs of JVD, no masses no tenderness or lymphadenopathy Cardiovascular: Regular rate and rhythm Respiratory: Clear to auscultation bilaterally Abdomen: Soft LLQ abdominal pain Extremities: Normal pedal pulses no signs of edema Skin: Dry warm no rashes Back: No tenderness full ROM Course Course Course Narrative: 1030 I called at [facility] as we were having a large delay in the CT read they state that they can not see the images I spoke with our tech who states he had been there for over 2-1/2 hours he stated that he would try and verify why they can not see the imaging Reevaluation(s) Reevaluation #1: 1128 CT finally resulted showing uterine fibroids belly exam is benign she states she still has some pain think she would benefit from ibuprofen and Tylenol I do not have reason to admit her she just keeps saying in Indonesian she wants to go home I did explain everything to her in Swedish she did repeat it to me she does understand the need to follow up I will discharge this time. Medical Decision Making Medical Decision Making [facility] Narrative: I will get the patient over for CT and labs. concern for constipation vs diverticulitis or acute surgical abdomen. Differential Diagnosis Differential Diagnoses: The differential diagnosis associated with the presentation includes constipation vs diverticulitis or acute surgical abdomen. Admission/Observation Consideration of admission/observation: Escalation of care including admission/observation considered Lab Data [facility] Lab Attestation statement: I reviewed the patient's lab results. 08/14/24 07:15 08/14/24 07:15 Labs: Lab Results 08/14/24 Range/Units 07:15 WBC 8.0 (4.8-10.8) X10*3/uL RBC 4.52 (4.20-5.50) X10*6/uL Hgb 14.1 (12.0-16.0) g/dl Hct 40.6 (37.0-47.0) % MCV 89.8 (80.0-98.0) fL MCH 31.2 (27.0-33.0) pg MCHC 34.7 (31.0-35.0) g/dl RDW 13.2 (11.0-16.0) % Plt Count 236 (160-400) X10*3/uL MPV 10.7 (9.4-12.3) fL Immature Gran % (Auto) 0.2 (0.0-0.4) % Neut % (Auto) 57.3 (45-73) % Lymph % (Auto) 29.6 (20-40) % [place] % (Auto) 8.3 (2-11) % Eos % (Auto) 3.7 (0-4) % Baso % (Auto) 0.9 (0-2) % Lymph # (Auto) 2.4 (1.2-4.9) X10*3/uL [place] # (Auto) 0.7 (0.1-1.2) X10*3/uL Eos # (Auto) 0.3 (0.0-0.4) X10*3/uL Baso # (Auto) 0.1 (0.0-0.2) X10*3/uL Abs Immat Gran (auto) 0.02 (0.00-0.03) X10*3/uL Absolute Neuts (auto) 4.6 (2.0-8.3) x10*3/uL Absolute Nucleated RBC 0.000 (0.0-0.012) X10*3/uL Nucleated RBC % (auto) 0.0 (0.0-0.2) /100WBC Sodium 143 (135-145) mmol/L Potassium 3.9 (3.3-5.1) mmol/L Chloride 111 H (96-108) mmol/L Carbon Dioxide 25 (22-29) mmol/L Anion Gap 11 L (12-20) BUN 19 H (9-16) mg/dL Creatinine 1.12 (0.5-1.4) mg/dL Estim Creat Clear Calc 53.9 Estimated GFR 51 Random Glucose 121 H (60-115) mg/dL Calcium 9.3 (8.4-10.2) mg/dL Magnesium 2.1 (1.6-2.6) mg/dL Total Bilirubin 0.3 (0.0-1.0) mg/dL Direct Bilirubin 0.1 (0.0-0.5) mg/dL AST 28 (5-31) U/L ALT 34 H (0-31) U/L Alkaline Phosphatase 131 H (39-117) U/L Total Protein 7.4 (6.5-8.0) g/dL Albumin 4.0 (3.5-5.0) g/dL Lipase 33 (8-78) U/L Beta HCG, Quant < 2 mIU/mL Independent Interpretation I performed an independent interpretation of an: CT Scan Radiology Impression Discussion of test interpretation with radiology: I have reviewed the radiologist's reading. External Record Review External record reviewed: Inpatient record Medications Administered Discontinued Medications Generic Name Dose Route Start Last Admin Trade Name Freq PRN Reason Stop Dose Admin Iohexol 100 ml 08/14/24 08:30 08/14/24 08:32 Iohexol 350 Mg/Ml 100 Ml Infus..Btl IV 08/14/24 08:31 85 ml ONCE ONE Administration Discharge Plan Discharge Clinical Impression: Abdominal pain, Fibroid, uterine Patient Disposition: Home, Self-Care Instructions: Abdominal Pain (ED) Additional Instructions: You were seen today in the emergency department for abdominal pain you were found to have some uterine fibroids. Your labs were otherwise unremarkable. Please call follow up with your doctor if you have any other concerns please return to the ER. Prescriptions: No Action levothyroxine [Tirosint] 200 mcg capsule 200 mcg PO DAILY Qty: 30 5RF cholecalciferol (vitamin D3) 50 mcg (2,000 unit) capsule 50 mcg PO DAILY Qty: 90 3RF aspirin [Adult Low Dose Aspirin] 81 mg tablet,delayed release (DR/EC) 81 mg PO DAILY Qty: 90 3RF metoprolol succinate 25 mg tablet extended release 24 hr 25 mg PO DAILY Qty: 90 1RF nitroglycerin 0.4 mg tablet, sublingual 0.4 mg sublingual Q5M PRN (Reason: chest pain) Qty: 20 1RF Rx Instructions: do not exceed 3 doses per episode levothyroxine [Tirosint] 100 mcg capsule 100 mcg PO DAILY Qty: 30 4RF cyclobenzaprine 10 mg tablet 10 mg PO TID PRN (Reason: muscle spasm) Qty: 14 0RF albuterol sulfate [ProAir HFA] 90 mcg/actuation HFA aerosol inhaler 2 puff inhalation Q4-6H PRN (Reason: shortness of breath or wheezing) Qty: 8.5 1RF Cepacol Sore Throat (lashaun-men) 15-2.6 mg lozenge 1 rebeka mucous membrane Q2-4H PRN (Reason: sore throat) Qty: 16 0RF doxycycline monohydrate 100 mg capsule 100 mg PO BID Qty: 20 0RF benzonatate 200 mg capsule 200 mg PO TID PRN (Reason: cough) Qty: 30 0RF prednisone 20 mg tablet 40 mg PO DAILY Qty: 10 0RF cefuroxime axetil 500 mg tablet 500 mg PO BID 7 Days Qty: 14 0RF Citrucel 500 mg tablet 500 mg PO DAILY Qty: 90 2RF Rx Instructions: take it with full glass of water aripiprazole 10 mg tablet 10 mg PO DAILY clonazepam 0.5 mg tablet 0.5 mg PO DAILY PRN esomeprazole magnesium [Nexium] 40 mg capsule,delayed release(DR/EC) 40 mg PO DAILY Qty: 30 5RF bisacodyl [Dulcolax (bisacodyl)] 5 mg tablet,delayed release (DR/EC) 10 mg PO BEDTIME Qty: 180 4RF Print Language: Swedish
[2024-08-14 07:20] LABS: MANUAL DIFF FLAG NO
[2024-08-14 07:21] LABS: Basophils Absolute Auto 0.1 X10*3/uL (0.0-0.2); Basophils Percent Auto 0.9 % (0-2); Eosinophils Absolute Auto 0.3 X10*3/uL (0.0-0.4); Eosinophils Percent Auto 3.7 % (0-4); Hematocrit 40.6 % (37.0-47.0); Hemoglobin 14.1 g/dl (12.0-16.0); Imm Gran Abs Auto 0.02 X10*3/uL (0.00-0.03); Imm Gran Pct Auto 0.2 % (0.0-0.4); Lymphocytes Absolute Auto 2.4 X10*3/uL (1.2-4.9); Lymphocytes Percent Auto 29.6 % (20-40); Mean Corpuscular HGB Conc 34.7 g/dl (31.0-35.0); Mean Corpuscular Hemoglobin 31.2 pg (27.0-33.0); Mean Corpuscular Volume 89.8 fL (80.0-98.0); Mean Platelet Volume 10.7 fL (9.4-12.3); Monocytes Absolute Auto 0.7 X10*3/uL (0.1-1.2); Monocytes Percent Auto 8.3 % (2-11); Neutrophils Absolute Auto 4.6 x10*3/uL (2.0-8.3); Neutrophils Percent Auto 57.3 % (45-73); Platelet Count 236 X10*3/uL (160-400); Red Blood Count 4.52 X10*6/uL (4.20-5.50); Red Cell Distribution Width 13.2 % (11.0-16.0)
[2024-08-14 07:22] VITALS: BP 115/65; PULSE 16; RESP 18; TEMP 36.4; O2SAT 98; BMI 32.1
[2024-08-14 07:46] LABS: Alanine Aminotransferase 34 U/L (0-31); Alkaline Phosphatase 131 U/L (39-117); Anion Gap 11 (12-20); Aspartate Amino Transferase 28 U/L (5-31); Bilirubin Direct 0.1 mg/dL (0.0-0.5); Bilirubin Total 0.3 mg/dL (0.0-1.0); Blood Urea Nitrogen 19 mg/dL (9-16); Calcium 9.3 mg/dL (8.4-10.2); Carbon Dioxide 25 mmol/L (22-29); Chloride 111 mmol/L (96-108); Creatinine Clr Calc Pharmacy 53.9; Estimated Glomerular Filt Rate 51; Glucose Random 121 mg/dL (60-115); Lipase 33 U/L (8-78); Magnesium 2.1 mg/dL (1.6-2.6); Potassium 3.9 mmol/L (3.3-5.1); Sodium 143 mmol/L (135-145); Total Protein 7.4 g/dL (6.5-8.0)
[2024-08-14 08:00] LABS: HCG Quantitative < 2 mIU/mL
[2024-08-14] MEDS: iohexoL 350 MG/ML 100 ML INFUS..BTL IV (08:32)
--- NOTE | 2024-08-14 11:56 | PC.NURSE ---
Pt alerted tech she wanted to leave, at bedside speaking slovak with patient, pt continued to want to leave, IV removed, pt refused DC vitals. Pt able to ambulate out of ED stable on RA
[2024-08-14 11:57] VITALS: BP 0/0; PULSE 0; RESP 0; TEMP -17.7; TEMP 0; O2SAT 0
--- NOTE | 2024-08-14 12:10 | MHC.EDTECH ---
PT PHONE NUMBER [phone]
== END 2024-08-14 11:58 | disposition home or self-care (01) ==
PROVIDERS: Emergency Medicine; Emergency Provider Student in an Organized Health Care Education/Training Program
DX: R10.32 Left lower quadrant pain (principal); D25.9 Leiomyoma of uterus, unspecified; R06.02 Shortness of breath; F17.210 Nicotine dependence, cigarettes, uncomplicated
CPT/HCPCS: 36415; 74177; 80048; 80076; 83690; 83735; 84702; 85025; 99284; Q9967

== ENCOUNTER → 2024-08-14 07:18 | Outpatient (BNV) | payer MEDICAID, SELFPAY | PROVIDERS: Emergency Provider Student in an Organized Health Care Education/Training Program; Visit Provider Radiology Diagnostic Radiology | DX: K42.9 Umbilical hernia without obstruction or gangrene (principal) | CPT/HCPCS: 74177 ==

== ENCOUNTER 2024-08-19 09:12 | Outpatient (AMB) | payer MEDICAID, SELFPAY ==
--- NOTE | 2024-08-19 09:14 | MHC.OFFVIS ---
Vital Signs 08/19/24 09:15 Height 5 ft 1 in Weight 172 lb 13.478 oz BMI 32.7 BP 112/80 Blood Pressure Location Lt brachial Position Sitting Pulse 62 Pulse Source Pulse Oximeter Intake Visit Reasons: f/u hypothyroidism/CONF Intake Note: Patient present today for hypothyroidism office visit. Senior Interior Designer Required: Yes Senior Interior Designer Language: Quantity Surveyor Services: Senior Interior Designer Present Senior Interior Designer Name: Shaun [id number] Information Interpreted: non-clinical & clinical Accompanied by: Self / Same As Patient Allergies ibuprofen [From MOTRIN] Adverse Reaction (Intermediate, Verified 08/19/24 09:18) ABDOMINAL PAIN Medication List - Last Reconciled 08/19/24 by Marcie Márquez MD albuterol sulfate 90 mcg/actuation (ProAir HFA) 2 puffs inhalation Q4-6H PRN aripiprazole 10 mg PO DAILY aspirin (Adult Low Dose Aspirin) 81 mg PO DAILY benzocaine-menthol 15-2.6 mg (Cepacol Sore Throat (benzocaine-menthol)) 1 rebeka mucous membrane Q2-4H PRN benzonatate 200 mg PO TID PRN bisacodyl (Dulcolax (bisacodyl)) 10 mg (2 x 5 mg) PO BEDTIME cefuroxime axetil 500 mg PO BID 7 days cholecalciferol (vitamin D3) 50 mcg PO DAILY clonazepam 0.5 mg PO DAILY PRN cyclobenzaprine 10 mg PO TID PRN doxycycline monohydrate 100 mg PO BID esomeprazole magnesium (Nexium) 40 mg PO DAILY methylcellulose (laxative) (Citrucel) 500 mg PO DAILY metoprolol succinate ER 25 mg PO DAILY nitroglycerin 0.4 mg sublingual Q5M PRN prednisone 40 mg (2 x 20 mg) PO DAILY Tirosint (levothyroxine) 100 mcg PO DAILY NS HPI Comments Details: 53 YO F with who is seen for follow up of Hyothyroidism. HPI from prior visit First diagnosed with Hypothyroidism many yrs ago with labs revealing elevated TSH . She has a longstanding history of poor adherence to the medication leading to elevated TSH levels in the 50s and 60s. Interval history Apparently she has been off Tirosint for many months since October 2023, labs most recently from 08/08/2024 showed elevated TSH of 62.7, low free T4 of 0.67 She was restarted on Tirosint 100 mcg daily by her primary care physician beginning of August. Today's visit 08/19/2024 it has been 2 weeks. Currently using Tirosint 100 ug - she takes it at 6 AM , eats breakfast at 10 AM +fatigue, +weight gain, -cold intolerance, +dry skin, +hair loss, +constipation. There is hx of hyperlipidemia . Denies obstructive sx of goiter . Denies consuming any kelp or seaweed. Denies taking amiodarone. Biotin: No Family hx of thyroid dx:No Physical exam General: sitting comfortably in no acute distress HEENT: normocephalic/atraumatic, Neck: supple, symmetrical, no thyromegaly Cardiac: normal heart sounds Pulm: normal breath sounds B/L, no added breath sounds Abd: not distended, no tenderness Extremities: no edema, no signs of myxedema Neuro: AAO x3, Speech: normal, no facial droop, moving all 4 extremities Laboratory Tests 09/27/22 12/12/22 08/03/23 15:40 13:55 16:01 TSH 5.69 H 50.16 H 6.91 H Free T4 1.31 0.67 L 10/02/23 10/09/23 12/03/23 12:33 16:37 14:50 TSH 28.14 H 25.25 H 0.94 Free T4 01/07/24 01/07/24 08/08/24 15:56 15:56 12:05 TSH 41.33 H 42.35 H 62.70 H Free T4 0.51 L 0.67 L US THYROID 10/2023 CLINICAL INFORMATION: Neck pain COMPARISON: Previous thyroid ultrasound October [address] of the neck May 2022 TECHNIQUE: Linear transducer grayscale and color Doppler examination with attention to the region of the thyroid. FINDINGS: SIZE: Measurements of the thyroid lobes and nodules are given in sagittal, anteroposterior and transverse dimensions respectively. Right Thyroid Lobe: 2.9 x 1.2 x 0.9 cm, volume 1.7 mL. Parenchyma: The gland echotexture is heterogeneous. Thyroid vascularity is normal. Left Thyroid Lobe: 2.3 x 1.5 x 1.1 cm, volume 2 mL. Parenchyma: The gland echotexture is heterogeneously yes. Thyroid vascularity is normal. Isthmus: There are 0.2 cm in maximum AP dimension. The thyroid gland is heterogeneous, slightly hypoechoic and lobulated in shape. Appearance is similar to prior exam. Measurements are slightly decreased from previous exam. No focal nodule. NODES: 2 normal-appearing left cervical lymph nodes adjacent to the thyroid gland. US/US thyroid IMPRESSION: Small heterogeneous lobulated thyroid gland. Ultrasound appearance is suggestive of old thyroiditis. The thyroid gland is decreased in size from previous exams. [facility] Medical History Hypothyroidism Arthritis Low calcium levels High cholesterol H/O gastric ulcer H/O gastritis Hyperthyroidism Surgical History History of salpingectomy Family History Mother Hypertension Diabetes Father No problems noted. 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 She was off the medicine since October 2023 due to poor adherence and follow up. I spent a large part of the visit today explaining to her the importance of taking this medication consistently and risk of myxedema coma and with poor adherence. Patient verbalized understanding. Plan: -continue Tirosint 100 mcg daily -blood work in 4 weeks which would be sometime in mid September 2024 -follow up in 3 months Plan see above Orders: Orders Thyroid Stimulating Hormone 4 Weeks E06.3 - Autoimmune thyroiditis Free T4 (Free Thyroxine) 4 Weeks E06.3 - Autoimmune thyroiditis Medications: Refilled Tirosint (levothyroxine) 100 mcg PO DAILY 30 caps 5RF NS Patient Instructions: Continue Tirosint 100 mcg daily Do blood work in 4 weeks We will reach out with results Follow up in 3 months Continuar con Tirosint 100 mcg al d?a. Hacer an?lisis de phil en 4 semanas. Nos comunicaremos con los resultados. Seguimiento en 3 meses. 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
[2024-08-19 09:15] VITALS: BP 112/80; PULSE 62; BMI 32.7
== END 2024-08-19 09:39 | disposition home or self-care (01) ==
PROVIDERS: PCP Registered Nurse; Visit Provider Student in an Organized Health Care Education/Training Program
DX: E06.3 Autoimmune thyroiditis (principal)
CPT/HCPCS: 99213

== ENCOUNTER → 2024-08-19 09:12 | Outpatient (BNVA) | payer MEDICAID, SELFPAY | PROVIDERS: PCP Registered Nurse; Visit Provider Student in an Organized Health Care Education/Training Program | DX: E06.3 Autoimmune thyroiditis (principal) | CPT/HCPCS: 99212 ==

== ENCOUNTER 2024-08-21 16:36 | Outpatient (REF) | payer MEDICAID, SELFPAY | END 2024-08-21 16:37 | disposition home or self-care (01) | LOC: HO.HHCLNP 16:36 | PROVIDERS: Visit Provider Advanced Practice Midwife | DX: R32 Unspecified urinary incontinence (principal) | CPT/HCPCS: 87086 ==

== ENCOUNTER 2024-10-13 12:31 | Outpatient (REF) | payer MEDICAID, SELFPAY ==
--- OUTSIDE RECORDS SUMMARY | 2024-10-13 13:34 | XMS_ITS | Data Portability ---
Author Organization [place] - [facility], Allergy Address [address] [place] [id number] Assessment No assessment recorded. Plan of Treatment Reminders Order Date Submit Date Provider Last Modified By Organization Details Last Modified Time Details Appointments None recorded. Lab None recorded. Referral None recorded. Procedures polysomno graphy, diagnosti c (PROC) 2023 024 [facility], [address] [place] [address], [address], 4 16:25:15 Surgeries None recorded. Imaging CT, neck, soft tissue, w/ contrast 2023 024 [facility] Radiology (Hsg Scheduling), [address] [place], [address] 4 16:23:23 Medication Orders None recorded. Patient TargetsNo targets recorded. Patient InstructionsNo instructions recorded. Reason for Referral None Reported. Problems Name Problem SNOMED Code Status Onset Date Resolution Date Notes Provider Name and Address Organization Details Recorded Time Hypertrophy of tonsils 92953990 Active 2023 JASWINDER Velasquez MD [address] [place] [address], [place], [address], [place] - [facility] 4 16:03:59 Chronic hoarseness 5135185732959 Active 2023 JASWINDER Velasquez MD [address] [place] [address], [place], [phone], [facility] - [facility] 4 16:04:05 Dysphagia 91513759 Active 2023 JASWINDER Velasquez MD [address] [place], [place] [address], [address], [place] - [facility] 4 16:04:11 Chronic sore throat 313786178 Active 2023 JASWINDER Velasquez MD [address] [address], [place], [address], [facility] - [facility] 4 16:15:10 Obstructive sleep apnea of adult 7540673196692 Active 2023 JASWINDER Velasquez MD [address] [address], [place], [address], [facility] - [facility] 4 16:18:03 Problem Notes None recorded. Procedures Surgical History Date Name Laterality Status Provider Name and Address Organization Details Recorded Time 02/11/2024 FFL_RE completed JASWINDER LANDEROS MD [address] [address], [place], [address], [facility] - [facility] 02/11/2024 16:04:48 Imaging Results None recorded. Procedure Notes None recorded. Medical Equipment None Reported. Medications Name Sig Start Date Stop Date Status Note LastModified by Organization Details LastModified Time amoxicillin 500 mg capsule active Not Available Not Available Not Available levothyroxin e 175 mcg tablet active Not Available Not Available Not Available ketoconazole 2 % shampoo APPLY TOPICALLY 3 TIMES A WEEK active Not Available Not Available No t Available senna 8.6 mg tablet TAKE 2 TABLETS BY MOUTH AT BEDTIME FOR CONSTIPATIO N active Not Available Not Available No t Available metronidazol e 0.75 % (37.5 mg/5 gram) vaginal gel INSERT VAGINALLY AT BEDTIME FOR 5 DAYS active Not Available Not Available N ot Available prednisone 20 mg tablet TAKE 2 TABLETS BY MOUTH DAILY active Not Available Not Available Not Available clonazepam 0.5 mg tablet TAKE 1 TABLET BY MOUTH ONCE DAILY NEEDED FOR SEVERE ANXIETY/COTTER IC DISORDER active Not Available Not Available Not Available pantoprazole 40 mg tablet,delay ed release TAKE 1 TABLET BY MOUTH DAILY active Not Available Not Available Not Available esomeprazole magnesium 40 mg capsule,cathleen yed release TAKE 1 CAPSULE BY MOUTH DAILY active Not Available Not Available Not Available triamcinolon e acetonide 0.1 % topical ointment APPLY TOPICALLY TO THE AFFECTED AREA TWICE DAILY FOR 2 WEEKS active Not Available Not Available No t Available lidocaine 5 % topical patch APPLY 1 PATCH TOPICALLY IN THE MORNING. REMOVE AND DISCARD PATCH WITHIN 12 HOURS OR DIRECTED BY MD active Not Available Not Available No t Available Citrucel 500 mg tablet TAKE 1 TABLET BY MOUTH DAILY WITH FULL GLASS OF WATER active Not Available Not Available No t Available levothyroxin e 200 mcg tablet active Not Available Not Available Not Available cefuroxime axetil 500 mg tablet TAKE 1 TABLET BY MOUTH TWICE DAILY FOR 10 DAYS active Not Available Not Available No t Available Ventolin HFA 90 mcg/actuatio n aerosol inhaler INHALE 2 PUFFS BY MOUTH EVERY 4 TO 6 HOURS NEEDED FOR SHORTNESS OF BREATH OR WHEEZING active Not Available Not Available Not Available aripiprazole 10 mg tablet TAKE 1 TABLET BY MOUTH DAILY active Not Available Not Available Not Available aripiprazole 5 mg tablet TAKE 1 TABLET BY MOUTH DAILY active Not Available Not Available Not Available fluocinolone 0.01 % scalp oil and shower cap APPLY OUNCE TOPICALLY TO THE AFFECTED AREA DAILY. LEAVE ON FOR 5 MINUTES AND RINSE active Not Available Not Available No t Available chlorhexidin e gluconate 0.12 % mouthwash SWISH AND SPIT 15 ML BY MOUTH MORNING AND NIGHT FOR 1 MINUTE. DO NOT EAT OR DRINK FOR 30 MINUTES active Not Available Not Available N ot Available aripiprazole 2 mg tablet TAKE 1 TABLET BY MOUTH EVERY DAY active Not Available Not Available No t Available diclofenac 1 % topical gel APPLY TOPICALLY TO AFFECTED AREAS TWICE DAILY active Not Available Not Available No t Available cholecalcife rol (vitamin D3) 50 mcg (2,000 unit) capsule TAKE 1 CAPSULE BY MOUTH EVERY DAY active Not Available Not Available No t Available Tirosint 75 mcg capsule TAKE ONE CAPSULE BY MOUTH EVERY DAY WITH 200 MCG TABLETS active Not Available Not Available No t Available Tirosint 100 mcg capsule TAKE 1 CAPSULE BY MOUTH DAILY. TAKE ALONG WITH 200 MG DOSE FOR TOTAL OF 300 MG active Not Available Not Available No t Available Vitals Date Recorded Body height Body mass index (BMI) Body weight Provider Name and Address Organization Details Last Updated DateTime 02/11/2024 154.94 cm 30.2 kg/m2 05668.78 g Makeda Ordoñez [facility] 02/11/2024 15:52:46 Social History None recorded. Functional Status None recorded. Mental Status None recorded. Family History Nothing Reported. Medical History No medical history recorded. Gynecological HistoryNo gynecological history recorded. Obstetrics History GPAL:G 0 P 0 0 0 0 Past Encounters Encounter ID Performer Location Encounter Start Date Encounter Closed Date Diagnosis/Indication Diagnosis SNOMED-CT Code Diagnosis ICD10 Code Diagnosis Note [id number] JASWINDER LANDEROS MD [facility] on [address] [place] [address] 02/11/2024 14:53:08 02/11/2024 16:19:08 Hypertrophy of tonsils 04040772 J35.1 Chronic hoarseness [address] 105 R49.0 Normal vocal cord exam. Dysphagia 26283273 R13.1 0 FFL was negative for obstructiv e lesions. Chronic sore throat 2754 36743 J31.2 Exam was benign. Tonsils are 2+. I will order a CT neck with contrast to exclude an underlying neoplasm. I discourage d tonsillect joselin. Obstructiv e sleep apnea of adult 6169117542 103 G47.33 Will order a PSG to evaluate. Health Concerns Section Related Observation LastModified by Organization Detai ls LastModified Time None Recorded Concern Status LastModified by Organization Details LastModified Time None Recorded Advance Directives Directive None Recorded Payers Encounter Date Sequence Insurance Name Policy Number Policy Veloz Covered Member ID Veloz Member ID Guarantor Name 02/11/2024 1 [place] [facility] Meagan [place] [id number] Meagan [place] Notes Date Note Type Note Provider Name and Address Organization Details Recorded Time 02/11/2024 text/html She reports tons il hypertrophy. She reports it causes difficulty swallowing. She feels swelling and inflammation in her throat. Her ears are very itchy and she occasionally she has right ear pain. She has occasional hoarseness. She quit smoking 3 weeks ago. She snores. She reports some obstruction in her breathing at night. JASWINDER LANDEROS MD [address] [place] [address], [place], [address], [place] - [facility] 02/11/2024 16:22:22 OBGyn Episode No OBEpisode recorded.
--- OUTSIDE RECORDS SUMMARY | 2024-10-13 13:34 | XMS_ITS | Encounter Summary ---
Author Organization [employer] Address [address] [place] [address] [address] [place] [address] Care Team Providers Care Senior Unix Administrator Name Role Phone [place] [facility] Primary Care Provider Martin Green RN Unavailable [phone] Reason for Visit * Reason Comments Care Coordination SDOH f/u Encounter Details Date Type Department Care Team (Latest Contact Info) Description 09/18/2024 Patient Outreach [facility] MEDICINE [address] [place] [address] [facility], [facility] [address] [place] [address] Care Coordination (SDOH f/u) Social History Tobacco Use Types Packs/Day Years Used Date Smoking Tobacco: Every Day Cigarettes Smokeless Tobacco: Never Comments:2 packs a day Alcohol Use Standard Drinks/Week Comments Not Currently 2 (1 standard drink = 0.6 oz pur e alcohol) Rare Occassions/Holidays Depression Answer Date Recorded Patient Health Questionnaire-9 Score 11 09/02/2024 Patient Health Questionnaire-9 Score 11 09/02/2024 Last PHQ-9: Questionnaire Data Not on file 1 Housing Stability Answer Date Recorded What is your housing situation today? I have mp cavazos 07/22/[address] you li ve. Do you have problems with any of the following? None of the above 07/22/2024 Food Insecurity Answer Date Recorded Within the past 12 months, y ou worried that your food would run out before you got money to buy more: Sometimes True 2023 Within the past 12 months,th e food you bought just didn't last and you didn't have enough money to get more: Sometimes True 08/07/2024 Transportation Answer Date Recorded In the past 12 months, has l ack of transportation kept you from medical appts, meetings, work or from getting things needed for daily living? No 07/22/2024 Utilities Answer Date Recorded In the past 12 months, has t he electric, gas, oil or water company threatened to shut off services in your home? No 07/22/2024 Depression Answer Date Recorded Patient Health Questionnaire-2 Score 4 09/02/2024 Internet Access Answer Date Recorded Internet Access Q1 Yes 07/22/2024 Internet Access Q2 Not on file 07/22/2024 Comments No Sex and Gender Information Value Date Recorded Sex Assigned at Female 07/03/2022 10:15 AM EDT Legal Sex Female 10:15 AM EDT Gender Identity Female 07/03/2022 10:15 AM EDT Sexual Orientation Straight 07/03/2022 10 :15 AM EDT documented as of this encounter Progress Notes * Michelle Rosales - 09/18/2024 11:56 AM EST CHW Michelle Rosales placed outbound call to patient for follow up call on SDOH needs. No answer at this time. LVM introducing herself from [facility] CM Department. Requested call back. CHWreinforced direct contact information or CM for any additional questions or concernsand extended clinic hours on Mondays and Wednesdays, and Walk-In Urgent Care Located in [facility]. Patient provided with after-hours line for [facility], , which offer night time triage service and option to transfer to financial institution president provider if needed. CHW will attempt another follow up call within 10 days. documented in this encounter Plan of Treatment Not on file documented as of this encounter Visit Diagnoses Not on filedocumented in this encounter Additional Health Concerns Assessment Noted Time PHQ-9 Depression Total Score: 11 024 12:00 PM EST documented as of this encounter Care Teams Senior Unix Administrator Relationship Specialty Start Date End Date Elizabeth Vera FNP [address] [place] [address] PCP - General Family Medicine 07/20/22 Martin Green RN [address] [place] [address] [place] [address] FloormanTop Cager 08/05/24 documented as of this encounter
--- OUTSIDE RECORDS SUMMARY | 2024-10-13 13:34 | XMS_ITS | Encounter Summary ---
Author Organization [employer] Address [address] [place] [address] [address] [place] [address] Care Team Providers Care Computer Field Technician Name Role Phone Mcc[place] [facility] Primary Care Provider [phone] Martin Green RN Unavailable [phone] Reason for Visit * Reason Comments Care Coordination Appt reminder Encounter Details Date Type Department Care Team (Latest Contact Info) Description 09/19/2024 Patient Outreach [facility] MEDICINE [address] [place] [address] [facility] [address] [place] [address] Care Coordination (Appt reminder) Social History Tobacco Use Types Packs/Day Years [...] encounter Progress Notes * Michelle Rosales - 09/19/2024 11:18 AM EST CHW Michelle Rosales placed call to remind patient of appt for Telehealth with [facility] Psych on 09/23/24 at 4:00pm, no answer at this time LVM. documented in this encounter Plan of Treatment Not on file documented as of this encounter Visit Diagnoses Not on filedocumented in this encounter Additional Health Concerns Assessment Noted Time PHQ-9 Depression Total Score: 11 024 12:00 PM EST documented as of this encounter Care Teams Computer Field Technician Relationship Specialty Start Date End Date Elizabeth Vera FNP [address] [place] [address] PCP - General Family Medicine 07/20/22 Martin Green RN [address] [place] [address] Cane StripperSlide Maker 08/05/24 documented as of this encounter
--- OUTSIDE RECORDS SUMMARY | 2024-10-13 13:34 | XMS_ITS | Encounter Summary ---
Author Organization [employer] Address [address] [place] [address] [address] [place] [address] Care Team Providers Care Rail Crew Member Name Role Phone [place] [facility] Primary Care Provider [phone] Martin Green RN Unavailable [phone] Reason for Visit * Reason Comments Care Coordination Appt reminder Encounter Details Date Type Department Care Team (Latest Contact Info) Description 09/26/2024 Patient Outreach [facility] [address] [place] [address] [facility] [address] [place] [address] Care Coordination (Appt reminder) Social History Tobacco [...] encounter Progress Notes * Michelle Rosales - 09/26/2024 9:17 AM EST CHW Michelle Rosales placed outbound call to patient. No answer at this time. [facility] of [facility] [place] at 1:30pm. 2nd floor Radiology- [facility]. Requested call back to or CM , as well as for any additional questions or concerns. documented in this encounter Plan of Treatment Not on file documented as of this encounter Visit Diagnoses Not on filedocumented in this encounter Additional Health Concerns Assessment Noted Time PHQ-9 Depression Total Score: 11 024 12:00 PM EST documented as of this encounter Care Teams Rail Crew Member Relationship Specialty Start Date End Date Elizabeth Vera FNP [address] [place] [address] PCP - General Family Medicine 07/20/22 Martin Green RN [address] [place] [address] Quenching Car OperatorLine Production Cook 08/05/24 documented as of this encounter
--- OUTSIDE RECORDS SUMMARY | 2024-10-13 13:34 | XMS_ITS | Encounter Summary ---
Author Organization [employer] Address [address] [place] [address] [address] [place] [address] Care Team Providers Care Director Of Intercollegiate Athletics Name Role Phone [place] [facility] Primary Care Provider [phone] Martin Green RN Unavailable [phone] Reason for Visit * Reason Comments Pre-visit Planning SDOH screening negat ole and tobacco screening negative Encounter Details Date Type Department Care Team ([facility] st Contact Info) Description 10/01/2024 Patient Outreach [facility] [address] [place] [address] [facility] [address] [place] [address] Pre-visit Planning (SDOH screening negative and tobacco screening negative) Social History Tobacco Use Types Packs/Day Years [...] before you got money to buy more: Never True 10/01/2024 Within the past 12 months,th e food you bought just didn't last and you didn't have enough money to get more: Never True Transportation Answer Date Recorded In the past [...] as of this encounter Progress Notes * Viviana Martinez - 10/01/2024 1:59 PM EST CC Viviana placed successful outbound call to patient for pre-visit planning. Patient name and confirmed. Patient confirms appt date and time, and has transportation. Biggest concern for appointment at this time is none Patient advised to bring to appointment a photo id and insurance card. Appropriate screenings completed in anticipation of appointment. documented in this encounter Plan of Treatment Not on file documented as of this encounter Visit Diagnoses Not on filedocumented in this encounter Additional Health Concerns Assessment Noted Time PHQ-9 Depression Total Score: 11 024 12:00 PM EST documented as of this encounter Care Teams Director Of Intercollegiate Athletics Relationship Specialty Start Date End Date Elizabeth Vera FNP [address] [place] [address] PCP - General Family Medicine 07/20/22 Martin Green RN [address] [place] [address] Technical Account ExecutiveCorporate Licensed Broker 08/05/24 documented as of this encounter
--- OUTSIDE RECORDS SUMMARY | 2024-10-13 13:34 | XMS_ITS | Clinical Summary ---
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 Mapap Arthritis Pain 650 MG ER tablet Take 650 mg by mouth every 8 (eight) hours if needed. 2 Active ammonium lactate (Amlactin) 12 % cream apply 1 liberally by Topical route 2 times every day to feet 8 Active atorvastatin (Lipitor) 20 MG tablet Take 1 tablet by mouth 1 (one) time each day. 2 Active naproxen (Naprosyn) 500 MG tablet take 1 tablet by oral route 2 times every day with food as needed 1 Active nicotine polacrilex (Nicorette) 2 MG gum chew 1 piece of gum by oral route every 2 hours as needed and as directed 1 Active Fluocinolone Acetonide Scalp ([place]-Smoothe/F S Scalp) 0.01 % oilIndications:A topic dermatitis of scalp Apply 1 oz to affected area daily. Leave on for 5 minutes and rinse 120 mL 1 3 Active cetirizine (ZyrTEC) 10 MG tablet Take 1 tablet (10 mg) by mouth in the morning. 30 tablet 11 3 Active ketotifen (Alaway) 0.025 % ophthalmic solution Administer 1 drop into both eyes 2 times daily. 10 mL 2 3 Active lidocaine (Lidoderm) 5 % patchIndications :Chest pain, muscular Apply 1 patch topically in the morning. Remove & discard patch within 12 hours or as directed by MD. 30 patch 2 3 Active Additional Information Patient not taking.Reported on 08/08/2024 tiZANidine (Zanaflex) 2 MG tabletIndication s:Chest pain, muscular Take 1-2 tablets by oral route daily at bedtime 30 tablet 1 3 Active famotidine (Pepcid) 10 MG tabletIndication s:Gastroesophage al reflux disease, unspecified whether esophagitis present Take 10mg twice daily as needed for acid reflux 60 tablet 1 4 Active Sennosides (Senna) 8.6 MG capsuleIndicatio ns:Constipation, unspecified constipation type Take 1 capsule by oral route as needed in the evening for constipation 30 capsule 4 Active Diclofenac Sodium 1 % gelIndications:C hest pain, muscular APPLY TOPICALLY TO AFFECTED AREAS TWICE DAILY 100 g 4 Active triamcinolone (Kenalog) 0.1 % ointmentIndicati ons:Rash Apply topically 2 times daily. For 2 weeks 15 g 4 Active chlorhexidine (Peridex) 0.12 % solution Swish 15 mL morning and night for 1 minute. Spit, do not swallow. Do not eat or drink for 30 minutes following use. 473 mL 4 Active ketoconazole (NIZOral) 2 % shampooIndicatio ns:Atopic dermatitis of scalp APPLY TOPICALLY 3 TIMES A WEEK. 120 mL 1 4 Active albuterol 108 (90 Base) MCG/ACT inhalerIndicatio ns:Acute bronchitis, unspecified organism Inhale 2 puffs every 6 (six) hours if needed for wheezing. 18 g 11 4 025 Active Spacer/Aero-Hold Chamber Mask miscIndications: Acute bronchitis, unspecified organism Use as directed with inhaler 1 each 4 Active fluticasone (Flonase) 50 MCG/ACT nasal sprayIndications :Acute bronchitis, unspecified organism Administer 1-2 sprays into each nostril Once per day. Shake gently. Before first use, prime pump. After use, clean tip and replace cap. 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 30 g 4 025 Active Spacer/Aero-Hold ing Chambers (OptiChamber Linda-Lg Mask) device USE DIRECTED WITH INHALER 4 Active nitroglycerin (Nitrostat) 0.[address] 0.4 mg under the tongue. 4 Active esomeprazole (NexIUM) [address] capsule Take 1 capsule by mouth Once per day. 4 Active cholecalciferol VITAMIN D (Vitamin D-3) 50 MCG (2000 UT) capsule Take 1 capsule by mouth Once per day. 4 Active Bisacodyl EC 5 MG EC tablet Take 10 mg by mouth at bedtime. 4 Active Aspirin Low Dose 81 MG EC tablet Take 81 mg by mouth Once per day. Active ARIPiprazole (Abilify) 10 MG tabletIndication s:Bipolar I disorder (CMS/HCC) Take 1 tablet (10 mg) by mouth Once per day. 30 tablet 1 4 025 Active Active Problems Problem Noted Date Diagnosed Date Hand pain 08/08/2024 Assessment & Plan (08/08/2024 7:05 PM EST): Pt w hand pain bl ,from description arthralgias but unsure if actually having swelling of joints ,does have symptoms consistent w CTS and from exam has bl Phalen test + Pt has hx of uncontrolled hypothyroidism and this can contribute to joint pain,CTS Also pt does have patches in extensor surfaces of her arms and in knees that are consistent w psoriasis so psoriatic arthritis as well in the differential. -has apt w Forensic Audit Expert for her hypothyroidism in 09/2024 ,per pt is complaint w her thyroid med-levothyroxine 200 mcg daily ,takes it in fasting and takes rest of meds 1 hours after, -confirmed dose of med with her pharmacy and that she is picking up med consistently---will check TFT -check NATE,CCP,RF ,CRP,ESR,TSH,T4 ,Chem,hb1AC,CBC -bl hand XR ordered today -will call pt w result ,if neg but ongoing pain and no better w wrist brace will need foxing painter to eval for possibility of psoriatic arthritis possibility ? -bl wrist brace requested to D[facility] Duran today -tylenol -Diclofenac gel Skin rash 08/08/2024 Assessment & Plan (08/08/2024 7:08 PM EST): -to see dermatologsit referred in 07/28/2024 for skin rash by PCP -pd to get apt -advisd to call clinic if not hear to get apt in next couple of weeks -will need to consider psoriasis from clinical presentation -continue triamcinolone cream px by PCP -helping Leg pain 08/08/2024 Assessment & Plan (08/08/2024 7:07 PM EST): Calf pain low concern for DVT but will r/o -Doppler US leg left STAT -set to [facility] sp -advised raise leg -tylenol -Diclofenac gel -alarm signs and symptoms discussed today Health care maintenance 08/08/2024 Assessment & Plan (08/08/2024 7:07 PM EST): Refuse flu and covid 19 vaccines today Intertrigo 04/03/2024 Acute bacterial conjunctivitis of right eye 09/2023 GERD (gastroesophageal reflux disease) Periodontal disease 02/01/2024 Extruded tooth 02/01/2024 Mixed hyperlipidemia 10/17/2023 Overview (10/17/2023): ASCVD 5% 02/2023 Chronic tonsillar hypertrophy 10/04/2023 Hoarseness of voice 10/04/2023 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 Assessment & Plan (09/02/2024 12:23 PM EST): During IBH Consult Meagan presenting with depressed mood, Tearful, crying spells , irritable mood, loss of interests/pleasure , sense of isolation/loneliness , isolating, changes in sleep difficulty falling asleep and difficulty staying asleep , fatigue/loss of energy, worthlessness, inappropriate/excessive guilt , difficulty concentrating, intensive yearning, significant distress, loneliness, denial, avoidance of reminders, and emotional pain associated with her loss; for a period of 18+ mo, for most or all symptoms in the context of and illness or family illness. Meagan carries a diagnosis for Bipolar disorder per her medical chart. She is currently connected with psychiatry services with [facility] provider, Adam Jane. Meagan reported her mom Concetta 2 years ago on . She continues to experience emotional pain associated with her loss. The holidays are a trigger for her and her family. We discussed ways of honoring her mother and continuing her legaly. Meagan enjoys cooking, cleaning and organizing her house and preparing big meals for the holidays. Traditions that she heredity from her mom. Positive support received from her family. Pt reports seeing improvements with medication treatment. clinician engaged patient with active/reflective listening. Provided a safe space for patient to share her emotions and memories she has with her mother. Reviewed and assessed for risk, current stressors and protective factors using open-ended questions. Pt will continue psychopharmacology treatment and will be referred out for OP individual therapy. clinician will provide additional support as needed/request. Tobacco use 07/11/2023 Overview (10/08/2023): ?? 4-6 per day ?? Quit 08/2023 Assessment & Plan (08/08/2024 7:06 PM EST): States has patches and gums of nicotine at home and is considering to start smoking cessation -encouraged pt in quitting Assessment & Plan (08/10/2023 10:30 AM EST): ?? Congratulated patient on successful cessation! Chest pain 12/29/2022 Seasonal allergies 12/29/2022 Acquired hypothyroidism 10/07/2015 Assessment & Plan (08/10/2023 10:29 AM EST): ?? Repeat TSH Assessment & Plan (09/10/2022 1:29 PM EST): -Currently on levothyroxine 225mcg daily -Previously referred to Endo although appears did not make it to appt -Check TSH -Possible non-adherence to medication, although pt reports has been taking both pills daily 30-60 mins before breakfast, meds, or non-water beverages Bipolar I disorder 10/07/2015 Assessment & Plan (08/10/2023 10:29 AM EST): ?? Denies active SI or thoughts of self harm. Reports feeling that she is able to manage hearing voices well and does not want to restart medication. Previously on abilify. ?? Patient well appearing during OV. A & O x 3. However I am concerned for safety given violent nature of some of her auditory hallucinations. consulted during visit. Determined patient safe to return home with close follow up and to reestablish with psychiatry if needed ?? Pt has crisis phone number Assessment & Plan (08/06/2023 9:37 AM EST): Assessment: Patient presents with SI symptoms. Denies self-harm, SI, HI at this time. Reason for visit was to assess symptoms and provide support to patient. She is engage in Ind. Therapy but has not been able to engage in Medication Management. Symptoms are present in the context of mother passing 2 years ago, son involve in gangs, seeking Medication Management treatment. Provided psychoeducation around Medication management, coping mechanisms to address depressive, anxiety and grief symptoms and [facility] Crisis information. At this time Meagan Canada meets criteria for Visit Diagnoses: Problem List Items Addressed This Visit Other Bipolar I disorder (CMS/HCC) Prolonged grief disorder Patient ready to address current needs Yes Strengths include Meagan is in action stage of change. PLAN: 1. Follow up with [facility]: Recommended for follow-up: as needed 2. Patient goal is engage in Medication Management 3. Behavioral Recommendations a. Referral to [facility] Psychopharmacology will be submitted b. Use of coping skills provided c. Continuation of Ind. Therapy with her provider d. [facility] contact information provided Generalized abdominal pain 10/07/2015 Uterine leiomyoma 10/07/2015 Encounters * This document contains information received from the source organization and may not represent a complete record from that organization. Date Type Department Care Team Description 10/13/2024 11:15 AM EST Office Visit [address] [address] Elizabeth Vera FNP Acquired hypothyroidism (Primary Dx) 10/13/2024 Travel 10/09/2024 Patient Outreach [address] [address] Elizabeth Vera FNP Care Coordination (SDOH) 10/01/2024 Patient Outreach [address] [address] Elizabeth Vera FNP Pre-visit Planning (SDOH screening negative and tobacco screening negative) 09/30/[address] [address] Martin Green RN Care Management (C3CM- f/u call lvm) 09/26/2024 Patient Outreach [address] [address] Elizabeth Vera FNP Care Coordination (Appt reminder) 09/19/2024 Patient Outreach [address] [address] Elizabeth Vera FNP Care Coordination (Appt reminder) 09/18/2024 Patient Outreach [address] [address] Elizabeth Vera FNP Care Coordination (SDOH f/u) 09/16/[address] [phone] Martin Green RN Care Management (C3CM- f/u call) 09/08/2024 Patient Outreach [address] [address] Elizabeth Vera FNP Care Coordination (SDOH f/u) 09/08/[address] [address] Martin Green RN Care Management (C3CM- f/u call #2 lvm) 08/29/2024 Patient Outreach [address] [address] Elizabeth Vera FNP Care Coordination (Appt reminder) 08/26/2024 Patient Outreach [address] [address] Elizabeth Vera FNP Care Coordination (Appt reminder) 08/22/2024 Patient Outreach [address] [address] Elizabeth Vera FNP Care Coordination (SDOH f/u) 08/22/[address] [address] Martin Green RN Care Management (C3CM- f/u call) 08/21/2024 11:00 AM EST Office Visit [address] [address] Kirstin Robert, SHO Pelvic pain (Primary Dx); Urinary incontinence, unspecified type; Intertrigo; Uterine leiomyoma, unspecified location 08/21/2024 Travel 08/20/2024 Patient Outreach [address] [address] Elizabeth Vera FNP Care Coordination (Appt reminder) 08/20/[address] [address] Elizabeth Vera FNP Stable Lab Letter 08/18/2024 2:30 PM EST Office Visit [facility] [address] [place] [id number] Moises, Edda, OD Presbyopia of both eyes (Primary Dx); Dry eyes, bilateral 08/18/2024 Patient Outreach [address] [address] Elizabeth Vera FNP Care Coordination (Appt reminder) 08/17/2024 Travel 08/15/[address] [address] Martin Green RN Care Management (C3CM- f/u call) 08/15/2024 Patient Outreach [address] [address] Elizabeth Vera [facility] Care Coordination (Appt reminder) 08/14/2024 Orders Only GENERIC EXTERNAL DATA DEPARTMENT Provider, Generic External Data 08/12/2024 Patient Outreach [address] [address] Elizabeth Vera [facility] Care Coordination (SDOH) 08/11/[address] [address] Elizabeth Vera SENIOR OFFICER Results 08/08/2024 11:15 AM EST Office Visit [address] [address] Agnieszka Sahu MD Arthralgia, unspecified joint (Primary Dx); Pain in both hands; Pain of left lower extremity; Acquired hypothyroidism; Skin rash; Tobacco use; Health care maintenance 08/08/[address] [address] Elizabeth Vera SENIOR OFFICER Results 08/08/2024 Orders Only [address] [address] Agnieszka Sahu MD 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 08/08/[address] [address] Raisa Tabor MA Durable Medical Equipment 08/08/2024 Orders Only GENERIC EXTERNAL DATA DEPARTMENT Provider, Generic External Data 08/08/2024 Travel 08/07/2024 Patient Outreach [address] [address] Elizabeth Vera SENIOR OFFICER Care Coordination (SDOH/appt reminder) 08/05/[address] [address] Martin Green RN Care Management ([facility]- initial assessment/ enrollment) 08/04/[address] [address] Michell Navarrete RN 08/04/2024 Patient Outreach [address] [address] HenningElizabeth [facility] 08/04/2024 Patient Outreach [address] [address] HenningElizabeth [facility] Care Coordination (CM/CHW appt reminder) 07/29/2024 Patient Outreach [address] [address] HenningElizabeth [facility] Care Coordination (CM/CHW outreach) 07/29/[address] [address] Martin Green RN Care Management ([facility]- chart review) 07/22/2024 10:30 AM EST Office Visit [address] [address] Elizabeth Vera [facility] Anxiety and depression (Primary Dx); Acute bronchitis, unspecified organism; Elevated serum creatinine; Bipolar I disorder ([facility]); Rash 07/22/2024 Travel 07/18/[address] [address] Elizabeth Vera FNP Provider out 07/18 from Last 3 Months Immunizations Name Administration Dates Next Due Influenza, IIV3, injectable 05/26/2014 Pfizer Covid-19 Vaccine 12+ 05/06/2021, 1 Pneumococcal Polysaccharide PPSV23 11/08/2011 TD (adult), 2 Lf tetanus tox oid, preservative free, adsorbed 02/09/2018,10/26/2003 Tdap 11/08/2011 Social History Tobacco Use Types Packs/Day Years Used Date Smoking Tobacco: Every Day Cigarettes Smokeless Tobacco: Never Tobacco Cessation:Ready to Q uit: Not Asked; Counseling Given: Not Answered Comments:2 packs a day Alcohol Use Standard Drinks/Week Comments Not Currently 2 (1 standard drink = 0.6 oz pur e alcohol) Rare Occassions/Holidays Depression Answer Date Recorded Patient Health Questionnaire-9 Score 0 10/13/2024 Patient Health Questionnaire-9 Score 0 10/13/2024 Last PHQ-9: Questionnaire Data Not on file 0 10/13/2024 Housing Stability Answer Date Recorded What is [...] Answer Date Recorded Patient Health Questionnaire-2 Score 0 10/13/2024 Internet Access Answer Date Recorded Internet Access Q1 Yes 07/22/2024 Internet Access Q2 Not on file 07/22/2024 Comments No Sex and Gender Information Value Date Recorded Sex Assigned at Female 07/03/2022 10:15 AM EDT Legal Sex Female 10:15 AM EDT Gender Identity Female 07/03/2022 10:15 AM EDT Sexual Orientation Straight 07/03/2022 10 :15 AM EDT Last Filed Vital Signs Vital Sign Reading Time Taken Comments Blood Pressure 116/76 10/13/2024 11:14 AM EST Pulse 87 10/13/2024 11:14 AM EST Temperature 36.3 ??C (97.4 ??F) 10/13/2024 11:[address] Respiratory Rate 20 10/13/2024 11:14 AM EST Oxygen Saturation 98% 10/13/2024 11:14 AM EST Inhaled Oxygen Concentration - - Weight 77 kg (169 lb 12.8 oz) 10/13/2024 11:14 A M EST Height 154.9 cm (5' 1 ) 10/13/2024 11:14 AM EST Body Mass Index 32.08 10/13/2024 11:14 AM EST Plan of Treatment Health Maintenance Due Date Last Done Comments CT Colonography 1969 Colonoscopy 1969 Colorectal Cancer Screening 1969 Dental Oral Exam 1969 FIT DNA/Cologuard 1969 FIT 1969 FOBT 1969 HIV Screening 1970 Sigmoidoscopy 1969 Alcohol/Substance Use Screening 1981 Hepatitis C Screening 11/13/1987 Hepatitis B Vaccines (1 of 3 - 19+ 3-dose series) 1988 Dental Prophylaxis 07/17/2011 01/13/2011 Dental X-Ray: Bitewings 01/15/2012 01/13/2011 Pneumococcal Vaccine: 50+ Years (2 of 2 - PCV) 11/07/2012 11/08/2011 Zoster Vaccines (1 of 2) 11/13/2019 Mammogram 03/19/2024 03/19/2023, 03/19/2023 COVID-19 Vaccine (3 - 2023- season) 2024 05/06/2021, 04/12/2021 Influenza Vaccine (#1) 2024 05/26/2014 Diabetes: Hemoglobin A1C 08/08/2025 024, 02/01/2023, 05/03/2022, Additional history exists SDOH Screening 10/01/2025 10/01/2024 Depression Screening 10/13/2025 10/13/2024, 10/13/19 25 Tobacco Screening 10/13/2025 10/13/2024 Dental X-Ray: Full Mouth 02/01/2027 024, 01/13/2011, 07/13/2009 DTaP/Tdap/Td Vaccines (3 - Td or Tdap) 02/10/2028 02/09/2018, 11/08/2011, 10/26/2003 Cervical Cancer Screening 01/31/2029 HPV/Cotest 01/31/2029 02/01/2024 Pap Smear 01/31/2029 02/01/2024 Lipid Panel 08/08/2029 08/08/2024, 06/0 09/2022, 05/03/2022, Additional history exists RSV Patients and Patients Aged 60 years or older (1 - 1-dose 75+ series) 2044 HIB Vaccines Aged Out No longer eligi ble based on patient's age to complete this topic HPV Vaccines Aged Out No longer eligi ble based on patient's age to complete this topic Hepatitis A Vaccines Aged Out No long er eligible based on patient's age to complete this topic IPV Vaccines Aged Out No longer eligi ble based on patient's age to complete this topic Meningococcal Vaccine Aged Out No carito toni eligible based on patient's age to complete this topic RSV under 20 months Aged Out No longe r eligible based on patient's age to complete this topic Rotavirus Vaccines Aged Out No longer eligible based on patient's age to complete this topic Procedures Procedure Name Priority Date/Time Associated Diagnosis Comments POCT URINALYSIS DIPSTICK Routine 08/21/2024 12:16 PM EST Urinary incontinence, unspecified type CULTURE, URINE, ROUTINE Routine 08/21/2024 11:36 AM EST Urinary incontinence, unspecified type CT ABDOMEN PELVIS W CONTRAST Routine 08/14/2024 7:18 AM EST HCG, TOTAL, QN Routine 08/14/2024 7:15 AM EST LIPASE Routine 08/14/2024 7:15 AM EST MAGNESIUM Routine 08/14/2024 7:15 AM EST BASIC METABOLIC PANEL Routine 08/14/2024 7:15 AM EST HEPATIC FUNCTION PANEL Routine 4 7:15 AM EST XR HAND 3+ VIEWS RIGHT Routine 4 2:52 PM EST Arthralgia, unspecified joint Pain in both hands XR HAND 3+ VIEWS LEFT Routine 08/08/2024 2:33 PM EST Arthralgia, unspecified joint Pain in both hands TSH Routine 08/08/2024 12:05 PM EST T4, FREE Routine 08/08/2024 12:05 PM EST LIPID PANEL, STANDARD Routine 08/08/2024 12:05 PM EST PROTHROMBIN TIME-INR Routine 08/08/2024 12:05 PM EST CBC Routine 08/08/2024 12:05 PM EST NATE SCREEN, IFA, W/REFL TITER AND PATTERN Routine 08/08/2024 12:05 PM EST Arthralgia, unspecified joint CBC Routine 08/08/2024 12:05 PM EST Arthralgia, unspecified joint COMPREHENSIVE METABOLIC PANEL Routine 08/08/2024 12:05 PM EST Arthralgia, unspecified joint HEMOGLOBIN A1C Routine 08/08/2024 12:05 PM EST Arthralgia, unspecified joint SED RATE BY MODIFIED WESTERGREN Routine 08/08/2024 12:05 PM EST Arthralgia, unspecified joint RHEUMATOID FACTOR Routine 08/08/2024 12: 05 PM EST Arthralgia, unspecified joint CYCLIC CITRULLINATED PEPTIDE (CCP) AB (IGG) Routine 08/08/2024 12:05 PM EST Arthralgia, unspecified joint C-REACTIVE PROTEIN Routine 08/08/2024 12 :05 PM EST Arthralgia, unspecified joint URINALYSIS WITH REFLEX MICROSCOPIC Routine 08/08/2024 12:05 PM EST Elevated serum creatinine ALBUMIN, RANDOM URINE W/CREATININE Routine 08/08/2024 12:05 PM EST Elevated serum creatinine PANORAMIC RADIOGRAPHIC IMAGE Routine 02/01/2024 3:00 PM EDT HPV MRNA E6/E7 REFLEX TO HPV 16, 18/45 Routine 02/01/2024 2:18 PM EDT PAP SMEAR Routine 02/01/2024 2:18 PM EDT Pap smear for cervical cancer screening BI MAMMOGRAM SCREENING TOMOSYNTHESIS BILATERAL Routine 03/19/2023 3:16 PM EDT PROPHYLAXIS - ADULT Routine 01/13/2011 1 2:00 AM EDT DIAGNOSTIC - DIAGNOSTIC IMAGING - INTRAORAL - COMPREHENSIVE SERIES OF RADIOGRAPHIC IMAGES Routine 01/13/2011 12:00 AM EDT from Last 3 Months or Most Recently Relevant to Health Maintenance Results * POCT urinalysis dipstick manually resulted (08/21/2024 12:16 PM EST) Color, UA Yellow Clarity, UA Clear Glucose, UA Negative Bilirubin, UA Negative Ketones, UA Negative Spec Grav, UA 1.020 Blood, UA Negative Negative, None Detected pH, UA 6.5 Protein, UA Negative Urobilinogen, UA 0.2 Leukocytes, UA Negative Negative, Rare, Trace Nitrite, UA Negative Negative, None Detected Appearance, UA clear QC Media Lot # [id number] Lot# Expiration Date Urine 08/21/2024 12:1 6 PM EST Kirstin Robert CNM POINT OF CARE TEST ENTER/ EDIT ORDERABLES Final Result * Culture, Urine, Routine (08/21/2024 11:36 AM EST) Urine Urine specimen obtained by clean catch procedure / Unknown 08/21/2024 11:36 AM EST 08/21/2024 4:37 PM EST Comment:[facility] Narrative [facility] - 08/23/2024 10:56 AM EST Urine Culture Report Result Urine Culture 10,000 to 50,000 cfu/ml Urine Culture Mixed bacterial omid characteristic of Urine Culture urogenital contamination. Specimen Source: Urine clean catch Kirstin Robert CNM LAB MICROBIOLOGY - GENERA L ORDERABLES Final Result [facility] [address] [place] [phone] * CT Abdomen Pelvis w/ Contrast (08/14/2024 7:18 AM EST) Anatomical Region Laterality Modality Body, Pelvis, Abdomen Computed T omography 08/14/2024 7:18 AM EST Narrative 08/14/2024 11:14 AM EST ? [facility] ?[address] ?[place] [address] ? CT Scan Report ? Signed ? Patient: [place],Meagan I ?MR#: [id number] ? : 1970 ?Acct:[id number] ? Age/Sex: 53 / F ?ADM Date: 08/14/24 ? Loc: HO.ED ? Attending Dr: ? Ordering Physician: Davis Malone DO ?? Date of Service: 08/14/24 ?? Procedure(s): CT abdomen pelvis w IV con ?? Accession Number(s): [id number] ? cc: [facility]; Davis Malone DO ? EXAMINATION: ?? CT ABDOMEN AND PELVIS WITH CONTRAST ? CLINICAL INFORMATION: ?? Left lower quadrant abdominal pain ? COMPARISON: ?? CT dated August 21, 2022. ? TECHNIQUE: ?? Multidetector volumetric images were obtained from the superior aspect ?? of the liver through the pubic symphysis following administration 85 mL ?? of Omnipaque 350 intravenous contrast. Sagittal and coronal reformatted ?? images were obtained on the technologist's workstation. ? Oral contrast: No ? This CT examination was performed using dose optimization techniques as ?? appropriate, variously including the following: ?? *Automated exposure control ?? *Adjustment of mA and/or kV according to patient size (this includes ?? techniques or standardized protocols for targeted exams where dose is ?? matched to indication/reason for exam; i.e. extremities or head) ?? *Use of iterative reconstruction technique ? DLP: ?? 498 mGy-cm ? FINDINGS: ? Limited by patient's breathing motion artifact. ? LUNG BASES: Pulmonary patchy groundglass with a subtle mosaic pattern. ? LIVER, GALLBLADDER, AND BILIARY TREE: ? Liver measures 16 cm. Subtle nodular surface. No focal mass. Main ?? portal veins, hepatic veins and intrahepatic portion of the IVC are ?? grossly patent. No intrahepatic biliary ductal dilatation. ?? Gallbladder is contracted. No extrahepatic biliary ductal dilatation. ? PANCREAS: No focal mass. No peripancreatic fluid collection. No main ?? pancreatic ductal dilatation. ? SPLEEN: 8 cm. No focal mass. ? ADRENAL GLANDS: No nodular lesions. ? KIDNEYS AND URETERS: ?? No hydronephrosis. Normal urinary excretion of the contrast. No gross ?? lesion within the renal parenchyma. Limited examination due to ?? excretory phase. ? BLADDER: Fluid-filled. ? GASTROINTESTINAL TRACT: ? Stool within the large intestine. ?? No intestinal obstruction pattern. ?? No ascites. ?? No pneumatosis intestinalis. ?? No pneumoperitoneum. ?? Appendix is normal, retrocecal. ? ABDOMINAL WALL: Small fat-containing umbilical and periumbilical ?? hernias. ? LYMPH NODES: Prominent less than 10 mm. ? VASCULAR: No aneurysm or dissection, abdominal aorta. ? PELVIC VISCERA: Nodularity within the uterus. No gross lesions in the ?? adnexa. Punctate calcifications in the right adnexa ? OSSEOUS STRUCTURES: Multilevel spondylosis. No acute fracture. Subtle ?? grade 1 retrolisthesis, T12-L1, L3-4, L4-5 and L5-S1 levels on a ?? degenerative basis bone marrow inhomogeneity with the questionable ?? subcentimeter lytic lesions in the bony pelvis.. ? CT/CT abdomen pelvis w IV con ?? IMPRESSION: ?? No intestinal obstruction pattern. ?? Questionable hepatocellular disease. ?? Probable uterine fibroids. ?? Small fat-containing umbilical periumbilical hernia. ? Fleischner guidelines were followed. ? Electronically signed by: ??Bro Gibbs MD ??08/14/2024 11:10 AM ?? EST RP ? Dictated By: ?Bro Reynolds MD ? Signed By: ?<Electronically signed by Bro Abdul MD in OV> ? 08/14/24 1110 ? DD/ 0718 ? TD/TT: 08/14/24 0843 ? Sporting Goods Salesperson: ? Procedure Note Donotuseinterpreter, Image - 08/15/[address] [place] [address] [address] Scan Report Signed Patient: Meagan Canada IMR#: [id number] : 1970Acct:[id number] Age/Sex: 53 / FADM Date: 08/14/24 Loc: HO.ED Attending Dr: Ordering Physician: Davis aMlone DO Date of Service: 08/14/24 Procedure(s): CT abdomen pelvis w IV con Accession Number(s): [id number] cc: [facility]; Davis Malone DO EXAMINATION: CT ABDOMEN AND PELVIS WITH CONTRAST CLINICAL INFORMATION: Left lower quadrant abdominal pain COMPARISON: CT dated August 21, 2022. TECHNIQUE: Multidetector volumetric images were obtained from the superior aspect of the liver through the pubic symphysis following administration 85 mL of Omnipaque 350 intravenous contrast. Sagittal and coronal reformatted images were obtained on the technologist's workstation. Oral contrast: No This CT examination was performed using dose optimization techniques as appropriate, variously including the following: *Automated exposure control *Adjustment of mA and/or kV according to patient size (this includes techniques or standardized protocols for targeted exams where dose is matched to indication/reason for exam; i.e. extremities or head) *Use of iterative reconstruction technique DLP: 498 mGy-cm FINDINGS: Limited by patient's breathing motion artifact. LUNG BASES: Pulmonary patchy groundglass with a subtle mosaic pattern. LIVER, GALLBLADDER, AND BILIARY TREE: Liver measures 16 cm. Subtle nodular surface. No focal mass. Main portal veins, hepatic veins and intrahepatic portion of the IVC are grossly patent. No intrahepatic biliary ductal dilatation. Gallbladder is contracted. No extrahepatic biliary ductal dilatation. PANCREAS: No focal mass. No peripancreatic fluid collection. No main pancreatic ductal dilatation. SPLEEN: 8 cm. No focal mass. ADRENAL GLANDS: No nodular lesions. KIDNEYS AND URETERS: No hydronephrosis. Normal urinary excretion of the contrast. No gross lesion within the renal parenchyma. Limited examination due to excretory phase. BLADDER: Fluid-filled. GASTROINTESTINAL TRACT: Stool within the large intestine. No intestinal obstruction pattern. No ascites. No pneumatosis intestinalis. No pneumoperitoneum. Appendix is normal, retrocecal. ABDOMINAL WALL: Small fat-containing umbilical and periumbilical hernias. LYMPH NODES: Prominent less than 10 mm. VASCULAR: No aneurysm or dissection, abdominal aorta. PELVIC VISCERA: Nodularity within the uterus. No gross lesions in the adnexa. Punctate calcifications in the right adnexa OSSEOUS STRUCTURES: Multilevel spondylosis. No acute fracture. Subtle grade 1 retrolisthesis, T12-L1, L3-4, L4-5 and L5-S1 levels on a degenerative basis bone marrow inhomogeneity with the questionable subcentimeter lytic lesions in the bony pelvis.. CT/CT abdomen pelvis w IV con IMPRESSION: No intestinal obstruction pattern. Questionable hepatocellular disease. Probable uterine fibroids. Small fat-containing umbilical periumbilical hernia. Fleischner guidelines were followed. Electronically signed by: Bro Gibbs MD 08/14/2024 11:10 AM EST Dictated By: rBo Reynolds MD Signed By: <Electronically signed by Bro Abdul MDin OV> 08/14/24 1110 DD/ 0718 TD/TT: 08/14/24 0843 Sporting Goods Salesperson: [facility] External Provider IMG CT PROCEDURES Edited Result - Final * hCG, Total, Quantitative (08/14/2024 7:15 AM EST) HCG Quantitative <2 mIU/mL [facility] Comment:Weeks post LMP Appro ximate hCG(Last Menstrual Period) Range (mIU/ml)3 - 4 weeks 9 - 1304 - 5 weeks 75 - 2,6005 - 6 weeks 850 - 20,8006 - 7 weeks 4000 - 100,2007 - 12 weeks 11,500 - 289,99664 - 16 weeks 18,300 - 137,39623 - 29 weeks (2nd trimester) 1,400 - 53,42903 - 41 weeks (3rd trimester) 940 - 60,000The Stokes B- hCG assay is used for the early detection ofpregnancy; it cannot be used to diagnose any conditionunrelated to . If a B-hCG level is not supportedby the clinical evidence, results should be confirmed by analternative method (qualitative urine hCG, for example). 08/14/2024 7:15 AM EST 08/14/2024 7:18 AM EST Generic External Data Provider LAB BLOOD ORDERAB LES Final Result Performing Organization Address [facility] Co de Phone Number [facility] [address] [place] [phone] * Magnesium (08/14/2024 7:15 AM EST) Magnesium 2.1 1.6 - 2.6 mg/dL [facility] 08/14/2024 7:15 AM EST 08/14/2024 7:18 AM EST Generic External Data Provider LAB BLOOD ORDERAB LES Final Result Performing Organization Address [facility] de Phone Number [facility] [address] [place] [phone] * Lipase (08/14/2024 7:15 AM EST) Lipase 33 8 - 78 U/L [facility] 08/14/2024 7:15 AM EST 08/14/2024 7:18 AM EST Generic External Data Provider LAB BLOOD ORDERAB LES Final Result Performing Organization Address [facility] de Phone Number [facility] [address] [place] [phone] * (ABNORMAL) Hepatic Function Panel (08/14/2024 7:15 AM EST) Bilirubin, Total 0.3 0.0 - 1.0 mg/dL [facility] Bilirubin, Direct 0.1 0.0 - 0.5 mg/dL [facility] Aspartate Amino Transferase 28 5 - 31 U/L [facility] Alanine Aminotransferase 34(H) 0 - 31 U/L [facility] Total Protein 7.4 6.5 - 8.0 g/dL [facility] Albumin Level 4.0 3.5 - 5.0 g/dL [facility] Alkaline Phosphatase 131(H) 39 - 117 U/L [facility] 08/14/2024 7:15 AM EST 08/14/2024 7:18 AM EST us Generic External Data Provider LAB BLOOD ORDERAB LES Final Result [facility] [address] [place] [phone] * (ABNORMAL) Basic Metabolic Panel (08/14/2024 7:15 AM EST) Sodium 143 135 - 145 mmol/L [facility] Potassium 3.9 3.3 - 5.1 mmol/L [facility] Chloride 111(H) 96 - 108 mmol/L [facility] Carbon Dioxide 25 22 - 29 mmol/L [facility] Anion Gap 11(L) 12 - 20 [facility] Urea Nitrogen (BUN) 19(H) 9 - 16 mg/dL [facility] Creatinine, Serum 1.12 0.5 - 1.4 mg/dL [facility] Creatinine Clr Calc Pharmacy 53.9 [facility] Comment:Provided height and weight: 154.94 cm,77.111 kg.eGFR (calculated from the MDRD study equation) and eCrCl(calculated from the Cockcroft-Gault equation) are based ondifferent parameters and may not yield comparable results.If eCrCl result is absurd, please check patient'sheight/weight. Estimated Glomerular Filt Rate 51 [facility] Comment:Chronic Kidney Disea se: Estimated GFR < 60 mL/min/1.72i0Eyqqdm Kidney Disease: Estimated GFR < 15 mL/min/1.73m2 Glucose 121(H) 60 - 115 mg/dL [facility] Calcium 9.3 8.4 - 10.2 mg/dL [facility] 08/14/2024 7:15 AM EST 08/14/2024 7:18 AM EST us Generic External Data Provider LAB BLOOD ORDERAB LES Final Result [facility] [address] [place] [phone] * XR Hand 3+ Views Right (08/08/2024 2:52 PM EST) Anatomical Region Laterality Modality Upper Extremities, Hand Right Radiogra phic Imaging 08/08/2024 2:52 PM EST Narrative 10/01/2024 9:10 AM EST ? [facility] ?[address] ?[place] [address] ?XRay Report ? Signed ? Patient: Meagan Canada I ?MR#: [id number] ? : 1970 ?Acct:[id number] ? Age/Sex: 53 / F ?ADM Date: 08/08/24 ? Loc: HO.US ? Attending Dr: Agnieszka Willis MD ? Ordering Physician: Agnieszka Sahu MD ?? Date of Service: 08/08/24 ?? Procedure(s): XR hand RT min 3V ?? Accession Number(s): [id number] ? cc: Agnieszka Sahu MD ? EXAMINATION: ?? XR HAND RIGHT ? CLINICAL INFORMATION: ?? Bilateral hand pain in joints. ? COMPARISON: ?? XR Right hand wrist (report only). ? TECHNIQUE: ?? PA, lateral, and oblique views of the right hand. ? FINDINGS: ?? Alignment is anatomic. Joint spaces are maintained. No displaced ?? fracture or dislocation. ? There are tiny radiodensities identified within the soft tissues of the ?? first digit along the volar aspect distal phalanx. ? XR/XR hand RT min 3V ?? IMPRESSION: ?? Tiny radiodensities identified within the soft tissues of the first ?? digit along the volar aspect distal phalanx. Advise clinical ?? correlation. ? Electronically signed by: ??Hector Godoy MD ??10/01/2024 09:07 AM EST RP ? Dictated By: ?Odette Godoy MD ? Signed By: ?<Electronically signed by Odette Godoy MD in OV> ? 10/01/24 0907 ? DD/ 1452 ? TD/TT: 08/08/24 1500 ? Sporting Goods Salesperson: ? Procedure Note Donjatinter, Image - 10/01/[address] [address] XRay Report Signed Patient: Meagan Canada IMR#: [id number] : 1970Acct:[id number] Age/Sex: 53 / FADM Date: 08/08/24 Loc: HO.US Attending Dr: Agnieszka Willis MD Ordering Physician: Agnieszka Sahu MD Date of Service: 08/08/24 Procedure(s): XR hand RT min 3V Accession Number(s): [id number] cc: Agnieszka Sahu MD EXAMINATION: XR HAND RIGHT CLINICAL INFORMATION: Bilateral hand pain in joints. COMPARISON: XR Right hand wrist (report only). TECHNIQUE: PA, lateral, and oblique views of the right hand. FINDINGS: Alignment is anatomic. Joint spaces are maintained. No displaced fracture or dislocation. There are tiny radiodensities identified within the soft tissues of the first digit along the volar aspect distal phalanx. XR/XR hand RT min 3V IMPRESSION: Tiny radiodensities identified within the soft tissues of the first digit along the volar aspect distal phalanx. Advise clinical correlation. Electronically signed by: Hector Godoy MD 10/01/2024 09:07 AM EST Dictated By: Odette Godoy MD Signed By: <Electronically signed by Odette Godoy MD in OV> 10/01/24 0907 DD/ 1452 TD/TT: 08/08/24 1500 Sporting Goods Salesperson: us Agnieszka Willis MD IMG XR PROCEDURES Edited Result - Final * XR Hand 3+ Views Left (08/08/2024 2:33 PM EST) Anatomical Region Laterality Modality Upper Extremities, Hand Left Radiogra phic Imaging 08/08/2024 2:33 PM EST Narrative 10/01/2024 9:07 AM EST ? [facility] ?[address] ?[place] [address] ?XRay Report ? Signed ? Patient: Canada,Meagan I ?MR#: [id number] ? : 1970 ?Acct:[id number] ? Age/Sex: 53 / F ?ADM Date: 08/08/24 ? Loc: HO.US ? Attending Dr: Agnieszka Willis MD ? Ordering Physician: Agnieszka Sahu MD ?? Date of Service: 08/08/24 ?? Procedure(s): XR hand LT min 3V ?? Accession Number(s): [id number] ? cc: Agnieszka Sahu MD ? EXAMINATION: ?? XR HAND LEFT ? CLINICAL INFORMATION: ?? Bilateral hand pain in joints. ? COMPARISON: ?? XR Left hand wrist 01/30/2013 ? TECHNIQUE: ?? PA, lateral, and oblique views of the left hand. ? FINDINGS: ?? Alignment is anatomic. Joint spaces are maintained. No displaced ?? fracture or dislocation. No focal radiographic soft tissue swelling. ? XR/XR hand LT min 3V ?? IMPRESSION: ?? No acute abnormality. ? Electronically signed by: ??Hector Godoy MD ??10/01/2024 09:05 AM EST RP ? Dictated By: ?Odette Godoy MD ? Signed By: ?<Electronically signed by Odette Godoy MD in OV> ? 10/01/24 0905 ? DD/ 1433 ? TD/TT: 08/08/24 1500 ? Sporting Goods Salesperson: ? Procedure Note Socorro Rosenbaum - 10/01/[address] [address] XRay Report Signed Patient: Meagan Canada IMR#: [id number] : 1970Acct:[id number] Age/Sex: 53 / FADM Date: 08/08/24 Loc: . Attending Dr: Agnieszka Willis MD Ordering Physician: Agnieszka Sahu MD Date of Service: 08/08/24 Procedure(s): XR hand LT min 3V Accession Number(s): [id number] cc: Agnieszka Sahu MD EXAMINATION: XR HAND LEFT CLINICAL INFORMATION: Bilateral hand pain in joints. COMPARISON: XR Left hand wrist 01/30/2013 TECHNIQUE: PA, lateral, and oblique views of the left hand. FINDINGS: Alignment is anatomic. Joint spaces are maintained. No displaced fracture or dislocation. No focal radiographic soft tissue swelling. XR/XR hand LT min 3V IMPRESSION: No acute abnormality. Electronically signed by: Hector Godoy MD 10/01/2024 09:05 AM EST Dictated By: Odette Godoy MD Signed By: <Electronically signed by Odetet Godoy MD in OV> 10/01/24 0905 DD/ 1433 TD/TT: 08/08/24 1500 Sporting Goods Salesperson: Agnieszka Willis MD IMG XR PROCEDURES Edited Result - Final * Albumin, Random Urine W/Creatinine (08/08/2024 12:05 PM EST) Creatinine, Urine 84.31 mg/dL [facility] Microalbumin Urine 5.0 mg/L [facility] Microalbum Creatinine Ratio Ur 5.9 <30 ug/mg cr [facility] Comment:Albumin/Creatinine R atio Reference Ranges: Normal: < 30 ug/mg creatinine Microalbuminuria: 30 - 300 ug/mg creatinineClinical Albuminuria: > 300 ug/mg creatinine Urine 08/08/2024 12:0 5 PM EST 08/08/2024 12:54 PM EST us Elizabeth Jody SENIOR OFFICER LAB URINE ORDERABLES Final Re sult Performing Organization Address [facility] Co de Phone Number [facility] [address] [place] [phone] * Cyclic Citrullinated Peptide (CCP) Antibody (IgG) (08/08/2024 12:05 PM EST) Cyclic Citrullinated Peptide 16 UNITS [facility] Comment:Reference RangeNegat ole: <20Weak Positive: 20-39Moderate Positive: 40-59Strong Positive: >59THIS TEST WAS PERFORMED AT:[facility] [place] [id number] MAC MD Blood Venous blood specimen / Unknown 08/08/2024 12:05 PM EST 08/08/2024 12:55 PM EST Agnieszka Willis MD LAB BLOOD ORDERAB LES Final Result Performing Organization Address [facility] Co de Phone Number [facility] [address] [place] [phone] * Urinalysis with reflex microscopic (08/08/2024 12:05 PM EST) Color Urine Yellow [facility] Appearance Urine Turbid [facility] PH >=9.0 5.0 - 9.0 [facility] Glucose Urine UA Negative Negative mg/dL [facility] Urine Blood Negative Negative [facility] Specific [place] - Urine 1.015 1.005 - 1.025 [facility] Urine Protein Trace Neg-Trace mg/dL [facility] Urine Ketones Negative Negative mg/dL [facility] Nitrite Urine Negative Negative [facility] Leukocyte Esterase Urine Negative Negative [facility] Urine (Urine, Random) 08/08/2024 12:05 PM EST 08/08/2024 12:54 PM EST Narrative [facility] - 08/08/2024 1:01 PM EST Urine, Clean Catch [facility] SENIOR OFFICER LAB URINE ORDERABLES Final Re sult Performing Organization Address [facility] Co de Phone Number [facility] [address] [place] [phone] * Sed Rate by Modified Susie (08/08/2024 12:05 PM EST) Erythrocyte Sedimentation Rate 7 0 - 20 MM/HR [facility] Comment:Patients with polycy themia and many hemoglobin abnormalitiesmay have depressed sed rates whereas patients with anemiamay have elevated sed rates. Blood Venous blood specimen / Unknown 08/08/2024 12:05 PM EST 08/08/2024 12:55 PM EST us Agnieszka Willis MD LAB BLOOD ORDERAB LES Final Result Performing Organization Address [facility] Co de Phone Number [facility] [address] [place] [phone] * Prothrombin Time-INR (08/08/2024 12:05 PM EST) Prothrombin Time 11.0 10.9 - 12.4 SEC [facility] INTERNATIONAL NORM RATIO 0.9 0.9 - 1.1 [facility] Comment:INTERNATIONAL NORMAL IZED RATIO (INR) REFERENCE RANGES Reference RangeFor patients not on anticoagulant therapy: 0.9 - 1.1INR ranges for oral anticoagulanttherapy:For prevention and treatment of venous thrombosis and pulmonary embolism: 2.0 - 3.0For acute myocardial infarction with aspirin therapy: 2.0 - 3.0For acute myocardial infarction without aspirin therapy: 3.0 - 4.0For patients with mechanical prosthetic heart valves: 2.5 - 3.5 08/08/2024 12:0 5 PM EST 08/08/2024 12:55 PM EST Generic External Data Provider LAB BLOOD ORDERAB LES Final Result Performing Organization Address [facility] Co de Phone Number [facility] [address] [place] [phone] * CBC (08/08/2024 12:05 PM EST) Only the most recent of2 resultswithin the time period is included. Pathologist [facility] White Blood Count 8.1 4.8 - 10.8 X10*3/uL [facility] Red Blood Count 4.79 4.20 - 5.50 X10*6/uL [facility] Hemoglobin 14.9 12.0 - 16.0 g/dl [facility] Hematocrit 44.0 37.0 - 47.0 % [facility] Mean Corpuscular Volume 91.9 80.0 - 98.0 fL [facility] Mean Corpuscular Hemoglobin 31.1 27.0 - 33.0 pg [facility] Mean Corpuscular HGB Conc 33.9 31.0 - 35.0 g/dl [facility] Red Cell Distribution Width 13.2 11.0 - 16.0 % [facility] Platelet Count 242 160 - 400 X10*3/uL [facility] Mean Platelet Volume 11.3 9.4 - 12.3 fL [facility] NRBC Pct Auto 0.0 0.0 - 0.2 /100WBC [facility] NRBC Abs Auto 0.000 0.0 - 0.012 X10*3/uL [facility] 08/08/2024 12:0 5 PM EST 08/08/2024 12:55 PM EST us Generic External Data Provider LAB BLOOD ORDERAB LES Final Result [facility] [address] [place] [phone] * (ABNORMAL) Rheumatoid Factor (08/08/2024 12:05 PM EST) [facility] Rheumatoid Factor 15.7(H) <15.0 IU/mL [facility] Blood Venous blood specimen / Unknown 08/08/2024 12:05 PM EST 08/08/2024 12:55 PM EST Agnieszka Willis MD LAB BLOOD ORDERAB LES Final Result Performing Organization Address City/[facility]/ZIP Co de Phone Number [facility] [address] [place] [phone] * C-reactive Protein (08/08/2024 12:05 PM EST) Pathologist [facility] C Reactive Protein 0.17 < or = 0.50 mg/dL [facility] Blood Venous blood specimen / Unknown 08/08/2024 12:05 PM EST 08/08/2024 12:55 PM EST Agnieszka Willis MD LAB BLOOD ORDERAB LES Final Result Performing Organization Address [facility] Co de Phone Number [facility] [address] [place] [phone] * NATE Screen,IFA, with Reflex to Titer and Pattern (08/08/2024 12:05 PM EST) Pathologist [facility] Anti Nuclear Antibody Screen NEGATIVE NEGATIVE [facility] Comment:NATE IFA is a first l ine screen for detecting thepresence of up to approximately 150 autoantibodies invarious autoimmune diseases. A negative NATE IFA resultsuggests an NATE-associated autoimmune disease is notpresent at this time, but is not definitive. If thereis high clinical suspicion for Sjogren's syndrome,testing for anti-SS-A/Ro antibody should be considered.Anti-Concepcion-1 antibody should be considered for clinicallysuspected inflammatory myopathies.AC-0: NegativeInternational Consensus on NATE Patterns(https://doi.org/10.1515/gdij-5253-8233)For additional information, please refer tohttp://education.Peak/faq/XGR689(This link is being provided for informational/educational purposes only.)THIS TEST WAS PERFORMED AT:[facility] [place] [phone] MAC MD NATE Titer TNP [facility] NATE Pattern TNP [facility] NATE TITER 2 (REF LAB) [facility] NATE PATTERN 3 [facility] Blood Venous blood specimen / Unknown 08/08/2024 12:05 PM EST 08/08/2024 12:55 PM EST us Agnieszka Willis MD LAB BLOOD ORDERAB LES Final Result Performing Organization Address City/[facility]/ZIP Co de Phone Number [facility] [address] [place] [phone] * (ABNORMAL) TSH (08/08/2024 12:05 PM EST) Thyroid Stimulating Hormone 62.70(H) 0.32 - 4.0 uIU/mL [facility] Comment:Note: A sustained TS H level above 2.5 uIU/mL may warrant further investigation. TSH 3rd Generation ([facility]) 08/08/2024 12:0 5 PM EST 08/08/2024 12:55 PM EST us Generic External Data Provider LAB BLOOD ORDERAB LES Final Result Performing Organization Address City/[facility]/ZIP Co de Phone Number [facility] [address] [place] [phone] * (ABNORMAL) T4, Free (08/08/2024 12:05 PM EST) Free T4 (Free Thyroxine) 0.67(L) 0.71 - 1.85 ng/dL [facility] 08/08/2024 12:0 5 PM EST 08/08/2024 12:55 PM EST us Generic External Data Provider LAB BLOOD ORDERAB LES Final Result Performing Organization Address City/[facility]/ZIP Co de Phone Number [facility] [address] [place] [phone] * Hemoglobin A1c (08/08/2024 12:05 PM EST) Hemoglobin A1c 5.8 <6.0 % [facility] Comment:Hemoglobin A1C Refer ence Range Adults: 4.8 - 6.0 % Non diabetic: < 6.0 % Goal: < 7.0 %Additional Action Suggested: > 8.0 %Note: Hemoglobin A1c results are invalid for patients with abnormal amounts of HbF. Blood transfusions may impact the HbA1c concentration in the patient sample. Estimated Average Glucose 120 mg/dL [facility] Comment:eAG = Estimated ave rage glucose which is %A1C expressed asaverage glucose, using the formula of the S3O-KbklztzPugmydr Glucose study (ADAG), Diabetes Care, Vol.31,#8,Apr. 2007 Blood Venous blood specimen / Unknown 08/08/2024 12:05 PM EST 08/08/2024 12:55 PM EST us Agnieszka Willis MD LAB BLOOD ORDERAB LES Final Result [facility] [address] [place] [address] [phone] * (ABNORMAL) Lipid Panel, Standard (08/08/2024 12:05 PM EST) Triglycerides 200(H) <150 mg/dL [facility] Comment:Desirable Triglyceri de: less than 150 mg/dLBorderline High Triglyceride 150-199 mg/dLHigh Triglyceride: 200-499 mg/dLVery High Triglyceride: greater than or equal to 5OO mg/dL Cholesterol 221(H) <200 mg/dL [facility] Comment:Desirable Cholestero l: less than 200 mg/dLBorderline High Cholesterol: 200-239 mg/dLHigh Cholesterol: greater than 239 mg/dL LDL Cholesterol Calculated 132(H) <100 mg/dL [facility] Comment:Desirable LDL: less than 100 mg/dLNear Optimal/Above Optimal LDL: 110- 129 mg/dLBorderline High LDL: 130-159 mg/dLHigh LDL: 160-189 mg/dLVery High LDL: greater than or equal to 190 mg/dL HDL Cholesterol 49 >40 mg/dL [facility] Comment:Desirable HDL: great er than 40 mg/dL Note: This HDL assay may give artificially low results in patients with liver disease. 08/08/2024 12:0 5 PM EST 08/08/2024 12:55 PM EST us Generic External Data Provider LAB BLOOD ORDERAB LES Final Result [facility] [address] [place] [address] [phone] * (ABNORMAL) Comprehensive Metabolic Panel (08/08/2024 12:05 PM EST) Sodium 145 135 - 145 mmol/L [facility] Potassium 3.8 3.3 - 5.1 mmol/L [facility] Chloride 108 96 - 108 mmol/L [facility] Carbon Dioxide 30(H) 22 - 29 mmol/L [facility] Anion Gap 11(L) 12 - 20 [facility] Urea Nitrogen (BUN) 17(H) 9 - 16 mg/dL [facility] Creatinine, Serum 1.05 0.5 - 1.4 mg/dL [facility] Estimated Glomerular Filt Rate 55 [facility] Comment:Chronic Kidney Disea se: Estimated GFR < 60 mL/min/1.92j1Ykgmxt Kidney Disease: Estimated GFR < 15 mL/min/1.73m2 Glucose 108 60 - 115 mg/dL [facility] Calcium 9.7 8.4 - 10.2 mg/dL [facility] Bilirubin, Total 0.4 0.0 - 1.0 mg/dL [facility] Aspartate Amino Transferase 35(H) 5 - 31 U/L [facility] Alanine Aminotransferase 39(H) 0 - 31 U/L [facility] Total Protein 8.3(H) 6.5 - 8.0 g/dL [facility] Albumin Level 4.4 3.5 - 5.0 g/dL [facility] Alkaline Phosphatase 137(H) 39 - 117 U/L [facility] Blood Venous blood specimen / Unknown 08/08/2024 12:05 PM EST 08/08/2024 12:55 PM EST Agnieszka Willis MD LAB BLOOD ORDERAB LES Final Result Performing Organization Address [facility]/ZIP Co de Phone Number [facility] [address] [place] [phone] * HPV mRNA E6/E7 w/Reflex to HPV Genotypes 16, 18/45 (02/01/2024 2:18 PM EDT) HPV nRNA E6/E7 Not Detected Not Detected [facility] Comment:Methodology: Transcr iption-Mediated AmplificationThis assay detects E6/E7 viral messenger RNA (mRNA) from 14high-risk HPV types (16,18,31,33,35,39,45,51,52,56,58,59,66,68).Cervical sources are required for HPV testing.If a vaginal source from a patient who has had atotal hysterectomy with removal of cervix wassubmitted, please contact the testing laboratoryfor alternative testing options.For additional information, please refer tohttp://education.[employer]/faq/WBL739s4(This link if provided for information/educational purposes only.)THIS TEST WAS PERFORMED AT:[facility] [place] [phone] MAC MD HPV mRNA E6/E7 [facility] HPV 16 RNA [facility] HPV 18/45 RNA [facility] 02/01/2024 2:18 PM EDT 02/04/2024 5:00 AM EDT [facility] SENIOR OFFICER LAB CYTOLOGY ORDERABLES Final Result Performing Organization Address [facility]/ZIP Co de Phone Number [facility] [address] [place] [phone] * Pap Smear (02/01/2024 2:18 PM EDT) Swab Cervix uteri structure / Unknown 02/01/2024 2:18 PM EDT 02/04/2024 5:00 AM EDT [facility] - 02/18/2024 5:16 PM EDT ----- ------- Name: Meagan Canada I ? Age/Sex: 53/F ? : 1970 Unit#: [id number] ?? Attend Dr: Elizabeth Vera ?Re02/01/24 ?Status: DEP REF ? Location: HO.CLNP ? Disch: ? ----- ------- SPEC : [id number] ?RECD: 02/04/24-0500 ? STATUS: ??SOUT ? REQ NUM: [id number] ? PARDEEP: 02/01/24-1418 ? SUBM DR: Elizabeth Vera ? ENTERED: ??02/04/24 ?SP TYPE: Pap Smr ?OTHR : ? ORDERED: ??Pap Smear ? Interpretation ?? Satisfactory for evaluation. ?? Negative for intraepithelial lesion or malignancy. ? HPV mRNA E6/E7: ?NOT DETECTED ? This assay detects E6/E7 viral messenger RNA (mRNA) from 14 high-risk HPV types (16, 18, ?? 31, 33, 35, 39, 45, 51, 52, 56, 58, 59, 66, 68) ? HPV testing performed by [facility], [place], [place]. ??See reference laboratory ?? portion of the EMR for entire report. ?Clinical Information LMP: Postmenopausal Previous PAP test: Unknown date/findings ? Material Received ?? ThinPrep-Vaginal/Cervical ----- ------- Signed (signature on file) Carin Pacheco Jeni 02/18/24 3538 ? ----- ------- ? END OF REPORT ? [facility] SENIOR OFFICER LAB CYTOLOGY ORDERABLES Final Result [facility] [address] [place] [address] [phone] * BI Mammogram Screening Tomosynthesis Bilateral (03/19/2023 3:16 PM EDT) Anatomical Region Laterality Modality Breast Bilateral Mammography 03/19/2023 3:16 PM EDT Narrative 04/12/2023 4:00 PM EDT ? [facility] ? [address] ?[place] [id number] ? Mammography Report ? Signed ? Patient: CanadaMeagan I ?MR#: [id number] ? : 1970 ?Acct:[id number] ? Age/Sex: 52 / F ?ADM Date: 07/17/23 ? Loc: HO.MAMMO ? Attending Dr: Elizabeth Henning SENIOR OFFICER ? Ordering Physician: Jody,Elizabeth SENIOR OFFICER ?Results: ? Date of Service: 03/19/23 ?Follow Up: ? Procedure(s): MM tomosynthesis screening BI ?? Accession Number(s): [id number] ? cc: Jody,Elizabeth SENIOR OFFICER ? EXAMINATION: ?? MM SCREENING DIGITAL BREAST TOMOSYNTHESIS, BILATERAL ? CLINICAL INFORMATION: ? Screening. Asymptomatic. ? The lifetime risk of breast cancer based on the Tyrer-Cuzick Model is ?? 5.3%. ? COMPARISON: ?? Mammography: This study is compared with prior exams dating back to ?? 2015. ? TECHNIQUE: ?? Digital breast tomosynthesis is performed in both the craniocaudal and ?? mediolateral oblique views along with computer-aided detection (CAD). ?? Synthesized 2D images are generated from the tomosynthesis. ? FINDINGS: ?? The breasts are heterogeneously dense, which may obscure small masses ?? (ACR BI-RADS breast composition Category c). ? There are no significant masses, abnormal calcifications, or other ?? abnormalities. ? MM/MM tomosynthesis screening BI ?? IMPRESSION: ?? No mammographic evidence of malignancy. ? ASSESSMENT: ? BI-RADS BI-RADS 1 - Negative ? RECOMMENDATION: ?? Routine annual mammography screening. ? 1 year F/U ? This examination should not preclude the clinical evaluation of a ?? suspicious palpable abnormality. ? This patient's information was entered into a reminder system with a ?? target due date for their next mammogram. ? Dictated By: ?Irasema Kelly MD ? Signed By: ?<Electronically signed by Irasema Kelly MD in OV> ? 04/12/231556 ? DD/ 15 ? TD/TT: ? Sporting Goods Salesperson: ? Procedure Note Socorro Rosenbaum - 04/12/2023 [facility] [address] [place], [place] [address] Mammography Report Signed Patient: Meagan Canada IMR#: [id number] : 1970Acct:[id number] Age/Sex: 52 / FADM Date: 03/19/23 Loc: JESSICA.MAMMO Attending Dr: Elizabeth RODRIGUEZ Ordering Physician: Elizabeth Vera FNPResults: Date of Service: 03/19/23Follow Up: Procedure(s): MM tomosynthesis screening BI Accession Number(s): [id number] cc: Henning,Elizabeth SENIOR OFFICER EXAMINATION: MM SCREENING DIGITAL BREAST TOMOSYNTHESIS, BILATERAL CLINICAL INFORMATION: Screening. Asymptomatic. The lifetime risk of breast cancer based on the Tyrer-Cuzick Model is 5.3%. COMPARISON: Mammography: This study is compared with prior exams dating back to 2016. TECHNIQUE: Digital breast tomosynthesis is performed in both the craniocaudal and mediolateral oblique views along with computer-aided detection (CAD). Synthesized 2D images are generated from the tomosynthesis. FINDINGS: The breasts are heterogeneously dense, which may obscure small masses (ACR BI-RADS breast composition Category c). There are no significant masses, abnormal calcifications, or other abnormalities. MM/MM tomosynthesis screening BI IMPRESSION: No mammographic evidence of malignancy. ASSESSMENT: BI-RADS BI-RADS 1 - Negative RECOMMENDATION: Routine annual mammography screening. 1 year F/U This examination should not preclude the clinical evaluation of a suspicious palpable abnormality. This patient's information was entered into a reminder system with a target due date for their next mammogram. Dictated By: Irasema Kelly MD Signed By: <Electronically signed by Irasema Kelly MD in OV> 04/12/23 1557 DD/ 1516 TD/TT: Sporting Goods Salesperson: [facility] SENIOR OFFICER IMG BI PROCEDURES Edited Resu lt - Final from Last 3 Months or Most Recently Relevant to Health Maintenance Insurance [facility] STANDARD DENTAL-[facility] MEDICAID STAND ADULT Care Teams Wrecking Crane Engine Operator Relationship Specialty Start Date End Date Elizabeth Vera FNP [address] [place] [address] PCP - General Family Medicine 07/20/22 Martin Green RN [address] [place] [address] Beamer HandAuthorizer 08/05/24
--- OUTSIDE RECORDS SUMMARY | 2024-10-13 13:34 | XMS_ITS | Encounter Summary ---
Author Organization [employer] Address [address] [facility] 7t [place] [address] Care Team Providers Care Speech Language Therapist Name Role Phone Elizabeth Vera CROTCH PIECE BASTER Primary Care Provider [phone] Martin Green RN Unavailable [phone] Reason for Visit * Reason Onset Date Comments Care Management 09/30/2024 C3CM- f/u call l Encounter Details Date Type Department Care Team ([facility] st Contact Info) Description 09/30/2024 Telephone [facility] [address] [place], [place] [phone] Martin Green, RN [address] [place], [place] [phone] Care Management (C3CM- f/u call lv) Social History Tobacco Use Types Packs/Day Years [...] AM EDT documented as of this encounter Miscellaneous Notes * Telephone Encounter - Martin Green RN - 09/30/2024 8:55 AM EST CM Martin Green RN placed outbound call with CHW Michelle Rosales to patient for follow up call. Noanswer at this time. LVM introducing herself from [facility] CM Department. Requested call back. CM reinforced direct contact information or CHW for any additional questions or concerns. Education provided on Walk-In Urgent Care located in [facility] of [facility]. Patient provided with after-hours line for [facility], , which offer night time triage service and option to transfer to community recreation coordinator provider if needed. CM also reminded patient of her scheduled visit with [facility] tomorrow 10/01/24 at 2:15pm. Advised she please f/u if she has any questions or concerns. CM will attempt another follow up call within 10 days. okay to remind patient of her scheduled visit with [facility] when call is returned. Thank you. documented in this encounter Plan of Treatment Not on file documented as of this encounter Visit Diagnoses Not on filedocumented in this encounter Additional Health Concerns Assessment Noted Time PHQ-9 Depression Total Score: 11 024 12:00 PM EST documented as of this encounter Care Teams Speech Language Therapist Relationship Specialty Start Date End Date Elizabeth Vera FNP [address] [place] [address] PCP - General Family Medicine 07/20/22 Martin Green RN [address] [place] [address] District Fire ChiefExpedition Supervisor 08/05/24 documented as of this encounter
--- OUTSIDE RECORDS SUMMARY | 2024-10-13 13:34 | XMS_ITS | Encounter Summary ---
Author Organization [facility] Address [address] [place] [address] 7t [place] [address] Care Team Providers Care Interactive Graphic Designer Name Role Phone Jody, [facility] Primary Care Provider [phone] Martin Green RN Unavailable [phone] Reason for Visit * Reason Onset Date Comments Results 09/06/2022 Encounter Details Date Type Department Care Team ([facility] st Contact Info) Description 09/06/2022 Telephone [facility] [address] [place] [address] [facility], [facility] [address] [place] [address] Results Social History Tobacco Use Types Packs/Day Years Used Date Smoking Tobacco: Every Day Cigarettes Smokeless Tobacco: Never Comments:2 packs a day Alcohol Use Standard Drinks/Week Comments Yes 2 (1 standard drink = 0.6 oz pur e alcohol) Rare Occassions/Holidays Comments Unknown Sex and Gender Information Value Date Recorded Sex Assigned at Female 07/03/2022 10:15 AM EDT Legal Sex Female 10:15 AM EDT Gender Identity Female 07/03/2022 10:15 AM EDT Sexual Orientation Straight 07/03/2022 10 :15 AM EDT COVID-19 Exposure Response Date Recorded In the last 10 days, have yo u been in contact with someone who was confirmed or suspected to have Coronavirus/COVID-19? No / Unsure 09/05/2022 9:38 AM EST documented as of this encounter Miscellaneous Notes * Telephone Encounter - Marie Martinez - 09/06/2022 12:34 PM EST Tc from pt requesting lab results . documented in this encounter Plan of Treatment Not on file documented as of this encounter Visit Diagnoses Not on filedocumented in this encounter Care Teams Interactive Graphic Designer Relationship Specialty Start Date End Date JodyElizabeth dill FNP [address] [place] [address] PCP - General Family Medicine 07/20/22 Martin Green, GABRIEL [address] [place] [phone] Credit Analysis ManagerCosmetics And Toiletries Salesperson 08/05/24 documented as of this encounter
--- OUTSIDE RECORDS SUMMARY | 2024-10-13 13:34 | XMS_ITS | Encounter Summary ---
Author Organization [employer] Address [address] [facility] 7t [place] [address] Care Team Providers Care Employee Relations Representative Name Role Phone Elizabeth Vera COMMERCIAL BAKER HELPER Primary Care Provider [phone] Martin Green RN Unavailable [phone] Reason for Visit * Reason Onset Date Comments Care Management 09/16/2024 C3CM- f/u call Encounter Details Date Type Department Care Team ([facility] st Contact Info) Description 09/16/2024 Telephone [facility] MEDICINE [address] [place], [place] [phone] Martin Green, RN [address] [place], [place] [phone] Care Management (C3CM- f/u call) Social History Tobacco Use Types Packs/Day Years [...] Telephone Encounter - Martin Green RN - 09/16/2024 10:58 AM EST ALMA Green RN placed outbound call to patient. Patient's name, and address confirmed. Patient states is doing well with no recent illnesses or emergency room visits. Patient states she attended visit with David on 08/19. Per patient, started on Tirosint 100mcg daily. She reports taking Rxas directed. Per patient, has noted increase in fatigue since starting the dose. She states she didreport this to her provider. Per patient, was instructed to complete labs which she plans on completing next week. The office will follow up with results once available. Patient also attended visit with Kirstin on 08/21 for eval of pelvic pain. Per patient, was contacted to schedule US pelvis/ transvaginal but patient missed the call. She states she will be outreaching the office to schedule the appt. Patient reports using the nystatin powder as directed. She reports improvement of symptoms. Per patient, doing okay emotionally. She states she experiences anxiety on occasions. Per patient, taking meds for anxiety as directed with good effect. She is aware of her scheduled Televisit with psych on 09/23 at 4:00pm. CM also informed patient that a referral for OP therapy was placed on patient'sbehalf. CM provided patient with the office contact information and advised that she outreach the office to schedule an appt. Patient agrees. Patient reports attending visit with GI on 08/25. She states the visit went well. Per patient, is scheduled for another f/u appt but cannot recall appt details at this time. Patient denies any further needs or concerns at this time. Based on CM assessment, patient does not need LTSS referral at this time. CM will continue to re- evaluate patient during subsequent telephone call and place a referral if needed No further questions or concerns. CM reinforced direct contact information for any additional questions or concerns. Education provided on Walk-In Urgent Care located in [facility] of [facility] Patient provided with after-hours line for [facility], , which offer night time triage service and option to transfer to home security professional provider if needed. Patient verbalizes understanding, and able to r epeat back to typewriter repairer. A follow up call will be placed within 10 days, patient agrees with plan. Per [employer], patient missed visit with GI 08/25. CM called patient who states she cannot recall ifshe attended. Patient also missed US pelvis/ transvaginal on 09/09/24. Patient agreeable to CM reaching out to offices to assist with rescheduling these appts. CM called GI. Patient is scheduled to be seen on 11/05/24 at 3:30pm. They will mail out a letter to patient with appt details. CM called [facility] centralized scheduling. Patient is scheduled for the [place] on 09/29/24 at 1:30pm 2nd floor Radiology- [facility]. Patient is also scheduled at [facility] Cardiology on 10/01/24 at 2:15pm. CM reminded patient of the scheduled visit and will also set an appt reminder for the day prior. documented in this encounter Plan of Treatment Not on file documented as of this encounter Visit Diagnoses Not on filedocumented in this encounter Additional Health Concerns Assessment Noted Time PHQ-9 Depression Total Score: 11 09/02/ 024 12:00 PM EST documented as of this encounter Care Teams Employee Relations Representative Relationship Specialty Start Date End Date Elizabeth Vera FNP [address] [place] [address] PCP - General Family Medicine 07/20/22 Martin Green RN [address] [place] [address] Cigarette Packing Machine OperatorFamily Dentist 08/05/24 documented as of this encounter
--- OUTSIDE RECORDS SUMMARY | 2024-10-13 13:34 | XMS_ITS | Encounter Summary ---
Author Organization [employer] Address [address] [facility] 7t [place] [address] Care Team Providers Care Paper Baling Machine Operator Name Role Phone Elizabeth Vera TIRE STRIPPER Primary Care Provider [phone] Martin Green RN Unavailable [phone] Encounter Details Date Type Department Care Team (Latest Contact Info) Description 10/13/2024 Travel Social History Tobacco Use Types Packs/Day Years [...] AM EDT documented as of this encounter Plan of Treatment Not on file documented as of this encounter Visit Diagnoses Not on filedocumented in this encounter Additional Health Concerns Assessment Noted Time PHQ-9 Depression Total Score: 0 10/13/19 25 11:22 AM EST documented as of this encounter Care Teams Paper Baling Machine Operator Relationship Specialty Start Date End Date Elizabeth Vera FNP [address] [place] [phone] PCP - General Family Medicine 07/20/22 Martin Green RN [address] [place] [phone] Wine Steward/StewardessAdjustment Clerk 08/05/24 documented as of this encounter
--- OUTSIDE RECORDS SUMMARY | 2024-10-13 13:34 | XMS_ITS | Encounter Summary ---
Author Organization [employer] Address [address] [place] [address] 7t [place] [address] Care Team Providers Care Manager Erp Name Role Phone [facility] Primary Care Provider [phone] Martin Green RN Unavailable [phone] Reason for Visit * Reason Onset Date Comments Results 08/08/2024 Encounter Details Date Type Department Care Team ([facility] Contact Info) Description 08/08/2024 Telephone [facility] [address] [place] [address] [facility] [address] [place] [address] Results Social History Tobacco Use Types Packs/Day Years Used Date Smoking Tobacco: Every Day Cigarettes Smokeless Tobacco: Never Comments:2 packs a day Alcohol Use Standard Drinks/Week Comments Not Currently 2 (1 standard drink = 0.6 oz pur e alcohol) Rare Occassions/Holidays Depression Answer Date Recorded Patient Health Questionnaire-9 Score 9 07/22/2024 Patient Health Questionnaire-9 Score 9 07/22/2024 Last PHQ-9: Questionnaire Data Not on file 1 09/21/2023 Housing Stability Answer Date Recorded What is [...] Answer Date Recorded Patient Health Questionnaire-2 Score 2 07/22/2024 Internet Access Answer Date Recorded Internet Access Q1 Yes 07/22/2024 Internet Access Q2 Not on file 07/22/2024 Comments Unknown Sex and Gender Information Value Date Recorded Sex Assigned at Female 07/03/2022 10:15 AM EDT Legal Sex Female 10:15 AM EDT Gender Identity Female 07/03/2022 10:15 AM EDT Sexual Orientation Straight 07/03/2022 10 :15 AM EDT documented as of this encounter Miscellaneous Notes * Telephone Encounter - Samy Rosales - 08/08/2024 4:17 PM EST TC from pt requesting call back regarding Results. Type of results: Labs Date when done: 08/08/24 Facility: [facility] Labs documented in this encounter Plan of Treatment Not on file documented as of this encounter Visit Diagnoses Not on filedocumented in this encounter Additional Health Concerns Assessment Noted Time PHQ-9 Depression Total Score: 9 07/22/20 24 10:38 AM EST documented as of this encounter Care Teams Manager Erp Relationship Specialty Start Date End Date Elizabeth Vera FNP [address] [place] [address] PCP - General Family Medicine 07/20/22 Martin Green RN [address] [place] [address] Preschool Education DirectorRestaurant Kitchen And Service Manager 08/05/24 documented as of this encounter
--- OUTSIDE RECORDS SUMMARY | 2024-10-13 13:34 | XMS_ITS | Encounter Summary ---
Author Organization [employer] Address [address] [place] [address] 7[address] [place] [address] Care Team Providers Care Finishing Range Feeder Name Role Phone [facility] Primary Care Provider [phone] Martin Green RN Unavailable [phone] Reason for Visit * Reason Onset Date Comments Nurse Triage 09/26/2023 Encounter Details Date Type Department Care Team ([facility] st Contact Info) Description 09/26/2023 Telephone [facility] MEDICINE [address] [place] [address] [facility], [facility] [address] [place] [address] Nurse Triage Social History Tobacco Use Types Packs/Day Years Used Date Smoking Tobacco: Every Day Cigarettes Smokeless Tobacco: Never Comments:2 packs a day Alcohol Use Standard Drinks/Week Comments Not Currently 2 (1 standard drink = 0.6 oz pur e alcohol) Rare Occassions/Holidays Depression Answer Date Recorded Patient Health Questionnaire-9 Score 19 08/06/2023 Patient Health Questionnaire-9 Score 19 08/06/2023 Last PHQ-9: Questionnaire Data Not on file 1 10/07/2022 Housing Stability Answer Date Recorded What is your housing situation today? I have mp cavazos 06/28/[address] you li ve. Do you have problems with any of the following? None of the above 06/28/2023 Food Insecurity Answer Date Recorded Within the past 12 months, y ou worried that your food would run out before you got money to buy more: Never True 06/28/2023 Within the past 12 months,th e food you bought just didn't last and you didn't have enough money to get more: Never True Transportation Answer Date Recorded In the past 12 months, has l ack of transportation kept you from medical appts, meetings, work or from getting things needed for daily living? No 06/28/2023 Utilities Answer Date Recorded In the past 12 months, has t he electric, gas, oil or water company threatened to shut off services in your home? No 06/28/2023 Depression Answer Date Recorded Patient Health Questionnaire-2 Score 6 08/06/2023 Comments Unknown Sex and Gender Information Value Date Recorded Sex Assigned at Female 07/03/2022 10:15 AM EDT Legal Sex Female 10:15 AM EDT Gender Identity Female 07/03/2022 10:15 AM EDT Sexual Orientation Straight 07/03/2022 10 :15 AM EDT documented as of this encounter Miscellaneous Notes * Telephone Encounter - Mary Alegria RN - 09/26/2023 2:16 PM EST Call returned to [facility] for triage. No answer LVM to return call to [facility] triage line [phone]. * Telephone Encounter - Dottie Green - 09/26/2023 1:42 PM EST Symptom: Shoulder Pain - Not From Injury Outcome: Schedule an urgent appointment (within 1 hour) or talk to a nurse or provider soon Reason: Can't use the shoulder normally The caller accepted this outcome Please contact pt at [phone] (Citizen [place]) documented in this encounter Plan of Treatment Not on file documented as of this encounter Visit Diagnoses Not on filedocumented in this encounter Additional Health Concerns Assessment Noted Time PHQ-9 Depression Total Score: 19 023 8:26 AM EST documented as of this encounter Care Teams Finishing Range Feeder Relationship Specialty Start Date End Date Elizabeth Vera FNP [address] [place] [id number] PCP - General Family Medicine 07/20/22 Martin Green RN [address] [place] [id number] Infectious Disease PhysicianAutomatic Folder Seamer 08/05/24 documented as of this encounter
--- OUTSIDE RECORDS SUMMARY | 2024-10-13 13:34 | XMS_ITS | Encounter Summary ---
Author Organization [employer] Address [address] [place] [address] 7[address] [place] [address] Care Team Providers Care Benefits Coordinator Name Role Phone Elizabeth Vera [facility] Primary Care Provider [phone] Martin Green RN Unavailable [phone] Reason for Visit * Reason Comments Follow-up Encounter Details Date Type Department Care Team (Latest Contact Info) Description 10/13/2024 11:15 AM EST Office Visit [facility] MED[facility]INE [address] [place] [address] [place], [facility] [address] [place] [address] Acquired hypothyroidism (Primary Dx) Social History Tobacco Use Types Packs/Day Years [...] AM EDT documented as of this encounter Last Filed Vital Signs Vital Sign Reading [...] Mass Index 32.08 10/13/2024 11:14 AM EST documented in this encounter Plan of Treatment Scheduled Orders Name Type Priority Associated Diagnoses Orde r Schedule TSH Lab Routine Acquired hypothyroidism Expected: 10/13/2024 (Approximate), Expires: 10/13/2025 T4, Free Lab Routine Acquired hypothyroidism Expected: 10/13/2024 (Approximate), Expires: 10/13/2025 documented as of this encounter Visit Diagnoses Diagnosis Acquired hypothyroidism- Primary Unspecified hypothyroidism documented in this encounter Additional Health Concerns Assessment Noted Time PHQ-9 Depression Total Score: 0 10/13/19 25 11:22 AM EST documented as of this encounter Care Teams Benefits Coordinator Relationship Specialty Start Date End Date Elizabeth Vera FNP [address] [place] [address] PCP - General Family Medicine 07/20/22 Martin Green RN [address] [place] [id number] Shift StackerWarp Dresser 08/05/24 documented as of this encounter
--- OUTSIDE RECORDS SUMMARY | 2024-10-13 13:34 | XMS_ITS | Encounter Summary ---
Author Organization [employer] Address [address] [place] [address] 7[address] [place] [address] Care Team Providers Care Educational Technologist Name Role Phone [facility] Primary Care Provider [phone] Martin Green RN Unavailable [phone] Reason for Visit * Reason Comments Care Coordination SDOH Encounter Details Date Type Department Care Team (Latest Contact Info) Description 10/09/2024 Patient Outreach [facility] MEDICINE [address] [place], [place] [phone] [facility] [address] [place], [place] [phone] Care Coordination (SDOH) Social History Tobacco Use Types Packs/Day Years [...] encounter Progress Notes * Michelle Rosales - 10/09/2024 8:52 AM EST CHW Michelle Rosales placed outbound call to patient for follow up call on SDOH needs. No answer at this time. LVM introducing herself from [facility] CM Department. Requested call back. CHWreinforced direct contact information or CM for any additional questions or concernsand extended clinic hours on Mondays and Wednesdays, and Walk-In Urgent Care Located in [facility]. Patient provided with after-hours line for [facility], , which offer night time triage service and option to transfer to sap security consultant provider if needed. CHW will attempt another follow up call within 10 days. documented in this encounter Plan of Treatment Not on file documented as of this encounter Visit Diagnoses Not on filedocumented in this encounter Additional Health Concerns Assessment Noted Time PHQ-9 Depression Total Score: 11 024 12:00 PM EST documented as of this encounter Care Teams Educational Technologist Relationship Specialty Start Date End Date Elizabeth Vera FNP [address] [place] [id number] PCP - General Family Medicine 07/20/22 Martin Green RN [address] [place] [id number] Supervisor Benzene RefiningShale Planer Operator 08/05/24 documented as of this encounter
[2024-10-13 13:58] LABS: Alanine Aminotransferase 21 U/L (0-31); Albumin Level 4.1 g/dL (3.5-5.0); Alkaline Phosphatase 130 U/L (39-117); Anion Gap 11 (12-20); Aspartate Amino Transferase 29 U/L (5-31); Bilirubin Total 0.4 mg/dL (0.0-1.0); Blood Urea Nitrogen 12 mg/dL (9-16); Calcium 9.4 mg/dL (8.4-10.2); Carbon Dioxide 26 mmol/L (22-29); Chloride 112 mmol/L (96-108); Estimated Glomerular Filt Rate > 60; Glucose Random 106 mg/dL (60-115); Potassium 3.7 mmol/L (3.3-5.1); Sodium 145 mmol/L (135-145); Total Protein 7.9 g/dL (6.5-8.0)
[2024-10-13 13:59] LABS: Free T4 (Free Thyroxine) 0.68 ng/dL (0.71-1.85); Thyroid Stimulating Hormone 54.88 uIU/mL (0.32-4.0)
== END 2024-10-13 12:32 | disposition home or self-care (01) ==
LOC: HO.HHCL 12:31
PROVIDERS: Student in an Organized Health Care Education/Training Program; Visit Provider Registered Nurse
DX: E06.3 Autoimmune thyroiditis (principal)
CPT/HCPCS: 36415; 80053; 84439; 84443

== ENCOUNTER 2024-10-14 14:44 | Outpatient (AMB) | payer MEDICAID, SELFPAY ==
[2024-10-14 14:47] VITALS: BP 130/80; PULSE 54; BMI 31.2
--- NOTE | 2024-10-14 14:47 | MHC.OFFVIS ---
Vital Signs 10/14/24 14:47 Height 5 ft 1 in Weight 165 lb 5.547 oz BMI 31.2 BP 130/80 Blood Pressure Location Lt brachial Position Sitting Pulse 54 Pulse Source Monitor Intake Visit Reasons: F/U pt request CP Senior Net Developer Architect Required: Yes Senior Net Developer Architect Name: [place] [id number] Allergies ibuprofen [From MOTRIN] Adverse Reaction (Intermediate, Verified 08/19/24 09:18) ABDOMINAL PAIN Medication List - Last Reconciled 10/14/24 by Rubio Morales MD albuterol sulfate 90 mcg/actuation (ProAir HFA) 2 puffs inhalation Q4-6H PRN aripiprazole 10 mg PO DAILY aspirin (Adult Low Dose Aspirin) 81 mg PO DAILY bisacodyl (Dulcolax (bisacodyl)) 10 mg (2 x 5 mg) PO BEDTIME cholecalciferol (vitamin D3) 50 mcg PO DAILY clonazepam 0.5 mg PO DAILY PRN esomeprazole magnesium (Nexium) 40 mg PO DAILY methylcellulose (laxative) (Citrucel) 500 mg PO DAILY metoprolol succinate ER 25 mg PO DAILY nitroglycerin 0.4 mg sublingual Q5M PRN Tirosint (levothyroxine) 100 mcg PO DAILY NS HPI Comments Details: Meagan returns for follow-up. Last year, she was seen in consultation regarding chest pains. Discussed with patient using service sprinkler helper. No documented coronary disease or myocardial infarction or cardiomyopathy. She gets left-sided discomfort off and on. No specific provoking or relieving factors and essentially happen any time. History of smoking. She underwent an echocardiogram and stress test followed by cardiac catheterization. That showed no significant disease. She states that she still gets chest pains. There is also some local tenderness. [facility] Medical History Hypothyroidism Arthritis Low calcium levels High cholesterol H/O gastric ulcer H/O gastritis Hyperthyroidism Surgical History History of salpingectomy Family History Mother Hypertension Diabetes Father No problems noted. Social History Household Members: None Housing: House Alcohol intake: never Patient Tobacco Use Status: Current everyday Tobacco user Tobacco use type: Cigarette service: No Current occupational status: unemployed and disabled Review of Systems Const Denies weakness ENT Denies dizziness Card Reports chest pain, Reports chest pain with activity, Denies syncope, Denies rapid heart rate, Denies pedal edema, Denies edema, Denies leg edema, Denies lightheadedness, Reports palpitations, Reports dyspnea, Denies dyspnea on exertion and Denies orthopnea Resp Denies cough, Reports dyspnea and Denies dyspnea on exertion GI Denies hematochezia and Denies change in stool character Musc Denies abnormal gait, Denies muscle cramps, Denies muscle weakness, Denies numbness, Denies radiating pain into limb and Denies tingling Neuro Denies abnormal gait, Denies dizziness, Denies syncope, Denies numbness, Denies tingling and Denies weakness Endo Reports palpitations Physical Exam Vital Signs: Last Vital Signs Pulse 54 10/14/24 14:47 BP 130/80 10/14/24 14:47 BMI result Body Mass Index 31.2 Const General: comfortable and no acute distress Orientation/consciousness: patient oriented x3 HEENT Other: Unremarkable Head: Yes normal to inspection Neck Neck: Yes normal visual inspection Chest Other: Tenderness to palpation present Chest palpation & inspection: normal inspection of the chest Resp Auscultation: clear to auscultation bilaterally Cardio Palpation: normal PMI Heart sounds: S1 normal heart sound present, S2 normal heart sound present, no gallops, no murmurs and no rubs GI Palpation (GI): Soft to palpation Back/Spine/Pelvis Other: unremarkable Skin General skin exam: no rashes or lesions noted Neuro General: patient oriented x3 Extrem General: Yes normal to inspection Psych Mental Status: mental status grossly normal Assessment & Plan Assessment & Plan (1) Precordial chest pain: Code(s): R07.2 - Precordial pain Category: Medical Plan Cardiac studies reviewed. EKG shows sinus rhythm at 62/Min; inverted T-waves across the precordial as well as inferior leads. Chronic finding. Echocardiogram with LVEF of 60-65%. No significant valvular findings. Myocardial perfusion imaging study reported have mixed ischemia/infarct pattern in the LAD territory. Cardiac catheterization with normal coronary arteries. Hence perfusion imaging could be false-positive. Overall, chest pain seems to be noncardiac in nature. Could be related to smoking versus musculoskeletal. Mainly reassurance. Can stop beta-blockers/nitroglycerin. Total time spent including review of data, counseling, documentation, coordination of care-32 minutes. Discussed using service sprinkler helper. Medications: Discontinued nitroglycerin do not exceed 3 doses per episode Discontinued Reason: Doctor's Order 0.4 mg sublingual Q5M PRN 20 tabs 1RF chest pain metoprolol succinate ER Discontinued Reason: Doctor's Order 25 mg PO DAILY 90 tabs 1RF Coding Level of Care Code Est Pt Level 4 (44566) Diagnoses Precordial chest pain R07.2
== END 2024-10-14 15:13 | disposition home or self-care (01) ==
PROVIDERS: PCP Registered Nurse; Visit Provider Internal Medicine
DX: R07.2 Precordial pain (principal)
CPT/HCPCS: 93010; 99214

== ENCOUNTER → 2024-10-14 14:44 | Outpatient (BNVA) | payer MEDICAID, SELFPAY | PROVIDERS: PCP Registered Nurse; Visit Provider Internal Medicine | DX: R07.2 Precordial pain (principal); R94.31 Abnormal electrocardiogram [ECG] [EKG]; R00.1 Bradycardia, unspecified | CPT/HCPCS: 93005; 99212 ==

== ENCOUNTER 2025-02-17 14:48 | Outpatient (REF) | payer MEDICAID, SELFPAY ==
[2025-02-17 18:04] LABS: Free T4 (Free Thyroxine) 0.88 ng/dL (0.71-1.85); Thyroid Stimulating Hormone 24.62 uIU/mL (0.32-4.0)
== END 2025-02-17 14:49 | disposition home or self-care (01) ==
LOC: HO.LAB 14:48
PROVIDERS: PCP Registered Nurse; Visit Provider Student in an Organized Health Care Education/Training Program
DX: E06.3 Autoimmune thyroiditis (principal)
CPT/HCPCS: 36415; 84439; 84443; 99212

== ENCOUNTER 2025-02-17 14:48 | Outpatient (AMB) | payer MEDICAID, SELFPAY ==
--- NOTE | 2025-02-17 14:50 | A.OFFVIS_ITS ---
Vital Signs 02/17/25 14:51 Height 5 ft 1 in Weight 171 lb 11.841 oz BMI 32.4 BP 146/80 H Blood Pressure Location Lt brachial Position Sitting Pulse 62 Pulse Source Pulse Oximeter Pulse Oximetry (%) 97 Oxygen Delivery Method Room Air Intake Visit Reasons: f/u hypothyroidism Intake Note: Patient present today for hypothyroidism. Accounting Coordinator Required: Yes Accounting Coordinator Language: Underground Conduit Installer Services: Accounting Coordinator Present Accounting Coordinator Name: Jose Manuel [id number] Information Interpreted: non-clinical & clinical Accompanied by: Self / Same As Patient Allergies ibuprofen [From MOTRIN] Adverse Reaction (Intermediate, Verified 02/17/25 14:56) ABDOMINAL PAIN Medication List - Last Reconciled 02/17/25 by Marcie Márquez MD albuterol sulfate 90 mcg/actuation (ProAir HFA) 2 puffs inhalation Q4-6H PRN aripiprazole 10 mg PO DAILY aspirin (Adult Low Dose Aspirin) 81 mg PO DAILY bisacodyl (Dulcolax (bisacodyl)) 10 mg (2 x 5 mg) PO BEDTIME cholecalciferol (vitamin D3) 50 mcg PO DAILY clonazepam 0.5 mg PO DAILY PRN esomeprazole magnesium (Nexium) 40 mg PO DAILY levothyroxine 112 mcg PO DAILY methylcellulose (laxative) (Citrucel) 500 mg PO DAILY HPI Comments Details: 53 YO F with who is seen for follow up of Hyothyroidism. HPI from prior visit First diagnosed with Hypothyroidism many yrs ago with labs revealing elevated TSH . She has a longstanding history of poor adherence to the medication leading to elevated TSH levels in the 50s and 60s. Interval history August 2024 Apparently she has been off Tirosint for many months since October 2023, labs most recently from 08/08/2024 showed elevated TSH of 62.7, low free T4 of 0.67 She was restarted on Tirosint 100 mcg daily by her primary care physician beginning of August. Today's visit 08/19/2024 it has been 2 weeks. Currently using Tirosint 100 ug - she takes it at 6 AM , eats breakfast at 10 AM +fatigue, +weight gain, -cold intolerance, +dry skin, +hair loss, +constipation. There is hx of hyperlipidemia . Denies obstructive sx of goiter . Denies consuming any kelp or seaweed. Denies taking amiodarone. Interval history 02/17/2025 She did not show up for her follow up previously Insurance denied Tirosint and because we could not find any adverse reaction documentation in the past, we switched to generic levothyroxine 112 mcg daily based on labs on October 2024 when TSH was 54.88 with free T4 low at 0.68. Patient was supposed to repeat blood work in 6 weeks, she did not get these labs. Biotin: No Family hx of thyroid dx:No Physical exam General: sitting comfortably in no acute distress HEENT: normocephalic/atraumatic, Neck: supple, symmetrical, no thyromegaly Cardiac: normal heart sounds Pulm: normal breath sounds B/L, no added breath sounds Abd: not distended, no tenderness Extremities: no edema, no signs of myxedema Neuro: AAO x3, Speech: normal, no facial droop, moving all 4 extremities Laboratory Tests 09/27/22 12/12/22 08/03/23 15:40 13:55 16:01 TSH 5.69 H 50.16 H 6.91 H Free T4 1.31 0.67 L 10/02/23 10/09/23 12/03/23 12:33 16:37 14:50 TSH 28.14 H 25.25 H 0.94 Free T4 01/07/24 01/07/24 08/08/24 15:56 15:56 12:05 TSH 41.33 H 42.35 H 62.70 H Free T4 0.51 L 0.67 L Laboratory Tests 08/08/24 10/13/24 12:05 12:33 TSH 62.70 H 54.88 H Free T4 0.67 L 0.68 L US THYROID 10/2023 CLINICAL INFORMATION: Neck pain COMPARISON: Previous thyroid ultrasound October [address] of the neck May 2022 TECHNIQUE: Linear transducer grayscale and color Doppler examination with attention to the region of the thyroid. FINDINGS: SIZE: Measurements of the thyroid lobes and nodules are given in sagittal, anteroposterior and transverse dimensions respectively. Right Thyroid Lobe: 2.9 x 1.2 x 0.9 cm, volume 1.7 mL. Parenchyma: The gland echotexture is heterogeneous. Thyroid vascularity is normal. Left Thyroid Lobe: 2.3 x 1.5 x 1.1 cm, volume 2 mL. Parenchyma: The gland echotexture is heterogeneously yes. Thyroid vascularity is normal. Isthmus: There are 0.2 cm in maximum AP dimension. The thyroid gland is heterogeneous, slightly hypoechoic and lobulated in shape. Appearance is similar to prior exam. Measurements are slightly decreased from previous exam. No focal nodule. NODES: 2 normal-appearing left cervical lymph nodes adjacent to the thyroid gland. US/US thyroid IMPRESSION: Small heterogeneous lobulated thyroid gland. Ultrasound appearance is suggestive of old thyroiditis. The thyroid gland is decreased in size from previous exams. [facility] Medical History Hypothyroidism Arthritis Low calcium levels High cholesterol H/O gastric ulcer H/O gastritis Hyperthyroidism Surgical History History of salpingectomy Family History Mother Hypertension Diabetes Father No problems noted. 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 She has had some issues with her adherence. She did not get her blood work done prior to this appointment. I have asked her to repeat blood work. She did say that she has been taking her medication regularly now. I spent a large part of the visit today explaining to her the importance of taking this medication consistently and risk of myxedema coma and with poor adherence. Patient verbalized understanding. Patient had a lot of nonspecific complaints regarding joint inflammation, stiffness in her hands, I told her if her thyroid levels are normal, or improved and she has been taking her medication regularly, besides feeling overall fatigued, her joint symptoms are probably due to some other reason. And that she needs to discuss with her primary care to see if further evaluation is needed for other disorders such as arthritis, fibromyalgia, etc.. 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
[2025-02-17 14:51] VITALS: BP 146/80; PULSE 62; O2SAT 97; BMI 32.4
--- OUTSIDE RECORDS SUMMARY | 2025-02-17 17:08 | XMS_ITS | Encounter Summary ---
Author Organization [employer] Address [address] [place] [address] 7[address] [place] [address] Care Team Providers Care Wildlife Conservation Professor Name Role Phone Elizabeth Vera [facility] Primary Care Provider [phone] Martin Green RN Unavailable [phone] Reason for Visit * Reason Onset Date Comments Results 08/08/2024 Encounter Details Date Type Department Care Team ([facility] Contact Info) Description 08/08/2024 Telephone [facility] MEDICINE [address] [place], [place] [phone] Guy Elizabeth, [facility] [address] [place] [address] Results Social History Tobacco Use Types Packs/Day [...] results: Labs Date when done: 08/08/24 Facility: [facility] Labs documented in this encounter Plan of Treatment Not on file documented as of this encounter Visit Diagnoses Not on filedocumented in this encounter Additional Health Concerns Assessment Noted Time PHQ-9 Depression Total Score: 9 07/22/20 10:38 AM EST documented as of this encounter Care Teams Wildlife Conservation Professor Relationship Specialty Start Date End Date Elizabeth Vera FNP [address] [place] [address] PCP - General Family Medicine 07/20/22 Martin Green RN [address] [place] [id number] Operations Program ManagerRivet Driver 08/05/24 11/06/24 documented as of this encounter
== END 2025-02-17 15:26 | disposition home or self-care (01) ==
LOC: HO.ENCR 14:48
PROVIDERS: PCP Registered Nurse; Visit Provider Student in an Organized Health Care Education/Training Program
DX: E06.3 Autoimmune thyroiditis (principal)
CPT/HCPCS: 99213

== ENCOUNTER 2025-02-18 21:54 | Emergency (ER) | payer MEDICAID, SELFPAY ==
[2025-02-18 21:58] VITALS: BP 130/82; PULSE 84; O2SAT 98
[2025-02-18 22:01] VITALS: BP 130/50; PULSE 76; RESP 20; TEMP 37.2; O2SAT 96; BMI 23.3
[2025-02-18 22:50] LABS: Influenza A PCR NEGATIVE (Negative); Influenza B PCR NEGATIVE (Negative); Resp Syncy Virus RNA Qual PCR NEGATIVE (Negative); SARS COV2 PCR INHOUSE POSITIVE (Negative)
[2025-02-19 01:03] VITALS: O2SAT 95
[2025-02-19 01:05] VITALS: BP 121/57; PULSE 65; RESP 16; TEMP 37.1; O2SAT 95
--- NOTE | 2025-02-19 02:07 | ED.GENADULT ---
HPI - General Adult General Chief complaint: Upper Respiratory Symptoms Stated complaint: cough,fever Time Seen by Provider: 02/19/25 00:31 Source: patient Limitations: language barrier History of Present Illness ED Provider: Kalina Valles PA-C HPI narrative: 54-year-old female with a history of hypothyroidism presents with cough and cold symptoms x1 day. Associated dry spasm he type cough that is repetitive, generalized myalgias, fever at home. Patient denies sick contacts with similar symptoms. Denies nausea vomiting diarrhea. Related Data Home Medications ?Medication ?Instructions ?Recorded ?Confirmed aripiprazole 10 mg tablet 10 mg PO DAILY 08/08/24 02/17/25 clonazepam 0.5 mg tablet 0.5 mg PO DAILY PRN 08/08/24 02/17/25 Previous Rx's ?Medication ?Instructions ?Recorded albuterol sulfate 90 mcg/actuation 2 puff inhalation Q4-6H PRN 07/14/23 aerosol inhaler (ProAir HFA) shortness of breath or wheezing #8.5 grams methylcellulose (laxative) 500 mg 500 mg PO DAILY #90 tabs 01/07/24 tablet (Citrucel) cholecalciferol (vitamin D3) 50 50 mcg PO DAILY #90 caps 01/15/24 mcg (2,000 unit) capsule aspirin 81 mg tablet,delayed 81 mg PO DAILY #90 tabs 02/21/24 release (Adult Low Dose Aspirin) bisacodyl 5 mg tablet,delayed 10 mg (2 x 5 mg) PO BEDTIME #180 08/08/24 release (Dulcolax (bisacodyl)) tabs esomeprazole magnesium 40 mg 40 mg PO DAILY #30 caps 08/08/24 capsule,delayed release (Nexium) levothyroxine 125 mcg tablet 125 mcg PO DAILY #30 tabs 02/18/25 (Synthroid) albuterol sulfate 90 mcg/actuation 2 puff inhalation Q4-6H PRN 02/19/25 aerosol inhaler (Ventolin HFA) shortness of breath or wheezing #6.7 grams Allergies Allergy/AdvReac Type Severity Reaction Status Date / Time ibuprofen (From MOTRIN) AdvReac Intermediate ABDOMINAL Verified 02/18/25 22:02 PAIN Review of Systems Review of Systems: Yes all other systems are reviewed and are negative Constitutional: Constitutional: Denies fatigue and Denies fever(s) Cardiovascular: Cardiovascular: Denies chest pain and Denies dyspnea Respiratory: Respiratory: Denies chest congestion, Reports cough, Denies dyspnea and Denies wheezing Musculoskeletal: Musculoskeletal: Reports myalgias Endocrine: Endocrine: Denies fatigue Allergic/Immunologic: Allergic/Immunologic: Denies wheezing PMFSH Past Medical History Attestation statement: The following information was validated with the patient. Medical History Hypothyroidism Arthritis Low calcium levels High cholesterol H/O gastric ulcer H/O gastritis Hyperthyroidism Surgical History History of salpingectomy Family History Family History Mother Hypertension Diabetes Father No problems noted. Social History Social History Household Members: None Housing: House Alcohol intake: never Patient Tobacco Use Status: Current everyday Tobacco user Tobacco use type: Cigarette Advance Directives: No service: No Current occupational status: unemployed and disabled Physical Exam ED Vital Signs: Vital Signs - 24 hr 02/18/25 22:01 02/19/25 01:03 02/19/25 01:05 Temperature 99 F 98.8 F Pulse Rate 76 65 Respiratory Rate 20 16 Blood Pressure 130/50 L 121/57 L Pulse Oximetry 96 95 95 Oxygen Delivery Method Room Air Room Air Room Air BMI result Body Mass Index 23.3 Const Other: Alert well-appearing Orientation/consciousness: patient oriented x3 Resp Other: Active bronchospasm cough, lungs clear to auscultation no wheezing Cardio Other: Normal peripheral perfusion Skin Other: Warm dry no rash Neuro General: patient oriented x3, gait normal, no focal motor deficits and CN's II-XI intact bilaterally Psych Other: Cooperative Medical Decision Making Medical Decision Making MDM Narrative: 54-year-old female with a history of hypothyroidism presents with cough and cold symptoms x1 day. Associated dry spasm he type cough that is repetitive, generalized myalgias, fever at home. Patient denies sick contacts with similar symptoms. Denies nausea vomiting diarrhea. No relevant chronic issues History: Per patient I have considered the following differential diagnoses: Bronchitis, pneumonia, viral syndrome Plan: Viral panel ordered from triage the patient is positive for COVID, we will send with albuterol for symptomatic relief of her bronchospasm cough Lab Data Labs: Lab Results 02/18/25 Range/Units 22:07 Influenza Type A (PCR) NEGATIVE (Negative) Influenza Type B (PCR) NEGATIVE (Negative) RSV RNA Qual (PCR) NEGATIVE (Negative) SARS-CoV-2 RNA (RT-PCR) POSITIVE A (Negative) Discharge Plan Discharge Clinical Impression: Bronchospasm, COVID-19 Patient Disposition: Home, Self-Care Instructions: Bronchospasm (ED), COVID-19 (Coronavirus Disease 2019) (ED), Social Distancing Guidelines for COVID-19 (ED) Additional Instructions: You tested positive for COVID. See home care instructions. Use the albuterol as needed for your cough. Follow up with your primary care provider as needed. Prescriptions: New albuterol sulfate [Ventolin HFA] 90 mcg/actuation HFA aerosol inhaler 2 puff inhalation Q4-6H PRN (Reason: shortness of breath or wheezing) Qty: 6.7 0RF No Action cholecalciferol (vitamin D3) 50 mcg (2,000 unit) capsule 50 mcg PO DAILY Qty: 90 3RF aspirin [Adult Low Dose Aspirin] 81 mg tablet,delayed release (DR/EC) 81 mg PO DAILY Qty: 90 3RF levothyroxine [Synthroid] 125 mcg tablet 125 mcg PO DAILY Qty: 30 7RF albuterol sulfate [ProAir HFA] 90 mcg/actuation HFA aerosol inhaler 2 puff inhalation Q4-6H PRN (Reason: shortness of breath or wheezing) Qty: 8.5 1RF Citrucel 500 mg tablet 500 mg PO DAILY Qty: 90 2RF Rx Instructions: take it with full glass of water aripiprazole 10 mg tablet 10 mg PO DAILY clonazepam 0.5 mg tablet 0.5 mg PO DAILY PRN esomeprazole magnesium [Nexium] 40 mg capsule,delayed release(DR/EC) 40 mg PO DAILY Qty: 30 5RF bisacodyl [Dulcolax (bisacodyl)] 5 mg tablet,delayed release (DR/EC) 10 mg PO BEDTIME Qty: 180 4RF Print Language: Upper Sorbian
[2025-02-19 02:41] VITALS: BP 119/74; PULSE 89; RESP 20; TEMP 36.6; O2SAT 96
== END 2025-02-19 02:42 | disposition home or self-care (01) ==
PROVIDERS: Emergency Provider Emergency Medicine
DX: J98.01 Acute bronchospasm (principal); U07.1 COVID-19; R05.9 Cough, unspecified; R51.9 Headache, unspecified; M79.10 Myalgia, unspecified site; R50.9 Fever, unspecified; F17.210 Nicotine dependence, cigarettes, uncomplicated
CPT/HCPCS: 0241U; 99283; 99284

== ENCOUNTER 2025-09-01 12:21 | Emergency (ER) | payer MEDICAID, SELFPAY ==
--- NOTE | ~2025-09-01 | XR_ITS ---
EXAMINATION: XR CHEST CLINICAL INFORMATION: chest pain COMPARISON: None available. TECHNIQUE: Frontal view of the chest was obtained. FINDINGS: There is cardiac enlargement. Mediastinal and hilar contours appear normal. The lungs demonstrate mild interstitial pulmonary edema with subtle Linda B lines in the lung bases. No pneumothorax or effusion. No focal osseous or soft tissue abnormality. XR/XR chest 1V IMPRESSION: Cardiomegaly with mild interstitial pulmonary edema. Electronically signed by: Sebastian Sutton MD 09/01/2025 01:00 PM ZARINA
--- NOTE | 2025-09-01 12:23 | ECG_ITS ---
Test Reason : chest pressure Blood Pressure : */* mmHG Vent. Rate : 63 BPM Atrial Rate : 63 BPM P-R Int : 152 ms QRS Dur : 76 ms QT Int : 406 ms P-R-T Axes : -16 55 -9 degrees QTcB Int : 415 ms Normal sinus rhythm Nonspecific T wave abnormality Abnormal ECG When compared with ECG of 12-Jun-2024 17:26, T wave inversion no longer evident in Inferior leads Nonspecific T wave abnormality has replaced inverted T waves in Anterolateral leads Referred By: Generic ED Physician Electronically Signed By: BEATA KING
[2025-09-01 12:31] VITALS: BP 158/108; BP 159/91; PULSE 62; RESP 14; TEMP 36.4; O2SAT 100; O2SAT 99; BMI 32.9
--- NOTE | 2025-09-01 12:47 | ED.CHESTPAIN ---
HPI - Chest Pain General Chief Complaint: Chest Pain Stated Complaint: chest pressure, anxious Time Seen by Provider: 09/01/25 12:47 Source: patient, EMS and optometric technologist Mode of arrival: EMS Limitations: language barrier History of Present Illness ED Provider: HPI narrative: 54-year-old woman presenting with right-sided chest pain that is seems to be reproducible, she states it started sometime after she ate but it was not related to food, it is worse with direct pressure when she takes a deep breath, very anxious due to this, no history of blood clots no pleurisy reported no hemoptysis no recent surgeries or prolonged travels. Related Data Home Medications ?Medication ?Instructions ?Recorded ?Confirmed aripiprazole 10 mg tablet 10 mg PO DAILY 08/08/24 02/17/25 clonazepam 0.5 mg tablet 0.5 mg PO DAILY PRN 08/08/24 02/17/25 Previous Rx's ?Medication ?Instructions ?Recorded albuterol sulfate 90 mcg/actuation 2 puff inhalation Q4-6H PRN 07/14/23 aerosol inhaler (ProAir HFA) shortness of breath or wheezing #8.5 grams methylcellulose (laxative) 500 mg 500 mg PO DAILY #90 tabs 01/07/24 tablet (Citrucel) cholecalciferol (vitamin D3) 50 50 mcg PO DAILY #90 caps 01/15/24 mcg (2,000 unit) capsule aspirin 81 mg tablet,delayed 81 mg PO DAILY #90 tabs 02/21/24 release (Adult Low Dose Aspirin) bisacodyl 5 mg tablet,delayed 10 mg (2 x 5 mg) PO BEDTIME #180 08/08/24 release (Dulcolax (bisacodyl)) tabs esomeprazole magnesium 40 mg 40 mg PO DAILY #30 caps 08/08/24 capsule,delayed release (Nexium) albuterol sulfate 90 mcg/actuation 2 puff inhalation Q4-6H PRN 02/19/25 aerosol inhaler (Ventolin HFA) shortness of breath or wheezing #6.7 grams levothyroxine 125 mcg tablet 125 mcg PO DAILY #30 tabs 08/24/25 Allergies Allergy/AdvReac Type Severity Reaction Status Date / Time ibuprofen (From MOTRIN) AdvReac Intermediate ABDOMINAL Verified 09/01/25 12:33 PAIN Review of Systems Constitutional: Constitutional: Reports as per HPI REPLACED BY [facility] Past Medical History Medical History Hypothyroidism Arthritis Low calcium levels High cholesterol H/O gastric ulcer H/O gastritis Hyperthyroidism Surgical History History of salpingectomy Family History Family History Mother Hypertension Diabetes Father No problems noted. Social History Social History Household Members: None Housing: House Alcohol intake: never Patient Tobacco Use Status: Current everyday Tobacco user Tobacco use type: Cigarette Advance Directives: No Advance Directives Information Provided: Yes service: No Current occupational status: unemployed and disabled Physical Exam Exam: Exam: ?General: ??looks age appropriate, anxious affect ?CV: RRR, no obvious murmurs appreciated, tender over right chest wall ?Resp: ?No wheezing rales rhonchi no stridor moving air well Abd: ?Bowel sounds are present, no tenderness no rebound no rigidity MSK: FROM, strength 5/5 all extremities, no lower extremity edema Skin: Warm, dry, intact, ?Neuro: ?Alert and oriented x3, moving upper and lower extremities symmetrically, no obvious facial asymmetry noted, cranial nerves 2-12 intact Vital Signs: Vital Signs: Last Vital Signs Temp 98.3 F 09/01/25 17:17 Pulse 83 09/01/25 17:17 Resp 20 09/01/25 17:17 BP 134/70 09/01/25 17:17 Pulse Ox 97 09/01/25 17:17 O2 Del Method Room Air 09/01/25 17:17 BMI result Body Mass Index 32.9 Course Course Course Narrative: 54-year-old female history of hypothyroidism presented hospital today for chest pain. Patient was evaluated by provider before me the patient was signed out to me pending repeat troponin. Initial troponin is noted to be elevated at 21. There is some lateral T-wave inversion noted EKG appears to be chronic. Patient was given Valium for anxiety prior to my evaluation. Repeat EKG did not show any signs of STEMI, patient's initial troponin is 21.8. Second troponin is 22.7. Patient stated her chest pain has resolved. I did give patient is nitro paste and aspirin. Discussed with the patient that recommended admission to the hospital at this time however patient states she does not do well on hospital. She does not want to get admitted. She will like to leave. We will plan to refer the patient to cardiology clinic for further cardiology workup. Patient understands the risk of leaving. Patient will be leaving against medical advice. Medications Administered Discontinued Medications Generic Name Dose Route Start Last Admin Trade Name Freq PRN Reason Stop Dose Admin Aspirin 324 mg 09/01/25 14:41 09/01/25 14:52 Aspirin 81 Mg Tab.Chew PO 09/01/25 14:42 324 mg ONCE ONE Administration Diazepam 5 mg 09/01/25 12:59 09/01/25 13:21 Diazepam 10 Mg/2 Ml Cartridge IVPUSH 09/01/25 13:00 5 mg STAT STA Administration Nitroglycerin 0.4 mg 09/01/25 14:41 09/01/25 14:51 Nitroglycerin 0.4 Mg Tab.Subl SUBLINGUAL 09/01/25 14:42 0.4 mg ONCE ONE Administration Nitroglycerin 1 inch 09/01/25 15:03 09/01/25 15:09 Nitroglycerin 2 % Oint 1 Gm Packet TRANSDERMA 09/01/25 15:04 1 inch ONCE ONE Administration Medical Decision Making Medical Decision Making MDM Narrative: 1:12 PM 09/01/2025 (Dr. Allan Langford): No hypoxia tachycardic to suspect PE, ECG without any evidence of ACS at this time, she has T-wave inversion in lateral leads that is been present on all of her prior EKGs cardiac workup for ACS is highest on my consideration, chest x-ray to evaluate for pneumothorax, unlikely that we will be mediastinal widening this is not the sudden onset of chest pain radiating to the back to suspect aortic dissection, disposition to be determined I will provide Valium as she is extremely anxious 1:47 PM 09/01/2025 (Dr. Allan Langford): Has had slight trop elevation in the past today it is 21.8 we will repeat troponin at 15:00, care will be signed out to incoming provider Dr. Hutton Differential Diagnosis Differential Diagnoses: The differential diagnosis associated with the presentation includes (ACS, pneumothorax, aortic dissection, PE, Boerhaave syndrome) Admission/Observation Consideration of admission/observation: Escalation of care including admission/observation considered Lab Data 09/01/25 13:13 09/01/25 13:13 Labs: Lab Results 09/01/25 09/01/25 Range/Units 13:13 16:58 WBC 17.5 H (4.8-10.8) X10*3/uL RBC 5.43 D (4.20-5.50) X10*6/uL Hgb 16.3 H (12.0-16.0) g/dl Hct 46.9 (37.0-47.0) % MCV 86.4 (80.0-98.0) fL MCH 30.0 (27.0-33.0) pg MCHC 34.8 (31.0-35.0) g/dl RDW 14.0 (11.0-16.0) % Plt Count 272 (160-400) X10*3/uL MPV 10.7 (9.4-12.3) fL Immature Gran % (Auto) 0.5 H (0.0-0.4) % Neut % (Auto) 75.0 H (45-73) % Lymph % (Auto) 15.1 L (20-40) % [place] % (Auto) 7.0 (2-11) % Eos % (Auto) 1.8 (0-4) % Baso % (Auto) 0.6 (0-2) % Lymph # (Auto) 2.7 (1.2-4.9) X10*3/uL [place] # (Auto) 1.2 (0.1-1.2) X10*3/uL Eos # (Auto) 0.3 (0.0-0.4) X10*3/uL Baso # (Auto) 0.1 (0.0-0.2) X10*3/uL Abs Immat Gran (auto) 0.09 H (0.00-0.03) X10*3/uL Absolute Neuts (auto) 13.1 H (2.0-8.3) x10*3/uL Absolute Nucleated RBC 0.000 (0.0-0.012) X10*3/uL Nucleated RBC % (auto) 0.0 (0.0-0.2) /100WBC Sodium 143 (135-145) mmol/L Potassium 3.8 (3.3-5.1) mmol/L Chloride 111 H (96-108) mmol/L Carbon Dioxide 25 (22-29) mmol/L Anion Gap 11 L (12-20) BUN 13 (9-16) mg/dL Creatinine 0.92 (0.5-1.4) mg/dL Estim Creat Clear Calc 65.8 Estimated GFR > 60 Random Glucose 94 (60-115) mg/dL Calcium 10.8 H D (8.4-10.2) mg/dL Total Bilirubin 0.4 (0.0-1.0) mg/dL AST 25 (5-31) U/L ALT 24 (0-31) U/L Alkaline Phosphatase 160 H (39-117) U/L Troponin I High Sens 21.8 H D 22.7 H (<3.5-17.0) ng/L NT-Pro-B Natriuret Pep 48.9 (<300) pg/mL Total Protein 7.8 (6.5-8.0) g/dL Albumin 4.4 (3.5-5.0) g/dL Independent Interpretation I performed an independent interpretation of an: EKG (63 beats per minute T-wave inversions lateral leads seen on prior) and Plain X-Ray (No mediastinal widening, no pneumothorax no consolidations, possibly increased vascular congestion but appeared similar to prior chest x-ray) Radiology Impression Discussion of test interpretation with radiology: I have reviewed the radiologist's reading. ( XR/XR chest 1V IMPRESSION: Cardiomegaly with mild interstitial pulmonary edema.) Discharge Plan Discharge Clinical Impression: Chest pain, precordial, Elevated troponin Patient Disposition: Left Against Medical Advice Instructions: Chest Pain (ED) Additional Instructions: Your cardiac enzyme was elevated. I recommend further cardiac workup please follow up with the cardiology clinic. Prescriptions: No Action cholecalciferol (vitamin D3) 50 mcg (2,000 unit) capsule 50 mcg PO DAILY Qty: 90 3RF aspirin [Adult Low Dose Aspirin] 81 mg tablet,delayed release (DR/EC) 81 mg PO DAILY Qty: 90 3RF levothyroxine 125 mcg tablet 125 mcg PO DAILY Qty: 30 2RF albuterol sulfate [ProAir HFA] 90 mcg/actuation HFA aerosol inhaler 2 puff inhalation Q4-6H PRN (Reason: shortness of breath or wheezing) Qty: 8.5 1RF albuterol sulfate [Ventolin HFA] 90 mcg/actuation HFA aerosol inhaler 2 puff inhalation Q4-6H PRN (Reason: shortness of breath or wheezing) Qty: 6.7 0RF Citrucel 500 mg tablet 500 mg PO DAILY Qty: 90 2RF Rx Instructions: take it with full glass of water aripiprazole 10 mg tablet 10 mg PO DAILY clonazepam 0.5 mg tablet 0.5 mg PO DAILY PRN esomeprazole magnesium [Nexium] 40 mg capsule,delayed release(DR/EC) 40 mg PO DAILY Qty: 30 5RF bisacodyl [Dulcolax (bisacodyl)] 5 mg tablet,delayed release (DR/EC) 10 mg PO BEDTIME Qty: 180 4RF Referrals: [facility] [Provider Group] Print Language: Mauritian
[2025-09-01 13:18] LABS: MANUAL DIFF FLAG NO
[2025-09-01 13:21] LABS: Hematocrit 46.9 % (37.0-47.0); Hemoglobin 16.3 g/dl (12.0-16.0); Imm Gran Abs Auto 0.09 X10*3/uL (0.00-0.03); Imm Gran Pct Auto 0.5 % (0.0-0.4); Lymphocytes Absolute Auto 2.7 X10*3/uL (1.2-4.9); Mean Corpuscular HGB Conc 34.8 g/dl (31.0-35.0); Mean Corpuscular Hemoglobin 30.0 pg (27.0-33.0); Mean Corpuscular Volume 86.4 fL (80.0-98.0); NRBC Abs Auto 0.000 X10*3/uL (0.0-0.012); NRBC Pct Auto 0.0 /100WBC (0.0-0.2); Platelet Count 272 X10*3/uL (160-400); Red Blood Count 5.43 X10*6/uL (4.20-5.50); White Blood Count 17.5 X10*3/uL (4.8-10.8)
[2025-09-01] MEDS: diazePAM 10 MG/2 ML CARTRIDGE 5 MG IVPUSH (13:21)
[2025-09-01 13:34] LABS: Alanine Aminotransferase 24 U/L (0-31); Albumin Level 4.4 g/dL (3.5-5.0); Alkaline Phosphatase 160 U/L (39-117); Anion Gap 11 (12-20); Aspartate Amino Transferase 25 U/L (5-31); Blood Urea Nitrogen 13 mg/dL (9-16); Calcium 10.8 mg/dL (8.4-10.2); Carbon Dioxide 25 mmol/L (22-29); Chloride 111 mmol/L (96-108); Creatinine Clr Calc Pharmacy 65.8; Estimated Glomerular Filt Rate > 60; Potassium 3.8 mmol/L (3.3-5.1); Sodium 143 mmol/L (135-145); Total Protein 7.8 g/dL (6.5-8.0)
[2025-09-01 13:35] VITALS: BP 135/64; PULSE 73; RESP 19; O2SAT 95
[2025-09-01 13:42] LABS: Troponin-I High Sensitivity 21.8 ng/L (<3.5-17.0)
[2025-09-01 13:43] LABS: NT Pro B Type Natriuretic Pept 48.9 pg/mL (<300)
[2025-09-01 14:51] VITALS: BP 160/90; PULSE 82
--- NOTE | 2025-09-01 14:57 | ECG_ITS ---
Test Reason : CP Blood Pressure : */* mmHG Vent. Rate : 80 BPM Atrial Rate : 80 BPM P-R Int : 152 ms QRS Dur : 76 ms QT Int : 362 ms P-R-T Axes : 13 58 30 degrees QTcB Int : 417 ms Normal sinus rhythm T wave abnormality, consider lateral ischemia Abnormal ECG When compared with ECG of 01-Sep-2025 12:30, No significant change was found Referred By: Scarlett Hutton Electronically Signed By: BEATA KING
[2025-09-01] MEDS: Nitroglycerin 2 % Oint 1 GM Packet 1 INCH TRANSDERMA (15:09)
[2025-09-01 15:26] VITALS: BP 124/65; PULSE 83; RESP 22; TEMP 37.1; O2SAT 92
[2025-09-01 17:17] VITALS: BP 134/70; PULSE 83; RESP 20; TEMP 36.8; O2SAT 97
[2025-09-01 17:23] LABS: Troponin-I High Sensitivity 22.7 ng/L (<3.5-17.0)
[2025-09-01 17:57] VITALS: BP 134/70; PULSE 83; RESP 20; TEMP 36.8; O2SAT 97
--- OUTSIDE RECORDS SUMMARY | 2025-09-01 18:16 | XMS_ITS | Encounter Summary ---
Author Organization [employer] Address [address] [place] [address] Care Team Providers Care Senior Product Integrity Engineer Name Role Phone [facility] Primary Care Provider [phone] Reason for Visit * Reason Onset Date Comments Med Refill 03/27/2025 Encounter Details Date Type Department Care Team ([facility] st Contact Info) Description 03/27/[address] [facility] [address], [place] [phone] [facility] [address] [place], [place] [phone] Med Refill Social History Tobacco Use Types Packs/Day Years [...] encounter Miscellaneous Notes * Telephone Encounter - Marilee Carver LPN - 03/27/2025 4:03 PM EDT Medication should have refills script was sent on 07/22/24 with 11 refills. * Telephone Encounter - Samy Rosales - 03/27/2025 4:00 PM EDT TC from pt requesting medication refill. Medications needing refill: Ventolin inhaler To be sent to: [id number] [place], [place] - [address] documented in this encounter Plan of Treatment Upcoming Encounters Date Type Department Care Team (Late st Contact Info) Description 09/16/2025 2:00 PM EST Office Visit [facility] [address] [place] [address] Jody, Elizabeth, SMART GRID ENGINEER [address] [place], [place] [phone] 10/16/2025 10:00 AM EST Office Visit [facility] [address] [place] [address] Clint Townsend DDS [address] [place] [address] documented as of this encounter Visit Diagnoses Not on filedocumented in this encounter Additional Health Concerns Assessment Noted Time PHQ-9 Depression Total Score: 0 10/13/19 25 11:22 AM EST documented as of this encounter Care Teams Senior Product Integrity Engineer Relationship Specialty Start Date End Date Elizabeth Vera FNP [address] [place] [id number] PCP - General Family Medicine 07/20/22 documented as of this encounter
--- OUTSIDE RECORDS SUMMARY | 2025-09-01 18:16 | XMS_ITS | Data Portability ---
Author Organization [place] - [facility], Allergy Address [address] [place] [address] Assessment No assessment recorded. Plan of Treatment Reminders Order Date Submit Date Provider Last Modified By Organization Details Last Modified Time Details Appointments None recorded. Lab None recorded. Referral None recorded. Procedures polysomno graphy, diagnosti c (PROC) 2023 024 [facility] Sleep Medicine Services, [address] [place] [address], [address], 4 16:25:15 Surgeries None recorded. Imaging CT, neck, soft tissue, w/ contrast 2023 024 [facility] Radiology (Hsg Scheduling), [address] [place], [address] 4 16:23:23 Medication Orders None recorded. Patient TargetsNo targets recorded. Patient InstructionsNo instructions recorded. Reason for Referral None Reported. Problems Name Problem SNOMED Code Status Onset Date Resolution Date Notes Provider Name and Address Organization Details Recorded Time Hypertrophy of tonsils 15275567 Active 2023 JASWINDER Velasquez MD [address] [place] [address], [place], [address], [facility] - [facility] 4 16:03:59 Chronic hoarseness 2945199340099 Active 2023 JASWINDER Velasquez MD [address] [place] [address], [place], [address], [facility] - [facility] 4 16:04:05 Dysphagia 70471595 Active 2023 JASWINDER Velasquez MD [address] [place], [place] [address] [place], [address], [facility] - [facility] [place] 4 16:04:11 Chronic sore throat 317336315 Active 2023 JASWINDER Velasquez MD [address] [place] [address], [place], [address], [facility] - [facility] [place] 4 16:15:10 Obstructive sleep apnea of adult 9839809276662 Active 2023 JASWINDER Velasquez MD [address] [address], [place], [address], [facility] - [facility] [place] 4 16:18:03 Problem Notes None recorded. Procedures Surgical History Date Name Laterality Status Provider Name and Address Organization Details Recorded Time 02/11/2024 FFL_RE completed JASWINDER LANDEROS MD [address], [address], [facility] - [facility] [place] 02/11/2024 16:04:48 Imaging Results None recorded. Procedure Notes None recorded. Medical Equipment None Reported. Medications Name Sig Start Date Stop Date Status Note LastModified by Organization Details LastModified Time amoxicillin 500 mg capsule active Not Available Not Available Not Available levothyroxin e 175 mcg tablet active Not Available Not Available Not Available atorvastatin 20 mg tablet active Not Available Not Available Not Available ketoconazole 2 % shampoo APPLY TOPICALLY 3 TIMES A WEEK. active Not Available Not Available No t Available nicotine (polacrilex) 2 mg gum CHEW 1 GUM BY MOUTH NEEDED SMOKING CESSATION active Not Available Not Available No t Available Nystop 100,000 unit/gram topical powder APPLY TOPICALLY TWICE DAILY active Not Available Not Available Not Available senna 8.6 mg tablet TAKE 2 [...] BY MOUTH ONCE DAILY NEEDED FOR SEVERE ANXIETY/ PANIC DISORDER. active Not Available Not Available No t Available penicillin V potassium 500 mg tablet TAKE 1 TABLET BY MOUTH TWICE DAILY FOR 10 DAYS active Not Available Not Available No t Available omeprazole 40 mg capsule,cathleen yed release active Not Available Not Available Not Available aspirin 81 mg tablet,delay ed release TAKE 1 TABLET BY MOUTH ONCE DAILY active Not Available Not Available No t Available levothyroxin e 25 mcg tablet TAKE 1 TABLET BY MOUTH DAILY TAKE WITH 200 MCG DAILY TOGETHER active Not Available Not Available No t Available doxycycline monohydrate 100 mg capsule TAKE 1 CAPSULE BY MOUTH TWICE DAILY active Not Available Not Available No t Available pantoprazole 40 mg tablet,delay ed release [...] Not Available Not Available No t Available polymyxin B sulfate 10,000 unit-trimeth oprim 1 mg/mL eye drops active Not Available Not Available Not Available Citrucel 500 mg tablet TAKE 1 TABLET BY MOUTH DAILY WITH FULL GLASS OF WATER active Not Available Not Available No t Available nitroglyceri n 0.4 mg sublingual tablet TAKE 0.4MG SUBLINGUALL Y EVERY 5 MINUTES NEEDED FOR CHEST PAIN. DO NOT EXCEED 3 DOSES PER EPISODE active Not Available Not Available No t Available levothyroxin e 200 mcg tablet active Not Available Not Available Not Available bisacodyl 5 mg tablet,delay ed release TAKE 2 TABLETS BY MOUTH EVERY NIGHT AT BEDTIME active Not Available Not Available No t Available metoprolol succinate ER 25 mg tablet,exten ded release 24 hr TAKE 1 TABLET BY MOUTH DAILY active Not Available Not Available Not Available cefuroxime axetil 500 mg tablet TAKE 1 TABLET BY MOUTH TWICE DAILY FOR 7 DAYS active Not Available Not Available No t Available hydroxyzine HCl 10 mg tablet active Not Available Not Available Not Available fluticasone propionate 50 mcg/actuatio n nasal spray,suspen iva ADMINISTER 1-2 SPRAYS IN EACH NOSTRIL EVERY DAY active Not Available Not Available No t Available levothyroxin e 112 mcg tablet TAKE 1 TABLET BY MOUTH DAILY active Not Available Not Available Not Available Ventolin HFA 90 mcg/actuatio n aerosol [...] mcg capsule TAKE 1 CAPSULE BY MOUTH DAILY active Not Available Not Available Not Available [facility] with Large Mask USE DIRECTED WITH INHALER active Not Available Not Available No t Available Vitals Date Recorded Body height Body mass index (BMI) Body weight Provider Name and Address Organization Details Last Updated DateTime 02/11/2024 154.94 cm 30.2 kg/m2 02138.78 g Makeda Ordoñez [facility] 02/11/2024 15:52:46 Social History None recorded. Functional Status None recorded. Mental Status None recorded. Family History Nothing Reported. Medical History No medical history recorded. Gynecological HistoryNo gynecological history recorded. Obstetrics History GPAL:G 0 P 0 0 0 0 Past Encounters Encounter ID Performer Location Encounter Start Date Encounter Closed Date Diagnosis/Indication Diagnosis SNOMED-CT Code Diagnosis ICD10 Code Diagnosis IMO Codes Diagnosis Note [id number] JASWINDER LANDEROS MD [facility] on [address] [place] [id number] 02/11/2024 14:53:08 02/11/2024 16:19:08 Hypertrophy of tonsils 80280155 J35.1 Chronic hoarseness 40726 [address] 105 R49.0 Normal vocal cord exam. Dysphagia 28177230 R13.1 0 FFL was negative for obstructiv e lesions. Chronic sore throat 2754 70416 J31.2 Exam was benign. Tonsils are 2+. I will order a CT neck with contrast to exclude an underlying neoplasm. I discourage d tonsillect joselin. Obstructiv e sleep apnea of adult 3824931011 103 G47.33 Will order a PSG to evaluate. Health Concerns Section Related Observation LastModified by Organization Detai ls LastModified Time None Recorded Concern Status LastModified by Organization Details LastModified Time None Recorded Advance Directives Directive None Recorded Payers Insurance Date Sequence Insurance Name Policy Number Policy Veloz Covered Member ID Veloz Member ID Guarantor Name 11/19/2024 1 [place] [facility] Meagan Canada [id number] Meagan [place] Notes Date Note Type Note Provider Name and Address Organization Details Recorded Time 02/11/2024 text/html ROS as noted in the HPI She reports tonsil hypertrophy. She reports it causes difficulty swallowing. She feels swelling and inflammation in her throat. Her ears are very itchy and she occasionally she has right ear pain. She has occasional hoarseness. She quit smoking 3 weeks ago. She snores. She reports some obstruction in her breathing at night. JASWINDER LANDEROS MD [address] [place] [address], [place], [address], [facility] - [facility] 02/11/2024 16:22:22 OBGyn Episode No OBEpisode recorded.
--- OUTSIDE RECORDS SUMMARY | 2025-09-01 18:16 | XMS_ITS | Patient Health Record ---
Author Organization [facility] Address [address] [place] [address] Care Team Providers Care Well Service Derrick Worker Name Role Phone Fernando GLASS, Linda Primary Care Provider Unavailab Tyler Blackmon Jr Unavailable [phone] Reason For Referral No Information Medications Medication SIG (Take, Route, Frequency, Duration) Notes Start Date End Date Status Clarithromycin 500mg Active Golytely 236 GM Solution Reconstituted as directed before colonoscopy Orally every 15 minutes; Duration: 1 day(s) 10/12/2011 Active Pantoprazole Sodium 40 MG Tablet Delayed Release 1 tablet Orally Once a day; Duration: 30 day(s) 10/12/2011 Active Amoxicillin 500mg Ac tive Levothyroxine Sodium 75mg Active Social History Tobacco Use: Social History Observation Description Date Details (start date - stop date) Former Smoker NA - NA Social History Drugs/Alcohol: Social Info Question Answer Notes Alcohol Screen Did you have a drink containing alcohol in the past year? No Points 0 Interpretation Negative Tobacco Use: Social Info Question Answer Notes Tobacco Use/Smoking Patient is a former smoker How long has it been since you last smoked? < 1 month Problems Problem Type SNOMED Code ICD Code Onset Dates Problem Status W/U Status Risk Notes Problem Esophageal reflux (072297564) Esophageal reflux (530.81) Active confirmed Problem Family history of malignant neoplasm of gastrointestinal tract (143482236) Family history of malignant neoplasm of gastrointestinal tract (V16.0) Active confirmed Plan Of Treatment Future Test Test Name Order Date UPPER GI ENDOSCOPY 10/12/2011 COLONOSCOPY 10/12/2011 Insurance Providers Payer Name Payer Address Payer Phone Subscriber Number Group Number Insured Name Patient Relationship to Insured Coverage Start Date Coverage End Date [facility] [address] [address] [place], [place] [id number] [phone] [id number] RADHA PUGA Self - patient is the insured MEDICAID OF [facility] [address] [place] [phone] [id number] RADHA PUGA Self - patient is the insured Medical (General) History Medical History History ICD Code bipolar disorder tubal celiac disease Surgical History Surgery Date(Month/Year) tubal ligation
--- OUTSIDE RECORDS SUMMARY | 2025-09-01 18:16 | XMS_ITS | Encounter Summary ---
Author Organization [employer] Address [address] [facility] 7t [place] [address] Care Team Providers Care Carriage Rider Name Role Phone [facility] Primary Care Provider [phone] Martin Green RN Unavailable [phone] Reason for Visit * Reason Onset Date Comments Nurse Triage 09/26/2023 Encounter Details Date Type Department Care Team ([facility] st Contact Info) Description 09/26/2023 Telephone [facility] MEDICINE [address] [place], [place] [phone] [facility] [address] [place], [place] [phone] Nurse Triage Social History Tobacco Use Types [...] 09/26/2023 2:16 PM EST Call returned to Meagan Canada for triage. No answer LVM to return call to [facility] triage line [phone]. * Telephone Encounter - Dottie Green - 09/26/2023 1:42 PM EST Symptom: Shoulder Pain - Not From Injury Outcome: Schedule an urgent appointment (within 1 hour) or talk to a nurse or provider soon Reason: Can't use the shoulder normally The caller accepted this outcome Please contact pt at [phone] (Ukrainian) documented in this encounter Plan of Treatment Upcoming Encounters Date Type Department Care Team (Late st Contact Info) Description 09/16/2025 2:00 PM EST Office Visit [facility] MEDICINE [address] [place] [address] [facility], [facility] [address] [place] [address] 10/16/2025 10:00 AM EST Office Visit [facility] ADULT DENTAL [address] [place] [address] Clint Townsend DDS [address] [place] [address] documented as of this encounter Visit Diagnoses Not on filedocumented in this encounter Additional Health Concerns Assessment Noted Time PHQ-9 Depression Total Score: 19 023 8:26 AM EST documented as of this encounter Care Teams Carriage Rider Relationship Specialty Start Date End Date Elizabeth Vera FNP [address] [place] [address] PCP - General Family Medicine 07/20/22 Martin Green, GABRIEL [address] [place] [address] Professor Of GeneticsV Block Saw Operator 08/05/24 11/06/24 documented as of this encounter
--- OUTSIDE RECORDS SUMMARY | 2025-09-01 18:16 | XMS_ITS | Encounter Summary ---
Author Organization [employer] Address [address] [facility] 7t [place] [address] Care Team Providers Care Citrus Peeler Name Role Phone [place] Primary Care Provider [phone] Martin Green RN Unavailable [phone] Reason for Visit * Reason Onset Date Comments Results 08/08/2024 Encounter Details Date Type Department Care Team ([facility] Contact Info) Description 08/08/2024 Telephone [facility] MEDICINE [address] [place], [place] [phone] [facility] [address] [place] [address] Results Social History Tobacco Use Types Packs/Day [...] results: Labs Date when done: 08/08/24 Facility: [facility] Labs documented in this encounter Plan of Treatment Upcoming Encounters Date Type Department Care Team (Late st Contact Info) Description 09/16/2025 2:00 PM EST Office Visit [facility] MEDICINE [address] [place] [address] [place] FNP [address] [place] [address] 10/16/2025 10:00 AM EST Office Visit [facility] ADULT DENTAL [address] [place] [address] Clint Townsend DDS [address] [place] [address] documented as of this encounter Visit Diagnoses Not on filedocumented in this encounter Additional Health Concerns Assessment Noted Time PHQ-9 Depression Total Score: 9 07/22/20 24 10:38 AM EST documented as of this encounter Care Teams Citrus Peeler Relationship Specialty Start Date End Date [place], JENNIFER Johnson [address] [place] [address] PCP - General Family Medicine 07/20/22 Martin Green RN [address] [place] [address] [place]. SenatorGeographic Area Intelligence Officer 08/05/24 11/06/24 documented as of this encounter
--- OUTSIDE RECORDS SUMMARY | 2025-09-01 18:17 | XMS_ITS | Encounter Summary ---
Author Organization [employer] Address [address] [facility] 7[address] [place] [address] Care Team Providers Care Home Day Care Provider Name Role Phone Elizabeth Vera WEAPONS AND TACTICS INSTRUCTOR Primary Care Provider [phone] Reason for Visit * Reason Onset Date Comments unable to post insurance 12/02/2024 Encounter Details Date Type Department Care Team ([facility] st Contact Info) Description 12/02/2024 Telephone [facility] ADULT DENTAL [address] [place] [address] Clint Townsend DDS [address] [place], [place] [phone] unable to post insurance Social History Tobacco Use Types Packs/Day Years [...] encounter Miscellaneous Notes * Telephone Encounter - Maribell Harvey - 12/02/2024 11:19 AM EDT Patient is coming in for 1 pm emergency. Unable to post insurance portal not running on PAR sideDR documented in this encounter Plan of Treatment Upcoming Encounters Date Type Department Care Team (Late st Contact Info) Description 09/16/2025 2:00 PM EST Office Visit [facility] MEDICINE [address] [place] [address] Weston Elizabeth, WEAPONS AND TACTICS INSTRUCTOR [address] [place] [address] 10/16/2025 10:00 AM EST Office Visit [facility] ADULT DENTAL [address] [place] [address] Clint Townsend DDS [address] [place] [address] documented as of this encounter Visit Diagnoses Not on filedocumented in this encounter Additional Health Concerns Assessment Noted Time PHQ-9 Depression Total Score: 0 10/13/19 25 11:22 AM EST documented as of this encounter Care Teams Home Day Care Provider Relationship Specialty Start Date End Date [place] JENNIFER Johnson [address] [place] [address] PCP - General Family Medicine 07/20/22 documented as of this encounter
--- OUTSIDE RECORDS SUMMARY | 2025-09-01 18:17 | XMS_ITS | Encounter Summary ---
Author Organization [employer] Address [address] [facility] 7[address] [place] [address] Care Team Providers Care Natural Resources Professor Name Role Phone [facility] Primary Care Provider [phone] Martin Green RN Unavailable [phone] Reason for Visit * Reason Onset Date Comments Results 09/06/2022 Encounter Details Date Type Department Care Team ([facility] st Contact Info) Description 09/06/2022 Telephone [facility] MEDICINE [address] [place] [address] [facility] [address] [place] [address] Results Social History Tobacco Use Types Packs/Day [...] Description 09/16/2025 2:00 PM EST Office Visit [facility] MEDICINE [address] [place] [address] Elizabeth Vera FNP [address] [place] [address] 10/16/2025 10:00 AM EST Office Visit [facility] ADULT DENTAL [address] [place] [address] Clint Townsend DDS [address] [place] [address] documented as of this encounter Visit Diagnoses Not on filedocumented in this encounter Care Teams Natural Resources Professor Relationship Specialty Start Date End Date Elizabeth Vera FNP [address] [place] [address] PCP - General Family Medicine 07/20/22 Martin Green RN [address] [place] [address] Vat House SupervisorMotion Picture Actor 08/05/24 11/06/24 documented as of this encounter
--- OUTSIDE RECORDS SUMMARY | 2025-09-01 18:17 | XMS_ITS | Clinical Summary ---
Author Organization [email or web address] Address [address] [facility] [address] [place] [address] Care Team Providers Care Clip Loading Machine Feeder Name Role Phone Elizabeth Vera SUPERINTENDENT MARINE Primary Care Provider [phone] Allergies Active Allergy Reactions Criticality Noted Date Comments Cyclobenzaprine 11/06/2019 Other reaction(s): GI Problems Ibuprofen 12/29/2022 Stomach ache Pantoprazole Rash Low 04/03/2024 Tramadol Headache,Hives 11/06/2019 Medications * This document contains information received from the source organization and may not represent a complete record from that organization. ammonium lactate (Amlactin) 12 % cream apply 1 liberally by Topical route 2 times every day to feet 01/19/20 18 Active cetirizine (ZyrTEC) 10 MG tablet Take 1 tablet (10 mg) by mouth in the morning. 30 tablet 11 12/30/19 23 Active ketotifen (Alaway) 0.025 % ophthalmic solution Administer 1 drop into both eyes 2 times daily. 10 mL 2 12/30/19 23 Active Spacer/Aero-Hol d Chamber Mask miscIndications :Acute bronchitis, unspecified organism Use as directed with inhaler 1 each 07/22/20 24 Active fluticasone (Flonase) 50 MCG/ACT nasal sprayIndication s:Acute bronchitis, unspecified organism Administer 1-2 sprays into each nostril Once per day. Shake gently. Before first use, prime pump. After use, clean tip and replace cap. 16 g 2 07/22/20 24 Active Spacer/Aero-Hol ding Chambers (OptiChamber Linda-Lg Mask) device USE DIRECTED WITH INHALER 07/22/20 24 Active esomeprazole (NexIUM) [address] capsule Take 1 capsule by mouth Once per day. 08/08/20 24 Active cholecalciferol VITAMIN D (Vitamin D-3) 50 MCG (1999 UT) capsule Take 1 capsule by mouth Once per day. 07/12/20 24 Active Bisacodyl EC 5 MG EC tablet Take 10 mg by mouth at bedtime. 08/11/20 24 Active Aspirin Low Dose 81 MG EC tablet Take 81 mg by mouth Once per day. Active nicotine polacrilex (Nicorette) 2 MG gum Chew 1 each (2 mg) if needed for smoking cessation. 100 each 3 11/08/19 25 Active levothyroxine (Synthroid, Levoxyl) 112 MCG tablet Take 1 tablet by mouth Once per day. 10/28/19 25 Active Ascorbic Acid (Vitamin C) 125 MG chewable tablet Chew 1 tablet Once per day. Kristin Márquez DO at [facility] Active hydrOXYzine HCl (Atarax) 10 MG tabletIndicatio ns:Bipolar I disorder (CMS/HCC) (HCC) Take 1 tablet (10 mg) by mouth if needed at bedtime for anxiety. 30 tablet 1 12/09/19 25 Active ARIPiprazole (Abilify) 10 MG tabletIndicatio ns:Bipolar I disorder (CMS/HCC) (HCC) Take 1 tablet (10 mg) by mouth Once per day. 30 tablet 1 12/09/19 25 Active atorvastatin (Lipitor) 20 MG tablet TAKE 1 TABLET(20 MG) BY MOUTH DAILY 90 tablet 1 02/21/20 25 Active budesonide-form oterol (Symbicort) 80-4.5 MCG/ACT inhalerIndicati ons:Persistent cough for 3 weeks or longer Inhale 2 puffs twie daily. Rinse mouth with water after use to reduce aftertaste and incidence of candidiasis. Do not swallow. 1 each 02/28/20 25 Active Ventolin HFA 108 (90 Base) MCG/ACT inhalerIndicati ons:Acute bronchitis, unspecified organism INHALE 2 PUFFS BY MOUTH EVERY 6 HOURS NEEDED FOR WHEEZING 18 g 11 08/03/20 25 Active albuterol 108 (90 Base) MCG/ACT inhalerIndicati ons:Acute bronchitis, unspecified organism Inhale 2 puffs every 6 (six) hours if needed for wheezing. 18 g 11 07/22/20 24 025 Discontinued nystatin (Mycostatin) 835510 UNIT/GM powderIndicatio ns:Intertrigo Apply topically 2 times daily. 30 g 08/21/20 24 025 Active Problems Problem Noted Date Diagnosed Date Viral upper respiratory tract infection 10/27/19 25 Assessment & Plan (10/27/2024 4:09 PM EST): Rapid viral test are negative. Rest (sleep at least 8 hours a night). Advised to facemask at home for the next 3 to 4 days Hydrate with plenty of water (avoid caffeine and alcohol). Use saline nose drops to loosen mucus + Flonase twice daily Take Acetaminophen (Tylenol )/Ibuprofen as needed to reduce fever, headache, body aches or discomfort Gargle with salt water and use throat sprays/lozenges for throat pain. Use heated, humidified air. If you do not have a humidifier, take hot showers. Cover coughs and sneezes using the crook of your elbow. If you have a fever, stay home and away from others (self isolation) until fever-free for 72 hours (temperature should be less than 100 F without medication). Hand pain 08/08/2024 Assessment & Plan (08/08/2024 [...] well in the differential. -has apt w Software [employer] for her hypothyroidism in 09/2024 ,per pt [...] no better w wrist brace will need auto service station attendant to eval for possibility of psoriatic arthritis [...] is currently connected with psychiatry services with [facility] provider, Adam Jane. Meagan reported her [...] as needed/request. Tobacco use 07/11/2023 Overview (10/08/2023): 4-6 per day Quit 08/2023 Assessment & Plan (08/08/2024 7:06 PM EST): States has patches and gums of nicotine at home and is considering to start smoking cessation -encouraged pt in quitting Assessment & Plan (08/10/2023 10:30 AM EST): Congratulated patient on successful cessation! Chest pain 12/29/2022 Seasonal allergies 12/29/2022 Acquired hypothyroidism 10/07/2015 Assessment & Plan (08/10/2023 10:29 AM EST): Repeat TSH Assessment & Plan (09/10/2022 1:29 PM EST): -Currently on levothyroxine 225mcg daily -Previously referred to Endo although appears did not make it to appt -Check TSH -Possible non-adherence to medication, although pt reports has been taking both pills daily 30-60 mins before breakfast, meds, or non-water beverages Bipolar I disorder (CMS/HCC) 10/07/2015 Assessment & Plan (08/10/2023 10:29 AM EST): Denies active SI or thoughts of self harm. Reports feeling that she is able to manage hearing voices well and does not want to restart medication. Previously on abilify. Patient well appearing during OV. A & O x 3. However I am concerned for safety given violent nature of some of her auditory hallucinations. consulted during visit. Determined patient safe to return home with close follow up and to reestablish with psychiatry if needed Pt has crisis phone number Assessment & [...] address depressive, anxiety and grief symptoms and [facility] Crisis information. At this time Meagan Canada meets criteria for Visit Diagnoses: Problem List Items Addressed This Visit Other Bipolar I disorder (CMS/HCC) Prolonged grief disorder Patient ready to address current needs Yes Strengths include Meagan is in action stage of change. PLAN: 1. Follow up with [facility]: Recommended for follow-up: as needed 2. Patient goal is engage in Medication Management 3. Behavioral Recommendations a. Referral to [facility] Psychopharmacology will be submitted b. Use of coping skills provided c. Continuation of Ind. Therapy with her provider d. [facility] contact information provided Generalized abdominal pain 10/07/2015 Uterine leiomyoma 10/07/2015 Encounters Date Type Department Care Team Description 07/29/2025 Refill [facility] [address] [place] [address] Index Elizabeth, [facility] Acute bronchitis, unspecified organism 06/25/2025 Telephone [facility] [address] [place] [address] [facility] [place], [facility] Med Refill from Last 3 Months Immunizations Immunization Administration Dates Next Due Influenza, IIV3, injectable 05/26/2014 Pfizer Covid-19 Vaccine 12+ 11/10/2024(D eferred: Patient decision - felt sick with last covid-19 vaccine),05/06/2021,04/12/2021 Pneumococcal Polysaccharide PPSV23 11/08/2011 TD (adult), 2 [...] Sign Reading Time Taken Comments Blood Pressure 130/80 02/27/2025 12:00 PM EDT Pulse 57 02/27/2025 12:00 PM EDT Temperature 36.7 C (98.1 F) 02/27/2025 12:00 PM EDT Respiratory Rate 20 02/27/2025 12:00 PM EDT Oxygen Saturation 96% 10/27/2024 3:53 PM EST Inhaled Oxygen Concentration - - Weight 78 kg (172 lb) 02/27/2025 12:00 PM EDT Height 154.9 cm (5' 1 ) 02/27/2025 12:00 PM EDT Body Mass Index 32.5 02/27/2025 12:00 PM EDT Plan of Treatment Upcoming Encounters Date Type Department Care Team (Late st Contact Info) Description 09/16/2025 2:00 PM EST Office Visit [facility] [address] [place] [address] Index, Elizabeth, SUPERINTENDENT MARINE [address] [place] [address] 10/16/2025 10:00 AM EST Office Visit [facility] ADULT DENTAL [address] [place] [address] Clint Townsend DDS [address] [place] [address] Health Maintenance Due Date Last Done Comments CT Colonography 1970 Colonoscopy 1970 Colorectal Cancer Screening 1970 FIT DNA/Cologuard 1970 FIT 1970 FOBT 1970 HIV Screening 1970 Sigmoidoscopy 1969 Alcohol/Substance Use Screening 1981 Hepatitis C Screening 11/13/1987 Hepatitis B Vaccines (1 of 3 - 19+ 3-dose series) 1988 Dental Prophylaxis 07/17/2011 01/13/2011 Dental X-Ray: Bitewings 01/15/2012 01/13/2011 Pneumococcal Vaccine: 50+ Years (2 of 2 - PCV) 11/07/2012 11/08/2011 Zoster Vaccines (1 of 2) 11/13/2019 Mammogram 03/19/2024 03/19/2023, 03/19/2023 Influenza Vaccine (#1) 2025 05/26/2014 Dental Oral Exam 07/20/2025 01/16/2025 Depression Screening 10/13/2025 10/13/2024, 10/13/19 25 SDOH Screening 10/14/2025 10/14/2024 Disability Screening 02/27/2026 02/27/2025 Tobacco Screening 03/08/2026 03/08/2025 Dental X-Ray: Full Mouth 02/01/2027 024, 01/13/2011, 07/13/2009 DTaP/Tdap/Td Vaccines (3 - Td or Tdap) 02/10/2028 02/09/2018, 11/08/2011, 10/26/2003 Cervical Cancer Screening 01/31/2029 HPV/Cotest 01/31/2029 02/01/2024 Pap Smear 01/31/2029 02/01/2024 Lipid Panel 08/08/2029 08/08/2024, 06/0 09/2022, 05/03/2022, Additional history exists RSV Patients and Patients Aged 60 years or older (1 - 1-dose 75+ series) 2044 COVID-19 Vaccine Discontinued 05/06/2021, 04/12/2021 HIB Vaccines Aged Out No longer eligi [...] patient's age to complete this topic Meningococcal B Vaccine Aged Out No l onger eligible based on patient's age to complete [...] Procedure Name Priority Date/Time Associated Diagnosis Comments PERIODIC ORAL EVALUATION - ESTABLISHED PATIENT Routine 01/16/2025 9:00 AM EDT LIPID PANEL, STANDARD Routine 08/08/2024 12:05 PM EST PANORAMIC RADIOGRAPHIC IMAGE Routine 02/01/2024 3:00 PM EDT HPV MRNA E6/E7 REFLEX TO HPV 16, 18/45 Routine 02/01/2024 2:18 PM EDT PAP SMEAR Routine 02/01/2024 2:18 PM EDT Pap smear for cervical cancer screening BI MAMMOGRAM SCREENING TOMOSYNTHESIS BILATERAL Routine 03/19/2023 3:16 PM EDT PROPHYLAXIS - ADULT Routine 01/13/2011 1 2:00 AM EDT INTRAORAL - COMPLETE SERIES OF RADIOGRAPHIC IMAGES Routine 01/13/2011 12:00 AM EDT from Last 3 Months or Most Recently Relevant to Health Maintenance Results * (ABNORMAL) Lipid Panel, Standard (08/08/2024 12:05 PM EST) Triglycerides 200(H) <150 mg/dL [facility] Comment:Desirable Triglyceri de: less than 150 mg/dLBorderline High Triglyceride 150-199 mg/dLHigh Triglyceride: 200-499 mg/dLVery High Triglyceride: greater than or equal to 5OO mg/dL Cholesterol 221(H) <200 mg/dL [facility] Comment:Desirable Cholestero l: less than 200 mg/dLBorderline High Cholesterol: 200-239 mg/dLHigh Cholesterol: greater than 239 mg/dL LDL Cholesterol Calculated 132(H) <100 mg/dL [facility] Comment:Desirable LDL: less than 100 mg/dLNear Optimal/Above Optimal LDL: 110- 129 mg/dLBorderline High LDL: 130-159 mg/dLHigh LDL: 160-189 mg/dLVery High LDL: greater than or equal to 190 mg/dL HDL Cholesterol 49 >40 mg/dL [facility] Comment:Desirable HDL: great er than 40 mg/dL Note: This HDL assay may give artificially low results in patients with liver disease. 08/08/2024 12:0 5 PM EST 08/08/2024 12:55 PM EST Generic External Data Provider LAB BLOOD ORDERAB LES Final Result Performing Organization Address [facility]/ZIP Co de Phone Number [facility] [address] [place] [phone] * HPV mRNA E6/E7 w/Reflex to HPV Genotypes 16, 18/45 (02/01/2024 2:18 PM EDT) HPV nRNA E6/E7 Not Detected Not Detected [facility] Comment:Methodology: Transcr iption-Mediated AmplificationThis assay detects E6/E7 viral messenger RNA (mRNA) from 14high-risk HPV types (16,18,31,33,35,39,45,51,52,56,58,59,66,68).Cervical sources are required for HPV testing.If a vaginal source from a patient who has had atotal hysterectomy with removal of cervix wassubmitted, please contact the testing laboratoryfor alternative testing options.For additional information, please refer [email or web address].[employer]/faq/UQV428w8(This link if provided for information/educational purposes only.)THIS TEST WAS PERFORMED AT:[facility] [place] [phone] MAC MD HPV mRNA E6/E7 [facility] HPV 16 RNA [facility] HPV 18/45 RNA [facility] 02/01/2024 2:18 PM EDT 02/04/2024 5:00 AM EDT [facility] SUPERINTENDENT MARINE LAB CYTOLOGY ORDERABLES Final Result Performing Organization Address [facility]/ZIP Co de Phone Number [facility] [address] [place] [phone] * Pap Smear (02/01/2024 2:18 PM EDT) Swab Cervix uteri structure / Unknown 02/01/2024 2:18 PM EDT 02/04/2024 5:00 AM EDT Lily [facility] - 02/18/2024 5:16 PM EDT ----- ------- Name: Meagan Canada I Age/Sex: 53/F : 1970 Unit#: [id number] Attend Dr: Elizabeth Vera Re02/01/24 Status: [facility] Disch: ----- ------- SPEC : [id number] RECD: 02/04/24-0500 STATUS: BRADEN CAVANAUGH NUM: [id number] PARDEEP: 02/01/24-[address] [facility] [address]: Elizabeth Vera ENTERED: 02/04/24-900 SP TYPE: Pap Smr OT DR: ORDERED: Pap Smear Interpretation Satisfactory for evaluation. Negative for intraepithelial lesion or malignancy. HPV mRNA E6/E7: NOT DETECTED This assay detects E6/E7 viral messenger RNA (mRNA) from 14 high-risk HPV types (16, 18, 31, 33, 35, 39, 45, 51, 52, 56, 58, 59, 66, 68) HPV testing performed by [email or web address], [place], [place]. See reference laboratory portion of the EMR for entire report. Clinical Information LMP: Postmenopausal Previous PAP test: Unknown date/findings Material Received ThinPrep-Vaginal/Cervical ----- ------- Signed (signature on file) Carin Ngo 02/18/24 1716 ----- ------- END OF REPORT Elizabeth Vera [facility] LAB CYTOLOGY ORDERABLES Final Result [facility] [address] [place] [address] [phone] * BI Mammogram Screening Tomosynthesis Bilateral (03/19/2023 3:16 PM EDT) Anatomical Region Laterality Modality Breast Bilateral Mammography 03/19/2023 3:16 PM EDT Narrative 04/12/2023 4:00 PM EDT [facility] [address] [place] [address] [place] [address] Mammography Report Signed Patient: Meagan Canada I MR#: [id number] : 1970 Acct:[id number] Age/Sex: 52 / F ADM Date: 03/19/23 Loc: [facility] Attending Dr: Elizabeth Vera SUPERINTENDENT MARINE Ordering Physician: Elizabeth Vera Results: Date of Service: 03/19/23 Follow Up: Procedure(s): MM tomosynthesis screening BI Accession Number(s): [id number] cc: Elizabeth Vera SUPERINTENDENT MARINE EXAMINATION: MM SCREENING DIGITAL BREAST TOMOSYNTHESIS, BILATERAL [...] in OV> 04/12/23 1557 DD/ 1516 TD/TT: Forge Helper: Procedure Note Donotuseinterpreter, Image - 04/12/2023 [facility] [address] [place] [address] Mammography Report Signed Patient: Meagan Canada IMR#: [id number] : 1970Acct:[id number] Age/Sex: 52 / FADM Date: 03/19/23 Loc: [facility] Attending Dr: Elizabeth Vera SUPERINTENDENT MARINE Ordering Physician: Elizabeth Vera FNPResults: Date of Service: 03/19/23Follow Up: Procedure(s): MM tomosynthesis screening BI Accession Number(s): [id number] cc: Elizabeth Vera SUPERINTENDENT MARINE EXAMINATION: MM SCREENING DIGITAL BREAST TOMOSYNTHESIS, BILATERAL [...] in OV> 04/12/23 1557 DD/ 1516 TD/TT: Forge Helper: [facility] SUPERINTENDENT MARINE IMG BI PROCEDURES Edited Resu lt - Final from Last 3 Months or Most Recently Relevant to Health Maintenance Insurance [facility] C3 D[facility] MEDICAID STAND ADULT Care Teams Clip Loading Machine Feeder Relationship Specialty Start Date End Date Elizabeth Vera FNP [address] [place] [address] [place] [address] PCP - General Family Medicine 07/20/22
== END 2025-09-01 17:59 | disposition left against medical advice (07) ==
PROVIDERS: Emergency Medicine; Emergency Provider Student in an Organized Health Care Education/Training Program
DX: R07.2 Precordial pain (principal); R79.89 Other specified abnormal findings of blood chemistry; E78.00 Pure hypercholesterolemia, unspecified; E03.9 Hypothyroidism, unspecified; F17.210 Nicotine dependence, cigarettes, uncomplicated; Z79.82 Long term (current) use of aspirin; Z79.899 Other long term (current) drug therapy; Z53.29 Procedure and treatment not carried out because of patient's decision for other reasons
CPT/HCPCS: 36415; 71045; 80053; 83880; 84484; 85025; 93005; 96374; 99284; J3360

== ENCOUNTER → 2025-09-01 12:23 | Outpatient (BNV) | payer MEDICAID, SELFPAY | PROVIDERS: Emergency Provider Student in an Organized Health Care Education/Training Program; Visit Provider Internal Medicine | DX: R94.31 Abnormal electrocardiogram [ECG] [EKG] (principal); R07.9 Chest pain, unspecified | CPT/HCPCS: 93010 ==

== ENCOUNTER → 2025-09-01 12:34 | Outpatient (BNV) | payer MEDICAID, SELFPAY | PROVIDERS: Emergency Provider Student in an Organized Health Care Education/Training Program; Visit Provider Radiology Diagnostic Radiology | DX: I51.7 Cardiomegaly (principal); J81.1 Chronic pulmonary edema | CPT/HCPCS: 71045 ==